=== PATIENT | male | born 1990 | race Caucasian/White ===

== ENCOUNTER 2016-05-12 07:51 | Inpatient (IN) | payer OTHER, MEDICARE, MEDICAID ==
--- NOTE | 2016-05-12 08:30 | ED ---
Psychiatric Complaint - HPI Summary HPI Summary: Patient has schizophrenia and last night he heard voices that encouraged him to not take his regular medications. He did not and instead took caffeine pills and didn't eat. He is here with his mother who says he took his medication this morning and ate a bagel at her urging. He is presenting now because his mother says "they waited too long" last time. He denies SI or HI, but says the voices are becoming more aggressive. - History Of Current Complaint Chief Complaint: [facility]ental[facility] Time Seen by Provider: 05/12/16 07:55 Hx Obtained From: Patient, Family/Dental Laboratory Technician Onset/Duration: Gradual Onset Timing: Constant Severity Initially: Moderate Severity Currently: Severe Character: Manic, Lethargic Aggravating Factor(s): Medication Non-compliance Alleviating Factor(s): Nothing Associated Signs And Symptoms: Positive: Hallucinating, Paranoid Behavior, Appetite Change Related History: Positive For: Prior Psychiatric Issues - Allergies/Home Medications Allergies/Adverse Reactions: Allergies Allergy/AdvReac Type Severity Reaction Status Date / Time Haloperidol [From Haldol] Allergy Severe See Comment Verified 05/12/16 11:33 Lurasidone [From Latuda] Allergy Intermediate See Comment Verified 05/12/16 11: 33 Chlorpromazine AdvReac syncope Verified 05/12/16 11:33 [From Thorazine] Home Medications: Home Medications Cariprazine HCl [Vraylar] 4.5 mg PO DAILY 05/12/16 [History Confirmed 05/12/16] CloZAPine TAB* 50 mg PO BEDTIME 05/12/16 [History Confirmed 05/12/16] Clozapine [Fazaclo] 400 mg PO BEDTIME 05/12/16 [History Confirmed 05/12/16] Ranitidine TAB (NF) [Zantac TAB (NF)] 150 mg PO BID 05/12/16 [History Confirmed 05/12/16] PMH/Surg Hx/FS Hx/Imm Hx Endocrine/Hematology History: Denies: Hx Diabetes Cardiovascular History: Reports: Other Cardiovascular Problems/Disorders - increased QTC interval Denies: Hx Hypertension, Hx Pacemaker/ICD Respiratory History: Denies: Hx Asthma GI History: Reports: Hx Gastroesophageal Reflux Disease History: Denies: Hx Renal Disease Musculoskeletal History: Reports: Other Musculoskeletal History - hip dysplasia Sensory History: Denies: Hx Hearing Aid Neurological History: Reports: Other Neuro Impairments/Disorders - Hx of 6 concussions Denies: Hx Headaches, Hx Seizures, Hx Spinal Cord Injury, Hx Transient Ischemic Attacks (TIA) Psychiatric History: Reports: Hx Anxiety, Hx Eating Disorder - hx of restricting r/t CAH, Hx Depression, Hx Inpatient Treatment, Hx Community Mental Health Tx, Hx Schizophrenia, Hx Substance Abuse - alcohol, Other Psychiatric Issues/Disorders - psychosis, auditory hallucinations Denies: Hx Attention Deficit Hyperactivity Disorder, Hx Panic Disorder, Hx Post Traumatic Stress Disorder, Hx Bipolar Disorder, Hx Suicide Attempt, Hx of Violent Episodes Against Others - Cancer History Hx Chemotherapy: No Hx Radiation Therapy: No Hx Palliative Cancer Treatment: No Infectious Disease History: No Infectious Disease History: Denies: Hx Clostridium Difficile, Hx Hepatitis, Hx Human Immunodeficiency Virus (HIV), Hx of Known/Suspected MRSA, Hx Shingles, Hx Tuberculosis, Hx Known/ Suspected VRE, Hx Known/Suspected VRSA, History Other Infectious Disease, Traveled Outside the [place] in Last 30 Days - Family History Known Family History: Positive: Other - Psychotic disorders, Schizophrenia, anxiety Negative: Cardiac Disease, Hypertension, Diabetes Family History: R & n/C - Social History Occupation: Unemployed Lives: With Family Alcohol Use: Rare Alcohol Amount: was short term when 16 Hx Substance Use: Yes Substance Use Type: Reports: None Substance Use Comment - Amount & Last Used: denies Hx Tobacco Use: No Smoking Status (MU): Never Smoked Tobacco Review of Systems Positive: Other - hallucinating All Other Systems Reviewed And Are Negative: Yes Physical Exam Triage Information Reviewed: Yes Vital Signs On Initial Exam: Initial Vitals Temp Pulse Resp BP Pulse Ox 99.1 F 109 18 143/71 98 05/12/16 07:57 05/12/16 07:57 05/12/16 07:57 05/12/16 07:57 05/12/16 07:57 Vital Signs Reviewed: Yes Appearance: Positive: Well-Appearing, No Pain Distress, Obese Skin: Positive: Warm, Skin Color Reflects Adequate Perfusion, Dry, Soft Head/Face: Positive: Normal Head/Face Inspection Eyes: Positive: EOMI, HILARY, Conjunctiva Clear ENT: Positive: Hearing grossly normal Respiratory/Lung Sounds: Positive: Clear to Auscultation, Breath Sounds Present Cardiovascular: Positive: RRR Abdomen Description: Positive: Nontender, Soft. Negative: CVA Tenderness (R), CVA Tenderness (L) Bowel Sounds: Positive: Present Musculoskeletal: Positive: Strength/ROM Intact. Negative: Edema Left, Edema Right Neurological: Positive: Sensory/Motor Intact, Alert, Oriented to Person Place, Time, NV Bundle Intact Distally Psychiatric: Positive: Affect/Mood Appropriate AVPU Assessment: Alert Diagnostics - Vital Signs Vital Signs Temp Pulse Resp BP Pulse Ox 05/12/16 07:57 99.1 F 109 18 143/71 98 - Laboratory Result Diagrams: 05/12/16 08:30 05/12/16 08:30 Lab Statement: Any lab studies that have been ordered have been reviewed, and results considered in the medical decision making process. Course/Dx - Differential Dx/Clinical Impression Differential Diagnosis/HQI/PQRI: Positive: Acute Psychosis, Anxiety, Bipolar Disorder, Depression, Schizophrenia Provider Diagnosis: Persistent mood [affective] disorder, unspecified - Physician Notifications Patient Is Medically Stable For: Psych Evaluation Discharge - Discharge Plan Condition: Stable Disposition: ADMITTED TO [facility]
[2016-05-12 08:42] LABS: Hematocrit 45 % (42-52); Hemoglobin 14.8 g/dl (14.0-18.0); Mean Corpuscular HGB Conc 33 g/dl (31-36); Mean Corpuscular Hemoglobin 27 pg (27-31); Mean Corpuscular Volume 81 fL (80-94); Mean Platelet Volume 8 um3 (7.4-10.4); Red Blood Count 5.48 10^6/ul (4.0-5.4); Red Cell Distribution Width 14 % (10.5-15); White Blood Count 10.7 10^3/ul (3.5-10.8)
[2016-05-12 08:44] LABS: Urine Bilirubin Negative (Negative); Urine Glucose Negative (Negative); Urine Nitrite Negative (Negative)
[2016-05-12 08:57] LABS: ALT 35 U/L (7-52); AST 26 U/L (13-39); Albumin 4.7 g/dL (3.2-5.2); Alkaline Phosphatase 55 U/L (34-104); Anion Gap 7 mmol/L (2-11); BUN/Creatinine Ratio 10.4 (8-20); Blood Urea Nitrogen 15 mg/dL (6-24); CO2 Carbon Dioxide 25 mmol/L (22-32); Calcium 9.6 mg/dL (8.6-10.3); Chloride 105 mmol/L (101-111); EGFR African American 76.9 (>60); EGFR Non-African American 59.8 (>60); Globulin 2.2 g/dL (2-4); Glucose 111 mg/dL (70-100); Potassium 3.5 mmol/L (3.5-5.0); Sodium 137 mmol/L (133-145); Total Protein 6.9 g/dL (6.4-8.9)
[2016-05-12 09:04] LABS: Benzodiazepine Urine Screen None Detected (None Detect)
[2016-05-12 09:28] LABS: Acetaminophen < 15 mcg/mL; Alcohol < 10 mg/dL (<10); Salicylate < 2.50 mg/dL (<30)
[2016-05-12 09:38] LABS: TSH (Thyroid Stimulating Horm) 5.62 mcIU/mL (0.34-5.60)
[2016-05-12] MEDS ORDERED: Acetaminophen TAB* 325 MG PO PRN (10:21)
[2016-05-12] MEDS ORDERED: Al Hydrox/Mg Hydrox/Simet LIQ* 30 ML UDC PO PRN (10:21)
[2016-05-12] MEDS: Famotidine TAB* 20 MG PO SCH (15:24)
[2016-05-12] MEDS: Sertraline* 100 MG TAB PO SCH (15:24)
[2016-05-12] MEDS: CloZAPine TAB* 100 MG TAB PO SCH (20:23)
[2016-05-13] MEDS: Sertraline* 100 MG TAB PO SCH (11:52)
[2016-05-13] MEDS: Famotidine TAB* 20 MG PO SCH (11:52)
[2016-05-13] MEDS: Vitamin THERAPEUTIC TAB PO SCH (11:52)
[2016-05-13] MEDS ORDERED: CARIPRAZINE 4.5 MG PO SCH ×2 (12:30→19:56)
--- NOTE | 2016-05-13 16:10 | HP ---
DATE OF ADMISSION: 05/12/2016. JUSTIFICATION FOR ADMISSION: The patient is in need of 24 hour supervision and care secondary to frightening command auditory hallucinations accompanied with delusions telling him not to take medications, not to eat and to take caffeine pills. CHIEF COMPLAINT: "The voices were getting really scary and I know when that happens that I have to come here." HISTORY OF PRESENT ILLNESS: The patient is a 25-year-old, single, white male with a history of schizophrenia who has had several past psychiatric admissions here at [facility], who returns having been brought in by his parents due to at least a day of command auditory hallucinations telling him to discontinue his medications, stop eating and take caffeine pills. The voices were so compelling that he actually followed them the night prior to admission and was unable to sleep. All together, he only missed apparently one dose of Clozapine. Both the patient and his mother reported that he had been consistently taking his medications up until that point. He denies suicidal or self-harm thoughts; however, he felt scared and felt that he needed a medication adjustment. His mother was very much in support of admission, stating "he usually has a good sense of when he needs to be admitted into the hospital." The patient was in behavioral control at all times of the interview. When I speak with him, he is denying any recent psychosocial stressors. I note that the [facility] program has been encouraging him to take part in the PROS program which is an intensive peer to peer social organization run through [facility]; however, he feels that his schedule is already overbooked with appointment and did not feel that he could accommodate this. PAST PSYCHIATRIC HISTORY: The patient has had numerous inpatient stays beginning in 2009, which is when he had the onset of psychosis. He has also had transfers to both [place] and to [place] for stabilization over longer periods. Currently, he is in outpatient treatment at [facility] with Dr. Dulce Javed, his therapist is Nuno Alicea, and his piano case maker is Carlos Worley. Past medication trials have included Risperdal, Latuda, Abilify, Haldol and Olanzapine, as well as Depo IM Invega. His diagnosis tends to be schizophrenia. He denies any formal history of suicide attempts. PAST MEDICAL HISTORY: Significant for gastroesophageal reflux disease. CURRENT MEDICATIONS: 1. Sertraline 100 mg p.o. daily. 2. Clozapine 450 mg p.o. daily. 3. Cariprazine 4.5 mg p.o. daily. ALLERGIES: He is ALLERGIC TO HALOPERIDOL, LURASIDONE, AND CHLORPROMAZINE. FAMILY PSYCHIATRIC HISTORY: Notable for anxiety is his mother and a second cousin with psychosis, a paternal aunt with schizophrenia, a maternal cousin with borderline personality disorder and suicide attempts. He also has a brother with severe anxiety disorder and another brother who has avoidant personality disorder. SUBSTANCE ABUSE HISTORY: He used to abuse alcohol and cannabis in high school. He is not a smoker. SOCIAL HISTORY: The patient is from the [facility], lives with his parents and he has three brothers. He did well in school and was an honor student, but was not able to continue in his studies because of his psychotic illness. He was active in sports growing up and has an interest in lifting weights currently. 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 REVIEW OF SYSTEMS: The patient denies headache or double vision. He denies sore throat, cough, chest pain, difficulty breathing. He denies abdominal pain , nausea, vomiting, diarrhea, or constipation. He denies difficulty ambulating , rashes, enlarged lymph nodes, changes in weight or fevers. PHYSICAL EXAMINATION VITAL SIGNS: Blood pressure 101/45, heart rate 65, temperature 97.7 degrees Fahrenheit, respiratory rate 16, oxygen saturations are 97 percent on room air. HEENT: Head is normocephalic, atraumatic. NECK: Supple. CHEST: Clear to auscultation bilaterally. CARDIAC: Exam reveals normal heart sounds. ABDOMEN: Soft and nontender. MUSCULOSKELETAL: Exam reveals full range of motion with no sign of edema in all four extremities. NEUROLOGIC: He is grossly intact with no focal deficits. LABORATORY DATA: CBC is within normal limits as is his complete metabolic panel with the exception of his creatinine which is 1.44 which is elevated. TSH is similarly elevated at 5.62. Urinalysis is within normal limits as is his urine drug screen. His alcohol level is negative. MENTAL STATUS EXAM: The patient is a young, white male, somewhat stocky and overweight. He is lying supine in his bed, but makes good eye contact with me. He is friendly and easy to establish a rapport with. Speech does show significant latency, but he is fluent in his use of Serbian and responds adequately to my questions. Mood appears to be euthymic with a flattened affect. Thought process reveals some thought slowing. Thought content is significant for his concern over his symptoms. He is denying suicidal or homicidal ideations. He is endorsing auditory hallucinations, denies visual hallucinations. Insight and judgment are fair given his willingness to come to the hospital when he needed help. Cognitively, he is awake and alert with what appears to be an average intellect. DIAGNOSES: AXIS I: Schizophrenia. AXIS II: Deferred. AXIS III: Gastroesophageal reflux disorder, history of hip dysplasia. AXIS IV: Moderate, primary support stressors. AXIS V: Currently 40. IMPRESSION: The patient is a 25-year-old, single, white male with a history of schizophrenia who arrives complaining of command auditory hallucinations which have somehow worsened recently despite his compliance with more than one antipsychotic medication. At this point, his symptoms seem to have spontaneously improved and I think that this problem needs to be further monitored on the inpatient setting. We have had contact with his mother for collateral information and the patient does not appear to be representing any behavioral problems on our unit. He is denying suicidal or homicidal ideations. PLAN: The patient is admitted to the Adult Behavioral Health Unit where he is placed on q.30 minute checks for his own safety. We will continue his medications including Zoloft 100 mg daily, Cariprazine 4.5 mg daily, and Clozaril 450 mg nightly. I will try to reach Dr. Dulce Javed who is his psychiatrist and get a sense of what she would like to do with his medications. While he is here, he is certainly encouraged to avail himself of all milieu activities and we will be making appropriate follow-up treatment appointments at [facility] at his time of discharge from our facility. [id number]/[facility] #: [id number] JOSIAS
[2016-05-13] MEDS: CloZAPine TAB* 100 MG TAB PO SCH (20:50)
[2016-05-14 08:22] VITALS: BP 101/37
[2016-05-14] MEDS: Famotidine TAB* 20 MG PO SCH (09:32)
[2016-05-14] MEDS: Sertraline* 100 MG TAB PO SCH (09:32)
[2016-05-14] MEDS: Vitamin THERAPEUTIC TAB PO SCH (09:32)
--- NOTE | 2016-05-15 07:24 | DS ---
DISCHARGE SUMMARY: DATE OF ADMISSION: 05/12/16 DATE OF DISCHARGE: 05/14/16 DISCHARGE DIAGNOSES: [place] I: Schizophrenia. [place] II: Deferred. [place] III: Gastroesophageal reflux disorder, history of hip dysplasia. [place] IV: Moderate primary support stressors. [place] V: At the time of admission was 40 and at the time of discharge is 60. CONDITION AT THE TIME OF DISCHARGE: Stable. The patient appears to be back to his baseline level of functioning. He is continuing to experience auditory hallucinations; however, these are muffled and he cannot make out the words. They are not troubling to him. My understanding is that he has lived with chronic auditory hallucinations since the onset of his illness several years ago. The patient is future oriented stating that he would like to return to his home and go back to the gym to work out. I spoken with both of his parents who indicated they feel that he is ready for discharge and that they are in agreement with the discharge plan. The patient is himself agreeable with followup at [facility] where he has his routine scheduled appointment next week with psychiatrist, Dr. Dulce Javed. The patient is compliant with his medications and he is tolerating them well. On our unit, he has been active in groups and socializing with peers. He does not appear to be anxious or troubled at this time and he is expressing his desire to go home. We have no current legal justification for keeping him any longer on an involuntary basis. MENTAL STATUS EXAMINATION: At the time of discharge, the patient is a young white male, somewhat stocky, over-weight. He is sitting up in the day room, working on an art project. He makes good eye contact with me as I approach, and he is friendly and easy to establish a rapport with. Speech continues to show some mild latency, but he is fluent in his use of Khmer and responds adequately to my questions. Mood appears to be euthymic with a somewhat flat affect. Thought process revealed some thought slowing. Thought content is significant for his desire to be discharge from the hospital. He is denying suicidal or homicidal ideations. He is endorsing mild auditory hallucinations, but he cannot make out what is being said. He denies visual hallucinations. Insight and judgment are fair given his willingness to followup on an outpatient basis. Cognitively, he is awake and alert with what appears to be an average intellect. DISCHARGE INSTRUCTIONS: To the patient are as follows: A. Medications: The patient is on sertraline 100 mg p.o. daily, clozapine 450 mg p.o. daily, cariprazine 4.5 mg p.o. daily. He is also on Zantac 150 mg p.o. daily. B. Diet: Regular. C. Activity: As tolerated. The patient is a nonsmoker. D. Followup care: The patient is to follow up on 05/18/16, with Dr. Dulce Javed at the [facility]. He also has a therapist there, named Nuno Alicea, and a case hardener, named Carlos Worley, whom he will be following up with within the next 2 weeks. HOSPITAL COURSE: As follows: PART A: Reason for admission: The patient is a 25-year-old single white male with history of schizophrenia, who has had several past psychiatric admissions here at [facility], who returns having been brought in by his parents due to at least a day of command auditory hallucinations telling him to discontinue his medications, stop eating, and take caffeine pills. The voices were so compelling that he actually followed them the night prior to admission and was unable to sleep. Altogether he only missed apparently one dose of clozapine. Both the patient and his mother reported that he had been consistently taking his medications up until that point. He denies suicidal or self harm thoughts. However, he felt scared and felt that he needed medication adjustment. His mother was very much in support of admission, stating "he usually has a good sense of when he needs to be admitted to the hospital". The patient was in behavioral control at all times during the interview. When I speak to him, he is denying any recent psychosocial stressors. I do note that the [facility] Program has been encouraging him to take part in the PROS program, which is an intensive [id number] social organization run through [facility]; however, he feels that his schedule is already overbooked with appointment and activities and he did not feel that he could accommodate this. PART B: Psychiatric treatment rendered: The patient was admitted to the Adult Behavioral Health Unit, where he was placed on q.30-minute checks of his own safety. He was placed back on his routine outpatient medications including sertraline, clozapine, and cariprazine, which he tolerated well. I had put in a call to Dr. Dulce Javed, but unfortunately, she was out of the office, and the following day, which was the date of discharge, the patient was stating that he spontaneous improved and was no longer experiencing troubling auditory hallucinations. I called his father, Ivan Mix, who indicated that his visits had gone well with the patient and the family indicated that he was back to his baseline. At this point, the patient continues to request discharge. He is doing well and looking forward to following up with outpatient providers next week. [id number]/[facility] #: [id number] JOSIAS
== END 2016-05-14 16:25 | disposition home or self-care (01) | DRG 885 ==
LOC: ED 07:51 → BSU 11:07
PROVIDERS: ADMIT Psychiatry & Neurology Psychiatry; ATTEND Psychiatry & Neurology Psychiatry
DX: F20.9 Schizophrenia, unspecified (principal); R44.0 Auditory hallucinations; K21.9 Gastro-esophageal reflux disease without esophagitis; Z88.8 Allergy status to other drugs, medicaments and biological substances; Z79.899 Other long term (current) drug therapy; Z81.8 Family history of other mental and behavioral disorders
CPT/HCPCS: 36415; 80053; 80307; 80320; 80329; 81003; 84443; 85025; 99222; 99238; A9270-GY; G0480

== ENCOUNTER 2016-06-10 21:41 | Emergency (ER) | payer OTHER, MEDICARE, MEDICAID ==
[2016-06-11 00:16] LABS: ALT 25 U/L (7-52); AST 23 U/L (13-39); Alkaline Phosphatase 56 U/L (34-104); Anion Gap 7 mmol/L (2-11); BUN/Creatinine Ratio 8.2 (8-20); Blood Urea Nitrogen 14 mg/dL (6-24); CO2 Carbon Dioxide 26 mmol/L (22-32); Calcium 9.7 mg/dL (8.6-10.3); Chloride 104 mmol/L (101-111); EGFR African American 63.5 (>60); EGFR Non-African American 49.4 (>60); Globulin 2.4 g/dL (2-4); Glucose 93 mg/dL (70-100); Potassium 4.1 mmol/L (3.5-5.0); Sodium 137 mmol/L (133-145); Total Protein 7.4 g/dL (6.4-8.9)
[2016-06-11 00:19] LABS: Hematocrit 45 % (42-52); Hemoglobin 15.2 g/dl (14.0-18.0); Mean Corpuscular HGB Conc 34 g/dl (31-36); Mean Corpuscular Hemoglobin 28 pg (27-31); Mean Corpuscular Volume 82 fL (80-94); Mean Platelet Volume 8 um3 (7.4-10.4); Red Blood Count 5.51 10^6/ul (4.0-5.4); Red Cell Distribution Width 14 % (10.5-15); White Blood Count 9.4 10^3/ul (3.5-10.8)
[2016-06-11 00:21] LABS: Benzodiazepine Urine Screen None Detected (None Detect)
[2016-06-11 00:24] LABS: Acetaminophen < 15 mcg/mL; Alcohol < 10 mg/dL (<10); Salicylate < 2.50 mg/dL (<30)
[2016-06-11 00:25] LABS: Urine Bilirubin Negative (Negative); Urine Glucose Negative (Negative); Urine Nitrite Negative (Negative)
[2016-06-11 00:34] LABS: TSH (Thyroid Stimulating Horm) 0.97 mcIU/mL (0.34-5.60)
--- NOTE | 2016-06-11 04:28 | ED ---
Psychiatric Complaint - HPI Summary HPI Summary: 25 male presents accompanied by mother with complaints of hearing voices in his head that have been getting worse over the past few days. Patient states the voices are telling him to have sex with his family members and with children. Patient has not acted on these thoughts. Denies hallucinations and recent drug/ alcohol use. Denies suicidal/homicidal thoughts at this time. Does have a psychiatric history with hearing voice however has never had voices tell him to do these things before. No other complaints otherwise. No significant other medical problems. - History Of Current Complaint Chief Complaint: [facility] Time Seen by Provider: 06/10/16 23:44 Hx Obtained From: Patient, Family/Pearl Maker - mother Onset/Duration: Gradual Onset, Lasting Weeks Timing: Constant Severity Initially: Mild Severity Currently: Moderate Character: Depressed Aggravating Factor(s): Nothing Alleviating Factor(s): Nothing Associated Signs And Symptoms: Positive: Paranoid Behavior Related History: Positive For: Prior Psychiatric Issues Has Suicidal: Denies: Thoughts Has Homicidal: Denies: Thoughts - Risk Factor(s) Completed Suicide Risk Factors: Male - Allergies/Home Medications Allergies/Adverse Reactions: Allergies Allergy/AdvReac Type Severity Reaction Status Date / Time Haloperidol [From Haldol] Allergy Severe See Comment Verified 05/12/16 11:33 Lurasidone [From Latuda] Allergy Intermediate See Comment Verified 05/12/16 11: 33 Chlorpromazine AdvReac syncope Verified 05/12/16 11:33 [From Thorazine] PMH/Surg Hx/FS Hx/Imm Hx Endocrine/Hematology History: Denies: Hx Diabetes Cardiovascular History: Reports: Other Cardiovascular Problems/Disorders - increased QTC interval Denies: Hx Hypertension, Hx Pacemaker/ICD Respiratory History: Denies: Hx Asthma GI History: Reports: Hx Gastroesophageal Reflux Disease History: Denies: Hx Renal Disease Musculoskeletal History: Reports: Other Musculoskeletal History - hip dysplasia Sensory History: Denies: Hx Hearing Aid Neurological History: Reports: Other Neuro Impairments/Disorders - Hx of 6 concussions Denies: Hx Headaches, Hx Seizures, Hx Spinal Cord Injury, Hx Transient Ischemic Attacks (TIA) Psychiatric History: Reports: Hx Anxiety, Hx Depression, Hx Inpatient Treatment , Hx Community Mental Health Tx, Hx Schizophrenia, Hx Substance Abuse - alcohol , Other Psychiatric Issues/Disorders - psychosis, auditory hallucinations Denies: Hx Attention Deficit Hyperactivity Disorder, Hx Eating Disorder, Hx Panic Disorder, Hx Post Traumatic Stress Disorder, Hx Bipolar Disorder, Hx Suicide Attempt, Hx of Violent Episodes Against Others - Cancer History Hx Chemotherapy: No Hx Radiation Therapy: No Hx Palliative Cancer Treatment: No Infectious Disease History: No Infectious Disease History: Denies: Hx Clostridium Difficile, Hx Hepatitis, Hx Human Immunodeficiency Virus (HIV), Hx of Known/Suspected MRSA, Hx Shingles, Hx Tuberculosis, Hx Known/ Suspected VRE, Hx Known/Suspected VRSA, History Other Infectious Disease, Traveled Outside the [place] in Last 30 Days - Family History Known Family History: Positive: Other - Psychotic disorders, Schizophrenia, anxiety Negative: Cardiac Disease, Hypertension, Diabetes Family History: R & n/C - Social History Alcohol Use: Rare Alcohol Amount: was short term when 16 Hx Substance Use: Yes Substance Use Comment - Amount & Last Used: denies Hx Tobacco Use: No Smoking Status (MU): Never Smoked Tobacco Review of Systems Constitutional: Negative Eyes: Negative ENT: Negative Cardiovascular: Negative Respiratory: Negative Gastrointestinal: Negative Genitourinary: Negative Musculoskeletal: Negative Skin: Negative Neurological: Negative Positive: Anxious, Depressed, Other All Other Systems Reviewed And Are Negative: Yes Physical Exam Triage Information Reviewed: Yes Vital Signs On Initial Exam: Initial Vitals Temp Pulse Resp BP Pulse Ox 98.9 F 85 16 147/73 100 06/10/16 22:56 06/10/16 22:56 06/10/16 22:56 06/10/16 22:56 06/10/16 22:56 Vital Signs Reviewed: Yes Appearance: Positive: Well-Appearing, No Pain Distress, Well-Nourished Skin: Positive: Warm, Skin Color Reflects Adequate Perfusion, Dry Head/Face: Positive: Normal Head/Face Inspection Eyes: Positive: Normal, EOMI, HILARY, Conjunctiva Clear ENT: Positive: Normal ENT inspection, Hearing grossly normal Neck: Positive: Supple, Nontender, No Lymphadenopathy Respiratory/Lung Sounds: Positive: Clear to Auscultation, Breath Sounds Present Cardiovascular: Positive: Normal, RRR, Pulses are Symmetrical in both Upper and Lower Extremities Abdomen Description: Positive: Nontender Bowel Sounds: Positive: Present Musculoskeletal: Positive: Normal, Strength/ROM Intact Neurological: Positive: Normal, Sensory/Motor Intact, Alert, Oriented to Person Place, Time, Normal Gait Psychiatric: Positive: Depressed - [place]igo Coma Scale Best Eye Response: 4 - Spontaneous Best Motor Response: 6 - Obeys Commands Best Verbal Response: 5 - Oriented Coma Scale Total: 15 Diagnostics - Vital Signs Vital Signs Temp Pulse Resp BP Pulse Ox 06/11/16 00:45 98.4 F 74 16 125/59 97 06/10/16 23:00 98.9 F 91 16 147/73 100 06/10/16 22:56 98.9 F 85 16 147/73 100 - Laboratory Lab Results: Lab Results 06/10/16 06/10/16 06/10/16 Range/Units 23:42 23:42 23:42 WBC 9.4 (3.5-10.8) 10^3/ul RBC 5.51 H (4.0-5.4) 10^6/ul Hgb 15.2 (14.0-18.0) g/dl Hct 45 (42-52) % MCV 82 (80-94) fL MCH 28 (27-31) pg MCHC 34 (31-36) g/dl RDW 14 (10.5-15) % Plt Count 277 (150-450) 10^3/ul MPV 8 (7.4-10.4) um3 Neut % (Auto) 61.7 (38-83) % Lymph % (Auto) 30.7 (25-47) % [place] % (Auto) 7.3 (1-9) % Eos % (Auto) 0 (0-6) % Baso % (Auto) 0.3 (0-2) % Absolute Neuts (auto) 5.8 (1.5-7.7) 10^3/ul Absolute Lymphs (auto) 2.9 (1.0-4.8) 10^3/ul Absolute Monos (auto) 0.7 (0-0.8) 10^3/ul Absolute Eos (auto) 0 (0-0.6) 10^3/ul Absolute Basos (auto) 0 (0-0.2) 10^3/ul Absolute Nucleated RBC 0 10^3/ul Nucleated RBC % 0 Sodium 137 (133-145) mmol/L Potassium 4.1 (3.5-5.0) mmol/L Chloride 104 (101-111) mmol/L Carbon Dioxide 26 (22-32) mmol/L Anion Gap 7 (2-11) mmol/L BUN 14 (6-24) mg/dL Creatinine 1.70 H (0.67-1.17) mg/dL Est GFR ( Amer) 63.5 (>60) Est GFR (Non-Af Amer) 49.4 (>60) BUN/Creatinine Ratio 8.2 (8-20) Glucose 93 (70-100) mg/dL Calcium 9.7 (8.6-10.3) mg/dL Total Bilirubin 0.50 (0.2-1.0) mg/dL AST 23 (13-39) U/L ALT 25 (7-52) U/L Alkaline Phosphatase 56 (34-104) U/L Total Protein 7.4 (6.4-8.9) g/dL Albumin 5.0 (3.2-5.2) g/dL Globulin 2.4 (2-4) g/dL Albumin/Globulin Ratio 2.1 (1-3) TSH 0.97 (0.34-5.60) mcIU/mL Urine Color Yellow Urine Appearance Clear Urine pH 7.0 (5-9) Ur Specific [place] 1.009 L (1.010-1.030) Urine Protein Negative (Negative) Urine Ketones Trace H (Negative) Urine Blood Negative (Negative) Urine Nitrate Negative (Negative) Urine Bilirubin Negative (Negative) Urine Urobilinogen Negative (Negative) Ur Leukocyte Esterase Negative (Negative) Urine Glucose Negative (Negative) Urine Ascorbic Acid * H (Negative) Salicylates < 2.50 (<30) mg/dL Urine Opiates Screen (None Detect) Acetaminophen < 15 mcg/mL Ur Barbiturates Screen (None Detect) Ur Phencyclidine Scrn (None Detect) Ur Amphetamines Screen (None Detect) U Benzodiazepines Scrn (None Detect) Urine Cocaine Screen (None Detect) U Cannabinoids Screen (None Detect) Serum Alcohol < 10 (<10) mg/dL // Range/Units 23:42 WBC (3.5-10.8) 10^3/ul RBC (4.0-5.4) 10^6/ul Hgb (14.0-18.0) g/dl Hct (42-52) % MCV (80-94) fL MCH (27-31) pg MCHC (31-36) g/dl RDW (10.5-15) % Plt Count (150-450) 10^3/ul MPV (7.4-10.4) um3 Neut % (Auto) (38-83) % Lymph % (Auto) (25-47) % [place] % (Auto) (1-9) % Eos % (Auto) (0-6) % Baso % (Auto) (0-2) % Absolute Neuts (auto) (1.5-7.7) 10^3/ul Absolute Lymphs (auto) (1.0-4.8) 10^3/ul Absolute Monos (auto) (0-0.8) 10^3/ul Absolute Eos (auto) (0-0.6) 10^3/ul Absolute Basos (auto) (0-0.2) 10^3/ul Absolute Nucleated RBC 10^3/ul Nucleated RBC % Sodium (133-145) mmol/L Potassium (3.5-5.0) mmol/L Chloride (101-111) mmol/L Carbon Dioxide (22-32) mmol/L Anion Gap (2-11) mmol/L BUN (6-24) mg/dL Creatinine (0.67-1.17) mg/dL Est GFR ( Amer) (>60) Est GFR (Non-Af Amer) (>60) BUN/Creatinine Ratio (8-20) Glucose (70-100) mg/dL Calcium (8.6-10.3) mg/dL Total Bilirubin (0.2-1.0) mg/dL AST (13-39) U/L ALT (7-52) U/L Alkaline Phosphatase (34-104) U/L Total Protein (6.4-8.9) g/dL Albumin (3.2-5.2) g/dL Globulin (2-4) g/dL Albumin/Globulin Ratio (1-3) TSH (0.34-5.60) mcIU/mL Urine Color Urine Appearance Urine pH (5-9) Ur Specific [place] (1.010-1.030) Urine Protein (Negative) Urine Ketones (Negative) Urine Blood (Negative) Urine Nitrate (Negative) Urine Bilirubin (Negative) Urine Urobilinogen (Negative) Ur Leukocyte Esterase (Negative) Urine Glucose (Negative) Urine Ascorbic Acid (Negative) Salicylates (<30) mg/dL Urine Opiates Screen None detected (None Detect) Acetaminophen mcg/mL Ur Barbiturates Screen None detected (None Detect) Ur Phencyclidine Scrn None detected (None Detect) Ur Amphetamines Screen Presumptive positive H (None Detect) U Benzodiazepines Scrn None detected (None Detect) Urine Cocaine Screen None detected (None Detect) U Cannabinoids Screen None detected (None Detect) Serum Alcohol (<10) mg/dL Result Diagrams: 06/10/16 23:42 06/10/16 23:42 Lab Statement: Any lab studies that have been ordered have been reviewed, and results considered in the medical decision making process. Course/Dx - Course Course Of Treatment: patient was medically cleared and will have a MHE. Urine was positive for amphetamines. signed out to Dr Villagran for MHE at 2:20am. - Differential Dx/Clinical Impression Differential Diagnosis/HQI/PQRI: Positive: Acute Psychosis, Other Provider Diagnosis: Hearing voices, Acute psychosis, Auditory disturbance - Physician Notifications Discussed Care Of Patient With: Dr Villagran Time Discussed With Above Provider: 02:20 Patient Is Medically Stable For: Psych Evaluation Discharge - Discharge Plan Condition: Stable Disposition: OTHER Discharge Disposition Comment: signed out to Dr Villagran at 2:20am to await MHE and dispo
--- NOTE | 2016-06-11 06:30 | ED ---
Progress - Progress Note Progress Note: pt awaiting transfer - Consult/PCP Time Called: 12:30 Course/Dx - Course Course Of Treatment: patient was medically cleared and will have a MHE. Urine was positive for amphetamines. signed out to Dr Villagran for MHE at 2:20am. - Diagnoses Provider Diagnoses: Hearing voices, Acute psychosis, Auditory disturbance - Provider Notifications Discussed Care Of Patient With: Dr Villagran Time Discussed With Above Provider: 02:20
[2016-06-11 15:15] VITALS: BP 135/64
--- NOTE | 2016-06-11 15:20 | CONSULT ---
Consult Consult: Mr. Mix came in with an exacerbation of his psychosis on an earlier shift. He was medically cleared and underwent a MHE. They felt that he was safe to go home and he was D/C'd in stable condition with his folks. Diagnosis of pyschosis.
== END 2016-06-11 15:34 | disposition home or self-care (01) ==
LOC: ED 21:41
DX: F23 Brief psychotic disorder (principal); H93.3X9 Disorders of unspecified acoustic nerve; F41.9 Anxiety disorder, unspecified; F32.9 Major depressive disorder, single episode, unspecified
CPT/HCPCS: 36415; 80053; 80307; 80320; 80329; 81003; 84443; 85025; 93005; 99283; G0480

== ENCOUNTER 2016-06-16 14:13 | Inpatient (IN) | payer OTHER, MEDICARE, MEDICAID ==
[2016-06-16 14:48] LABS: Urine Bilirubin Negative (Negative); Urine Glucose Negative (Negative); Urine Nitrite Negative (Negative)
[2016-06-16 15:07] LABS: Benzodiazepine Urine Screen None Detected (None Detect)
[2016-06-16 15:13] LABS: Hematocrit 45 % (42-52); Mean Corpuscular HGB Conc 33 g/dl (31-36); Mean Corpuscular Hemoglobin 27 pg (27-31); Mean Corpuscular Volume 83 fL (80-94); Mean Platelet Volume 9 um3 (7.4-10.4); Red Blood Count 5.49 10^6/ul (4.0-5.4); Red Cell Distribution Width 14 % (10.5-15); White Blood Count 7.6 10^3/ul (3.5-10.8)
[2016-06-16 15:34] LABS: ALT 22 U/L (7-52); AST 18 U/L (13-39); Albumin 4.7 g/dL (3.2-5.2); Alkaline Phosphatase 56 U/L (34-104); Anion Gap 7 mmol/L (2-11); BUN/Creatinine Ratio 9.6 (8-20); Blood Urea Nitrogen 13 mg/dL (6-24); CO2 Carbon Dioxide 25 mmol/L (22-32); Calcium 9.3 mg/dL (8.6-10.3); Chloride 104 mmol/L (101-111); EGFR African American 82.1 (>60); EGFR Non-African American 63.8 (>60); Globulin 2.3 g/dL (2-4); Glucose 123 mg/dL (70-100); Potassium 3.8 mmol/L (3.5-5.0); Sodium 136 mmol/L (133-145)
[2016-06-16 15:49] LABS: Acetaminophen < 15 mcg/mL; Alcohol < 10 mg/dL (<10); Salicylate < 2.50 mg/dL (<30)
[2016-06-16 15:59] LABS: TSH (Thyroid Stimulating Horm) 1.45 mcIU/mL (0.34-5.60)
--- NOTE | 2016-06-16 18:24 | ED ---
Psychiatric Complaint - HPI Summary HPI Summary: Patient has a history of schizophrenia. He presents stating that he is hearing voices that are telling him to have sex with his family members and children. He denies doing so. He presents with father who is supportive. Patient denies SI /HI. Patient reports being compliant with his medication. - History Of Current Complaint Hx Obtained From: Patient, Family/Barrel Driller Onset/Duration: Gradual Onset Timing: Constant Severity Initially: Severe Severity Currently: Severe Character: Fearful Aggravating Factor(s): Nothing Alleviating Factor(s): Nothing Associated Signs And Symptoms: Positive: Hallucinating Related History: Positive For: Prior Psychiatric Issues <Hung Padilla - Last Filed: 06/16/16 18:18> <Fredy Castrejon - Last Filed: 06/19/16 14:58> - History Of Current Complaint Chief Complaint: EDMentalHealth Time Seen by Provider: 06/16/16 14:24 - Allergies/Home Medications Allergies/Adverse Reactions: Allergies Allergy/AdvReac Type Severity Reaction Status Date / Time Haloperidol [From Haldol] Allergy Severe See Comment Verified 06/16/16 20:41 Lurasidone [From Latuda] Allergy Intermediate See Comment Verified 06/16/16 20: 41 Chlorpromazine AdvReac syncope Verified 06/16/16 20:41 [From Thorazine] Home Medications: Home Medications Cariprazine HCl [Vraylar] 4.5 mg PO DAILY 06/16/16 [History Confirmed 06/16/16] PMH/Surg Hx/FS Hx/Imm Hx Endocrine/Hematology History: Denies: Hx Diabetes Cardiovascular History: Reports: Other Cardiovascular Problems/Disorders - increased QTC interval Denies: Hx Hypertension, Hx Pacemaker/ICD Respiratory History: Denies: Hx Asthma GI History: Reports: Hx Gastroesophageal Reflux Disease History: Denies: Hx Renal Disease Musculoskeletal History: Reports: Other Musculoskeletal History - hip dysplasia Sensory History: Denies: Hx Hearing Aid Neurological History: Reports: Other Neuro Impairments/Disorders - Hx of 6 concussions Denies: Hx Headaches, Hx Seizures, Hx Spinal Cord Injury, Hx Transient Ischemic Attacks (TIA) Psychiatric History: Reports: Hx Anxiety, Hx Depression, Hx Inpatient Treatment , Hx Community Mental Health Tx, Hx Schizophrenia, Hx Substance Abuse - alcohol , Other Psychiatric Issues/Disorders - psychosis, auditory hallucinations Denies: Hx Attention Deficit Hyperactivity Disorder, Hx Eating Disorder, Hx Panic Disorder, Hx Post Traumatic Stress Disorder, Hx Bipolar Disorder, Hx Suicide Attempt, Hx of Violent Episodes Against Others - Cancer History Hx Chemotherapy: No Hx Radiation Therapy: No Hx Palliative Cancer Treatment: No Infectious Disease History: No Infectious Disease History: Denies: Hx Clostridium Difficile, Hx Hepatitis, Hx Human Immunodeficiency Virus (HIV), Hx of Known/Suspected MRSA, Hx Shingles, Hx Tuberculosis, Hx Known/ Suspected VRE, Hx Known/Suspected VRSA, History Other Infectious Disease, Traveled Outside the [place] in Last 30 Days - Family History Known Family History: Positive: Other - Psychotic disorders, Schizophrenia, anxiety Negative: Cardiac Disease, Hypertension, Diabetes Family History: R & n/C - Social History Occupation: Unemployed Lives: With Family Alcohol Use: Rare Alcohol Amount: was short term when 16 Hx Substance Use: Yes Substance Use Type: Reports: None Substance Use Comment - Amount & Last Used: denies Hx Tobacco Use: No Smoking Status (MU): Never Smoked Tobacco <Hung Padilla - Last Filed: 06/16/16 18:18> Review of Systems Positive: Other - hallucinating All Other Systems Reviewed And Are Negative: Yes <Hung Padilla - Last Filed: 06/16/16 18:18> Physical Exam Triage Information Reviewed: Yes Vital Signs On Initial Exam: Initial Vitals Temp Pulse Resp BP Pulse Ox 97.9 F 92 16 143/73 99 06/16/16 14:17 06/16/16 14:17 06/16/16 14:17 06/16/16 14:17 06/16/16 14:17 Vital Signs Reviewed: Yes Appearance: Positive: Well-Appearing, No Pain Distress, Well-Nourished Skin: Positive: Warm, Skin Color Reflects Adequate Perfusion, Dry, Soft Head/Face: Positive: Normal Head/Face Inspection Eyes: Positive: EOMI, HILARY, Conjunctiva Clear ENT: Positive: Hearing grossly normal Neck: Positive: Supple, Nontender, No Lymphadenopathy Respiratory/Lung Sounds: Positive: Clear to Auscultation, Breath Sounds Present Cardiovascular: Positive: RRR Abdomen Description: Positive: Nontender, Soft Bowel Sounds: Positive: Present Musculoskeletal: Negative: Edema Left, Edema Right Neurological: Positive: Sensory/Motor Intact, Alert, Oriented to Person Place, Time, NV Bundle Intact Distally, Normal Gait Psychiatric: Positive: Other - flat affect with poor eye contact AVPU Assessment: Alert <FaustoKendellHung Lares - Last Filed: 06/16/16 18:18> Vital Signs On Initial Exam: Initial Vitals Temp Pulse Resp BP Pulse Ox 36.6 C 92 16 143/73 99 06/16/16 14:17 06/16/16 14:17 06/16/16 14:17 06/16/16 14:17 06/16/16 14:17 <Fredy Castrejon - Last Filed: 06/19/16 14:58> Diagnostics - Vital Signs Vital Signs Temp Pulse Resp BP Pulse Ox 06/16/16 17:50 99.2 F 90 16 129/67 97 06/16/16 15:58 99.0 F 72 16 133/60 97 06/16/16 14:17 97.9 F 92 16 143/73 99 - Laboratory Lab Results: Lab Results 06/16/16 06/16/16 06/16/16 Range/Units 14:35 14:35 15:00 WBC 7.6 (3.5-10.8) 10^3/ul RBC 5.49 H (4.0-5.4) 10^6/ul Hgb 15.0 (14.0-18.0) g/dl Hct 45 (42-52) % MCV 83 (80-94) fL MCH 27 (27-31) pg MCHC 33 (31-36) g/dl RDW 14 (10.5-15) % Plt Count 238 (150-450) 10^3/ul MPV 9 (7.4-10.4) um3 Neut % (Auto) 64.8 (38-83) % Lymph % (Auto) 27.9 (25-47) % Tate % (Auto) 6.6 (1-9) % Eos % (Auto) 0 (0-6) % Baso % (Auto) 0.7 (0-2) % Absolute Neuts (auto) 4.9 (1.5-7.7) 10^3/ul Absolute Lymphs (auto) 2.1 (1.0-4.8) 10^3/ul Absolute Monos (auto) 0.5 (0-0.8) 10^3/ul Absolute Eos (auto) 0 (0-0.6) 10^3/ul Absolute Basos (auto) 0.1 (0-0.2) 10^3/ul Absolute Nucleated RBC 0 10^3/ul Nucleated RBC % 0 Sodium (133-145) mmol/L Potassium (3.5-5.0) mmol/L Chloride (101-111) mmol/L Carbon Dioxide (22-32) mmol/L Anion Gap (2-11) mmol/L BUN (6-24) mg/dL Creatinine (0.67-1.17) mg/dL Est GFR ( Amer) (>60) Est GFR (Non-Af Amer) (>60) BUN/Creatinine Ratio (8-20) Glucose (70-100) mg/dL Calcium (8.6-10.3) mg/dL Total Bilirubin (0.2-1.0) mg/dL AST (13-39) U/L ALT (7-52) U/L Alkaline Phosphatase (34-104) U/L Total Protein (6.4-8.9) g/dL Albumin (3.2-5.2) g/dL Globulin (2-4) g/dL Albumin/Globulin Ratio (1-3) TSH (0.34-5.60) mcIU/mL Urine Color Yellow Urine Appearance Clear Urine pH 7.0 (5-9) Ur Specific [place] 1.011 (1.010-1.030) Urine Protein Negative (Negative) Urine Ketones Negative (Negative) Urine Blood Negative (Negative) Urine Nitrate Negative (Negative) Urine Bilirubin Negative (Negative) Urine Urobilinogen Negative (Negative) Ur Leukocyte Esterase Negative (Negative) Urine Glucose Negative (Negative) Urine Ascorbic Acid * H (Negative) Salicylates (<30) mg/dL Urine Opiates Screen None detected (None Detect) Acetaminophen mcg/mL Ur Barbiturates Screen None detected (None Detect) Ur Phencyclidine Scrn None detected (None Detect) Ur Amphetamines Screen None detected (None Detect) U Benzodiazepines Scrn None detected (None Detect) Urine Cocaine Screen None detected (None Detect) U Cannabinoids Screen None detected (None Detect) Serum Alcohol (<10) mg/dL 06/16/16 Range/Units 15:00 WBC (3.5-10.8) 10^3/ul RBC (4.0-5.4) 10^6/ul Hgb (14.0-18.0) g/dl Hct (42-52) % MCV (80-94) fL MCH (27-31) pg MCHC (31-36) g/dl RDW (10.5-15) % Plt Count (150-450) 10^3/ul MPV (7.4-10.4) um3 Neut % (Auto) (38-83) % Lymph % (Auto) (25-47) % Tate % (Auto) (1-9) % Eos % (Auto) (0-6) % Baso % (Auto) (0-2) % Absolute Neuts (auto) (1.5-7.7) 10^3/ul Absolute Lymphs (auto) (1.0-4.8) 10^3/ul Absolute Monos (auto) (0-0.8) 10^3/ul Absolute Eos (auto) (0-0.6) 10^3/ul Absolute Basos (auto) (0-0.2) 10^3/ul Absolute Nucleated RBC 10^3/ul Nucleated RBC % Sodium 136 (133-145) mmol/L Potassium 3.8 (3.5-5.0) mmol/L Chloride 104 (101-111) mmol/L Carbon Dioxide 25 (22-32) mmol/L Anion Gap 7 (2-11) mmol/L BUN 13 (6-24) mg/dL Creatinine 1.36 H (0.67-1.17) mg/dL Est GFR ( Amer) 82.1 (>60) Est GFR (Non-Af Amer) 63.8 (>60) BUN/Creatinine Ratio 9.6 (8-20) Glucose 123 H (70-100) mg/dL Calcium 9.3 (8.6-10.3) mg/dL Total Bilirubin 0.30 (0.2-1.0) mg/dL AST 18 (13-39) U/L ALT 22 (7-52) U/L Alkaline Phosphatase 56 (34-104) U/L Total Protein 7.0 (6.4-8.9) g/dL Albumin 4.7 (3.2-5.2) g/dL Globulin 2.3 (2-4) g/dL Albumin/Globulin Ratio 2.0 (1-3) TSH 1.45 (0.34-5.60) mcIU/mL Urine Color Urine Appearance Urine pH (5-9) Ur Specific [place] (1.010-1.030) Urine Protein (Negative) Urine Ketones (Negative) Urine Blood (Negative) Urine Nitrate (Negative) Urine Bilirubin (Negative) Urine Urobilinogen (Negative) Ur Leukocyte Esterase (Negative) Urine Glucose (Negative) Urine Ascorbic Acid (Negative) Salicylates < 2.50 (<30) mg/dL Urine Opiates Screen (None Detect) Acetaminophen < 15 mcg/mL Ur Barbiturates Screen (None Detect) Ur Phencyclidine Scrn (None Detect) Ur Amphetamines Screen (None Detect) U Benzodiazepines Scrn (None Detect) Urine Cocaine Screen (None Detect) U Cannabinoids Screen (None Detect) Serum Alcohol < 10 (<10) mg/dL Result Diagrams: 06/16/16 15:00 06/16/16 15:00 Lab Statement: Any lab studies that have been ordered have been reviewed, and results considered in the medical decision making process. <Hung Padilla - Last Filed: 06/16/16 18:18> - Vital Signs Vital Signs Temp Pulse Resp BP Pulse Ox 06/16/16 17:50 37.3 C 90 16 129/67 97 06/16/16 15:58 37.2 C 72 16 133/60 97 06/16/16 14:17 36.6 C 92 16 143/73 99 - Laboratory Lab Results: Lab Results 06/16/16 06/16/16 06/16/16 Range/Units 14:35 14:35 15:00 WBC 7.6 (3.5-10.8) 10^3/ul RBC 5.49 H (4.0-5.4) 10^6/ul Hgb 15.0 (14.0-18.0) g/dl Hct 45 (42-52) % MCV 83 (80-94) fL MCH 27 (27-31) pg MCHC 33 (31-36) g/dl RDW 14 (10.5-15) % Plt Count 238 (150-450) 10^3/ul MPV 9 (7.4-10.4) um3 Neut % (Auto) 64.8 (38-83) % Lymph % (Auto) 27.9 (25-47) % Tate % (Auto) 6.6 (1-9) % Eos % (Auto) 0 (0-6) % Baso % (Auto) 0.7 (0-2) % Absolute Neuts (auto) 4.9 (1.5-7.7) 10^3/ul Absolute Lymphs (auto) 2.1 (1.0-4.8) 10^3/ul Absolute Monos (auto) 0.5 (0-0.8) 10^3/ul Absolute Eos (auto) 0 (0-0.6) 10^3/ul Absolute Basos (auto) 0.1 (0-0.2) 10^3/ul Absolute Nucleated RBC 0 10^3/ul Nucleated RBC % 0 Sodium (133-145) mmol/L Potassium (3.5-5.0) mmol/L Chloride (101-111) mmol/L Carbon Dioxide (22-32) mmol/L Anion Gap (2-11) mmol/L BUN (6-24) mg/dL Creatinine (0.67-1.17) mg/dL Est GFR ( Amer) (>60) Est GFR (Non-Af Amer) (>60) BUN/Creatinine Ratio (8-20) Glucose (70-100) mg/dL Calcium (8.6-10.3) mg/dL Total Bilirubin (0.2-1.0) mg/dL AST (13-39) U/L ALT (7-52) U/L Alkaline Phosphatase (34-104) U/L Total Protein (6.4-8.9) g/dL Albumin (3.2-5.2) g/dL Globulin (2-4) g/dL Albumin/Globulin Ratio (1-3) TSH (0.34-5.60) mcIU/mL Urine Color Yellow Urine Appearance Clear Urine pH 7.0 (5-9) Ur Specific [place] 1.011 (1.010-1.030) Urine Protein Negative (Negative) Urine Ketones Negative (Negative) Urine Blood Negative (Negative) Urine Nitrate Negative (Negative) Urine Bilirubin Negative (Negative) Urine Urobilinogen Negative (Negative) Ur Leukocyte Esterase Negative (Negative) Urine Glucose Negative (Negative) Urine Ascorbic Acid * H (Negative) Salicylates (<30) mg/dL Urine Opiates Screen None detected (None Detect) Acetaminophen mcg/mL Ur Barbiturates Screen None detected (None Detect) Ur Phencyclidine Scrn None detected (None Detect) Ur Amphetamines Screen None detected (None Detect) U Benzodiazepines Scrn None detected (None Detect) Urine Cocaine Screen None detected (None Detect) U Cannabinoids Screen None detected (None Detect) Serum Alcohol (<10) mg/dL 06/16/16 Range/Units 15:00 WBC (3.5-10.8) 10^3/ul RBC (4.0-5.4) 10^6/ul Hgb (14.0-18.0) g/dl Hct (42-52) % MCV (80-94) fL MCH (27-31) pg MCHC (31-36) g/dl RDW (10.5-15) % Plt Count (150-450) 10^3/ul MPV (7.4-10.4) um3 Neut % (Auto) (38-83) % Lymph % (Auto) (25-47) % Tate % (Auto) (1-9) % Eos % (Auto) (0-6) % Baso % (Auto) (0-2) % Absolute Neuts (auto) (1.5-7.7) 10^3/ul Absolute Lymphs (auto) (1.0-4.8) 10^3/ul Absolute Monos (auto) (0-0.8) 10^3/ul Absolute Eos (auto) (0-0.6) 10^3/ul Absolute Basos (auto) (0-0.2) 10^3/ul Absolute Nucleated RBC 10^3/ul Nucleated RBC % Sodium 136 (133-145) mmol/L Potassium 3.8 (3.5-5.0) mmol/L Chloride 104 (101-111) mmol/L Carbon Dioxide 25 (22-32) mmol/L Anion Gap 7 (2-11) mmol/L BUN 13 (6-24) mg/dL Creatinine 1.36 H (0.67-1.17) mg/dL Est GFR ( Amer) 82.1 (>60) Est GFR (Non-Af Amer) 63.8 (>60) BUN/Creatinine Ratio 9.6 (8-20) Glucose 123 H (70-100) mg/dL Calcium 9.3 (8.6-10.3) mg/dL Total Bilirubin 0.30 (0.2-1.0) mg/dL AST 18 (13-39) U/L ALT 22 (7-52) U/L Alkaline Phosphatase 56 (34-104) U/L Total Protein 7.0 (6.4-8.9) g/dL Albumin 4.7 (3.2-5.2) g/dL Globulin 2.3 (2-4) g/dL Albumin/Globulin Ratio 2.0 (1-3) TSH 1.45 (0.34-5.60) mcIU/mL Urine Color Urine Appearance Urine pH (5-9) Ur Specific [place] (1.010-1.030) Urine Protein (Negative) Urine Ketones (Negative) Urine Blood (Negative) Urine Nitrate (Negative) Urine Bilirubin (Negative) Urine Urobilinogen (Negative) Ur Leukocyte Esterase (Negative) Urine Glucose (Negative) Urine Ascorbic Acid (Negative) Salicylates < 2.50 (<30) mg/dL Urine Opiates Screen (None Detect) Acetaminophen < 15 mcg/mL Ur Barbiturates Screen (None Detect) Ur Phencyclidine Scrn (None Detect) Ur Amphetamines Screen (None Detect) U Benzodiazepines Scrn (None Detect) Urine Cocaine Screen (None Detect) U Cannabinoids Screen (None Detect) Serum Alcohol < 10 (<10) mg/dL Result Diagrams: 06/16/16 15:00 06/16/16 15:00 Lab Statement: Any lab studies that have been ordered have been reviewed, and results considered in the medical decision making process. <Fredy Castrejon - Last Filed: 06/19/16 14:58> Course/Dx - Differential Dx/Clinical Impression Differential Diagnosis/HQI/PQRI: Positive: Acute Psychosis, Anxiety, Bipolar Disorder, Depression, Schizophrenia, Suicidal Ideation - Physician Notifications Patient Is Medically Stable For: Psych Evaluation <Hung Padilla - Last Filed: 06/16/16 18:18> <Fredy Castrejon - Last Filed: 06/19/16 14:58> - Differential Dx/Clinical Impression Provider Diagnosis: Persistent mood [affective] disorder, unspecified Discharge <Hung Padilla - Last Filed: 06/16/16 18:18> <Fredy Castrejon - Last Filed: 06/19/16 14:58> - Discharge Plan Condition: Stable Disposition: ADMITTED TO [facility]
[2016-06-16] MEDS ORDERED: Al Hydrox/Mg Hydrox/Simet LIQ* 30 ML UDC PO PRN (18:39)
[2016-06-16] MEDS ORDERED: Acetaminophen TAB* 325 MG PO PRN (18:39)
[2016-06-16] MEDS: CloZAPine TAB* 100 MG TAB PO SCH (20:51)
[2016-06-16] MEDS: Famotidine TAB* 20 MG PO SCH (20:51)
[2016-06-16] MEDS: CloZAPine TAB* 25 MG TAB PO SCH (20:51)
[2016-06-17] MEDS: VRAYLAR 4.5 MG PO SCH (08:29)
[2016-06-17] MEDS: Famotidine TAB* 20 MG PO SCH ×2 (08:30→20:13)
[2016-06-17] MEDS: Sertraline* 100 MG TAB PO SCH (08:31)
[2016-06-17] MEDS: Vitamin THERAPEUTIC TAB PO SCH (08:31)
--- NOTE | 2016-06-17 19:26 | HP ---
PSYCHIATRIC HISTORY AND PHYSICAL: DATE OF ADMISSION: 06/16/16 JUSTIFICATION FOR ADMISSION: The patient is having command auditory hallucinations, which he has acted on in the past, which necessitate treatment at a higher level of care including 24-hour supervision and treatment. CHIEF COMPLAINT: "My voices are getting hard to deal with." HISTORY OF PRESENT ILLNESS: The patient is a 25-year-old single white male with a history of schizophrenia, who has [place] several [place] [facility] [place] having been brought by his parents due to several days of command auditory hallucinations, which are telling him to have sex with family members and children. My understanding is that to some extent, he deals with chronic auditory hallucinations, which tend to modulate in their intensity. On , 06/10/16, he was working out in the local gym when he first experienced an auditory hallucination, which was telling him to have sex with children. He was very disturbed by this and had to leave the gym and go home. His parents brought him to the emergency room; however, they noted that our unit was full and they determined to bring him back later. He states that these hallucinations have continued and he is quite upset by them. We did note that on presentation, he had significantly long speech latency, was whispering responses when asked questions and he was appearing to look at his father during the initial evaluation to see whether his parent could answer questions for him. When I interviewed him personally, he continued to evidence responses to internal stimuli and he is somewhat withdrawn to his room and it takes him a while to respond when queried by this clinician. I asked about stressors and we do know that his brother who lives at home with him had a recent hospitalization for psychotic illness here on our unit. The patient does admit that this was stressful towards him and that he was somewhat afraid of this sibling. Other than this, he cannot identify any current psychosocial stressors that might be worsening his symptoms. He denies suicidal or homicidal ideations and states that he feels safe on the unit. PAST PSYCHIATRIC HISTORY: The patient had numerous inpatient stays beginning in 2009, which is when he had the onset of psychosis. He has also been transferred in the past to both [facility] and to [facility] in [place] for longer term stabilization. Currently, he is in outpatient treatment at [facility] with Dr. Dulce Javed. His therapist is Nuno Alicea and his director case management is Carlos Worley. Past medication trials have included Risperdal, Latuda, Abilify, Haldol, and olanzapine as well as long acting Invega Sustenna. His diagnosis tends to be schizophrenia. He denies any formal history of suicide attempts. PAST MEDICAL HISTORY: Significant for gastroesophageal reflux disease and history of hip dysplasia. CURRENT MEDICATIONS: Include: 1. Sertraline 100 mg p.o. daily. 2. Clozapine 450 mg p.o. daily. 3. Cariprazine 4.5 mg p.o. daily. ALLERGIES: He is allergic to HALOPERIDOL, LURASIDONE and CHLORPROMAZINE. FAMILY PSYCHIATRIC HISTORY: Notable for anxiety in his mother and a second cousin with psychosis. He has got a paternal aunt with schizophrenia, a maternal cousin with borderline personality disorder and suicide attempts. He has 1 brother with unspecified psychosis and another brother with avoidant personality disorder. SUBSTANCE ABUSE HISTORY: He used to abuse alcohol and cannabis in high school. He is not currently a smoker. SOCIAL HISTORY: The patient is from the [facility], lives with his parents and he has 3 brothers. He did well in school and was an honor student but was not able to continue in his studies because of his psychotic illness. He was active in sports growing up and has an interest in lifting weights currently. 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 REVIEW OF SYSTEMS: The patient denies headache or double vision. He denies sore throat, cough, chest pain, or difficulty breathing. Denies abdominal pain , nausea, vomiting, diarrhea, or constipation. Denies difficulty ambulating, rashes, enlarged lymph nodes, changes in weight or fevers. PHYSICAL EXAMINATION VITAL SIGNS: Blood pressure 91/43, heart rate 58, respiratory rate 16, temperature 97.4 degrees Fahrenheit, oxygen saturation 99% on room air. HEENT: Head is normocephalic, atraumatic. NECK: Supple. CHEST: Clear to auscultation bilaterally. CARDIAC: Exam reveals normal heart sounds. ABDOMEN: Soft and nontender. MUSCULOSKELETAL: Examination reveals a full range of motion in all 4 extremities with no sign of edema. NEUROLOGICAL: He is grossly intact with no focal deficits. LABORATORY DATA: As follows. CBC is within normal limits. CMP does reveal mild elevations in creatinine at 1.36, glucose is elevated at 123. Urinalysis is within normal limits. Urine drug screen is negative for all substances tested and serum alcohol is negligible. MENTAL STATUS: The patient is a young white male, somewhat stocky, well built, overweight. He is sitting up and makes fairly good eye contact. He is friendly , easy to establish a rapport with. Speech does show significant latency but he is fluent in his use of Kiswahili and responds eventually to my questions. Mood appears to be somewhat anxious with a corresponding anxious affect. Thought process reveals some slowing. Thought content is significant for his concern over his symptoms. He denies suicidal or homicidal ideations. He endorses auditory hallucinations of a command nature, telling him to abuse children. He denies visual hallucinations. Insight and judgment are fair given his willingness to come into the hospital when he needs help. Cognitively he is awake and alert with what would appear to be an average intellect. DIAGNOSES: Morris I: Schizophrenia. Morris II: Deferred. Morris III: Acute renal failure, gastroesophageal reflux disorder, history of hip dysplasia. Morris IV: Moderate primary support stressors. Morris V: At this time is 40. IMPRESSION: The patient is a 25-year-old single white male with a history of schizophrenia, who arrives complaining of command auditory hallucinations. These are somewhat troubling given the fact that this is a patient who has enacted commands from hallucinations in the past. At this point, his symptoms are ongoing and they may necessitate changes in his medications. I have put in a call to Dr. Dulce Javed at [facility] and I await hearing back from her at this time. PLAN: The patient is admitted to the adult behavioral health unit where he is placed on q.30 minute checks for his own safety. We will continue his medications including Zoloft 100 mg p.o. daily, cariprazine 4.5 mg p.o. daily, and Clozaril 450 mg p.o. nightly. I will try to reach Dr. Dulce Javed and get a sense of what she might like to do with his medications. While he is here, he is certainly encouraged to avail himself of all milieu activities and we will be making appropriate followup treatment appointments at [facility] at his time of discharge from our facility. [id number]/[facility] #: [id number] [facility]
[2016-06-17] MEDS: CloZAPine TAB* 100 MG TAB PO SCH (20:12)
[2016-06-17] MEDS: CloZAPine TAB* 25 MG TAB PO SCH (20:13)
[2016-06-18] MEDS: Famotidine TAB* 20 MG PO SCH ×2 (09:28→20:33)
[2016-06-18] MEDS: Vitamin THERAPEUTIC TAB PO SCH (09:28)
[2016-06-18] MEDS: Sertraline* 100 MG TAB PO SCH (09:28)
[2016-06-18] MEDS: VRAYLAR 4.5 MG PO SCH (09:29)
--- NOTE | 2016-06-18 15:28 | PN ---
Subjective - Subjective Service Type: [id number] Hosp care 15 min low complexity Subjective: The patient reports that he is feeling symptomatically better today. His voices are still present, but they are less commanding in nature. He is somewhat isolative on the unit and has not been participating in groups. His blood sample was sent out last night for a clozapine therapeutic serum level. He denies SI or HI. Objective - Appearance Appearance: Well Developed/Nourished Dysmorphic Features: No Hygiene: Normal Grooming: Well Kept - Behavior Psychomotor Activities: Normal Exhibits Abnormal Movement: No - Attitude and Relatedness Attitude and Relatedness: Cooperative Eye Contact: Fair - Speech Quality: Unpressured Latencies: Long Quantity: Terse - Mood Patient's Decription of Mood: "Okay" - Affect Observed Affect: Unvariable Affect Consistent with: Euthymia - Thought Process Patient's Thought Process: Impoverished Thought Content: No Passive Wish, No Suicidal Planning, No Homicidal Ideation, No Paranoid Ideation - Sensorium Experiencing Hallucinations: Yes Type of Hallucinations: Visual: No, Auditory: Yes, Command: Yes - Level of Consciousness Level of Consciousness: Alert Orientation: Yes Intact, Yes Orientated to Time, Yes Orientated to Place, Yes Orientated to Person - Impulse Control Impulse Control: Intact - Insight and Judgement Insight and Judgement: Good - Group Participation Particating in Group Activities: No - Medication Management Medication Management Adherence: Yes Assessment - Assessment Merits Inpatient Hospitalization: To Initiate Treatment, Consolidate Improvements Inpatient DSM-IV Dx: Schizophrenia Clinical Impression: 25 y.o. single, white male with a history of schizophrenia admitted voluntarily due to command AH telling him to sexually abuse children. He has acted upon hallucinatory directives before and he and his family felt he would benefit from admission to the inpatient setting. Plan - Plan Treatment Plan: Name: JOSH ZAMAN Birthdate: 1990 [id number] We await clozapine levels. In the meantime will increase clozapine from 450 to 500mg PO qhs. He is also taking cariprazine 4.5mg PO qam. Patient already showing some improvement from milieu setting. Continued Medication Management: Continue Outpt Medication Medications: Current Medications Acetaminophen (Tylenol Tab*) 650 mg PO Q4H PRN PRN Reason: PAIN or TEMP > 101 F Al Hydrox/Mg Hydrox/Simethicone (Maalox Plus*) 30 ml PO Q4H PRN PRN Reason: INDIGESTION Clozapine (Clozapine Tab*) 500 mg PO BEDTIME [facility] Famotidine (Pepcid Tab*) 20 mg PO BID [facility] Last Admin: 06/18/16 09:28 Dose: 20 mg Multivitamins (Theragran Tab*) 1 tab PO DAILY [facility] Last Admin: 06/18/16 09:28 Dose: 1 tab Pto: Vraylar [ Cariprazine] 4.5mg Capsule 1 dose PO DAILY [facility] Last Admin: 06/18/16 09:29 Dose: 1 dose Sertraline HCl (Zoloft*) 100 mg PO DAILY [facility] Last Admin: 06/18/16 09:28 Dose: 100 mg - Discharge Plan Discharge Plan: Inpatient Hospitalization
[2016-06-18] MEDS: CloZAPine TAB* 100 MG TAB PO SCH (20:32)
[2016-06-19] MEDS: Vitamin THERAPEUTIC TAB PO SCH (10:22)
[2016-06-19] MEDS: Famotidine TAB* 20 MG PO SCH ×2 (10:22→20:32)
[2016-06-19] MEDS: Sertraline* 100 MG TAB PO SCH (10:22)
[2016-06-19] MEDS: VRAYLAR 4.5 MG PO SCH (10:23)
[2016-06-19] MEDS: CloZAPine TAB* 100 MG TAB PO SCH (20:32)
--- NOTE | 2016-06-20 08:10 | PN ---
Subjective - Subjective Service Type: [id number] Hosp care 15 min low complexity Subjective: Yuniel reports "doing well." He denies distress, notes feeling calm and he smiled spontaneously. He said he continues to hear "voices" but that they are not giving commands, and that the content is not distressing. He denied ideas, or hallucination content, relating to hurting himself or others , or doing anything potentially harmful to himself or others. Objective - Appearance Appearance: Obese Hygiene: Normal Grooming: Well Kept - Behavior Psychomotor Activities: Normal - Attitude and Relatedness Attitude and Relatedness: Cooperative Eye Contact: Good - Speech Quality: Unpressured Latencies: Long Quantity: Terse - Mood Patient's Decription of Mood: "Good" - Affect Observed Affect: Constricted Affect Consistent with: Euthymia - Thought Process Patient's Thought Process: Impoverished Thought Content: No Passive Wish, No Suicidal Planning, No Homicidal Ideation, No Paranoid Ideation - Sensorium Experiencing Hallucinations: Yes Type of Hallucinations: Auditory: Yes, Command: No - Level of Consciousness Level of Consciousness: Alert - Impulse Control Impulse Control: Intact - Insight and Judgement Insight and Judgement: Poor Assessment - Assessment Merits Inpatient Hospitalization: For Stabilization, To Initiate Treatment, For Ongoing Evaluation, Consolidate Improvements, For Discharge Planning, Pending Safe DC Plan Inpatient DSM-IV Dx: Schizophrenia Clinical Impression: 25 year-old male with chronic schizophrenia and history of numerous psychiatric hospitalizations. He was admitted due to concern over an apparent increase in command hallucinations with content relating to having sex with family members and sexually abusing children. Yuniel is stabilizing here. He is safe on checks, in behavioral control, and adherent with routines and medications. Clinically, symptoms are milder. He notes ongoing hallucinations but benign thought content and distress levels are subjectively and objectively low. Medication management continues the outpatient medication regimen of sertraline , cariprazine, and clozapine. Plan - Plan Treatment Plan: Name: YUNIEL ZAMAN Birthdate: 1990 [id number] Continued Medication Management: Continue Outpt Medication Medications: Current Medications Acetaminophen (Tylenol Tab*) 650 mg PO Q4H PRN PRN Reason: PAIN or TEMP > 101 F Al Hydrox/Mg Hydrox/Simethicone (Maalox Plus*) 30 ml PO Q4H PRN PRN Reason: INDIGESTION Clozapine (Clozapine Tab*) 500 mg PO BEDTIME [facility] Last Admin: 06/19/16 20:32 Dose: 500 mg Famotidine (Pepcid Tab*) 20 mg PO BID [facility] Last Admin: 06/19/16 20:32 Dose: 20 mg Multivitamins (Theragran Tab*) 1 tab PO DAILY [facility] Last Admin: 06/19/16 10:22 Dose: 1 tab Pto: Vraylar [ Cariprazine] 4.5mg Capsule 1 dose PO DAILY [facility] Last Admin: 06/19/16 10:23 Dose: 1 dose Sertraline HCl (Zoloft*) 100 mg PO DAILY [facility] Last Admin: 06/19/16 10:22 Dose: 100 mg - Discharge Plan Discharge Plan: Outpatient Follow Up
[2016-06-20] MEDS: Vitamin THERAPEUTIC TAB PO SCH (08:40)
[2016-06-20] MEDS: Sertraline* 100 MG TAB PO SCH (08:40)
[2016-06-20] MEDS: VRAYLAR 4.5 MG PO SCH (08:41)
[2016-06-20] MEDS: Famotidine TAB* 20 MG PO SCH ×2 (08:41→20:36)
[2016-06-20] MEDS: CloZAPine TAB* 100 MG TAB PO SCH (20:36)
[2016-06-21 08:47] VITALS: BP 142/67
[2016-06-21] MEDS: Famotidine TAB* 20 MG PO SCH (08:47)
[2016-06-21] MEDS: Sertraline* 100 MG TAB PO SCH (08:47)
[2016-06-21] MEDS: Vitamin THERAPEUTIC TAB PO SCH (08:47)
[2016-06-21] MEDS: VRAYLAR 4.5 MG PO SCH (08:48)
--- NOTE | 2016-06-21 14:09 | PN ---
[facility]: Group Therapy Note - Service Type Service Type: [id number] Group Psychotherapy - Cognitive Behavioral Group Therapy ( CBT):Patient attended CBT programming this morning and presented with flat affect that did not vary with discussion. Although responsive to direct prompts to respond to questions, patient did not engage in spontaneous conversation.
--- NOTE | 2016-06-22 04:59 | DS ---
DISCHARGE SUMMARY: DATE OF ADMISSION: 06/16/16 DATE OF DISCHARGE: 06/21/16 DISCHARGE DIAGNOSES: As follows: [place] I: Schizophrenia. [place] II: Deferred. [place] III: Acute renal failure, gastroesophageal reflux disorder, history of hip dysplasia. [place] IV: Moderate primary support stressors. [place] V: At the time of admission was 40 and at the time of discharge was 60. CONDITION AT THE TIME OF DISCHARGE: Improved. The patient is continuing to experience auditory hallucinations; however, he notes that they are benign in nature and not giving him any further commands to do anything risky or harmful. My understanding is that at his baseline, he does experience voices and he is requesting discharge at this time. We have spoken with his family who are in favor of taking him home and he is agreeable to following up with outpatient treatment in the community including with his psychiatrist and psychotherapist. We have increased his clozapine slightly and he appears to be doing well from this, tolerating it without any undue side effects. He is very much agreeable with maintaining his medication compliance at home after the time of discharge. The patient has no suicidal nor homicidal ideations and he has been safe on all checks throughout this hospitalization. He is much more social today, going to groups and interacting with peers. MENTAL STATUS EXAM: The patient is a young white male, stocky, well-built, overweight, he is sitting up and making fairly good eye contact. He is friendly , easy to establish a rapport with. Speech does show significant latency, but he is fluent in his use of Indonesian and responds eventually to my questions. Mood appears to be mildly anxious with a somewhat flattened affect. Thought process reveals some slowing. Thought content is significant for his desire to be discharged from the hospital today. He denies suicidal or homicidal ideations. He endorses auditory hallucinations that are friendly and benign. He denies visual hallucinations. Insight and judgment are fair given his willingness to follow up with outpatient therapy. Cognitively, he is awake and alert with what would appear to be an average intellect. DISCHARGE INSTRUCTIONS: For the patient are as follows: A. Medications: The patient is takin. Clozapine 500 mg p.o. q.h.s. 2. Cariprazine 4.5 mg p.o. daily. 3. He also takes sertraline 100 mg p.o. daily. B. Diet: Regular. C. Activities: As tolerated. The patient is a nonsmoker. D. Followup care: The patient has appointments at [facility] all within 1 week. He sees a psychiatrist named Dr. Dulce Javed. He sees a psychotherapist named Nuno Alicea, and he sees a lining caser there named Carlos Worley. HOSPITAL COURSE: As follows: Part-A. Reason for Admission: The patient is a 25-year-old single white male with a history of schizophrenia, who has had several past psychiatric admissions here at [facility], who returns having been brought in by his parents due to several days of command auditory hallucinations which are telling him to have sex with family members and children. My under-standing is that to some extent, he deals with chronic auditory hallucinations which tend to modulate in their intensity. On , 06/10/16, he was working out in a local gym when he first experienced an auditory hallucination which was telling him to have sex with children. He was very disturbed by this and had to leave the gym and go home. His parents brought him to the emergency room; however, they noted that our unit was full and they determined him to bring him home so that they could bring him in at a later time if necessary. He states that these hallucinations continued throughout that weekend and he was quite upset by them. We did note that on presentation, he had a long speech latency, was whispering responses, and when asked questions, he appeared to look to his father to see whether his parent could answer these for him. When I interviewed him personally, he continued to evidence responses to internal stimuli and was somewhat withdrawn to his room. In fact, it took him a while to respond to questions when queried by this clinician. I asked about stressors , for example, we do know that his one of his brothers was recently psychiatrically admitted to this unit. The patient admits that this was stressful and that he was somewhat afraid of this sibling. Other than this, he could not identify any psychosocial stressors that might be worsening his symptoms. He denied suicidal or homicidal ideations and states that he feels safe on the unit. Part-B: Psychiatric treatment rendered: The patient was admitted to the Adult Behavioral Health Unit, where he was placed on q.30-minute checks for his own safety. We continued all of his medications including clozapine, cariprazine, and sertraline, and did take a clozapine level. Thereafter, we spoke with his outpatient psychiatrist, Dr. Dulce Javed, who stated that she would be in favor of perhaps slight increase in his clozapine, so this was increased from 450 to 500 mg nightly. His parents went ahead and brought in a supply of cariprazine as we do not have this medication on our formulary. He took 4.5 mg tablets once a day typically in the early day time. Almost immediately upon hospitalization, he states that the quality and intensity of his auditory hallucinations changed much for the better. The voice has stopped being hostile and they stopped being of a command nature, instead they became benign and with lower volume. At this point, he is neither suicidal nor homicidal and never did present as any acute risk to himself or others and for that reason, we have determined that he is to be discharged today with followup in the community as directed. [id number]/[facility] #: [id number] JOSIAS
[2016-06-22 12:50] LABS: Clozapine 172 ng/mL (>350); Norclozapine 185 ng/mL
== END 2016-06-21 17:40 | disposition home or self-care (01) | DRG 885 ==
LOC: ED 14:13 → BSU 19:14
PROVIDERS: ADMIT Psychiatry & Neurology Psychiatry; ATTEND Psychiatry & Neurology Psychiatry
PROC: GZHZZZZ Group Psychotherapy (ICD-10-PCS; principal; 2016-06-16)
DX: F20.9 Schizophrenia, unspecified (principal); N17.9 Acute kidney failure, unspecified; K21.9 Gastro-esophageal reflux disease without esophagitis; F41.9 Anxiety disorder, unspecified; F32.9 Major depressive disorder, single episode, unspecified; Z87.820 Personal history of traumatic brain injury; Z88.8 Allergy status to other drugs, medicaments and biological substances; Z81.8 Family history of other mental and behavioral disorders; Q65.89 Other specified congenital deformities of hip
CPT/HCPCS: 36415; 80053; 80159; 80307; 80320; 80329; 81003; 84443; 85025; 90853; 99222; 99231; 99238; A9270-GY; G0480

== ENCOUNTER 2016-08-22 15:18 | Inpatient (IN) | payer OTHER, MEDICARE, MEDICAID ==
[2016-08-22 16:09] LABS: Hematocrit 44 % (42-52); Hemoglobin 14.8 g/dl (14.0-18.0); Mean Corpuscular HGB Conc 34 g/dl (31-36); Mean Corpuscular Hemoglobin 28 pg (27-31); Mean Corpuscular Volume 84 fL (80-94); Mean Platelet Volume 9 um3 (7.4-10.4); Red Blood Count 5.26 10^6/ul (4.0-5.4); Red Cell Distribution Width 14 % (10.5-15); White Blood Count 5.8 10^3/ul (3.5-10.8)
[2016-08-22 16:21] LABS: Urine Bilirubin Negative (Negative); Urine Glucose Negative (Negative); Urine Nitrite Negative (Negative)
[2016-08-22 16:31] LABS: Benzodiazepine Urine Screen None Detected (None Detect)
[2016-08-22 16:32] LABS: ALT 31 U/L (7-52); AST 28 U/L (13-39); Albumin 4.7 g/dL (3.2-5.2); Alkaline Phosphatase 58 U/L (34-104); Anion Gap 7 mmol/L (2-11); BUN/Creatinine Ratio 9.8 (8-20); Blood Urea Nitrogen 13 mg/dL (6-24); CO2 Carbon Dioxide 24 mmol/L (22-32); Calcium 9.4 mg/dL (8.6-10.3); Chloride 108 mmol/L (101-111); EGFR African American 84.3 (>60); EGFR Non-African American 65.5 (>60); Globulin 2.2 g/dL (2-4); Glucose 82 mg/dL (70-100); Potassium 3.9 mmol/L (3.5-5.0); Sodium 139 mmol/L (133-145); Total Protein 6.9 g/dL (6.4-8.9)
[2016-08-22 16:50] LABS: Acetaminophen < 15 mcg/mL; Alcohol < 10 mg/dL (<10); Salicylate < 2.50 mg/dL (<30)
[2016-08-22 17:01] LABS: TSH (Thyroid Stimulating Horm) 0.69 mcIU/mL (0.34-5.60)
--- NOTE | 2016-08-22 18:32 | ED ---
I, Oh,Sojusto, scribed for Danna Villagran MD on 08/22/16 at 1549 . Psychiatric Complaint - HPI Summary HPI Summary: This 25 y/o male presents to ED for auditory hallucination since today. Pt reports that he is hearing voices in his head telling him to drink listerine and terpentine. PMHx is significant for known schizophrenia. Pt is currently seeing unspecified psychiatrist and is currently on psychotic meds. Primary care involves Dr. Ya. - History Of Current Complaint Chief Complaint: EDMentalHealth Time Seen by Provider: 08/22/16 15:34 Hx Obtained From: Patient, Medical Records Onset/Duration: Sudden Onset Timing: Constant Aggravating Factor(s): Nothing Alleviating Factor(s): Nothing Associated Signs And Symptoms: Positive: Hallucinating - auditory hallucination Related History: Positive For: Prior Psychiatric Issues - Allergies/Home Medications Allergies/Adverse Reactions: Allergies Allergy/AdvReac Type Severity Reaction Status Date / Time Haloperidol [From Haldol] Allergy Severe See Comment Verified 08/22/16 15:21 Lurasidone [From Latuda] Allergy Intermediate See Comment Verified 08/22/16 15: 21 Chlorpromazine AdvReac syncope Verified 08/22/16 15:21 [From Thorazine] PMH/Surg Hx/FS Hx/Imm Hx Endocrine/Hematology History: Denies: Hx Diabetes Cardiovascular History: Reports: Other Cardiovascular Problems/Disorders - increased QTC interval Denies: Hx Hypertension, Hx Pacemaker/ICD Respiratory History: Denies: Hx Asthma GI History: Reports: Hx Gastroesophageal Reflux Disease History: Denies: Hx Renal Disease Musculoskeletal History: Reports: Other Musculoskeletal History - hip dysplasia Sensory History: Denies: Hx Contacts or Glasses, Hx Hearing Aid Opthamlomology History: Denies: Hx Contacts or Glasses Neurological History: Reports: Other Neuro Impairments/Disorders - Hx of 6 concussions Denies: Hx Headaches, Hx Seizures, Hx Spinal Cord Injury, Hx Transient Ischemic Attacks (TIA) Psychiatric History: Reports: Hx Anxiety, Hx Depression, Hx Inpatient Treatment , Hx Community Mental Health Tx, Hx Schizophrenia, Hx Substance Abuse - alcohol , Other Psychiatric Issues/Disorders - psychosis, auditory hallucinations Denies: Hx Attention Deficit Hyperactivity Disorder, Hx Eating Disorder, Hx Panic Disorder, Hx Post Traumatic Stress Disorder, Hx Bipolar Disorder, Hx Suicide Attempt, Hx of Violent Episodes Against Others - Cancer History Hx Chemotherapy: No Hx Radiation Therapy: No Hx Palliative Cancer Treatment: No Infectious Disease History: No Infectious Disease History: Denies: Hx Clostridium Difficile, Hx Hepatitis, Hx Human Immunodeficiency Virus (HIV), Hx of Known/Suspected MRSA, Hx Shingles, Hx Tuberculosis, Hx Known/ Suspected VRE, Hx Known/Suspected VRSA, History Other Infectious Disease, Traveled Outside the [place] in Last 30 Days - Family History Known Family History: Positive: Other - Psychotic disorders, Schizophrenia, anxiety Negative: Cardiac Disease, Hypertension, Diabetes - Social History Alcohol Use: None Alcohol Amount: was short term when 16 Hx Substance Use: Yes Substance Use Type: Reports: None Substance Use Comment - Amount & Last Used: denies Hx Tobacco Use: No Smoking Status (MU): Never Smoked Tobacco Have You Smoked in the Last Year: No Review of Systems Negative: Fever, Chills Positive: Other - auditory hallucination All Other Systems Reviewed And Are Negative: Yes Physical Exam Triage Information Reviewed: Yes Vital Signs On Initial Exam: Initial Vitals Temp Pulse Resp BP Pulse Ox 98.4 F 90 18 142/71 100 08/22/16 15:21 08/22/16 15:21 08/22/16 15:21 08/22/16 15:21 08/22/16 15:21 Vital Signs Reviewed: Yes Appearance: Positive: Well-Appearing, No Pain Distress Skin: Positive: Warm, Skin Color Reflects Adequate Perfusion Head/Face: Positive: Normal Head/Face Inspection Eyes: Positive: EOMI, HILARY Neck: Positive: Supple, Nontender Respiratory/Lung Sounds: Positive: Clear to Auscultation, Breath Sounds Present Cardiovascular: Positive: RRR, Pulses are Symmetrical in both Upper and Lower Extremities Musculoskeletal: Positive: Strength/ROM Intact Neurological: Positive: Sensory/Motor Intact, Alert, Oriented to Person Place, Time Psychiatric: Positive: Other - withdrawn AVPU Assessment: Alert Diagnostics - Vital Signs Vital Signs Temp Pulse Resp BP Pulse Ox 08/22/16 15:21 98.4 F 90 18 142/71 100 - Laboratory Lab Results: Lab Results 08/22/16 08/22/16 08/22/16 Range/Units 15:50 15:50 16:05 WBC 5.8 (3.5-10.8) 10^3/ul RBC 5.26 (4.0-5.4) 10^6/ul Hgb 14.8 (14.0-18.0) g/dl Hct 44 (42-52) % MCV 84 (80-94) fL MCH 28 (27-31) pg MCHC 34 (31-36) g/dl RDW 14 (10.5-15) % Plt Count 223 (150-450) 10^3/ul MPV 9 (7.4-10.4) um3 Neut % (Auto) 59.5 (38-83) % Lymph % (Auto) 29.9 (25-47) % Rowan % (Auto) 9.8 H (1-9) % Eos % (Auto) 0.1 (0-6) % Baso % (Auto) 0.7 (0-2) % Absolute Neuts (auto) 3.5 (1.5-7.7) 10^3/ul Absolute Lymphs (auto) 1.7 (1.0-4.8) 10^3/ul Absolute Monos (auto) 0.6 (0-0.8) 10^3/ul Absolute Eos (auto) 0 (0-0.6) 10^3/ul Absolute Basos (auto) 0 (0-0.2) 10^3/ul Absolute Nucleated RBC 0 10^3/ul Nucleated RBC % 0 Sodium 139 (133-145) mmol/L Potassium 3.9 (3.5-5.0) mmol/L Chloride 108 (101-111) mmol/L Carbon Dioxide 24 (22-32) mmol/L Anion Gap 7 (2-11) mmol/L BUN 13 (6-24) mg/dL Creatinine 1.33 H (0.67-1.17) mg/dL Est GFR ( Amer) 84.3 (>60) Est GFR (Non-Af Amer) 65.5 (>60) BUN/Creatinine Ratio 9.8 (8-20) Glucose 82 (70-100) mg/dL Calcium 9.4 (8.6-10.3) mg/dL Total Bilirubin 0.50 (0.2-1.0) mg/dL AST 28 (13-39) U/L ALT 31 (7-52) U/L Alkaline Phosphatase 58 (34-104) U/L Total Protein 6.9 (6.4-8.9) g/dL Albumin 4.7 (3.2-5.2) g/dL Globulin 2.2 (2-4) g/dL Albumin/Globulin Ratio 2.1 (1-3) TSH 0.69 (0.34-5.60) mcIU/mL Urine Color Colorless Urine Appearance Clear Urine pH 6.0 (5-9) Ur Specific [place] 1.001 L (1.010-1.030) Urine Protein Negative (Negative) Urine Ketones Negative (Negative) Urine Blood Negative (Negative) Urine Nitrate Negative (Negative) Urine Bilirubin Negative (Negative) Urine Urobilinogen Negative (Negative) Ur Leukocyte Esterase Negative (Negative) Urine Glucose Negative (Negative) Salicylates < 2.50 (<30) mg/dL Urine Opiates Screen (None Detect) Acetaminophen < 15 mcg/mL Ur Barbiturates Screen (None Detect) Ur Phencyclidine Scrn (None Detect) Ur Amphetamines Screen (None Detect) U Benzodiazepines Scrn (None Detect) Urine Cocaine Screen (None Detect) U Cannabinoids Screen (None Detect) Serum Alcohol < 10 (<10) mg/dL 08/22/16 Range/Units 16:05 WBC (3.5-10.8) 10^3/ul RBC (4.0-5.4) 10^6/ul Hgb (14.0-18.0) g/dl Hct (42-52) % MCV (80-94) fL MCH (27-31) pg MCHC (31-36) g/dl RDW (10.5-15) % Plt Count (150-450) 10^3/ul MPV (7.4-10.4) um3 Neut % (Auto) (38-83) % Lymph % (Auto) (25-47) % Rowan % (Auto) (1-9) % Eos % (Auto) (0-6) % Baso % (Auto) (0-2) % Absolute Neuts (auto) (1.5-7.7) 10^3/ul Absolute Lymphs (auto) (1.0-4.8) 10^3/ul Absolute Monos (auto) (0-0.8) 10^3/ul Absolute Eos (auto) (0-0.6) 10^3/ul Absolute Basos (auto) (0-0.2) 10^3/ul Absolute Nucleated RBC 10^3/ul Nucleated RBC % Sodium (133-145) mmol/L Potassium (3.5-5.0) mmol/L Chloride (101-111) mmol/L Carbon Dioxide (22-32) mmol/L Anion Gap (2-11) mmol/L BUN (6-24) mg/dL Creatinine (0.67-1.17) mg/dL Est GFR ( Amer) (>60) Est GFR (Non-Af Amer) (>60) BUN/Creatinine Ratio (8-20) Glucose (70-100) mg/dL Calcium (8.6-10.3) mg/dL Total Bilirubin (0.2-1.0) mg/dL AST (13-39) U/L ALT (7-52) U/L Alkaline Phosphatase (34-104) U/L Total Protein (6.4-8.9) g/dL Albumin (3.2-5.2) g/dL Globulin (2-4) g/dL Albumin/Globulin Ratio (1-3) TSH (0.34-5.60) mcIU/mL Urine Color Urine Appearance Urine pH (5-9) Ur Specific [place] (1.010-1.030) Urine Protein (Negative) Urine Ketones (Negative) Urine Blood (Negative) Urine Nitrate (Negative) Urine Bilirubin (Negative) Urine Urobilinogen (Negative) Ur Leukocyte Esterase (Negative) Urine Glucose (Negative) Salicylates (<30) mg/dL Urine Opiates Screen None detected (None Detect) Acetaminophen mcg/mL Ur Barbiturates Screen None detected (None Detect) Ur Phencyclidine Scrn None detected (None Detect) Ur Amphetamines Screen None detected (None Detect) U Benzodiazepines Scrn None detected (None Detect) Urine Cocaine Screen None detected (None Detect) U Cannabinoids Screen None detected (None Detect) Serum Alcohol (<10) mg/dL Result Diagrams: 08/22/16 15:50 08/22/16 15:50 Lab Statement: Any lab studies that have been ordered have been reviewed, and results considered in the medical decision making process. Course/Dx - Differential Dx/Clinical Impression Provider Diagnosis: Schizophrenia - Physician Notifications Discussed Care Of Patient With: MHU at 1823 PM -- Dr. Beck Instructed by Provider To: Admit As Inpatient - voluntary admission Patient Is Medically Stable For: Psych Evaluation - at 1630 PM Discharge - Discharge Plan Condition: Stable Disposition: ADMITTED TO [facility] Referrals: Aman Ya MD [Primary Care Provider] - The documentation as recorded by the John sanches Soohyun accurately reflects the service I personally performed and the decisions made by me, Danna Villagran MD.
[2016-08-22] MEDS ORDERED: Acetaminophen TAB* 325 MG PO PRN (18:38)
[2016-08-22] MEDS ORDERED: Al Hydrox/Mg Hydrox/Simet LIQ* 30 ML UDC PO PRN (18:38)
[2016-08-22] MEDS: CloZAPine TAB* 100 MG TAB PO SCH (20:49)
[2016-08-23] MEDS: Famotidine TAB* 20 MG PO SCH (09:53)
[2016-08-23] MEDS: VRAYLAR 4.5 MG PO SCH (09:54)
[2016-08-23] MEDS: Vitamin THERAPEUTIC TAB PO SCH (09:54)
[2016-08-23] MEDS: Sertraline* 100 MG TAB PO SCH (09:54)
--- NOTE | 2016-08-23 12:19 | ADMNOTE ---
Identification - Identify Employment Status: Disabled Hx Psychiatric Hospitalization: Yes - Multiple on this unit. Arrived to Hospital Via: Ambulatory History - Objective HPI: This 25 y/o male with h/o schizophrenia re admiitted due to worsening of command auditory hallucinations and the voices telling him to drink Listerin and Terpentine. He has a h/o following the commands. Denies any new stress. Exam Appearance: Obese Hygiene: Mal-odorous Grooming: Disheveled Psychomotor Activities: Abnormal-Decreased Exhibits Abnormal Movement: No Attitude and Relatedness: Cooperative Eye Contact: Good - Speech Quality: Unpressured Latencies: Long Quantity: Appropriate Patient's Decription of Mood: "Okay" Observed Affect: Constricted Patient's Thought Process: Coherent, Goal Directed Thought Content: No Passive Wish, No Suicidal Planning, No Homicidal Ideation, No Paranoid Ideation Experiencing Hallucinations: Yes Type of Hallucinations: Visual: No, Auditory: Yes, Command: Yes - Voices telling him to drink mouth wash and Terpentin. Level of Consciousness: Alert Orientation: Yes Intact, Yes Orientated to Time, Yes Orientated to Place, Yes Orientated to Person Impulse Control: Tenuous Insight and Judgement: Fair Impression - Impression Clinical Impression: 25 y/o male with h/o Schizophrenia, multiple prior admissions readmitted due to recent worsenimg of command auditory hallucinations. Reportedly complient with meds, no substance abuse or no new stress. Merits Inpatient Hospitalization: Yes - [place] Mental Illness: Schizophrenia. - [place] Medical Illness: GERD and Obesity. Plan - Treatment Plan Continued Medication Management: Continue Outpt Medication Medications: Current Medications Acetaminophen (Tylenol Tab*) 650 mg PO Q4H PRN PRN Reason: PAIN or TEMP > 101 F Al Hydrox/Mg Hydrox/Simethicone (Maalox Plus*) 30 ml PO Q4H PRN PRN Reason: INDIGESTION Clozapine (Clozapine Tab*) 500 mg PO BEDTIME [facility] Last Admin: 08/22/16 20:49 Dose: 500 mg Famotidine (Pepcid Tab*) 20 mg PO DAILY [facility] Last Admin: 08/23/16 09:53 Dose: 20 mg Multivitamins (Theragran Tab*) 1 tab PO DAILY [facility] Last Admin: 08/23/16 09:54 Dose: 1 tab Pto:Vraylar ( Cariprazine)4.5 Mg Caps 1 dose PO DAILY [facility] Last Admin: 08/23/16 09:54 Dose: 1 dose Sertraline HCl (Zoloft*) 100 mg PO DAILY [facility] Last Admin: 08/23/16 09:54 Dose: 100 mg - Discharge Plan Discharge Plan: Outpatient Follow Up Outpatient Program: Wendy Boyce [facility]
--- NOTE | 2016-08-23 14:29 | HP ---
HISTORY AND PHYSICAL: DATE OF ADMISSION: 08/22/2016. IDENTIFYING DATA: Ynuiel is a 25-year-old, never , mentally disabled male with an extensive history of mental illness and multiple psychiatric hospitalizations here and other hospitals including [facility] , was brought in to the emergency department by his mother for hospitalization. CHIEF COMPLAINT: "The voices are telling me to drink mouthwash and turpentine. " HISTORY OF PRESENT ILLNESS: This 25-year-old male, known to this unit, was rehospitalized last evening because of worsening of command auditory hallucinations over the last few days. Yuniel was unable to identify any specific reason or stress. He reports that he was doing his usual day-to-day activities such as going for fishing in local [employer] and to the gym for weightlifting. Voices got worse and were telling him to drink either mouthwash or turpentine to kill himself. Yuniel has a history of following the commands. He otherwise denies any paranoia or homicidal ideations. He appears to be somewhat depressed and apathetic, responds to questions with minimum interest in engaging in the conversation. PAST PSYCHIATRIC HISTORY: Remarkable for numerous inpatient stays beginning in 2009. Since then he was on this unit multiple times and was transferred to [facility] in [place] as well as [place] for longer term care. He is being followed at [facility] by Dr. Dulce Javed and Nuno Alicea as his therapist. He also has a casey saw operator Carlos Worley. He has had medication trials with Risperdal, Latuda, Abilify, Haldol, and olanzapine. He is currently on clozapine. PAST MEDICAL HISTORY: Remarkable for GERD and hip dysplasia. MEDICATIONS: He appears to have gained significant weight possibly because of his medications which include: 1. Zoloft 100 mg daily. 2. Clozapine 500 mg p.o. daily. 3. Cariprazine 4.5 mg p.o. daily. ALLERGIES: Per record, he is allergic to LURASIDONE, HALOPERIDOL, and CHLORPROMAZINE; however there is no mention of what type of reaction he had in the past. He also is unable to provide any meaningful information about his allergies. FAMILY PSYCHIATRIC HISTORY: Remarkable for anxiety in his mother and a second cousin with psychosis. Per records one of his paternal aunts has schizophrenia , and there are multiple other family members including one of his brothers have psychosis. SUBSTANCE USE HISTORY: Unremarkable. PERSONAL AND SOCIAL HISTORY: Yuniel is from [facility], lives with his parents and 3 siblings. He did well in school and was an honor student, but unfortunately could not continue because of his psychiatric breakdown. He always has been very active in sports, and has interest in weightlifting as well as fishing. He also spends time in music as well. PHYSICAL EXAMINATION GENERAL: Yuniel is an obese, otherwise healthy looking young man who does not appear to be in any acute physical distress. VITAL SIGNS: This morning shows a blood pressure of 100/52, pulse 63, respirations 16, temperature 97.5 degree Fahrenheit, O2 sat 97%. HEENT: Head is normocephalic, atraumatic. NECK: Supple. No thyromegaly or lymph node palpable. CHEST: Clear with bilateral air entry. CARDIAC: Exam shows normal heart sounds with S1 and S2 only. No murmurs or added sounds. ABDOMEN: Soft with bowel sounds in 4 quadrants. No organomegaly or tenderness on palpation. MUSCULOSKELETAL: Shows a full range of motion in all 4 extremities, no edema. Peripheral pulse positive. NEUROLOGICAL: Alert and oriented to time, place and person. Cranial nerves II to XII grossly intact. LABORATORY DATA: Pretty much unremarkable except for a creatinine level of 1.33 with low urine specific gravity of 1.001. CBC with differential shows a WBC count of 5.8, hemoglobin 14.8, hematocrit , platelet count of 223. Absolute neutrophil count 3.5. On chemistry profile, his sodium level of 139, potassium 3.9, chloride 108, carbon dioxide 24, BUN 13, creatinine 1.33. Urinalysis unremarkable. Toxicology screen shows a negative tox screen. MENTAL STATUS EXAMINATION: Yuniel was examined in his room. He was lying in bed with very minimum interest in participating; however, he is appropriately dressed, poorly groomed with poor personal hygiene. He makes good eye contact. Speech is soft, low in volume, however logical and goal directed. He describes his mood as depressed. Observed affect appears to be constricted. Intelligence appears to be average as evidenced by his vocabulary and fund of knowledge. Memory functions are intact in all spheres. He reports of hearing voices as we were speaking and they were telling him to drink mouthwash. Denies any paranoia at the time of examination. His insight and judgment appears to be limited. SUMMARY: This 25-year-old mentally disabled, male with previous diagnosis of schizophrenia and a positive family history of mental illness, rehospitalized due to worsening of command auditory hallucination. MENTAL HEALTH DIAGNOSIS: Schizophrenia, chronic, rule out schizoaffective disorder depressed type. PHYSICAL HEALTH DIAGNOSES: 1. Gastroesophageal reflux disease. 2. History of hip dysplasia. TREATMENT PLANS: Yuniel will remain hospitalized on the behavioral health unit for his safety and stabilization of acute symptoms. His code status will remain full. Supportive milieu, individual and group therapy will be encouraged. For now, I will continue all his home medications and defer further adjustment to his medications on his attending physician on the unit. I am going to order clozapine level and repeat his urinalysis to see if his creatinine level stays high or worsens. [id number] #: [id number] MTDD
[2016-08-23] MEDS: CloZAPine TAB* 100 MG TAB PO SCH (20:14)
[2016-08-24] MEDS: Sertraline* 100 MG TAB PO SCH (09:30)
[2016-08-24] MEDS: Famotidine TAB* 20 MG PO SCH (09:30)
[2016-08-24] MEDS: Vitamin THERAPEUTIC TAB PO SCH (09:30)
[2016-08-24] MEDS: VRAYLAR 4.5 MG PO SCH (09:30)
--- NOTE | 2016-08-24 15:05 | PN ---
Subjective - Subjective Service Type: 79722 Hosp care 15 min low complexity Subjective: Yuniel reports doing okay. Says the "voices" are milder today and have no offensive content or commands to do harmful things. Is well adjusted to the unit, finds it helpful. Reports adherence with his regimen. Objective - Appearance Appearance: Obese Hygiene: Normal Grooming: Well Kept - Behavior Psychomotor Activities: Abnormal-Decreased - Attitude and Relatedness Attitude and Relatedness: Superficially Cooperative Eye Contact: Good - Speech Quality: Unpressured Latencies: Long Quantity: Terse - Mood Patient's Decription of Mood: "Okay" - Affect Observed Affect: Unvariable Affect Consistent with: Dysphoria - mild - Thought Process Patient's Thought Process: Impoverished Thought Content: No Passive Wish, No Suicidal Planning, No Homicidal Ideation, No Paranoid Ideation - Sensorium Experiencing Hallucinations: Yes Type of Hallucinations: Visual: No, Auditory: Yes, Command: No - Level of Consciousness Level of Consciousness: Alert - Impulse Control Impulse Control: Intact - Insight and Judgement Insight and Judgement: Poor Assessment - Assessment Merits Inpatient Hospitalization: For Stabilization, For Ongoing Evaluation, Consolidate Improvements, For Discharge Planning Inpatient DSM-IV Dx: Schizophrenia Clinical Impression: 25 year-old male with chronic schizophrenia and numerous psychiatric hospitalizations. He was admitted due to concern over increase in chronic hallucinations, which included commands to harm self by drinking listerine and turpentine. Yuniel is stabilizing here. He is safe on checks, adherent with routines and medication. Overt distress levels are mild, and hallucinations are milder and more benign in content. Negative symptoms are again significant (ambivalence, apathy, paucity of speech) . Medication management continues the outpatient regimen of sertraline, clozapine. Plan - Plan Treatment Plan: Name: YUNIEL ZAMAN Birthdate: 1990 [id number] Continued Medication Management: Continue Outpt Medication Medications: Current Medications Acetaminophen (Tylenol Tab*) 650 mg PO Q4H PRN PRN Reason: PAIN or TEMP > 101 F Al Hydrox/Mg Hydrox/Simethicone (Maalox Plus*) 30 ml PO Q4H PRN PRN Reason: INDIGESTION Clozapine (Clozapine Tab*) 500 mg PO BEDTIME [facility] Last Admin: 08/23/16 20:14 Dose: 500 mg Famotidine (Pepcid Tab*) 20 mg PO DAILY [facility] Last Admin: 08/24/16 09:30 Dose: 20 mg Multivitamins (Theragran Tab*) 1 tab PO DAILY [facility] Last Admin: 08/24/16 09:30 Dose: 1 tab Pto:Vraylar ( Cariprazine)4.5 Mg Caps 1 dose PO DAILY [facility] Last Admin: 08/24/16 09:30 Dose: 1 dose Sertraline HCl (Zoloft*) 100 mg PO DAILY [facility] Last Admin: 08/24/16 09:30 Dose: 100 mg - Discharge Plan Discharge Plan: Outpatient Follow Up
[2016-08-24] MEDS: CloZAPine TAB* 100 MG TAB PO SCH (21:37)
[2016-08-25] MEDS: Famotidine TAB* 20 MG PO SCH (09:22)
[2016-08-25] MEDS: Sertraline* 100 MG TAB PO SCH (09:22)
[2016-08-25] MEDS: Vitamin THERAPEUTIC TAB PO SCH (09:22)
[2016-08-25] MEDS: VRAYLAR 4.5 MG PO SCH (09:23)
--- NOTE | 2016-08-25 11:18 | PN ---
Subjective - Subjective Service Type: [id number] Hosp care 15 min low complexity Subjective: Yuniel was napping but reported good subjective sleep overnight. He had no complaints, concerns, or spontaneous comments. He denied distress, and said "voices are not troubling" and remain milder with no commands to to anything harmful. We discussed his current episode in comparison to others, he agrees it's milder , and when given the prompt, says he'd like a brief admission and to plan d/c. Objective - Appearance Appearance: Obese Hygiene: Normal Grooming: Fairly Well Kept - Behavior Psychomotor Activities: Abnormal-Decreased - Attitude and Relatedness Attitude and Relatedness: Cooperative Eye Contact: Good - Speech Quality: Unpressured Latencies: Long Quantity: Terse - Mood Patient's Decription of Mood: "Okay" - Affect Observed Affect: Unvariable Affect Consistent with: Dysphoria - mild - Thought Process Patient's Thought Process: Impoverished Thought Content: No Passive Wish, No Suicidal Planning, No Homicidal Ideation, No Paranoid Ideation - Sensorium Experiencing Hallucinations: No, Sensorium is Clear - Level of Consciousness Level of Consciousness: Alert - Impulse Control Impulse Control: Intact - Insight and Judgement Insight and Judgement: Poor Assessment - Assessment Inpatient DSM-IV Dx: Schizophrenia Clinical Impression: 25 year-old male with chronic schizophrenia and numerous psychiatric hospitalizations. He was admitted due to concern over increase in chronic hallucinations, which included commands to harm self by drinking listerine and turpentine. Yuniel is stabilizing here. He is safe on checks, adherent with routines and medication. Overt distress levels are mild, and hallucinations are milder and more benign in content. Negative symptoms are again significant (ambivalence, apathy, paucity of speech) . Yuniel's decompensation is milder than during prior admissions (SW contact with pt's father found similar view), and he has made good progress on the unit. Brief admission, in keeping with his preference, will be appropriate. Expect discharge in next day or 2. Medication management continues the outpatient regimen of sertraline, clozapine. Plan - Plan Treatment Plan: Name: YUNIEL ZAMAN Birthdate: 1990 [id number] Continued Medication Management: Continue Outpt Medication Medications: Current Medications Acetaminophen (Tylenol Tab*) 650 mg PO Q4H PRN PRN Reason: PAIN or TEMP > 101 F Al Hydrox/Mg Hydrox/Simethicone (Maalox Plus*) 30 ml PO Q4H PRN PRN Reason: INDIGESTION Clozapine (Clozapine Tab*) 500 mg PO BEDTIME [facility] Last Admin: 08/24/16 21:37 Dose: 500 mg Famotidine (Pepcid Tab*) 20 mg PO DAILY [facility] Last Admin: 08/25/16 09:22 Dose: 20 mg Multivitamins (Theragran Tab*) 1 tab PO DAILY [facility] Last Admin: 08/25/16 09:22 Dose: 1 tab Pto:Vraylar ( Cariprazine)4.5 Mg Caps 1 dose PO DAILY [facility] Last Admin: 08/25/16 09:23 Dose: 1 dose Sertraline HCl (Zoloft*) 100 mg PO DAILY [facility] Last Admin: 08/25/16 09:22 Dose: 100 mg - Discharge Plan Discharge Plan: Outpatient Follow Up
[2016-08-25] MEDS: CloZAPine TAB* 100 MG TAB PO SCH (20:22)
[2016-08-26] MEDS: VRAYLAR 4.5 MG PO SCH (08:25)
[2016-08-26] MEDS: Vitamin THERAPEUTIC TAB PO SCH (08:25)
[2016-08-26] MEDS: Famotidine TAB* 20 MG PO SCH (08:25)
[2016-08-26] MEDS: Sertraline* 100 MG TAB PO SCH (08:25)
[2016-08-26 08:29] VITALS: BP 104/53
--- NOTE | 2016-08-26 11:08 | DS ---
Subjective - Subjective Service Types: [id number] [facility] Day Mgmt simple under 30 min Discharge Date: 08/26/16 Subjective: Yuniel was interested in going home today. He reported feeling better than at admission and denied setbacks. Mood is "okay." He affirmed he can be safe. He noted the improvement is mainly that hallucinations are not bothersome now. He denied commands, or ideas of hurting himself or anyone. We reviewed his aftercare plan and medications. He said he sees no barriers to care. Objective - Appearance Appearance: Obese Hygiene: Normal Grooming: Well Kept - Behavior Psychomotor Activities: Normal - Attitude and Relatedness Attitude and Relatedness: Cooperative Eye Contact: Good - Speech Quality: Unpressured Latencies: Long Quantity: Terse - Mood Patient's Decription of Mood: "Okay" - Affect Observed Affect: Unvariable Affect Consistent with: Euthymia - Thought Process Patient's Thought Process: Coherent, Impoverished Thought Content: No Passive Wish, No Suicidal Planning, No Homicidal Ideation, No Paranoid Ideation - Sensorium Experiencing Hallucinations: No, Sensorium is Clear - Level of Consciousness Level of Consciousness: Alert - Impulse Control Impulse Control: Intact - Insight and Judgement Insight and Judgement: Poor Treatment Course & Assessment Clinical Course & Impression: 25 year-old male with chronic schizophrenia and numerous psychiatric hospitalizations. He was admitted due to concern over increase in chronic hallucinations, which included commands to harm self by drinking listerine and turpentine. 08/26/16 Clear for release. Yuniel again stabilized here. He was safe on checks, and adherent with routines and medication. His overt distress levels were mild, and hallucinations improved - they were progressively milder and more benign in content. Command hallucinations have been a chronic symptom, therefore we do not expect the hallucinations to go away entirely. Negative symptoms are again significant (ambivalence, apathy, paucity of speech) . Yuniel's decompensation was milder than during prior admissions (SW contact with pt's father found similar view), and he made good progress rapidly on the unit. Brief admission, in keeping with his preference, was appropriate. Medication management continued the outpatient regimen of sertraline, clozapine. Yuniel again had elevated creatinine at admission. This does not require action and is appropriate for routine primary care followup. On admission risk concern centered on potential for self harm. Acute risk of harm to self (or other) is assessed as low currently on the basis of Yuniel's lower symptom burden, and his benign observed ideation and behaviors. Yuniel is at elevated chronic risk for suicide, violence, and inadvertent harm on the basis of his condition, and prior history. Inpatient DSM-IV Dx: Schizophrenia - [place] I Mental Illness: Schizophrenia. - [place] III Medical Illness: GERD and Obesity. Discharge Planning - Discharge Planning Discharge Plan: Outpatient Follow Up Outpatient Program: [facility] Recommendations for Continuing Care: Medication Management, Psychotherapy, Substance Abuse Counseling, Routine Metabolic Monitoring, Primary Care Followup Medications: Current Medications Clozapine (Clozapine Tab*) 500 mg PO BEDTIME [facility] Last Admin: 08/25/16 20:22 Dose: 500 mg Famotidine (Pepcid Tab*) 20 mg PO DAILY [facility] Last Admin: 08/26/16 08:25 Dose: 20 mg Pto:Vraylar ( Cariprazine)4.5 Mg Caps 1 dose PO DAILY [facility] Last Admin: 08/26/16 08:25 Dose: 1 dose Sertraline HCl (Zoloft*) 100 mg PO DAILY [facility] Last Admin: 08/26/16 08:25 Dose: 100 mg Discharge Planning: Prescriptions provided for discharge [] Yes [x] No Follow up care details as per social work arrangements. Patient response to discharge plan: [x] eager for discharge [] agreeable with discharge plan [] ambivalent about discharge [] disagrees with discharge today
== END 2016-08-26 14:00 | disposition home or self-care (01) | DRG 885 ==
LOC: ED 15:18 → BSU 19:52
PROVIDERS: ADMIT Internal Medicine; ATTEND Psychiatry & Neurology Psychiatry
DX: F20.5 Residual schizophrenia (principal); F32.9 Major depressive disorder, single episode, unspecified; E66.9 Obesity, unspecified; K21.9 Gastro-esophageal reflux disease without esophagitis; F99 Mental disorder, not otherwise specified; Z88.8 Allergy status to other drugs, medicaments and biological substances; Z81.8 Family history of other mental and behavioral disorders; F41.9 Anxiety disorder, unspecified; Z68.33 Body mass index [BMI] 33.0-33.9, adult
CPT/HCPCS: 36415; 80053; 80307; 80320; 80329; 81003; 84443; 85025; 99222; 99231; 99238; A9270-GY; G0480

== ENCOUNTER 2016-10-28 21:52 | Inpatient (IN) | payer OTHER, MEDICARE, MEDICAID ==
[2016-10-28 23:35] LABS: Hematocrit 42 % (42-52); Mean Corpuscular HGB Conc 34 g/dl (31-36); Mean Corpuscular Hemoglobin 28 pg (27-31); Mean Corpuscular Volume 85 fL (80-94); Mean Platelet Volume 8 um3 (7.4-10.4); Red Blood Count 4.95 10^6/ul (4.0-5.4); Red Cell Distribution Width 13 % (10.5-15); White Blood Count 7.9 10^3/ul (3.5-10.8)
[2016-10-28 23:40] LABS: Urine Bilirubin Negative (Negative); Urine Glucose Negative (Negative); Urine Nitrite Negative (Negative)
[2016-10-28 23:50] LABS: ALT 41 U/L (7-52); AST 27 U/L (13-39); Albumin 4.4 g/dL (3.2-5.2); Alkaline Phosphatase 59 U/L (34-104); Anion Gap 8 mmol/L (2-11); BUN/Creatinine Ratio 9.9 (8-20); Blood Urea Nitrogen 16 mg/dL (6-24); CO2 Carbon Dioxide 26 mmol/L (22-32); Calcium 8.9 mg/dL (8.6-10.3); Chloride 104 mmol/L (101-111); EGFR African American 67.1 (>60); EGFR Non-African American 52.2 (>60); Globulin 2.1 g/dL (2-4); Glucose 82 mg/dL (70-100); Potassium 3.6 mmol/L (3.5-5.0); Sodium 138 mmol/L (133-145); Total Protein 6.5 g/dL (6.4-8.9)
[2016-10-29 00:10] LABS: Acetaminophen < 15 mcg/mL; Alcohol < 10 mg/dL (<10); Salicylate < 2.50 mg/dL (<30)
[2016-10-29] MEDS ORDERED: CloZAPine TAB* 100 MG TAB PO ONE (00:16)
[2016-10-29 00:19] LABS: TSH (Thyroid Stimulating Horm) 1.76 mcIU/mL (0.34-5.60)
--- NOTE | 2016-10-29 00:43 | ED ---
David Beatty Alfonso, scribed for Leodan López MD on 10/29/16 at 0033 . Altered Mental Status - HPI Summary HPI Summary: This patient is a 25 year old M presenting to [facility] with a chief complaint of hearing voices since earlier today. Pt rates the pain 0/10 in severity. Symptoms aggravated and alleviated by nothing. Pt denies SI and HI. PMHx of Schizophrenia. Pt cleared for MHE at 23:20. - History Of Current Complaint Chief Complaint: EDMentalHealth Stated Complaint: MHE/HEARING VOICES Time Seen by Provider: 10/28/16 22:22 Hx Obtained From: Patient Onset/Duration: Still Present Timing: Constant, Lasting Hours - Earlier today Severity Initially: Moderate Severity Currently: Moderate Aggravating Factor(s): Nothing Alleviating Factor(s): Nothing Related History: Other: - PMHx of Schizophrenia - Allergies/Home Medications Allergies/Adverse Reactions: Allergies Allergy/AdvReac Type Severity Reaction Status Date / Time Haloperidol [From Haldol] Allergy Severe See Comment Verified 10/28/16 23:44 Lurasidone [From Latuda] Allergy Intermediate See Comment Verified 10/28/16 23: 44 Chlorpromazine AdvReac syncope Verified 10/28/16 23:44 [From Thorazine] PMH/Surg Hx/FS Hx/Imm Hx Endocrine/Hematology History: Denies: Hx Diabetes Cardiovascular History: Reports: Other Cardiovascular Problems/Disorders - increased QTC interval Denies: Hx Hypertension, Hx Pacemaker/ICD Respiratory History: Denies: Hx Asthma GI History: Reports: Hx Gastroesophageal Reflux Disease History: Denies: Hx Renal Disease Musculoskeletal History: Reports: Other Musculoskeletal History - hip dysplasia Sensory History: Denies: Hx Contacts or Glasses, Hx Hearing Aid Opthamlomology History: Denies: Hx Contacts or Glasses Neurological History: Reports: Other Neuro Impairments/Disorders - Hx of 6 concussions Denies: Hx Headaches, Hx Seizures, Hx Spinal Cord Injury, Hx Transient Ischemic Attacks (TIA) Psychiatric History: Reports: Hx Anxiety, Hx Depression, Hx Inpatient Treatment , Hx Community Mental Health Tx, Hx Schizophrenia, Hx Substance Abuse - alcohol , Other Psychiatric Issues/Disorders - psychosis, auditory hallucinations Denies: Hx Attention Deficit Hyperactivity Disorder, Hx Eating Disorder, Hx Panic Disorder, Hx Post Traumatic Stress Disorder, Hx Bipolar Disorder, Hx Suicide Attempt, Hx of Violent Episodes Against Others - Cancer History Hx Chemotherapy: No Hx Radiation Therapy: No Hx Palliative Cancer Treatment: No Infectious Disease History: Denies: Hx Clostridium Difficile, Hx Hepatitis, Hx Human Immunodeficiency Virus (HIV), Hx of Known/Suspected MRSA, Hx Shingles, Hx Tuberculosis, Hx Known/ Suspected VRE, Hx Known/Suspected VRSA, History Other Infectious Disease, Traveled Outside the [place] in Last 30 Days - Family History Known Family History: Positive: Other - Psychotic disorders, Schizophrenia, anxiety Negative: Cardiac Disease, Hypertension, Diabetes Family History: R & n/C - Social History Alcohol Use: None Alcohol Amount: was short term when 16 Hx Substance Use: Yes Substance Use Type: Reports: None Substance Use Comment - Amount & Last Used: denies Hx Tobacco Use: No Smoking Status (MU): Never Smoked Tobacco Have You Smoked in the Last Year: No Review of Systems Negative: Fever Neurological: Other - Positive hearing voices; negative SI and HI. All Other Systems Reviewed And Are Negative: Yes Physical Exam Triage Information Reviewed: Yes Vital Signs On Initial Exam: Initial Vitals Temp Pulse Resp BP Pulse Ox 98.8 F 83 16 135/82 97 10/28/16 21:54 10/28/16 21:54 10/28/16 21:54 10/28/16 21:54 10/28/16 21:54 Vital Signs Reviewed: Yes Appearance: Positive: Well-Appearing, No Pain Distress Skin: Positive: Warm Head/Face: Positive: Normal Head/Face Inspection Eyes: Positive: HILARY ENT: Positive: Hearing grossly normal Neck: Positive: Supple Respiratory/Lung Sounds: Positive: Breath Sounds Present Cardiovascular: Positive: RRR Abdomen Description: Positive: Nontender, Soft Bowel Sounds: Positive: Present Musculoskeletal: Positive: Strength/ROM Intact Neurological: Positive: Alert, Oriented to Person Place, Time Psychiatric: Positive: Anxious - [place] Coma Scale Coma Scale Total: 15 Diagnostics - Vital Signs Vital Signs Temp Pulse Resp BP Pulse Ox 10/28/16 21:54 98.8 F 83 16 135/82 97 - Laboratory Lab Results: Lab Results 10/28/16 10/28/16 10/28/16 Range/Units 23:17 23:17 23:20 WBC 7.9 (3.5-10.8) 10^3/ul RBC 4.95 (4.0-5.4) 10^6/ul Hgb 14.0 (14.0-18.0) g/dl Hct 42 (42-52) % MCV 85 (80-94) fL MCH 28 (27-31) pg MCHC 34 (31-36) g/dl RDW 13 (10.5-15) % Plt Count 231 (150-450) 10^3/ul MPV 8 (7.4-10.4) um3 Neut % (Auto) 52.0 (38-83) % Lymph % (Auto) 38.1 (25-47) % Harvey % (Auto) 9.4 H (1-9) % Eos % (Auto) 0.1 (0-6) % Baso % (Auto) 0.4 (0-2) % Absolute Neuts (auto) 4.1 (1.5-7.7) 10^3/ul Absolute Lymphs (auto) 3.0 (1.0-4.8) 10^3/ul Absolute Monos (auto) 0.7 (0-0.8) 10^3/ul Absolute Eos (auto) 0 (0-0.6) 10^3/ul Absolute Basos (auto) 0 (0-0.2) 10^3/ul Absolute Nucleated RBC 0.01 10^3/ul Nucleated RBC % 0.1 Sodium 138 (133-145) mmol/L Potassium 3.6 (3.5-5.0) mmol/L Chloride 104 (101-111) mmol/L Carbon Dioxide 26 (22-32) mmol/L Anion Gap 8 (2-11) mmol/L BUN 16 (6-24) mg/dL Creatinine 1.62 H (0.67-1.17) mg/dL Est GFR ( Amer) 67.1 (>60) Est GFR (Non-Af Amer) 52.2 (>60) BUN/Creatinine Ratio 9.9 (8-20) Glucose 82 (70-100) mg/dL Calcium 8.9 (8.6-10.3) mg/dL Total Bilirubin 0.30 (0.2-1.0) mg/dL AST 27 (13-39) U/L ALT 41 (7-52) U/L Alkaline Phosphatase 59 (34-104) U/L Total Protein 6.5 (6.4-8.9) g/dL Albumin 4.4 (3.2-5.2) g/dL Globulin 2.1 (2-4) g/dL Albumin/Globulin Ratio 2.1 (1-3) TSH 1.76 (0.34-5.60) mcIU/mL Urine Color Yellow Urine Appearance Clear Urine pH 7.0 (5-9) Ur Specific [place] 1.015 (1.010-1.030) Urine Protein Negative (Negative) Urine Ketones Negative (Negative) Urine Blood Negative (Negative) Urine Nitrate Negative (Negative) Urine Bilirubin Negative (Negative) Urine Urobilinogen Negative (Negative) Ur Leukocyte Esterase Negative (Negative) Urine Glucose Negative (Negative) Salicylates < 2.50 (<30) mg/dL Acetaminophen < 15 mcg/mL Serum Alcohol < 10 (<10) mg/dL Result Diagrams: 10/28/16 23:17 08 23:17 Lab Statement: Any lab studies that have been ordered have been reviewed, and results considered in the medical decision making process. Altered Mental Statu Course/Dx - Course Assessment/Plan: 25 year old M [facility] with a chief complaint of hearing voices since earlier today. Pt denies SI and HI. PMHx of Schizophrenia. Pt cleared for MHE at 23:20. - Diagnoses Discharge Diagnoses: Acute psychosis - Provider Notifications Instructed by Provider To: Admit As Inpatient Discharge - Discharge Plan Condition: Stable Disposition: PSYCHIATRIC FACILITY[facility] The documentation as recorded by the David sanches Alfonso accurately reflects the service I personally performed and the decisions made by , Leodan López MD.
[2016-10-29 01:01] LABS: Benzodiazepine Urine Screen None Detected (None Detect)
[2016-10-29] MEDS ORDERED: Al Hydrox/Mg Hydrox/Simet LIQ* 30 ML UDC PO PRN (04:51)
[2016-10-29] MEDS ORDERED: Acetaminophen TAB* 325 MG PO PRN (04:51)
[2016-10-29] MEDS: VRAYLAR 4.5 MG PO SCH (09:20)
[2016-10-29] MEDS: Famotidine TAB* 20 MG PO SCH ×2 (09:20→20:47)
[2016-10-29] MEDS: Vitamin THERAPEUTIC TAB PO SCH (09:20)
[2016-10-29] MEDS: Sertraline* 100 MG TAB PO SCH (09:20)
[2016-10-29] MEDS: CloZAPine TAB* 100 MG TAB PO SCH (20:47)
--- NOTE | 2016-10-29 21:56 | HP ---
HISTORY AND PHYSICAL: DATE OF ADMISSION: 10/29/16 IDENTIFYING DATA: Mr. Mix is a 25 years old, single, domiciled, unemployed, male, living at home with his parents and 2 older brothers. He was driven to this hospital by his biological mother at his request and he was admitted on voluntary status. CHIEF COMPLAINT: "The voices were telling me that people were going to cut me up!" HISTORY OF PRESENT ILLNESS: Yuniel is known to the [facility] from multiple previous inpatient psychiatric admissions. The most recent was from 08/22/16 to 08/26/16. He relates that yesterday around 9 p.m., the voices that (he always hear) became more louder and more threatening and he asked his mother to drive him to the hospital to be admitted, he said the voices told him he would be safer in the hospital. He has an established diagnosis of schizophrenia. He reports history of auditory hallucinations, that have at times, instructing him to harm himself. 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 He reports having been fully compliant with taking his prescribed medications and with keeping his therapy appointments. He cites stressor of having recently received a mailing from the licensing board of [employer] that unless he completes some continuing education classes, he was at risk of losing his credentials. He also admits to feeling somewhat socially isolated. On review of psychiatric symptoms, he denies persistently depressed mood. He denies manic symptoms. He endorses auditory hallucinations, some paranoid ideation. He denies delusions. He was reasonably organized in his thinking and his behavior. He denies excessive worrying, panic attacks, obsessive thoughts, compulsive rituals. He denies any history of trauma, abuse, or PTSD symptoms. He denies previous diagnosis of ADHD or learning disorder. He denies symptoms of eating disorder. PAST PSYCHIATRIC HISTORY: The patient relates having a history of more than 10 previous inpatient psychiatric admission, since age 18 when he had his first psychotic break in 2009. Most of his admissions have been here at [facility]. He also had at least 1 stay at [facility] and then another at the [facility]. Most recent admission was from 08/22/16 to 08/26/16. Outpatient care is at [facility] with outpatient psychiatrist, Dr. Dulce Javed, whom he last saw about a month and a half ago and therapist, BROOKE Silverio whom he saw about a month ago. MEDICATIONS: He is prescribed: 1. Sertraline 100 mg daily. 2. Vraylar 4.5 mg daily. 3. Clozapine 500 mg p.o. at bedtime. SUICIDE/HOMICIDE HISTORY: He denies any history of previous suicide attempts, self injurious behavior or violence. PAST MEDICAL HISTORY: Remarkable for history of repeated head concussions and GERD. He is followed at [facility] by Dr. Aman Ya. FAMILY HISTORY: The patient reports family history of schizophrenia in maternal second cousin. Mother has history of anxiety. One of his paternal aunts also has schizophrenia. He denies any knowledge of any relatives who may have completed suicides. SUBSTANCE ABUSE HISTORY: The patient described past use of alcohol and marijuana in high school before his first psychotic break. PERSONAL AND SOCIAL HISTORY: He is the third youngest of 4 brothers from his parents. Father works in [place] at [place] and mother is a mental health therapist. The patient lives at home with both his parents and his 23 and 27-year-old brother. His 30-year-old brother is living as an independent adult. The patient graduated from high school. He subsequently attended the school of [employer] and he took a leave of absence close to graduation, eventually obtained his licence after watching DVD's to meet requirements. He worked at [employer] in 2011 about a year in ; He also took up [employer] and Math at [employer] in the fall of 2012, but he struggled, dropped out and has not been in school since. He plans to return to [employer] in the fall to study music. He spends his time at home, playing guitar and piano. He has aspirations of forming a band. He does not have any friends. He identified as being "either heterosexual or bisexual." He has not dated. He has not been sexually active. MENTAL STATUS EXAMINATION: Finds a muscularly built 25-year-old white male with short brown hair. He looks his stated age. He is dressed in hospital scrubs. He makes poor eye contact. He presents as guarded, superficially cooperative. He exhibits some degree of psychomotor retardation. He presents with latencies in speech. He is observed mumbling under his breath when asked questions. He endorses auditory hallucinations in the form of threatening voices, but he contracts for safety. His thinking had a somewhat impoverished quality, but there were no overt delusions. He denies suicidal or homicidal ideation or urges to self mutilate and he he contracts for safety. His insight and judgment are fair. Impulse control is good in this setting. He is alert, he is oriented to time, place and person. Attention, memory, and concentration are all fair. Fund of knowledge is adequate. Intelligence is estimated to be in normal range. REVIEW OF MEDICAL SYMPTOMS: Negative. PHYSICAL EXAMINATION GENERAL: He is a muscularly built, 25-year-old white male who does not appear to be in any acute physical distress. He is alert and oriented x3. ADMISSION VITAL SIGNS: Blood pressure 135/82, pulse is 83, respirations is 16, temperature is 98.8. HEENT: Head atraumatic, normocephalic, symmetrical. Eyes: PERRLA. Tympanic membranes intact. Sclerae anicteric. Conjunctivae clear. NECK: Trachea midline, freely mobile. No cervical lymphadenopathy. No nuchal rigidity. LUNGS: Clear to auscultation bilaterally. HEART: Regular rate and rhythm. S1, S2. No murmur, gallops, or rubs. BREAST EXAM: No mass or discharge. ABDOMEN: Soft, nontender. No masses, organomegaly, or rebound tenderness. No scars noted. Active bowel sounds in all 4 quadrants. EXTREMITIES: No pain or limitation in the range of movement. Pulses are equal and adequate in all 4 extremities. NEUROLOGIC: Cranial nerves II through XII are intact. Cerebellar function intact. Muscle strength grade 5/5 in all 4 extremities. GENITAL EXAM: Not performed. RECTAL EXAM: Not performed. STRUCTURAL EXAM: The patient examined in both supine and upright positions. No gross AP or lateral asymmetry. Gait and movement are within normal limits. SKIN: Skin texture, turgor, and pigmentation are within normal limits. LABORATORIES ON ADMISSION: CBC, complete metabolic panel, urinalysis, and urine toxicology screen are all within normal limits. SUMMARY: This is a 25-year-old male, who is self referred and requested admission because of worsening auditory hallucinations that he found threatening. He has significant history of mental illness with first psychiatric break at age 18 and at least 10 previous psychiatric admissions including 2 stays at [facility]. He has outpatient care at [facility]. He reports compliance with taking prescribed medications. His medical history is noncontributory. He has family history of anxiety and psychotic disorders in relatives. He denies substance abuse. 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 DIAGNOSTIC IMPRESSION: Schizophrenia, chronic, undifferentiated type. TREATMENT PLAN: Admit to mental health unit, 15-minute checks, full code status. Legal status is voluntary. Initiate comprehensive milieu, individual and group psychotherapeutic support. Medication management will involve continuing his outpatient regimen of medications and conferring with his outpatient psychiatric providers. Discharge planning will involve coordination with his after care with [facility]. [id number]/[facility] #: [id number] JOSIAS
[2016-10-30] MEDS: Sertraline* 100 MG TAB PO SCH (08:36)
[2016-10-30] MEDS: VRAYLAR 4.5 MG PO SCH (08:36)
[2016-10-30] MEDS: Vitamin THERAPEUTIC TAB PO SCH (08:36)
[2016-10-30] MEDS: Famotidine TAB* 20 MG PO SCH ×2 (08:36→20:41)
[2016-10-30] MEDS: CloZAPine TAB* 100 MG TAB PO SCH (20:40)
[2016-10-31] MEDS: Vitamin THERAPEUTIC TAB PO SCH (09:30)
[2016-10-31] MEDS: Famotidine TAB* 20 MG PO SCH ×2 (09:30→20:25)
[2016-10-31] MEDS: Sertraline* 100 MG TAB PO SCH (09:30)
[2016-10-31] MEDS: VRAYLAR 4.5 MG PO SCH (09:31)
--- NOTE | 2016-10-31 14:37 | PN ---
Subjective - Subjective Service Type: 94623 Hosp care 15 min low complexity Subjective: Yuniel continues to have auditory hallucinations and respond to them during the assessment. Quietly sitting in the day room without participation in groups or activities. Complient with treatments. Objective - Appearance Appearance: Obese Dysmorphic Features: No Hygiene: Normal Grooming: Fairly Well Kept - Behavior Psychomotor Activities: Abnormal-Decreased - Attitude and Relatedness Attitude and Relatedness: Cooperative Eye Contact: Good - Speech Quality: Unpressured Latencies: Long Quantity: Terse - Mood Patient's Decription of Mood: "Okay" - Affect Observed Affect: Depressed Affect Consistent with: Dysphoria - Thought Process Patient's Thought Process: Coherent, Impoverished Thought Content: No Passive Wish, No Suicidal Planning, No Homicidal Ideation, No Paranoid Ideation - Sensorium Type of Hallucinations: Visual: No, Auditory: Yes, Command: No - Level of Consciousness Level of Consciousness: Alert Orientation: Yes Intact, Yes Orientated to Time, Yes Orientated to Place, Yes Orientated to Person - Impulse Control Impulse Control: Tenuous - Insight and Judgement Insight and Judgement: Fair - Group Participation Particating in Group Activities: No - Medication Management Medication Management Adherence: Yes Assessment - Assessment Merits Inpatient Hospitalization: For Stabilization Clinical Impression: Still psychotic and will need inpatient care here or in a state . Plan - Plan Treatment Plan: Name: YUNIEL ZAMAN Birthdate: 1990 [id number] Continued Medication Management: Continue Outpt Medication Medications: Current Medications Acetaminophen (Tylenol Tab*) 650 mg PO Q4H PRN PRN Reason: PAIN or TEMP > 101 F Al Hydrox/Mg Hydrox/Simethicone (Maalox Plus*) 30 ml PO Q4H PRN PRN Reason: INDIGESTION Clozapine (Clozapine Tab*) 500 mg PO BEDTIME [facility] Last Admin: 10/30/16 20:40 Dose: 500 mg Famotidine (Pepcid Tab*) 20 mg PO BID [facility] Last Admin: 10/31/16 09:30 Dose: 20 mg Multivitamins (Theragran Tab*) 1 tab PO DAILY [facility] Last Admin: 10/31/16 09:30 Dose: 1 tab Pto: Vraylar ( (Cariprazine) 4.5 Mg) 1 dose PO DAILY [facility] Last Admin: 10/31/16 09:31 Dose: 1 dose Sertraline HCl (Zoloft*) 100 mg PO DAILY [facility] Last Admin: 10/31/16 09:30 Dose: 100 mg - Discharge Plan Discharge Plan: Consider Longer Term Tx
[2016-10-31] MEDS: CloZAPine TAB* 100 MG TAB PO SCH (20:24)
[2016-11-01] MEDS: Famotidine TAB* 20 MG PO SCH ×2 (09:14→20:23)
[2016-11-01] MEDS: Sertraline* 100 MG TAB PO SCH (09:14)
[2016-11-01] MEDS: Vitamin THERAPEUTIC TAB PO SCH (09:14)
[2016-11-01] MEDS: VRAYLAR 4.5 MG PO SCH (09:14)
--- NOTE | 2016-11-01 17:23 | PN ---
Subjective - Subjective Subjective: Yuniel is found in the milieu, sitting alone while most peers are in group. He describes an ok weekend, endorses fainter and less threatening voices, ok mood and restful sleep. He denies SI/HI or A/VH and he contracts for safety. He denies side effects from prescribed meds. Per staff, he is selectively adherent to unit's routines. Objective - Appearance Appearance: Well Developed/Nourished Dysmorphic Features: No Hygiene: Normal Grooming: Well Kept - Behavior Motor Skills: Fine Motor Skills: Normal, Gross Motor Skills: Normal, Gait: Normal Psychomotor Activities: Normal Exhibits Abnormal Movement: No - Attitude and Relatedness Attitude and Relatedness: Psychotically Related Eye Contact: Fair - Speech Quality: Unpressured Latencies: Normal Quantity: Terse - Mood Patient's Decription of Mood: "Okay" - Affect Observed Affect: Unvariable Affect Consistent with: Dysphoria - Thought Process Patient's Thought Process: Coherent, Impoverished Thought Content: No Passive Wish, No Suicidal Planning, No Homicidal Ideation, No Paranoid Ideation - Sensorium Delusions: No Experiencing Hallucinations: No, Sensorium is Clear - Level of Consciousness Level of Consciousness: Alert Orientation: Yes Intact - Impulse Control Impulse Control: Intact - Insight and Judgement Insight and Judgement: Impaired Assessment - Assessment Merits Inpatient Hospitalization: Consolidate Improvements, For Discharge Planning, Pending Safe DC Plan Inpatient DSM-IV Dx: Schizophrenia chronic undifferentiated type Vs. Schizoaffective disorder, depressed type. Clinical Impression: Subjective improvement in AH, denies SI/HI, tolerating continuation of outpatient regimen. He needs continued admission for stabilization. Plan - Treatment Plan Level of Observation: 15 Minute Checks, Full Code Status Continued Medication Management: Continue Outpt Medication Medications: Current Medications Acetaminophen (Tylenol Tab*) 650 mg PO Q4H PRN PRN Reason: PAIN or TEMP > 101 F Al Hydrox/Mg Hydrox/Simethicone (Maalox Plus*) 30 ml PO Q4H PRN PRN Reason: INDIGESTION Clozapine (Clozapine Tab*) 500 mg PO BEDTIME [facility] Last Admin: 10/31/16 20:24 Dose: 500 mg Famotidine (Pepcid Tab*) 20 mg PO BID [facility] Last Admin: 11/01/16 09:14 Dose: 20 mg Multivitamins (Theragran Tab*) 1 tab PO DAILY [facility] Last Admin: 11/01/16 09:14 Dose: 1 tab Pto: Vraylar ( (Cariprazine) 4.5 Mg) 1 dose PO DAILY [facility] Last Admin: 11/01/16 09:14 Dose: 1 dose Sertraline HCl (Zoloft*) 100 mg PO DAILY [facility] Last Admin: 11/01/16 09:14 Dose: 100 mg - Discharge Plan Discharge Plan: [facility]
[2016-11-01] MEDS: CloZAPine TAB* 100 MG TAB PO SCH (20:23)
[2016-11-02] MEDS: Famotidine TAB* 20 MG PO SCH ×2 (08:24→21:19)
[2016-11-02] MEDS: Sertraline* 100 MG TAB PO SCH (08:24)
[2016-11-02] MEDS: VRAYLAR 4.5 MG PO SCH (08:25)
[2016-11-02] MEDS: Vitamin THERAPEUTIC TAB PO SCH (08:25)
--- NOTE | 2016-11-02 14:35 | PN ---
Subjective - Subjective Subjective: Yuniel reports continued improvement in AH, denies that they are instructing him to harm self or others, he denies delusions. He denies side effects from his prescribed meds and he contracts for safety. He requests discharge home in the next day or two. Per staff, he remains selectively adherent to unit's routines. Objective - Appearance Appearance: Well Developed/Nourished Dysmorphic Features: No Hygiene: Normal Grooming: Well Kept - Behavior Psychomotor Activities: Normal Exhibits Abnormal Movement: No - Attitude and Relatedness Attitude and Relatedness: Withdrawn Eye Contact: Fair - Speech Quality: Unpressured Latencies: Normal Quantity: Terse - Mood Patient's Decription of Mood: "Okay" - Affect Observed Affect: Unvariable - Thought Process Patient's Thought Process: Coherent, Goal Directed Thought Content: No Passive Wish, No Suicidal Planning, No Homicidal Ideation, No Paranoid Ideation - Sensorium Experiencing Hallucinations: Yes Type of Hallucinations: Visual: No, Auditory: Yes, Command: No - Level of Consciousness Level of Consciousness: Alert Orientation: Yes Intact - Impulse Control Impulse Control: Intact - Insight and Judgement Insight and Judgement: Fair - Group Participation Particating in Group Activities: No - Medication Management Medication Management Adherence: Yes Assessment - Assessment Merits Inpatient Hospitalization: For Ongoing Evaluation, Consolidate Improvements, For Discharge Planning Inpatient DSM-IV Dx: Schizophrenia chronic undifferentiated type Vs. Schizoaffective disorder, depressed type. Clinical Impression: Stabilizing in this structured setting with subjective improvement in AH, denies SI/HI, tolerating continuation of outpatient regimen. He needs continued admission for stabilization. Plan - Plan Treatment Plan: Name: YUNIEL ZAMAN Birthdate: 1990 [id number] Continued Medication Management: Continue Outpt Medication Medications: Current Medications Acetaminophen (Tylenol Tab*) 650 mg PO Q4H PRN PRN Reason: PAIN or TEMP > 101 F Al Hydrox/Mg Hydrox/Simethicone (Maalox Plus*) 30 ml PO Q4H PRN PRN Reason: INDIGESTION Clozapine (Clozapine Tab*) 500 mg PO BEDTIME [facility] Last Admin: 11/01/16 20:23 Dose: 500 mg Famotidine (Pepcid Tab*) 20 mg PO BID [facility] Last Admin: 11/02/16 08:24 Dose: 20 mg Multivitamins (Theragran Tab*) 1 tab PO DAILY [facility] Last Admin: 11/02/16 08:25 Dose: 1 tab Pto: Vraylar ( (Cariprazine) 4.5 Mg) 1 dose PO DAILY [facility] Last Admin: 11/02/16 08:25 Dose: 1 dose Sertraline HCl (Zoloft*) 100 mg PO DAILY [facility] Last Admin: 11/02/16 08:24 Dose: 100 mg - Discharge Plan Discharge Plan: Outpatient Follow Up Outpatient Program: [facility]
[2016-11-02] MEDS: CloZAPine TAB* 100 MG TAB PO SCH (21:18)
[2016-11-03] MEDS: Sertraline* 100 MG TAB PO SCH (08:17)
[2016-11-03] MEDS: Famotidine TAB* 20 MG PO SCH ×2 (08:17→20:31)
[2016-11-03] MEDS: VRAYLAR 4.5 MG PO SCH (08:18)
[2016-11-03] MEDS: Vitamin THERAPEUTIC TAB PO SCH (08:18)
--- NOTE | 2016-11-03 17:09 | PN ---
Subjective - Subjective Subjective: Yuniel reports endorses feeing "pretty good!" reports "vices are better and nicer." He denies that they are instructing him to harm self or others, he denies delusions. He denies side effects from his prescribed meds and he contracts for safety. He is hopeful for discharge in AM. Per staff, he remains selectively adherent to unit's routines. Objective - Appearance Appearance: Well Developed/Nourished Dysmorphic Features: No Hygiene: Normal Grooming: Well Kept - Behavior Psychomotor Activities: Normal Exhibits Abnormal Movement: No - Attitude and Relatedness Attitude and Relatedness: Cooperative Eye Contact: Fair - Speech Quality: Unpressured Latencies: Normal Quantity: Terse - Mood Patient's Decription of Mood: "Okay" - Affect Observed Affect: Constricted Affect Consistent with: Dysphoria - Thought Process Patient's Thought Process: Coherent, Goal Directed Thought Content: No Passive Wish, No Suicidal Planning, No Homicidal Ideation, No Paranoid Ideation - Sensorium Experiencing Hallucinations: No, Sensorium is Clear - Level of Consciousness Level of Consciousness: Alert Orientation: Yes Intact - Impulse Control Impulse Control: Intact - Insight and Judgement Insight and Judgement: Fair - Group Participation Particating in Group Activities: Yes - Medication Management Medication Management Adherence: Yes Assessment - Assessment Merits Inpatient Hospitalization: Consolidate Improvements, For Discharge Planning Inpatient DSM-IV Dx: Schizophrenia chronic undifferentiated type Vs. Schizoaffective disorder, depressed type. Clinical Impression: Stabilizing in this structured setting with subjective improvement in AH, denies SI/HI, tolerating continuation of outpatient regimen. Appropriate for discharge in AM. Plan - Plan Treatment Plan: Name: YUNIEL ZAMAN Birthdate: 1990 [id number] Continued Medication Management: Continue Outpt Medication Medications: Current Medications Acetaminophen (Tylenol Tab*) 650 mg PO Q4H PRN PRN Reason: PAIN or TEMP > 101 F Last Admin: 11/02/16 21:20 Dose: 650 mg Al Hydrox/Mg Hydrox/Simethicone (Maalox Plus*) 30 ml PO Q4H PRN PRN Reason: INDIGESTION Clozapine (Clozapine Tab*) 500 mg PO BEDTIME [facility] Last Admin: 11/02/16 21:18 Dose: 500 mg Famotidine (Pepcid Tab*) 20 mg PO BID [facility] Last Admin: 11/03/16 08:17 Dose: 20 mg Multivitamins (Theragran Tab*) 1 tab PO DAILY [facility] Last Admin: 11/03/16 08:18 Dose: 1 tab Pto: Vraylar ( (Cariprazine) 4.5 Mg) 1 dose PO DAILY [facility] Last Admin: 11/03/16 08:18 Dose: 1 dose Sertraline HCl (Zoloft*) 100 mg PO DAILY [facility] Last Admin: 11/03/16 08:17 Dose: 100 mg - Discharge Plan Discharge Plan: Outpatient Follow Up Outpatient Program: [facility]
[2016-11-03] MEDS: CloZAPine TAB* 100 MG TAB PO SCH (20:31)
[2016-11-04 08:05] VITALS: BP 134/68
[2016-11-04] MEDS: Famotidine TAB* 20 MG PO SCH (09:09)
[2016-11-04] MEDS: Vitamin THERAPEUTIC TAB PO SCH (09:09)
[2016-11-04] MEDS: Sertraline* 100 MG TAB PO SCH (09:09)
[2016-11-04] MEDS: VRAYLAR 4.5 MG PO SCH (09:09)
--- NOTE | 2016-11-04 12:24 | DS ---
Subjective - Subjective Discharge Date: 11/04/16 Subjective: Josh maintains readiness for discharge. He affirms she feels safe and good about being alive. He denies emotional pain or unmanageable anxiety. He reports continued auditory hallucinations but explains the voices are now fainter and gentler. He avidly denies having thoughts of suicide or homicide. He denies problems with medications, and says he does not see obstacles to routine care / therapy, or emergency help if needed again. Objective - Appearance Appearance: Well Developed/Nourished Dysmorphic Features: No Hygiene: Normal Grooming: Well Kept - Behavior Psychomotor Activities: Normal Exhibits Abnormal Movement: No - Attitude and Relatedness Attitude and Relatedness: Cooperative Eye Contact: Fair - Speech Quality: Unpressured Latencies: Normal Quantity: Appropriate - Mood Patient's Decription of Mood: "Okay" - Affect Observed Affect: Unvariable Affect Consistent with: Euthymia - Thought Process Patient's Thought Process: Coherent, Impoverished Thought Content: No Passive Wish, No Suicidal Planning, No Homicidal Ideation, No Paranoid Ideation - Sensorium Experiencing Hallucinations: No, Sensorium is Clear - Level of Consciousness Level of Consciousness: Alert Orientation: Yes Intact - Impulse Control Impulse Control: Intact - Insight and Judgement Insight and Judgement: Fair - Group Participation Particating in Group Activities: No - Medication Management Medication Management Adherence: Yes Treatment Course & Assessment Clinical Course & Impression: SUMMARY: This is a 25-year-old male, who is self referred and requested admission because of worsening auditory hallucinations that he found threatening. He has significant history of mental illness with first psychiatric break at age 18 and at least 10 previous psychiatric admissions including 2 stays at [facility]. He has outpatient care at [facility]. He reports compliance with taking prescribed medications. His medical history is noncontributory. He has family history of anxiety and psychotic disorders in relatives. He denies substance abuse. 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 Clear for release: 11/04/16 HOSPITAL COURSE: Josh stabilized here behaviorally and improved clinically. He was safe on checks, adherent with routines, and free of active suicidal ideation. He was well engaged in inpatient treatment. Medication management continued his outpatient regimen of medications. Risk concern centers on ongoing psychotic symptoms. Josh's profile puts him at chronic elevated risk for harm to self or to other but at this time acute risk is assessed as low - factors are is tolerable and reduced symptom burden, absence of impairment, and benign observed behavior and ideation. Merits Inpatient Hospitalization: No Clear for Discharge: Adequate Clinical Respons, Acceptable Safety Profile Inpatient DSM-IV Dx: Schizophrenia chronic undifferentiated type Vs. Schizoaffective disorder, depressed type. Discharge Planning - Discharge Planning Discharge Plan: Outpatient Follow Up Outpatient Program: [facility] Recommendations for Continuing Care: Medication Management, Psychotherapy Medications: Discharge Medications Clozapine (Clozapine Tab*) 500 mg PO BEDTIME FOR PSYCHOSIS; Vraylar ( (Cariprazine) 4.5 Mg) 1 dose PO DAILY FOR PSYCHOSIS; Sertraline HCl (Zoloft*) 100 mg PO DAILY FOR DEPRESSION/ANXIETY. Discharge Planning: Prescriptions provided for discharge [] Yes [X] No Follow up care details as per social work arrangements. Patient response to discharge plan: [X] eager for discharge [] agreeable with discharge plan [] ambivalent about discharge [] disagrees with discharge today Follow-up JOSH ZAMAN has been referred to the following clinics/specialists for follow- up care: [facility] [address], [place] [id number] You have an appointment with BROOKE Silverio on Tuesday11/08/16 at 12: 30 pm You have an appointment with Dr. Javed on 11/11/16 at 3:00 pm
== END 2016-11-04 12:55 | disposition home or self-care (01) | DRG 885 ==
LOC: ED 21:52 → BSU 10-29 00:29
PROVIDERS: ADMIT Psychiatry & Neurology Psychiatry; ATTEND Psychiatry & Neurology Psychiatry
DX: F25.1 Schizoaffective disorder, depressive type (principal); F20.5 Residual schizophrenia; F32.9 Major depressive disorder, single episode, unspecified; K21.9 Gastro-esophageal reflux disease without esophagitis; F41.9 Anxiety disorder, unspecified; R40.2412 Glasgow coma scale score 13-15, at arrival to emergency department; Z81.8 Family history of other mental and behavioral disorders; Z56.0 Unemployment, unspecified; Z59.0 Homelessness; Z87.820 Personal history of traumatic brain injury; Z88.8 Allergy status to other drugs, medicaments and biological substances; Q65.89 Other specified congenital deformities of hip
CPT/HCPCS: 36415; 80053; 80307; 80320; 80329; 81003; 84443; 85025; 99222; 99231; 99238; A9270-GY; G0480

== ENCOUNTER 2017-05-03 20:09 | Inpatient (IN) | payer MEDICARE, MEDICAID ==
[2017-05-03 20:55] LABS: ABS Basophils 0 10^3/ul (0-0.2); ABS Eosinophils 0 10^3/ul (0-0.6); ABS Lymphocytes 2.1 10^3/ul (1.0-4.8); ABS Monocytes 0.5 10^3/ul (0-0.8); ABS Neutrophils 3.6 10^3/ul (1.5-7.7); ABS Nucleated RBC 0 10^3/ul; Eosinophil % 0 % (0-6); Hematocrit 42 % (42-52); Hemoglobin 14.7 g/dl (14.0-18.0); Lymphocyte % 33.8 % (25-47); Mean Corpuscular HGB Conc 35 g/dl (31-36); Mean Corpuscular Hemoglobin 29 pg (27-31); Mean Corpuscular Volume 83 fL (80-94); Mean Platelet Volume 9 um3 (7.4-10.4); Nucleated Red Blood Cells % 0; Platelet Count 201 10^3/ul (150-450); Red Blood Count 5.12 10^6/ul (4.0-5.4); Red Cell Distribution Width 14 % (10.5-15); White Blood Count 6.3 10^3/ul (3.5-10.8)
[2017-05-03 21:06] LABS: EGFR Non-African American 52.9 (>60)
--- NOTE | 2017-05-03 23:01 | ED ---
Corby Beatty Stephanie, scribed for Trav Redd MD on 05/03/17 at 2032 . Psychiatric Complaint - HPI Summary HPI Summary: The pt is a 26 y/o M presenting to the ED with c/o hearing voices today. The pt reports a hx of hearing voices for the past year. He said that the voices said he can be helped at the ED. The pt denies drug use and smoking. - History Of Current Complaint Chief Complaint: EDMentalHealth Time Seen by Provider: 05/03/17 20:20 Hx Obtained From: Patient Onset/Duration: Lasting Hours Timing: Constant Aggravating Factor(s): Nothing Alleviating Factor(s): Nothing - Allergies/Home Medications Allergies/Adverse Reactions: Allergies Allergy/AdvReac Type Severity Reaction Status Date / Time MS Haloperidol [From Haldol] Allergy Severe See Comment Verified 01/25/17 19:33 MS Lurasidone [From Latuda] Allergy Intermediate See Comment Verified 01/25/17 19:33 MS Chlorpromazine AdvReac syncope Verified 01/25/17 19:33 [From Thorazine] PMH/Surg Hx/FS Hx/Imm Hx Endocrine/Hematology History: Denies: Hx Diabetes Cardiovascular History: Reports: Other Cardiovascular Problems/Disorders - increased QTC interval Denies: Hx Hypertension, Hx Pacemaker/ICD Respiratory History: Denies: Hx Asthma GI History: Reports: Hx Gastroesophageal Reflux Disease History: Denies: Hx Renal Disease Musculoskeletal History: Reports: Other Musculoskeletal History - hip dysplasia Denies: Hx Arthritis Sensory History: Denies: Hx Contacts or Glasses, Hx Hearing Aid Opthamlomology History: Denies: Hx Contacts or Glasses Neurological History: Reports: Other Neuro Impairments/Disorders - Hx of 6 concussions Denies: Hx Headaches, Hx Seizures, Hx Spinal Cord Injury, Hx Transient Ischemic Attacks (TIA) Psychiatric History: Reports: Hx Anxiety, Hx Depression, Hx Inpatient Treatment , Hx Community Mental Health Tx, Hx Schizophrenia, Hx Substance Abuse - alcohol , Other Psychiatric Issues/Disorders - psychosis, auditory hallucinations Denies: Hx Attention Deficit Hyperactivity Disorder, Hx Eating Disorder, Hx Panic Disorder, Hx Post Traumatic Stress Disorder, Hx Bipolar Disorder, Hx Suicide Attempt, Hx of Violent Episodes Against Others - Cancer History Hx Chemotherapy: No Hx Radiation Therapy: No Hx Palliative Cancer Treatment: No Infectious Disease History: Denies: Hx Clostridium Difficile, Hx Hepatitis, Hx Human Immunodeficiency Virus (HIV), Hx of Known/Suspected MRSA, Hx Shingles, Hx Tuberculosis, Hx Known/ Suspected VRE, Hx Known/Suspected VRSA, History Other Infectious Disease - Family History Known Family History: Positive: Other - Psychotic disorders, Schizophrenia, anxiety Negative: Cardiac Disease, Hypertension, Diabetes Family History: R & n/C - Social History Occupation: Unemployed Lives: Alone Alcohol Use: None Alcohol Amount: was short term when 16 Hx Substance Use: Yes Substance Use Type: Reports: None Substance Use Comment - Amount & Last Used: denies Hx Tobacco Use: No Smoking Status (MU): Never Smoked Tobacco Have You Smoked in the Last Year: No Review of Systems Negative: Fever Positive: no symptoms reported Positive: Anxious All Other Systems Reviewed And Are Negative: Yes Physical Exam - Summary Physical Exam Summary: Appearance: Well-appearing, Well-nourished Skin: Warm, Dry, No rash Eyes: Normal, PERRL, EOMI, sclera anicteric ENT: Normal Neck: Supple, nontender Respiratory: Clear to auscultation Cardiovascular: S1, S2, no murmur, no rub, no gallop Abdomen: Soft, nontender, no organomegaly Bowel sounds: Present Musculoskeletal: Normal, Strength/ROM Intact, no edema, pulses symmetrical Neurological: Normal, A&Ox3, cranial nerves II-XII WNL, follows commands, gait not tested, sensation intact to pin and light touch Psychiatric: anxious appearing, whispering under his breath. Restrained appearing as if he is trying to control the voices. dressed appropriately, judgment intact Triage Information Reviewed: Yes Vital Signs Reviewed: Yes Diagnostics - Laboratory Result Diagrams: 05/03/17 20:40 05/03/17 20:40 Lab Statement: Any lab studies that have been ordered have been reviewed, and results considered in the medical decision making process. Course/Dx - Course Course Of Treatment: The pt is a sign out to Dr. Valdez at shift change pending MHE. - Differential Dx/Clinical Impression Provider Diagnosis: possible schizophrenia Discharge - Discharge Plan Condition: Stable Disposition: OTHER Discharge Disposition Comment: The pt is a sign out to Dr. Valdez at shift change pending MHE. Referrals: Aman Ya MD [Primary Care Provider] - The documentation as recorded by the Corby sanches Stephanie accurately reflects the service I personally performed and the decisions made by me, Trav Redd MD.
[2017-05-04] MEDS ORDERED: Al Hydrox/Mg Hydrox/Simet LIQ* 30 ML UDC PO PRN (03:34)
[2017-05-04] MEDS ORDERED: Acetaminophen TAB* 325 MG PO PRN (03:34)
[2017-05-04] MEDS ORDERED: Al Hydrox/Mg Hydrox/Simet LIQ* 30 ML UDC ONE (03:44)
[2017-05-04] MEDS ORDERED: CloZAPine TAB* 100 MG TAB ONE (03:44)
[2017-05-04] MEDS ORDERED: CloZAPine TAB* 25 MG TAB ONE (03:44)
[2017-05-04] MEDS: CloZAPine TAB* 100 MG TAB PO SCH ×2 (03:55→20:36)
[2017-05-04] MEDS ORDERED: Famotidine TAB* 20 MG ONE (04:03)
[2017-05-04] MEDS: Famotidine TAB* 20 MG PO SCH ×3 (04:05→20:36)
--- NOTE | 2017-05-04 04:30 | ED ---
Yoan Beatty Gabriel, scribed for Sami Valdez MD on 05/04/17 at 0422 . Progress - Progress Note Progress Note: The patient was signed out from Dr. Redd awaiting MHE. After MHE by Dr. Crawford patient will be admitted with psychosis - Consult/PCP Time Called: 20:22 Course/Dx - Course Course Of Treatment: The pt is a sign out to Dr. Valdez at shift change pending MHE. - Diagnoses Provider Diagnoses: Psychosis The documentation as recorded by the Yoan sanches Gabriel accurately reflects the service I personally performed and the decisions made by Courtney owens Abdul, MD.
[2017-05-04] MEDS: Vitamin THERAPEUTIC TAB PO SCH (10:04)
[2017-05-04] MEDS ORDERED: CARIPRAZINE PO SCH ×2 (13:30→14:30)
[2017-05-04] MEDS: Sertraline* 100 MG TAB PO SCH (15:12)
[2017-05-04] MEDS: CARIPRAZINE PO SCH (15:12)
--- NOTE | 2017-05-04 15:14 | HP ---
DATE OF ADMISSION: 05/04/2017. JUSTIFICATION FOR ADMISSION: The patient is having command auditory hallucinations, as well as speec h latencies and thought blocking. We feel the severity of this warrants 24 hour supervision and care . CHIEF COMPLAINT: "The voices told me to come to the hospital and they would be mad if I didn't come in." HISTORY OF PRESENT ILLNESS: The patient is a 26-year-old, single, white male with a history of schiz ophrenia who has several past psychiatric admissions here at [facility], who returns on a voluntary basis re porting command auditory hallucinations of a derogatory nature. The patient states that the voices t old him to come to the hospital. It appears as though his Clozapine was recently decreased from 550 mg nightly to 500 mg nightly, although it is not completely certain that this was the underlying caus e of his worsening symptoms. When I met with the patient, he had extreme speech latencies, thought i mpoverishment and seemed to be openly responding to internal stimuli. He denies suicidal or homicida l ideations, but feels that he would be unsafe on the outpatient basis. The only other stressor we c an ascertain is that he recently moved from his parent's house into the [facility], which is a og home run by [facility]. He continues to see therapist Baljinder Holt and psychiatrist Dr. Javed at [facility]. PAST PSYCHIATRIC HISTORY: The patient has had numerous inpatient stays on the psychiatric unit [facility] in 2009, which is when he had the onset of psychosis. In the past he had been transferred to [facility] and the [facility] for longer term stabilization. Currently, he is in outpatient treatment at [facility] with Dr. Dulce Javed as his psychiatrist and nurse Baljinder Holt as his erapist. His high risk case manager is Carlos Worley. Past medication trials have included Risperdal, Latuda, Abilify, Haldol, and Olanzapine, as well as long-acting Invega Sustenna. His diagnosis is schizophr enia. He denies any formal history of suicide attempts. PAST MEDICAL HISTORY: Significant for gastroesophageal reflux disease and a history of hip dysplasia . CURRENT MEDICATIONS: 1. Sertraline 150 mg p.o. daily. 2. Clozapine 500 mg p.o. nightly. 3. Cariprazine 4.5 mg p.o. daily. ALLERGIES: He has documented ALLERGIES TO HALDOL, LURASIDONE, AND CHLORPROMAZINE. FAMILY PSYCHIATRIC HISTORY: Notable for anxiety in his mother. He has a second cousin with psychosi s as well as a brother with psychosis. He also has a paternal aunt with schizophrenia and a maternal cousin with borderline personality disorder and suicide attempt. He also has a separate brother wit h avoidant personality disorder. SUBSTANCE USE HISTORY: The patient used to abuse alcohol and cannabis in high school. Currently he does not use any alcohol or illicit substances and has never been a smoker. SOCIAL HISTORY: The patient is from the [facility], lives in [facility]. He did well in school and was an honor student, but was not able to continue his studies because of psychotic illness. He was active in sports growing up and has an interest in lifting weights. 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 REVIEW OF SYSTEMS: The patient denies headache or double vision. He denies sore throat, cough, ches t pain, or difficulty breathing. He denies abdominal pain, nausea, vomiting, diarrhea, or constipati on. He denies difficulty ambulating, rashes, enlarged lymph nodes, fevers, or changes in weight. PHYSICAL EXAMINATION VITAL SIGNS: Blood pressure 151/77, heart rate 102, respiratory rate 16, temperature 98.9 degrees Fa hrenheit, oxygen saturations are 100 percent on room air. HEENT: Head is normocephalic, atraumatic. NECK: Supple. CHEST: Clear to auscultation bilaterally. CARDIAC: Exam reveals normal heart sounds. ABDOMEN: Soft and nontender. MUSCULOSKELETAL: Exam reveals a full range of motion in all four extremities with no sign of edema. NEUROLOGIC: He is grossly intact with no focal deficits. LABORATORY DATA: Complete blood count is within normal limits. Complete metabolic panel shows elev ations in creatinine at 1.59 and elevations in glucose at 104. Alcohol level is negative. MENTAL STATUS EXAM: The patient is a young, white male, stocky, and muscular. He is standing up, ma kes limited eye contact. He is difficult to establish a rapport with, seeming to be internally preoc cupied. He does have marked speech latency with no spontaneity of speech, although his Slovenian is fl uent. Mood appears to be anxious with a flattened affect. Thought process shows some slowing as wel lora as significant thought blocking. Thought content is significant for concerns over his symptoms. H e denies suicidal or homicidal ideations. He does endorse auditory hallucinations of a command natur e, telling him to come to the hospital. He denies visual hallucinations. Insight and judgment are f air given his willingness to come in for voluntary treatment. Cognitively, he is awake and alert wit h what would appear to be an average intellect. DIAGNOSES: AXIS I: Schizophrenia. AXIS II: Deferred. AXIS III: Acute renal failure, gastroesophageal reflux disorder, history of hip dysplasia. AXIS IV: Moderate, primary support stressors. AXIS V: At this time is 35. IMPRESSION: The patient is a 26-year-old, single, white male with a history of schizophrenia who arr sonia voluntarily complaining of command auditory hallucinations. These are somewhat troubling given the fact that the patient has enacted commands from hallucinations in the past. It does appear that his Clozapine was reduced for reasons that are uncertain. We have not received any collateral inform ation from the outpatient mental health clinic at this time. PLAN: The patient is admitted to the Adult Behavioral Health Unit where he is placed on q.15 minute checks for his own safety. We will continue his medications, including Sertraline 150 mg daily, Florinda prazine 4.5 mg daily, and we will increase his Clozapine from 500 mg nightly back to 550. We will ce rtainly try to reach out to his parents and [facility] for further collater al information, specifically about his med dosing and the rationale for decrease in Clozapine. When he is stable for discharge, he will likely follow-up with [facility]. [id number]/[facility] #: [id number]
[2017-05-05] MEDS: Sertraline* 100 MG TAB PO SCH (09:37)
[2017-05-05] MEDS: Vitamin THERAPEUTIC TAB PO SCH (09:37)
[2017-05-05] MEDS: Famotidine TAB* 20 MG PO SCH ×2 (09:38→20:26)
[2017-05-05] MEDS: CARIPRAZINE PO SCH (09:38)
--- NOTE | 2017-05-05 11:38 | PN ---
Subjective - Subjective Date of Service: 05/05/17 Service Type: 62685 Hosp care 15 min low complexity Subjective: Yuniel feels better today with a marked reduction in AH and speech latencies. He is tolerating medications well and continues to deny SI or HI. He is mostly isolative to his room, which is consistent with his patterns here on the [facility]. I left a voicemail message with Dr. Dulce Javed at [facility] for clarification about his medication regimen. Objective - Appearance Appearance: Obese Dysmorphic Features: No Hygiene: Normal Grooming: Fairly Well Kept - Behavior Psychomotor Activities: Abnormal-Decreased Exhibits Abnormal Movement: No - Attitude and Relatedness Attitude and Relatedness: Cooperative Eye Contact: Fair - Speech Quality: Unpressured Latencies: Long Quantity: Terse - Mood Patient's Decription of Mood: "Okay" - Affect Observed Affect: Unvariable Affect Consistent with: Euthymia - Thought Process Patient's Thought Process: Impoverished Thought Content: No Passive Wish, No Suicidal Planning, No Homicidal Ideation, No Paranoid Ideation - Sensorium Experiencing Hallucinations: Yes Type of Hallucinations: Visual: No, Auditory: Yes, Command: Yes - Level of Consciousness Level of Consciousness: Alert Orientation: Yes Intact, Yes Orientated to Time, Yes Orientated to Place, Yes Orientated to Person - Impulse Control Impulse Control: Tenuous - Insight and Judgement Insight and Judgement: Fair - Group Participation Particating in Group Activities: No - Medication Management Medication Management Adherence: Yes Assessment - Assessment Merits Inpatient Hospitalization: Consolidate Improvements, Pending Safe DC Plan Inpatient DSM-IV Dx: Schizophrenia Clinical Impression: 26 y.o. single, white male with a history of schizophrenia and chronic negative symptoms of psychosis who arrives voluntarily seeking admission secondary to the emergence of command AH telling him to do odd, unsafe things. The patient has enacted command content from his hallucinations in the past and is admitted for safety. Plan - Plan Treatment Plan: Name: YUNIEL ZAMAN Birthdate: 1990 [id number] Yuniel is improving on his outpatient regimen of sertraline 150mg PO qday, cariprazine 4.5mg PO qday and clozapine 550mg PO qhs. Will continue to monitor for safety. Await collateral information from [facility]. Continued Medication Management: Continue Outpt Medication Medications: Current Medications Acetaminophen (Tylenol Tab*) 650 mg PO Q4H PRN PRN Reason: PAIN or TEMP > 101 F Al Hydrox/Mg Hydrox/Simethicone (Maalox Plus*) 30 ml PO Q4H PRN PRN Reason: INDIGESTION Last Admin: 05/04/17 03:55 Dose: 30 ml Clozapine (Clozapine Tab*) 550 mg PO BEDTIME [facility] Last Admin: 05/04/17 20:36 Dose: 550 mg Famotidine (Pepcid Tab*) 20 mg PO BID [facility] Last Admin: 05/05/17 09:38 Dose: 20 mg Multivitamins (Theragran Tab*) 1 tab PO DAILY [facility] Last Admin: 05/05/17 09:37 Dose: 1 tab Pto: Cariprazine 4.5 (Cap) 1 cap PO 0900 [facility] Last Admin: 05/05/17 09:38 Dose: 1 cap Sertraline HCl (Zoloft*) 150 mg PO DAILY [facility] Last Admin: 05/05/17 09:37 Dose: 150 mg - Discharge Plan Discharge Plan: Outpatient Follow Up Outpatient Program: Wendy Boyce [facility]
--- NOTE | 2017-05-05 16:39 | PN ---
MHU: Group Therapy Note - Service Type Service Type: [id number] Group Psychotherapy - Medication Education Group: Patient was attentive and participatory in group, and remained in good behavioral control. Patient expressed positive insights regarding relevant treatment interventions. Patient stated understanding of material discussed and had appropriate questions.
[2017-05-05] MEDS: CloZAPine TAB* 100 MG TAB PO SCH (20:26)
[2017-05-06 08:16] VITALS: BP 108/55
[2017-05-06] MEDS: Sertraline* 100 MG TAB PO SCH (09:19)
[2017-05-06] MEDS: Famotidine TAB* 20 MG PO SCH (09:20)
[2017-05-06] MEDS: Vitamin THERAPEUTIC TAB PO SCH (09:21)
[2017-05-06] MEDS: CARIPRAZINE PO SCH (09:21)
--- NOTE | 2017-05-06 16:16 | DS ---
DATE OF ADMISSION: 05/04/2017. DATE OF DISCHARGE: 05/06/2017. DISCHARGE DIAGNOSES: AXIS I: Schizophrenia. AXIS II: Deferred. AXIS III: Acute renal failure, gastroesophageal reflux disorder, history of hip dysplasia. AXIS IV: Moderate, primary support stressors. AXIS V: At the time of admission is 35 and at the time of discharge is 55. CONDITION AT THE TIME OF DISCHARGE: Improved. The patient's auditory hallucinations have been diminished in terms of their volume as well as their frequency. The patient is unbothered by them and feels that he is safe to be discharged to his home. We have spoken with both the [facility] as well as Yuniel's parents, as well as members of the [facility] where he resides. Yuniel's outpatient support system is in agreement with the discharge plan. The patient has done fairly well on our unit. He has displayed no signs or symptoms of agitation or self-harm. He is denying thoughts of hurting himself or others and he is appropriately requesting discharge back to a less restrictive setting. MENTAL STATUS EXAM AT THE TIME OF DISCHARGE: The patient is a young, white male , stocky, and muscular. He is sitting in bed, makes fairly good eye contact. He is easy to establish a rapport with. He does continue to have mild speech latency with very limited spontaneity of speech, but otherwise his Afghan is fluent. Mood appears to be euthymic with a flattened affect. Thought process shows some slowing, but no further evidence of thought blocking. Thought content is significant for his desire to be discharged from the hospital. He denies suicidal or homicidal ideations. He continues to endorse auditory hallucinations; however, they are less in volume and frequency. He denies visual hallucinations. Insight and judgment are fair given his willingness to seek follow-up treatment in the community. Cognitively, he is awake and alert with what would appear to be an average intellect. DISCHARGE INSTRUCTIONS TO THE PATIENT: A. Medications: The patient is on Cariprazine 4.5 mg p.o. daily, Sertraline 150 mg p.o. daily, Clozapine 550 mg p.o. nightly. Please note that the patient is on two different antipsychotics. This is because the patient is being cross titrated in the outpatient setting between Clozapine and Cariprazine. B. Diet: Regular. C. Activities: As tolerated. The patient is a nonsmoker. There are no laboratory or diagnostic studies pending at the time of discharge. D. Follow-up care: The patient will be picked up this afternoon by members of the [facility]. He has follow-up appointments with his outpatient therapist, Kendall Holt, and his psychiatrist, Dr. Dulce Javed, both at the [facility] within one week of discharge. E. Substance abuse follow-up: Nonapplicable. HOSPITAL COURSE - PART A: Reason for admission: The patient is a 26-year-old, single, white male with a history of schizophrenia who has several past psychiatric admissions [place] [facility], who returns on a voluntary basis reporting command auditory hallucinations of a derogatory nature. The patient states that the voices told him to come to the hospital. It appears as though his Clozapine was recently decreased from 550 mg p.o. nightly to 500 mg p.o. nightly , although there was some uncertainty about whether or not this was the case. When I met with the patient, he did display extreme speech latencies, thought impoverishment and seemed to be openly responding to internal stimuli. He did deny suicidal or homicidal ideations, but felt that he would be unsafe on the outpatient basis. The only other stressor that we can ascertain is that he has recently moved from his parent's house into the [facility], which is a custodial run by the [facility]. He continues to see therapist Baljinder Holt and psychiatrist Dr. Javed at [facility]. HOSPITAL COURSE - PART B: Psychiatric treatment rendered: The patient was admitted to the Adult Behavioral Health Unit where he was placed on q.15 minute checks for his own safety. We resumed his outpatient treatment, including Sertraline, Cariprazine, and Clozapine. The Clozapine dose was 550 mg nightly. I was able to reach Dr. Dulce Javed and she indicated that she had actually not decreased his Clozapine and that he remains on the 550 mg dose. We also reached the [facility] who indicated that he continues to struggle with the stress of his recent move into that setting. His parents were contacted and they concurred with this assessment, although it is felt that he is starting to adjust and starting to do better. Yuniel was withdrawn and isolative which is his usual presentation on our unit, although he did start socializing more and coming out of his room. He tolerated his medications quite well and experienced a marked reduction in the intensity of his auditory hallucinations. On the date of discharge, he is stating that the auditory hallucinations are under control and he is requesting discharge back to [facility]. We see no barrier for him receiving comprehensive treatment in the outpatient setting and wish him the best for a safe and healthy future. [id number]/[facility] #: [id number] JOSIAS
== END 2017-05-06 14:25 | disposition home or self-care (01) | DRG 885 ==
LOC: ED 20:09 → BSU 05-04 02:18
PROVIDERS: ADMIT Psychiatry & Neurology Psychiatry; ATTEND Psychiatry & Neurology Psychiatry
PROC: GZHZZZZ Group Psychotherapy (ICD-10-PCS; principal; 2017-05-05)
DX: F20.9 Schizophrenia, unspecified (principal); N17.9 Acute kidney failure, unspecified; K21.9 Gastro-esophageal reflux disease without esophagitis; F41.9 Anxiety disorder, unspecified; F32.9 Major depressive disorder, single episode, unspecified; Z56.0 Unemployment, unspecified; Z88.8 Allergy status to other drugs, medicaments and biological substances; Z81.8 Family history of other mental and behavioral disorders
CPT/HCPCS: 36415; 80053; 80320; 85025; 90853; 99222; 99231; 99238; 99284; A9270-GY; G0480

== ENCOUNTER 2017-06-21 20:45 | Inpatient (IN) | payer MEDICARE, MEDICAID ==
--- NOTE | 2017-06-21 21:15 | ED ---
Psychiatric Complaint - HPI Summary HPI Summary: [age] presents ED with complaints of hearing voices. States he typically hears voices often but they've become more frequent and more intense. States voices are telling him that friends from high school are murderers and are coming after him. Denies any hallucinations. No alcohol or drug use. Is on multiple medications for mental health, clonzapine, Zantac, sertraline and vylvar. Follows up with psychiatrist Dr. Javed. No thoughts of suicide or homicide. No other complaints. Patient is present with father. No past medical history other than mental health. Denies any obvious increased stress or depression. Has been taking his medication appropriately has not had any recent changes to medication doses. Has had previous psychiatric hospitalizations in the past. - History Of Current Complaint Chief Complaint: EDMentalHealth Time Seen by Provider: 06/21/17 21:09 Hx Obtained From: Patient, Family/Supervisor [employer] - Father Onset/Duration: Gradual Onset, Lasting Days, Still Present, Worse Since Timing: Constant Severity Initially: Mild Severity Currently: Moderate Character: Fearful - Paranoid Aggravating Factor(s): Nothing Alleviating Factor(s): Nothing Associated Signs And Symptoms: Positive: Paranoid Behavior Related History: Positive For: Prior Psychiatric Issues Has Suicidal: Denies: Thoughts, With A Plan Has Homicidal: Denies: Thoughts, With A Plan - Allergies/Home Medications Allergies/Adverse Reactions: Allergies Allergy/AdvReac Type Severity Reaction Status Date / Time haloperidol [From Haldol] AdvReac Severe See Comment Verified 06/21/17 21:04 lurasidone [From Latuda] AdvReac Intermediate See Comment Verified 06/21/17 21: 04 chlorpromazine AdvReac See Comment Verified 06/21/17 21:04 Home Medications: Home Medications Cariprazine HCl [Vraylar] 4.5 mg PO DAILY 06/21/17 [History Confirmed 06/21/17] CloZAPine TAB* 150 mg PO DAILY 06/21/17 [History Confirmed 06/21/17] CloZAPine TAB* 400 mg PO BEDTIME 06/21/17 [History Confirmed 06/21/17] Ranitidine TAB (NF) [Zantac TAB (NF)] 150 mg PO BID 06/21/17 [History Confirmed 06/21/17] Sertraline* [Zoloft*] 150 mg PO DAILY 06/21/17 [History Confirmed 06/21/17] PMH/Surg Hx/FS Hx/Imm Hx Endocrine/Hematology History: Denies: Hx Diabetes Cardiovascular History: Reports: Other Cardiovascular Problems/Disorders - increased QTC interval Denies: Hx Hypertension, Hx Pacemaker/ICD Respiratory History: Denies: Hx Asthma GI History: Reports: Hx Gastroesophageal Reflux Disease History: Denies: Hx Renal Disease Musculoskeletal History: Reports: Other Musculoskeletal History - hip dysplasia Denies: Hx Arthritis Sensory History: Denies: Hx Contacts or Glasses, Hx Hearing Aid Opthamlomology History: Denies: Hx Contacts or Glasses Neurological History: Reports: Other Neuro Impairments/Disorders - Hx of 6 concussions Denies: Hx Headaches, Hx Seizures, Hx Spinal Cord Injury, Hx Transient Ischemic Attacks (TIA) Psychiatric History: Reports: Hx Anxiety, Hx Depression, Hx Inpatient Treatment , Hx Community Mental Health Tx, Hx Schizophrenia, Hx Substance Abuse - alcohol , Other Psychiatric Issues/Disorders - psychosis, auditory hallucinations Denies: Hx Attention Deficit Hyperactivity Disorder, Hx Eating Disorder, Hx Panic Disorder, Hx Post Traumatic Stress Disorder, Hx Bipolar Disorder, Hx Suicide Attempt, Hx of Violent Episodes Against Others - Cancer History Hx Chemotherapy: No Hx Radiation Therapy: No Hx Palliative Cancer Treatment: No - Surgical History Surgery Procedure, Year, and Place: n/a - Immunization History Immunizations Up to Date: Yes Infectious Disease History: No Infectious Disease History: Denies: Hx Clostridium Difficile, Hx Hepatitis, Hx Human Immunodeficiency Virus (HIV), Hx of Known/Suspected MRSA, Hx Shingles, Hx Tuberculosis, Hx Known/ Suspected VRE, Hx Known/Suspected VRSA, History Other Infectious Disease, Traveled Outside the [place] in Last 30 Days - Family History Known Family History: Positive: Other - Psychotic disorders, Schizophrenia, anxiety Negative: Cardiac Disease, Hypertension, Diabetes Family History: R & n/C - Social History Alcohol Use: None Alcohol Amount: was short term when 16 Hx Substance Use: Yes Substance Use Type: Reports: None Substance Use Comment - Amount & Last Used: denies Hx Tobacco Use: No Smoking Status (MU): Never Smoked Tobacco Have You Smoked in the Last Year: No Review of Systems Constitutional: Negative Cardiovascular: Negative Respiratory: Negative Gastrointestinal: Negative Positive: Other - hearing voices All Other Systems Reviewed And Are Negative: Yes Physical Exam Triage Information Reviewed: Yes Vital Signs On Initial Exam: Initial Vitals Temp Pulse Resp BP Pulse Ox 98.8 F 102 18 150/75 97 06/21/17 21:00 06/21/17 21:00 06/21/17 21:00 06/21/17 21:00 06/21/17 21:00 Vital Signs Reviewed: Yes Appearance: Positive: Well-Appearing, No Pain Distress, Well-Nourished Skin: Positive: Warm, Skin Color Reflects Adequate Perfusion, Dry, Other - No signs of trauma. Negative: Cold, Numb, Cyanosis @, Pale, Erythema @ Head/Face: Positive: Normal Head/Face Inspection Eyes: Positive: Conjunctiva Clear ENT: Positive: Hearing grossly normal, Pharynx normal, TMs normal Neck: Positive: Supple, Nontender Respiratory/Lung Sounds: Positive: Clear to Auscultation, Breath Sounds Present. Negative: Rales, Rhonchi, Wheezes Cardiovascular: Positive: Normal, RRR, Pulses are Symmetrical in both Upper and Lower Extremities. Negative: Murmur, Rub Abdomen Description: Positive: Nontender, Soft Bowel Sounds: Positive: Present Musculoskeletal: Positive: Normal, Strength/ROM Intact Neurological: Positive: Normal, Sensory/Motor Intact, Alert, Oriented to Person Place, Time Psychiatric: Positive: Affect/Mood Appropriate - Appears paranoid with flat affect - [place] Coma Scale Best Eye Response: 4 - Spontaneous Best Motor Response: 6 - Obeys Commands Best Verbal Response: 5 - Oriented Coma Scale Total: 15 Diagnostics - Vital Signs Vital Signs Temp Pulse Resp BP Pulse Ox 06/21/17 21:00 98.8 F 102 18 150/75 97 - Laboratory Result Diagrams: 06/21/17 21:25 06/21/17 21:25 Lab Statement: Any lab studies that have been ordered have been reviewed, and results considered in the medical decision making process. Course/Dx - Course Course Of Treatment: Patient was medically cleared. Unremarkable lab findings. will be evaluated by mental health. Does not appear to be medically related. Uncooperative throughout ED stay. Was moved to [facility]. Was later decided by psychiatrist Dr. Glass patient will be admitted to [facility] with diagnosis of hearing voices, schizoaffective disorder - Differential Dx/Clinical Impression Differential Diagnosis/HQI/PQRI: Positive: Acute Psychosis, Anxiety, Depression , Schizophrenia Provider Diagnosis: Hearing voices, Schizoaffective disorder - Physician Notifications Discussed Care Of Patient With: RENITA Petty Time Discussed With Above Provider: 01:30 Instructed by Provider To: Admit As Inpatient Patient Is Medically Stable For: Psych Evaluation Discharge - Sign-Out/Discharge Documenting (check all that apply): Discharge - Discharge Plan Condition: Good Disposition: PSYCHIATRIC FACILITY-[facility] Referrals: Aman Ya MD [Primary Care Provider] - - Billing Disposition and Condition Condition: GOOD Disposition: PSY-[facility]
[2017-06-21 21:32] LABS: ABS Basophils 0.1 10^3/ul (0-0.2); ABS Eosinophils 0 10^3/ul (0-0.6); ABS Lymphocytes 2.2 10^3/ul (1.0-4.8); ABS Monocytes 0.5 10^3/ul (0-0.8); ABS Neutrophils 4.8 10^3/ul (1.5-7.7); ABS Nucleated RBC 0 10^3/ul; Eosinophil % 0 % (0-6); Hematocrit 42 % (42-52); Hemoglobin 14.3 g/dl (14.0-18.0); Lymphocyte % 29.2 % (25-47); Mean Corpuscular HGB Conc 34 g/dl (31-36); Mean Corpuscular Hemoglobin 28 pg (27-31); Mean Corpuscular Volume 83 fL (80-94); Nucleated Red Blood Cells % 0; Platelet Count 248 10^3/ul (150-450); Red Blood Count 5.05 10^6/ul (4.0-5.4); Red Cell Distribution Width 14 % (10.5-15); White Blood Count 7.6 10^3/ul (3.5-10.8)
[2017-06-21 21:50] LABS: EGFR Non-African American 58.8 (>60)
[2017-06-21 23:07] LABS: Urine Appearance Clear; Urine Blood Negative (Negative); Urine Color Yellow; Urine Ketones Negative (Negative); Urine Protein Negative (Negative); Urine Specific Gravity 1.015 (1.010-1.030); Urine Urobilinogen Negative (Negative)
[2017-06-22] MEDS ORDERED: CloZAPine TAB* 100 MG TAB ONE ×2 (01:23→01:48)
[2017-06-22] MEDS: CloZAPine TAB* 100 MG TAB PO SCH ×4 (01:45→20:17)
[2017-06-22] MEDS ORDERED: CloZAPine TAB* 25 MG TAB ONE (01:48)
[2017-06-22] MEDS ORDERED: Acetaminophen TAB* 325 MG PO PRN (05:53)
[2017-06-22] MEDS ORDERED: Al Hydrox/Mg Hydrox/Simet LIQ* 30 ML UDC PO PRN (05:53)
[2017-06-22] MEDS ORDERED: CARIPRAZINE 4.5 MG PO SCH (09:00)
[2017-06-22] MEDS: Sertraline* 100 MG TAB PO SCH (09:23)
[2017-06-22] MEDS: Vitamin THERAPEUTIC TAB PO SCH (09:24)
[2017-06-22] MEDS: Famotidine TAB* 20 MG PO SCH ×2 (09:24→20:18)
--- NOTE | 2017-06-22 19:42 | HP ---
HISTORY AND PHYSICAL: DATE OF ADMISSION: 06/22/17 PROVIDER: Sita Pearson NP, in Psychiatry. SUPERVISING PHYSICIAN: Narinder Crawford MD * (DICTATED BY SITA PEARSON NP ) JUSTIFICATION FOR ADMISSION: The patient is in need of 24-hour supervision and care secondary to suicidal ideation and disorganization. CHIEF COMPLAINT: "The voices got worse." HISTORY OF PRESENT ILLNESS: Yuniel is a 26-year-old, single, white male with a history of schizophrenia, who has several past admissions here at [facility] including one most recently on 05/04/17 discharged 05/06/17. He comes in on a voluntary basis reporting command, auditory hallucinations that are frightening to him and derogatory. Yesterday, they told him to drink Listerine (which he did not do) and that his previous friends were murderers who were coming to get him. He states that he ran out of Clozaril, but that it makes him very tired. Nevertheless, he is agreeable to taking 550 mg of Clozaril nightly. When I meet him, he is lying in bed. He is sleepy. His eyes are barely open. He is apparently struggling with auditory hallucination and is not forthcoming about the contents of those voices: "It's hard to say," what they're saying. He is afraid that he would act on some of the auditory hallucination commands and that is the concern. He would like the voices to settle down. The things that help are when he talks to his parents, when he plays music, and when he draws. In between the last admission and this admission, he spent time listening to lots of music, he has been drawing, and he has been going to the gym at [employer] where he lifts weights. He currently lives in [facility] and he says he likes it there. It does not appear to be stressor. He is depressed, he is sad, and he is lonely and he is tired and he is psychotic at this time. PAST PSYCHIATRIC HISTORY: Yuniel has had numerous stays on the psychiatric unit beginning in 2009, which is the onset of psychosis. In the past, he has been transferred to both [place] and [facility] for long-term stabilization. Currently , he is in outpatient treatment at [facility] with Dr. Dulce Javed, a psychiatrist, and Baljinder Holt RN, as his therapist. His director case management is Carlos Melquiades. Past medications trials have included Risperdal, Latuda, Abilify, Haldol, and olanzapine, as well as long-acting Invega Sustenna. His diagnosis is schizophrenia. He denies any formal history of suicidal attempts. PAST MEDICAL HISTORY: Significant for gastroesophageal reflux disease and history of hip dysplasia. CURRENT MEDICATIONS: 1. Sertraline 150 mg p.o. daily. 2. Clozapine 550 mg p.o. nightly. 3. Cariprazine 4.5 mg p.o. daily. 4. Zantac, which appears to have been substituted here in the hospital with Pepcid. ALLERGIES: He has documented allergies to HALDOL, LURASIDONE, and CHLORPROMAZINE. FAMILY PSYCHIATRIC HISTORY: Notable for anxiety in his mom. He has a second cousin with psychosis and a brother with psychosis. He also has a paternal aunt with schizophrenia and a maternal cousin with borderline personality disorder and suicidal attempt. He also has another brother with avoidant personality disorder. SUBSTANCE ABUSE HISTORY: The patient used to abuse alcohol and cannabis in high school. Currently, he does not use any alcohol or illicit substances and he has never been a smoker. SOCIAL HISTORY: The patient is from the [facility]. He lives in [facility] without a roommate. He sleeps okay there, but recently his sleep has been disrupted, so he sleeps 20 hours and wakes 20 hours. He did well in school and was an honor student, but was not able to continue his studies because of his psychotic illness. He was active in sports growing up and has an interest in lifting weights. 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 REVIEW OF SYSTEMS: The patient denies headache or double vision. He denies sore throat, cough, chest pain, or difficulty breathing. He denies abdominal pain, nausea, vomiting, diarrhea, or constipation. He denies difficulty ambulating, rashes, enlarged lymph nodes, fevers, or changes in weight. PHYSICAL EXAMINATION VITAL SIGNS: Temperature 98 degrees, pulse 78, respirations 20, oxygen saturation on room air 100%, blood pressure 146/82. For complete physical examination data, please see the emergency room report obtained less than 24 hours ago. MENTAL STATUS EXAM: The patient is a young, white male, who is stocky and muscular. He is lying in bed with a sheet over him. He makes limited eye contact and in fact has closed eyes for much of the interview. He is not particularly open to talking. He has speech latencies and he does respond most well to questions, most well to specific questions. His thought processes seemed to be slow and there seems to be some thought blocking. His thought content is concerned with music at this time and the voices that told him to drink Listerine yesterday. He denies suicidal or homicidal ideation. He does endorse auditory hallucinations. He believes that they are commanding him to do things and he is alarmed by them. He denies visual hallucinations. Insight and judgment are fair. He is willing to come in for voluntary treatment. He is awake and alert x3 with what appears to be an average intellect. DIAGNOSES: Rittman I: Schizophrenia. Rittman II: Deferred. Rittman III: Acute renal failure, gastroesophageal reflux disorder, history of hip dysplasia. Rittman IV: Moderate primary support stressors. Rittman V: At this time is 35. IMPRESSION: The patient is a 26-year-old, single, white male with a history of schizophrenia, who arrives brought by his father complaining of a disrupted sleep/wake cycle and command hallucinations. These are troubling hallucinations since Yuniel has enacted commands from hallucinations in the past. His medications did not appear to have changed. I will obtain collateral from [facility]. PLAN: The patient is admitted to the adult behavioral health unit, where he is placed on q.15-minute checks for his own safety. We will continue his medications including sertraline 150 daily, cariprazine 4.5 mg daily, and clozapine 550 mg nightly. We will try to reach out to his parents and his providers. SITA PEARSON, AYANNA [id number]/[facility] #: [id number] JOSIAS
[2017-06-23] MEDS: CARIPRAZINE 4.5 MG PO SCH ×2 (07:49→08:43)
[2017-06-23] MEDS: Famotidine TAB* 20 MG PO SCH ×2 (08:40→20:08)
[2017-06-23] MEDS: Vitamin THERAPEUTIC TAB PO SCH (08:41)
[2017-06-23] MEDS: CloZAPine TAB* 100 MG TAB PO SCH ×2 (08:41→20:07)
[2017-06-23] MEDS: Sertraline* 100 MG TAB PO SCH (08:43)
--- NOTE | 2017-06-23 15:41 | PN ---
Subjective - Subjective Date of Service: 06/23/17 Service Type: 81061 Hosp care 15 min low complexity Subjective: Josh is struggling with voices at this time. he continues either not to say or not to be able to say what the voices are telling him. He does state they are not frightening. He appears incredibly anxious as Nicolette Woo and I meet with him. He at one point appears to be trembling, but he denies that is true. I spoke with Dr. saadia Javed from [facility] today. She suggested adding a benzodiazepine like Ativan or Klonopin. I agree that a benzo would be helpful and institute a BID 0.5 mg Klonopin order. Klonopin and clozapine interact to make the clozapine level higher. I will order a clozapine level to be drawn on Tuesday morning. The nursing staff have been notified to watch for dizziness and an order for orthostatics is being placed. Objective - Appearance Appearance: Well Developed/Nourished Dysmorphic Features: No Hygiene: Normal Grooming: Fairly Well Kept - Behavior Psychomotor Activities: Normal Exhibits Abnormal Movement: No - Attitude and Relatedness Attitude and Relatedness: Withdrawn Eye Contact: Good - Speech Quality: Unpressured Latencies: Long Quantity: Terse - Mood Patient's Decription of Mood: "Good" - Affect Observed Affect: Constricted Affect Consistent with: Dysphoria - Thought Process Patient's Thought Process: Impoverished Thought Content: No Passive Wish, No Suicidal Planning, No Homicidal Ideation, No Paranoid Ideation - Sensorium Experiencing Hallucinations: Yes Type of Hallucinations: Visual: No, Auditory: Yes - Not frightening, but disruptive/distracting/frustrating, Command: No - Level of Consciousness Level of Consciousness: Alert Orientation: Yes Intact, Yes Orientated to Time, Yes Orientated to Place, Yes Orientated to Person - Impulse Control Impulse Control: Impaired - Insight and Judgement Insight and Judgement: Poor - Group Participation Particating in Group Activities: No - Medication Management Medication Management Adherence: Yes - Additional Observations Comments: Josh is agreeable to the new medication, Klonopin. He appears almost fearful during conversation and prefers to be in bed in the dark. Assessment - Assessment Merits Inpatient Hospitalization: For Immediate Safety Inpatient DSM-V Dx: F20.9 Clinical Impression: 26-y.o. single, white male with diagnosis of schizophrenia who is experiencing an exacerbation of psychotic symptoms such as negative affect and auditory hallucinations. He is currently acutely psychotic and has great difficulty interacting with others and tolerating that interaction. Plan - Plan Treatment Plan: Name: JOSH ZAMAN Birthdate: 1990 [id number] Continued Medication Management: Start Medication Medications: Current Medications Acetaminophen (Tylenol Tab*) 650 mg PO Q4H PRN PRN Reason: PAIN or TEMP > 101 F Al Hydrox/Mg Hydrox/Simethicone (Maalox Plus*) 30 ml PO Q4H PRN PRN Reason: INDIGESTION Clonazepam (Klonopin Tab(*)) 0.5 mg PO BID MOHINI Clozapine (Clozapine Tab*) 400 mg PO BEDTIME MOHINI Stop: 06/24/17 01:00 Last Admin: 06/22/17 20:17 Dose: 400 mg Clozapine (Clozapine Tab*) 500 mg PO BEDTIME MOHINI Clozapine (Clozapine Tab*) 50 mg PO BEDTIME MOHINI Famotidine (Pepcid Tab*) 20 mg PO BID MOHINI Last Admin: 06/23/17 08:40 Dose: 20 mg Multivitamins (Theragran Tab*) 1 tab PO DAILY MOHINI Last Admin: 06/23/17 08:41 Dose: 1 tab Sertraline HCl (Zoloft*) 150 mg PO DAILY MOHINI Last Admin: 06/23/17 08:43 Dose: 150 mg - Discharge Plan Discharge Plan: Outpatient Follow Up Outpatient Program: [facility] Additional Comments: Josh is psychotic at this time. The plan is to settle the voices so that they are tolerable and Josh is more able to interact successfully. Klonopin will be started and other meds will stay at the current levels.
--- NOTE | 2017-06-23 16:53 | PN ---
[facility]: Group Therapy Note - Service Type Service Type: 51469 Group Psychotherapy - Medication Education Group: Patient was attentive and participatory in group, and remained in good behavioral control. Patient expressed positive insights regarding relevant treatment interventions. Patient stated understanding of material discussed and had appropriate questions.
[2017-06-23] MEDS: clonazePAM TAB(*) 0.5 MG PO SCH (20:08)
[2017-06-24] MEDS: Famotidine TAB* 20 MG PO SCH ×2 (08:24→20:15)
[2017-06-24] MEDS: clonazePAM TAB(*) 0.5 MG PO SCH ×2 (08:24→20:15)
[2017-06-24] MEDS: CARIPRAZINE 4.5 MG PO SCH (08:24)
[2017-06-24] MEDS: Sertraline* 100 MG TAB PO SCH (08:24)
[2017-06-24] MEDS: Vitamin THERAPEUTIC TAB PO SCH (08:25)
--- NOTE | 2017-06-24 15:11 | PN ---
Subjective - Subjective Date of Service: 06/24/17 Service Type: 04039 Hosp care 15 min low complexity Subjective: Yuniel is found out of bed wanting to go to [employer]. Nevertheless we meet to discuss his progress. He states he doesn't feel well, but he does feel a bit better than he did upon arrival. He is pleasant and sweet during interaction and even offers a small smile at one point. He then goes happily to recreation group. he does continue to have speech latencies and appears internally preoccupied. Objective - Appearance Appearance: Healthy Appearing Dysmorphic Features: No Hygiene: Normal Grooming: Fairly Well Kept - Behavior Psychomotor Activities: Normal Exhibits Abnormal Movement: No - Attitude and Relatedness Attitude and Relatedness: Cooperative Eye Contact: Fair - Speech Quality: Unpressured Latencies: Short Quantity: Terse - Mood Patient's Decription of Mood: "Okay" - Affect Observed Affect: Constricted Affect Consistent with: Euthymia - Thought Process Patient's Thought Process: Coherent Thought Content: No Passive Wish, No Suicidal Planning, No Homicidal Ideation, No Paranoid Ideation - Sensorium Experiencing Hallucinations: Yes Type of Hallucinations: Visual: No, Auditory: Yes, Command: No - Level of Consciousness Level of Consciousness: Alert Orientation: Yes Intact, Yes Orientated to Time, Yes Orientated to Place, Yes Orientated to Person - Impulse Control Impulse Control: Impaired - Insight and Judgement Insight and Judgement: Impaired - Group Participation Particating in Group Activities: Yes - Medication Management Medication Management Adherence: Yes - Additional Observations Comments: Yuniel is agreeable to the new medication, Klonopin. Assessment - Assessment Merits Inpatient Hospitalization: For Immediate Safety Inpatient DSM-V Dx: F20.9 Clinical Impression: 26-y.o. single, white male with diagnosis of schizophrenia who is experiencing an exacerbation of psychotic symptoms such as negative affect and auditory hallucinations. He is currently psychotic and has some difficulty interacting with others, but he has improved somewhat. Plan - Plan Treatment Plan: Name: YUNIEL ZAMAN Birthdate: 1990 [id number] Medications: Current Medications Acetaminophen (Tylenol Tab*) 650 mg PO Q4H PRN PRN Reason: PAIN or TEMP > 101 F Al Hydrox/Mg Hydrox/Simethicone (Maalox Plus*) 30 ml PO Q4H PRN PRN Reason: INDIGESTION Clonazepam (Klonopin Tab(*)) 0.5 mg PO BID MOHINI Last Admin: 06/24/17 08:24 Dose: 0.5 mg Clozapine (Clozapine Tab*) 500 mg PO BEDTIME MOHINI Clozapine (Clozapine Tab*) 50 mg PO BEDTIME MOHINI Famotidine (Pepcid Tab*) 20 mg PO BID MOHINI Last Admin: 06/24/17 08:24 Dose: 20 mg Multivitamins (Theragran Tab*) 1 tab PO DAILY MOHINI Last Admin: 06/24/17 08:25 Dose: 1 tab Sertraline HCl (Zoloft*) 150 mg PO DAILY MOHINI Last Admin: 06/24/17 08:24 Dose: 150 mg - Discharge Plan Discharge Plan: Outpatient Follow Up Outpatient Program: [facility] Additional Comments: Yuniel is psychotic at this time. The plan is to settle the voices so that they are tolerable and Ynuiel is more able to interact successfully. Klonopin will be started and other meds will stay at the current levels. On Tuesday we will draw a clozapine level, which Yuniel is agreeable to.
[2017-06-24] MEDS: CloZAPine TAB* 100 MG TAB PO SCH (20:14)
[2017-06-24] MEDS: CloZAPine TAB* 25 MG TAB PO SCH (20:15)
[2017-06-24] MEDS ORDERED: CloZAPine TAB* 100 MG TAB ONE (20:20)
[2017-06-25] MEDS: Sertraline* 100 MG TAB PO SCH (09:51)
[2017-06-25] MEDS: clonazePAM TAB(*) 0.5 MG PO SCH ×2 (09:52→21:01)
[2017-06-25] MEDS: Famotidine TAB* 20 MG PO SCH ×2 (09:52→21:03)
[2017-06-25] MEDS: Vitamin THERAPEUTIC TAB PO SCH (09:52)
[2017-06-25] MEDS: CARIPRAZINE 4.5 MG PO SCH (09:58)
[2017-06-25] MEDS: CloZAPine TAB* 100 MG TAB PO SCH (21:03)
[2017-06-25] MEDS: CloZAPine TAB* 25 MG TAB PO SCH (21:07)
[2017-06-26] MEDS: CloZAPine TAB* 100 MG TAB PO SCH ×3 (00:30→20:44)
[2017-06-26] MEDS: Famotidine TAB* 20 MG PO SCH ×2 (08:43→20:43)
[2017-06-26] MEDS: clonazePAM TAB(*) 0.5 MG PO SCH ×2 (08:43→20:43)
[2017-06-26] MEDS: Vitamin THERAPEUTIC TAB PO SCH (08:43)
[2017-06-26] MEDS: Sertraline* 100 MG TAB PO SCH (08:43)
[2017-06-26] MEDS: CARIPRAZINE 4.5 MG PO SCH (08:44)
--- NOTE | 2017-06-26 16:22 | PN ---
Subjective - Subjective Date of Service: 06/26/17 Service Type: 48726 Hosp care 25 min moderate complexity Subjective: Yuniel complained of feeling groggy and dizzy following his Clozapine HS dose and was split for AM and HS dosing. He the rported of an unwitnessed fall in the morning. Vitas shows mild orthostasis and his admission Labs shows increased BUN and Creatinine with low GFR. Stat EKG ordered and a hospitalist consult for possible renal failure will be requested. Otherwise he hasn't been complaining of any psychiatric problems. Objective - Appearance Appearance: Obese Dysmorphic Features: No Hygiene: Normal Grooming: Fairly Well Kept - Behavior Psychomotor Activities: Abnormal-Decreased Exhibits Abnormal Movement: No - Attitude and Relatedness Attitude and Relatedness: Appropriate Eye Contact: Fair - Speech Quality: Unpressured Latencies: Long Quantity: Terse - Mood Patient's Decription of Mood: "Fine" - Affect Observed Affect: Depressed - Thought Process Patient's Thought Process: Coherent, Circumstantial Thought Content: No Passive Wish, No Suicidal Planning, No Homicidal Ideation, No Paranoid Ideation - Sensorium Experiencing Hallucinations: No, Sensorium is Clear Type of Hallucinations: Visual: No, Auditory: No, Command: No - Level of Consciousness Level of Consciousness: Alert Orientation: Yes Intact, Yes Orientated to Time, Yes Orientated to Place, Yes Orientated to Person - Impulse Control Impulse Control: Intact - Insight and Judgement Insight and Judgement: Poor - Group Participation Particating in Group Activities: Yes - Medication Management Medication Management Adherence: Yes Assessment - Assessment Merits Inpatient Hospitalization: For Immediate Safety, For Stabilization, Pending Safe DC Plan Inpatient DSM-V Dx: F20.9 Clinical Impression: Appears to be fearful to be discharged. Patient is experiencing side effects form meds and fell this AM per patient report. No apparent injury fron the fall. EKG and hospitalist consult requeste to R/O acute renal failure. Plan - Plan Treatment Plan: Name: YUNIEL ZAMAN Birthdate: 1990 [id number] Continued Medication Management: Continue Outpt Medication Medications: Current Medications Acetaminophen (Tylenol Tab*) 650 mg PO Q4H PRN PRN Reason: PAIN or TEMP > 101 F Al Hydrox/Mg Hydrox/Simethicone (Maalox Plus*) 30 ml PO Q4H PRN PRN Reason: INDIGESTION Clonazepam (Klonopin Tab(*)) 0.5 mg PO BID [facility] Last Admin: 06/26/17 08:43 Dose: 0.5 mg Clozapine (Clozapine Tab*) 400 mg PO BEDTIME MOHINI Last Admin: 06/26/17 00:30 Dose: Not Given Clozapine (Clozapine Tab*) 150 mg PO DAILY MOHINI Last Admin: 06/26/17 08:43 Dose: 150 mg Famotidine (Pepcid Tab*) 20 mg PO BID MOHINI Last Admin: 06/26/17 08:43 Dose: 20 mg Multivitamins (Theragran Tab*) 1 tab PO DAILY MOHINI Last Admin: 06/26/17 08:43 Dose: 1 tab Sertraline HCl (Zoloft*) 150 mg PO DAILY [facility] Last Admin: 06/26/17 08:43 Dose: 150 mg - Discharge Plan Discharge Plan: Inpatient Hospitalization Outpatient Program: [facility]
[2017-06-27 08:26] VITALS: BP 119/59
[2017-06-27] MEDS: CARIPRAZINE 4.5 MG PO SCH (09:06)
[2017-06-27] MEDS: CloZAPine TAB* 100 MG TAB PO SCH (09:08)
[2017-06-27] MEDS: clonazePAM TAB(*) 0.5 MG PO SCH (09:08)
[2017-06-27] MEDS: Vitamin THERAPEUTIC TAB PO SCH (09:09)
[2017-06-27] MEDS: Famotidine TAB* 20 MG PO SCH (09:10)
[2017-06-27] MEDS: Sertraline* 100 MG TAB PO SCH (09:11)
--- NOTE | 2017-06-27 11:10 | PN ---
MHU: Group Therapy Note - Service Type Service Type: 16097 Group Psychotherapy - Cognitive Behavioral Group Therapy ( CBT):Patient was attentive and participatory in CBT programming this morning, and remained in good behavioral control. Patient expressed positive insights regarding relevant treatment interventions and goals.
--- NOTE | 2017-06-28 13:37 | DS ---
AMENDED REPORT NOW INCLUDES COSIGNER DESIGNATION - ESIGNED BEFORE ADJUSTMENT DISCHARGE SUMMARY: DATE OF ADMISSION: 06/22/17 DATE OF DISCHARGE: 06/27/17 PROVIDER: Sita Pearson NP, Psychiatry SUPERVISING PHYSICIAN: Dr. Kemar Reece.* (DICTATED BY SITA PEARSON NP ) DIAGNOSES: [place] I: Schizophrenia. [place] II: Deferred. [place] III: Gastroesophageal reflux disease. CONDITION AT TIME OF DISCHARGE: Improved. He is psychiatrically cleared. He is more stable than he was upon arrival. He participated in some groups once he became to feel better. He was social with some peers. He is agreeable to discharge. He has done well here psychiatrically. He tolerated new med well, which was Klonopin. He will continue to attend [facility] and he will return to [facility], as well. At the time of discharge, Yuniel is calm, cooperative, makes moderate eye contact. Alert and oriented x3. His grooming is fair. His speech is soft and slow. There are still some short latencies. His thought processes, however, are logical. He is not delusional. He denies AH, VH, SI, HI. His insight and judgment are fair to good. He is willing to follow up and he is urged to go to the clinic when he needs help. DISCHARGE INSTRUCTIONS TO THE PATIENT: A. Medications: Clozaril, cariprazine, and sertraline were refilled for him. Klonopin 0.5 b.i.d. was started and he agrees to take that. He does believe that it has been helpful. As of 06/29/17 his clozaril level was 338, clozaril + norclozaril 707, norclozaril 369. B. Diet: Regular. C. Activities: As tolerated. He is a nonsmoker. There is a clozaril level study pending at the time of discharge, the results of which were returned on 06/29/17 and are listed in the Medications section here. D. Followup care: He has an appointment with [facility] coming up. Substance abuse followup is not indicated. HOSPITAL COURSE: Part A: His chief complaint was the voices have gotten worse. Yuniel is a 26-year-old single white male with a history of schizophrenia, who has several past admissions here at [facility] including one most recently on 05/04/17, discharged on 05/06/17. He comes in on a voluntary basis reporting command auditory hallucinations that are frightening to him and derogatory. Yesterday, they told him to drink Listerine, which he did not do, and that his previous friends were murderers who were coming to get him. He states that he ran out of Clozaril, but that it also makes him very tired. Nevertheless, he is agreeable to taking 550 mg of Clozaril nightly. When I meet him, he is lying in bed. He is sleepy. His eyes are barely open. He is apparently struggling with auditory hallucinations and is not forthcoming about the content of those voices: "it is hard to state what they are saying." He is afraid that he would act on some of the auditory hallucination commands and that is the concern. He would like the voices to settle down. The things that help are when he talks to his parents, when he plays music, and when he draws. In between the last admission and this admission, he spent time listening to lots of music, he has been drawing, and he has been going to the gym at [place] where he lifts weights. He currently lives in [facility] and he says he likes it there. It does not appear to be a stressor. He is depressed, he is sad, and he is lonely. He is tired and he is psychotic at this time. Part B: Psychiatric treatment was rendered. Yuniel was admitted to the Adult Behavioral Unit and placed on 15-minute checks for safety. Yuniel began to clear and did well on the unit, went to some groups, and interacted with some peers well. He tolerated med changes reasonably well, although he did lose his balance and fall at one point. Klonopin was started. Doses of clozapine and sertraline were not changed. No meds were discontinued. He is on 2 antipsychotics, clozapine and cariprazine. His psychosis is resistant to treatment. He has tried multiple, multiple agents and clozaril augmentation is the best solution to his disorder. An HA1c and lipids were drawn on Yuniel on 01/24/2017: HA1c 5.3, triglycerides 272, cholesterol 131, LDL 43, HDL 33.2 I did order a clozapine level; I will communicate that to his outpatient provider , Dr. Dulce Javed. He is improved. He is significantly less psychotic than he was. His baseline does include some hallucinations at least at this point in his life. Otherwise, Yuniel was agreeable to discharge and was happy to go back to [facility]. He is looking forward to going fishing. SITA PEARSON, HAND INSERTER OPERATOR [id number]/CPS #: [id number] JOSIAS
== END 2017-06-27 14:00 | disposition home or self-care (01) | DRG 885 ==
LOC: ED 20:45 → BSU 06-22 02:00
PROVIDERS: ADMIT Psychiatry & Neurology Psychiatry; ATTEND Psychiatry & Neurology Psychiatry
DX: F20.9 Schizophrenia, unspecified (principal); R45.851 Suicidal ideations; K21.9 Gastro-esophageal reflux disease without esophagitis; Z79.899 Other long term (current) drug therapy; Z88.8 Allergy status to other drugs, medicaments and biological substances; Z81.8 Family history of other mental and behavioral disorders; W18.30XA Fall on same level, unspecified, initial encounter; Y92.239 Unspecified place in hospital as the place of occurrence of the external cause
CPT/HCPCS: 36415; 80053; 80159; 80307; 80320; 80329; 81003; 84443; 85025; 90853; 93005; 99222; 99231; 99232; 99238; 99285; A9270-GY; G0480

== ENCOUNTER 2017-07-23 16:46 | Emergency (ER) | payer MEDICARE, MEDICAID ==
--- NOTE | 2017-07-23 16:52 | UC ---
Skin Complaint HPI - HPI Summary HPI Summary: Pt presents with fish lure stuck in his right hand. Was fishing [employer]PLI[employer] and went to cast when the lure got stuck in his hand. Unsure when last tetanus was. - History of Current Complaint Time Seen by Provider: 07/23/17 16:52 Stated Complaint: FISH LURE IN HAND Hx Obtained From: Patient Onset/Duration: Sudden Onset Skin Exposure Onset/Duration: Minutes Ago Onset Severity: Mild Current Severity: Mild Pain Intensity: 2 Pain Scale Used: 0-10 Numeric - Allergy/Home Medications Allergies/Adverse Reactions: Allergies Allergy/AdvReac Type Severity Reaction Status Date / Time haloperidol [From Haldol] AdvReac Severe See Comment Verified 07/23/17 17:07 lurasidone [From Latuda] AdvReac Intermediate See Comment Verified 07/23/17 17: 07 chlorpromazine AdvReac See Comment Verified 07/23/17 17:07 Review of Systems Constitutional: Negative Skin: Other - Fishing lure in right hand Respiratory: Negative Cardiovascular: Negative Neurovascular: Negative Neurological: Negative Psychological: Negative All Other Systems Reviewed And Are Negative: Yes PMH/Surg Hx/FS Hx/Imm Hx Previously Healthy: Yes Psychological History: Bipolar Disorder, Schizophrenia - Surgical History Surgical History: None Surgery Procedure, Year, and Place: n/a - Family History Known Family History: Positive: Other - Psychotic disorders, Schizophrenia, anxiety Negative: Cardiac Disease, Hypertension, Diabetes Family History: R & n/C - Social History Lives: With Family Alcohol Use: None Alcohol Amount: was short term when 16 Substance Use Type: None Substance Use Comment - Amount & Last Used: denies Smoking Status (MU): Never Smoked Tobacco Have You Smoked in the Last Year: No - Immunization History Most Recent Influenza Vaccination: Not this season Most Recent Tetanus Shot: Less than 10 years Most Recent Pneumonia Vaccination: Never Physical Exam - Summary Physical Exam Summary: GENERAL: NAD. WDWN. No pain distress. SKIN: One norma of fishing lure into the right thenar region. No bleeding, drainage, or erythema. NECK: Supple. Nontender. No lymphadenopathy. CHEST: No accessory muscle use. Breathing comfortably and in no distress. CV: Pulses intact radial and ulnar. MSK: Right hand: FROM. Strength 5/5. NEURO: Alert. Sensations intact hand and all fingers. PSYCH: Age appropriate behavior. Triage Information Reviewed: Yes Course/Dx - Course Course Of Treatment: Discussed possible options of removal. Pt wishes to reuse the lure and did not want me to cut it. Manual removal was attemped, but pt experienced too much pain. A time out was performed, witnessed, and signed. 1mL of 2% lidocaine without epi was administered and good anesthetization was achieved. Hemostats were used to pull out the norma. The area was irrigated with 100mL sterile saline. Pt tolerated procedure well. tdap updated today - Diagnoses Provider Diagnoses: FB removal right hand Discharge - Sign-Out/Discharge Documenting (check all that apply): Discharge/Admit/Transfer - Discharge Plan Condition: Stable Disposition: HOME Patient Education Materials: Soft Tissue Foreign Body (ED) Referrals: Aman Ya MD [Primary Care Provider] - Additional Instructions: If you develop a fever, shortness of breath, chest pain, new or worsening symptoms - please call your PCP or go to the ED. 1) Keep the area clean and bandaged until healed over the next 2-3 days - Billing Disposition and Condition Condition: STABLE Disposition: HOME
[2017-07-23 17:07] VITALS: BP 129/61
[2017-07-23] MEDS ORDERED: Tetan/Diph/Pertus SYR(Tdap)* 0.5 ML SYR(BOOSTRIX) use SYR IM ONE (17:17)
[2017-07-23] MEDS ORDERED: Lidocaine 2% PF * 5 ML VIAL INJ ONE (17:17)
== END 2017-07-23 17:26 | disposition home or self-care (01) ==
LOC: UCEAST 16:46
DX: S61.441A Puncture wound with foreign body of right hand, initial encounter (principal); X58.XXXA Exposure to other specified factors, initial encounter; Y93.89 Activity, other specified; Y92.9 Unspecified place or not applicable; Z23 Encounter for immunization; F31.9 Bipolar disorder, unspecified; F20.9 Schizophrenia, unspecified; Z88.8 Allergy status to other drugs, medicaments and biological substances
CPT/HCPCS: 90471; 90715; 99211; G0463

== ENCOUNTER 2017-07-26 21:14 | Emergency (ER) | payer MEDICARE, MEDICAID ==
[2017-07-27] MEDS ORDERED: Amoxicillin/Clavulanate TAB* 875 MG PO ONE (01:24)
--- NOTE | 2017-07-27 01:24 | UC ---
Upper Extremity HPI - HPI Summary HPI Summary: Complains of fishhook in medial portion of distal left index finger this afternoon. No loss of sensation or function. Bleeding controlled - History of Current Complaint Chief Complaint: EDGeneral Stated Complaint: FISHING LURE STUCK IN LT INDEX FINGER Time Seen by Provider: 07/26/17 23:50 Hx Obtained From: Patient Severity Initially: Mild Severity Currently: None Pain Intensity: 0 Pain Scale Used: 0-10 Numeric - Allergies/Home Medications Allergies/Adverse Reactions: Allergies Allergy/AdvReac Type Severity Reaction Status Date / Time haloperidol [From Haldol] AdvReac Severe See Comment Verified 07/23/17 17:07 lurasidone [From Latuda] AdvReac Intermediate See Comment Verified 07/23/17 17: 07 chlorpromazine AdvReac See Comment Verified 07/23/17 17:07 Home Medications: Home Medications Cariprazine [Vraylar] 4.5 mg PO DAILY 07/26/17 [History Confirmed 07/26/17] CloZAPine TAB* 550 mg PO DAILY 07/26/17 [History Confirmed 07/26/17] Ranitidine TAB (NF) [Zantac TAB (NF)] 150 mg PO DAILY 07/26/17 [History Confirmed 07/26/17] Sertraline* [Zoloft*] 150 mg PO DAILY 07/26/17 [History Confirmed 07/26/17] PMH/Surg Hx/FS Hx/Imm Hx - Surgical History Surgical History: None Surgery Procedure, Year, and Place: n/a - Family History Known Family History: Positive: Other - Psychotic disorders, Schizophrenia, anxiety Negative: Cardiac Disease, Hypertension, Diabetes Family History: R & n/C - Social History Alcohol Use: None Alcohol Amount: was short term when 16 Substance Use Type: None Substance Use Comment - Amount & Last Used: denies Smoking Status (MU): Never Smoked Tobacco Have You Smoked in the Last Year: No - Immunization History Most Recent Influenza Vaccination: Not this season Most Recent Tetanus Shot: Less than 10 years Most Recent Pneumonia Vaccination: Never Review of Systems Constitutional: Negative Skin: Negative Eyes: Negative ENT: Negative Respiratory: Negative Cardiovascular: Negative Gastrointestinal: Negative Genitourinary: Negative Motor: Negative Neurovascular: Negative Musculoskeletal: Negative Neurological: Negative Psychological: Negative Is Patient Immunocompromised?: No All Other Systems Reviewed And Are Negative: Yes Physical Exam - Summary Physical Exam Summary: [address] into medial portion of left distal index finger. PMS intact distally Triage Information Reviewed: Yes Appearance: Well-Appearing Vital Signs: Initial Vital Signs Temp 99.1 F 07/26/17 21:16 Pulse 84 07/26/17 21:16 Resp 20 07/26/17 21:16 BP 142/92 07/26/17 21:16 Pulse Ox 99 07/26/17 21:16 Vital Signs Reviewed: Yes Eye Exam: Normal Eyes: Positive: Conjunctiva Clear Neck exam: Normal Respiratory Exam: Normal Cardiovascular Exam: Normal Abdominal Exam: Normal Musculoskeletal Exam: Normal Neurological Exam: Normal Psychological Exam: Normal Skin Exam: Normal Diagnostics - Radiology finger Xray Interpretation: No Acute Changes Radiology Interpretation Completed By: ED Physician Re-Evaluation - Re-Evaluation 1 Re-Evaluation Time: 03:24 Comment: Tip of finger was injected with lidocaine 1% to facilitate removal of fishhook. Patient was wearing gloves that did not allow digital block, he did not want them cut off. X-ray was negative. [address] was advanced, head with norma was cut off, and residual hook was removed by pulling back through. Upper Extremity Course/Dx - Course Course Of Treatment: Tetanus up-to-date. Augmentin twice a day - Differential Dx/Diagnosis Provider Diagnoses: fish hook in finger Discharge - Sign-Out/Discharge Documenting (check all that apply): Discharge/Admit/Transfer - Discharge Plan Condition: Stable Disposition: HOME Prescriptions: Amoxicillin/Clavulanate TAB* [Augmentin TAB 875*] 875 mg PO BID #20 tab Patient Education Materials: Soft Tissue Foreign Body (ED) Referrals: Aman Ya MD [Primary Care Provider] - Additional Instructions: Take antibiotics as directed. Follow-up with primary care. Return to the ED for any new or worsening symptoms - Billing Disposition and Condition Condition: STABLE Disposition: HOME
[2017-07-27 01:54] VITALS: BP 136/78
--- NOTE | 2017-07-27 07:55 | RAD ---
INDICATION: [place] in distal finger COMPARISON: None TECHNIQUE: AP, lateral, and oblique views were obtained. FINDINGS: There is a fish hook in the soft tissues the distal finger which is medially adjacent to the distal phalanx and may in fact be in direct communication with the osseous cortex along the volar surface. IMPRESSION: FISHHOOK FOREIGN BODY.
== END 2017-07-27 01:44 | disposition home or self-care (01) ==
LOC: ED 21:14
DX: S61.241A Puncture wound with foreign body of left index finger without damage to nail, initial encounter (principal); W45.8XXA Other foreign body or object entering through skin, initial encounter; Y92.9 Unspecified place or not applicable
CPT/HCPCS: 73140; 99282; A9270-GY

== ENCOUNTER 2017-08-20 23:24 | Emergency (ER) | payer MEDICARE, MEDICAID ==
[2017-08-21 01:18] LABS: ABS Basophils 0.1 10^3/ul (0-0.2); ABS Eosinophils 0 10^3/ul (0-0.6); ABS Lymphocytes 2.9 10^3/ul (1.0-4.8); ABS Monocytes 0.7 10^3/ul (0-0.8); ABS Neutrophils 4.6 10^3/ul (1.5-7.7); ABS Nucleated RBC 0 10^3/ul; Eosinophil % 0.1 % (0-6); Hematocrit 40 % (42-52); Hemoglobin 13.6 g/dl (14.0-18.0); Lymphocyte % 35.1 % (25-47); Mean Corpuscular HGB Conc 34 g/dl (31-36); Mean Corpuscular Hemoglobin 28 pg (27-31); Mean Corpuscular Volume 82 fL (80-94); Mean Platelet Volume 7.6 um3 (7.4-10.4); Nucleated Red Blood Cells % 0; Platelet Count 257 10^3/ul (150-450); Red Blood Count 4.93 10^6/ul (4.0-5.4); Red Cell Distribution Width 13 % (10.5-15); White Blood Count 8.3 10^3/ul (3.5-10.8)
[2017-08-21 01:34] LABS: EGFR Non-African American 62.3 (>60)
[2017-08-21 01:43] LABS: Urine Appearance Clear; Urine Blood 1+ (Negative); Urine Color Colorless; Urine Ketones Negative (Negative); Urine Protein Negative (Negative); Urine Specific Gravity 1.003 (1.010-1.030); Urine Urobilinogen Negative (Negative)
--- NOTE | 2017-08-21 03:25 | ED ---
Shital Beatty Rebecca, scribed for Sami Valdez MD on 08/21/17 at 0055 . Psychiatric Complaint - HPI Summary HPI Summary: Pt is a 26 y/o M who presents to ED due to auditory hallucinations. Sx began earlier in the day yesterday (Tuesday, 08/20) and the pt reports that they are telling him to "drink Listerine." Sx aggravated and alleviated by nothing. Mother also states concern for dehydration as the pt was outside fishing today and he did not drink enough fluids. PMHx schizophrenia since 2009 which which he is on medications and compliant. - History Of Current Complaint Chief Complaint: EDMentalHealth Time Seen by Provider: 08/20/17 23:59 Hx Obtained From: Patient, Family/Efficiency Engineer - Mother Onset/Duration: Lasting Days - Earlier yesterday, Still Present Aggravating Factor(s): Nothing Alleviating Factor(s): Nothing Associated Signs And Symptoms: Positive: Hallucinating Related History: Positive For: Prior Psychiatric Issues - Schizophrenia, depression, anxiety - Allergies/Home Medications Allergies/Adverse Reactions: Allergies Allergy/AdvReac Type Severity Reaction Status Date / Time haloperidol [From Haldol] AdvReac Severe See Comment Verified 07/23/17 17:07 lurasidone [From Latuda] AdvReac Intermediate See Comment Verified 07/23/17 17: 07 chlorpromazine AdvReac See Comment Verified 07/23/17 17:07 Home Medications: Home Medications cloZAPine [Clozaril] 400 mg PO BEDTIME 08/21/17 [History Confirmed 08/21/17] PMH/Surg Hx/FS Hx/Imm Hx Endocrine/Hematology History: Denies: Hx Diabetes Cardiovascular History: Reports: Other Cardiovascular Problems/Disorders - increased QTC interval Denies: Hx Hypertension, Hx Pacemaker/ICD Respiratory History: Denies: Hx Asthma GI History: Reports: Hx Gastroesophageal Reflux Disease History: Denies: Hx Renal Disease Musculoskeletal History: Reports: Other Musculoskeletal History - hip dysplasia Denies: Hx Arthritis Comment Only: Hx Back Problems - back injury from "a few years ago" Sensory History: Denies: Hx Contacts or Glasses, Hx Hearing Aid Opthamlomology History: Denies: Hx Contacts or Glasses Neurological History: Reports: Other Neuro Impairments/Disorders - Hx of 6 concussions Denies: Hx Headaches, Hx Seizures, Hx Spinal Cord Injury, Hx Transient Ischemic Attacks (TIA) Psychiatric History: Reports: Hx Anxiety, Hx Depression, Hx Inpatient Treatment , Hx Community Mental Health Tx, Hx Schizophrenia, Hx Substance Abuse - alcohol , Other Psychiatric Issues/Disorders - psychosis, auditory hallucinations Denies: Hx Attention Deficit Hyperactivity Disorder, Hx Eating Disorder, Hx Panic Disorder, Hx Post Traumatic Stress Disorder, Hx Bipolar Disorder, Hx Suicide Attempt, Hx of Violent Episodes Against Others - Cancer History Hx Chemotherapy: No Hx Radiation Therapy: No Hx Palliative Cancer Treatment: No - Surgical History Surgery Procedure, Year, and Place: n/a - Immunization History Date of Tetanus Vaccine: 07/23/2017 Infectious Disease History: No Infectious Disease History: Denies: Hx Clostridium Difficile, Hx Hepatitis, Hx Human Immunodeficiency Virus (HIV), Hx of Known/Suspected MRSA, Hx Shingles, Hx Tuberculosis, Hx Known/ Suspected VRE, Hx Known/Suspected VRSA, History Other Infectious Disease, Traveled Outside the [place] in Last 30 Days - Family History Known Family History: Positive: Other - Psychotic disorders, Schizophrenia, anxiety Negative: Cardiac Disease, Hypertension, Diabetes - Social History Alcohol Use: None Alcohol Amount: was short term when 16 Hx Substance Use: Yes Substance Use Type: Reports: None Substance Use Comment - Amount & Last Used: denies Hx Tobacco Use: No Smoking Status (MU): Never Smoked Tobacco Have You Smoked in the Last Year: No Review of Systems Negative: Fever Positive: Other - Auditory hallucinations All Other Systems Reviewed And Are Negative: Yes Physical Exam - Summary Physical Exam Summary: VITAL SIGNS: Reviewed. GENERAL: ~Patient is a well-developed and nourished male who is lying comfortable in the stretcher. Patient is not in any acute respiratory distress. HEAD AND FACE: No signs of trauma. No ecchymosis, hematomas or skull depressions. No sinus tenderness. EYES: PERRLA, EOMI x 2, No injected conjunctiva, no nystagmus. EARS: Hearing grossly intact. Ear canals and tympanic membranes are within normal limits. MOUTH: Oropharynx within normal limits. CHEST: Symmetric, no tenderness at palpation LUNGS: Clear to auscultation bilaterally. No wheezing or crackles. CVS: Regular rate and rhythm, S1 and S2 present, no murmurs or gallops appreciated. EXTREMITIES: FROM in all major joints, no edema, no cyanosis or clubbing. NEURO: Alert and oriented x 3. No acute neurological deficits. Speech is normal and follows commands. SKIN: Dry and warm Psych: Patient seems sad Triage Information Reviewed: Yes Vital Signs On Initial Exam: Initial Vitals Temp Pulse Resp BP Pulse Ox 98.6 F 116 20 138/93 98 08/20/17 23:33 08/20/17 23:33 08/20/17 23:33 08/20/17 23:33 08/20/17 23:33 Vital Signs Reviewed: Yes Diagnostics - Vital Signs Vital Signs Temp Pulse Resp BP Pulse Ox 08/20/17 23:33 98.6 F 116 20 138/93 98 - Laboratory Result Diagrams: 08/21/17 01:11 08/21/17 01:11 Lab Statement: Any lab studies that have been ordered have been reviewed, and results considered in the medical decision making process. Course/Dx - Course Assessment/Plan: Pt is a 26 y/o M who presents to ED due to auditory hallucinations since earlier in the day yesterday (Tuesday, 08/20) and the pt reports that they are telling him to "drink Listerine." Mother also states concern for dehydration as the pt was outside fishing today and he did not drink enough fluids. PMHx schizophrenia since 2009 which which he is on medications and compliant. Medically cleared for MHE at 0152. Upon completion of MHE and consultation with Dr. Glass, it has been determined that the pt can be D/C to home with Dx of anxiety NOS to follow up with his providers at [facility]. Allergies noted. - Differential Dx/Clinical Impression Provider Diagnosis: Anxiety disorder, unspecified Discharge - Sign-Out/Discharge Documenting (check all that apply): Discharge/Admit/Transfer - Discharge - Discharge Plan Condition: Stable Disposition: HOME Referrals: Aman Ya MD [Primary Care Provider] - The documentation as recorded by the Shital sanches Rebecca accurately reflects the service I personally performed and the decisions made by me, Sami Valdez MD.
[2017-08-21 03:38] VITALS: BP 130/85
== END 2017-08-21 03:45 | disposition home or self-care (01) ==
LOC: ED 23:24
DX: F41.9 Anxiety disorder, unspecified (principal); F20.9 Schizophrenia, unspecified; K21.9 Gastro-esophageal reflux disease without esophagitis
CPT/HCPCS: 36415; 80053; 80307; 80320; 80329; 81003; 81015; 84443; 85025; 99284; G0480

== ENCOUNTER 2017-09-17 01:40 | Emergency (ER) | payer MEDICARE, MEDICAID ==
[2017-09-17 02:35] LABS: ABS Basophils 0.1 10^3/ul (0-0.2); ABS Eosinophils 0 10^3/ul (0-0.6); ABS Lymphocytes 2.6 10^3/ul (1.0-4.8); ABS Monocytes 0.7 10^3/ul (0-0.8); ABS Neutrophils 4.9 10^3/ul (1.5-7.7); ABS Nucleated RBC 0 10^3/ul; Eosinophil % 0 % (0-6); Hematocrit 39 % (42-52); Hemoglobin 13.7 g/dl (14.0-18.0); Lymphocyte % 31.4 % (25-47); Mean Corpuscular HGB Conc 35 g/dl (31-36); Mean Corpuscular Hemoglobin 28 pg (27-31); Mean Corpuscular Volume 81 fL (80-94); Mean Platelet Volume 7.7 um3 (7.4-10.4); Nucleated Red Blood Cells % 0.1; Platelet Count 262 10^3/ul (150-450); Red Blood Count 4.82 10^6/ul (4.00-5.40); Red Cell Distribution Width 13 % (10.5-15); White Blood Count 8.2 10^3/ul (3.5-10.8)
[2017-09-17 02:37] LABS: Urine Appearance Clear; Urine Blood Negative (Negative); Urine Color Yellow; Urine Ketones Negative (Negative); Urine Protein Negative (Negative); Urine Specific Gravity 1.023 (1.010-1.030); Urine Urobilinogen Negative (Negative)
[2017-09-17 02:54] LABS: EGFR Non-African American 51.8 (>60)
--- NOTE | 2017-09-17 06:51 | ED ---
Matt Beatty Tariq, scribed for Janet Ansari MD on 09/17/17 at 0414 . Psychiatric Complaint - HPI Summary HPI Summary: A 26 y/o male LIDIA presents to ED c/o voices in his head. According to pt, the voices started years ago in his head. These voices tells him what to do and what to think. Pt noted that for the past week, these voices became more apparent and severe. He has no thoughts of hurting himself or anyone else. Currently, he cannot hear what the voices are telling him now. Pt denies abdominal pain. Pt lives in a senior care. Currently on medication for schizophrenia. No major surgeries. - History Of Current Complaint Chief Complaint: EDMentalHealth Time Seen by Provider: 09/17/17 01:56 Onset/Duration: Gradual Onset, Lasting Weeks, Still Present Timing: Weeks Aggravating Factor(s): Nothing Alleviating Factor(s): Nothing Related History: Positive For: Prior Psychiatric Issues Has Suicidal: Denies: Thoughts Has Homicidal: Denies: Thoughts - Allergies/Home Medications Allergies/Adverse Reactions: Allergies Allergy/AdvReac Type Severity Reaction Status Date / Time haloperidol [From Haldol] AdvReac Severe See Comment Verified 09/17/17 01:47 lurasidone [From Latuda] AdvReac Intermediate See Comment Verified 09/17/17 01: 47 chlorpromazine AdvReac See Comment Verified 09/17/17 01:47 Home Medications: Home Medications clonazePAM [Clonazepam] 1 tab PO DAILY 09/17/17 [History Confirmed 09/17/17] PMH/Surg Hx/FS Hx/Imm Hx Endocrine/Hematology History: Denies: Hx Diabetes Cardiovascular History: Reports: Other Cardiovascular Problems/Disorders - increased QTC interval Denies: Hx Hypertension, Hx Pacemaker/ICD Respiratory History: Denies: Hx Asthma GI History: Reports: Hx Gastroesophageal Reflux Disease History: Denies: Hx Renal Disease Musculoskeletal History: Reports: Other Musculoskeletal History - hip dysplasia Denies: Hx Arthritis Comment Only: Hx Back Problems - back injury from "a few years ago" Sensory History: Denies: Hx Contacts or Glasses, Hx Hearing Aid Opthamlomology History: Denies: Hx Contacts or Glasses Neurological History: Reports: Other Neuro Impairments/Disorders - Hx of 6 concussions Denies: Hx Headaches, Hx Seizures, Hx Spinal Cord Injury, Hx Transient Ischemic Attacks (TIA) Psychiatric History: Reports: Hx Anxiety, Hx Depression, Hx Inpatient Treatment , Hx Community Mental Health Tx, Hx Schizophrenia, Hx Substance Abuse - alcohol , Other Psychiatric Issues/Disorders - psychosis, auditory hallucinations Denies: Hx Attention Deficit Hyperactivity Disorder, Hx Eating Disorder, Hx Panic Disorder, Hx Post Traumatic Stress Disorder, Hx Bipolar Disorder, Hx Suicide Attempt, Hx of Violent Episodes Against Others - Cancer History Hx Chemotherapy: No Hx Radiation Therapy: No Hx Palliative Cancer Treatment: No - Surgical History Surgery Procedure, Year, and Place: n/a - Immunization History Date of Tetanus Vaccine: 07/23/2017 Infectious Disease History: No Infectious Disease History: Denies: Hx Clostridium Difficile, Hx Hepatitis, Hx Human Immunodeficiency Virus (HIV), Hx of Known/Suspected MRSA, Hx Shingles, Hx Tuberculosis, Hx Known/ Suspected VRE, Hx Known/Suspected VRSA, History Other Infectious Disease, Traveled Outside the [place] in Last 30 Days - Family History Known Family History: Positive: Other - Psychotic disorders, Schizophrenia, anxiety Negative: Cardiac Disease, Hypertension, Diabetes Family History: R & n/C - Social History Alcohol Use: None Alcohol Amount: was short term when 16 Hx Substance Use: Yes Substance Use Type: Reports: None Substance Use Comment - Amount & Last Used: denies Hx Tobacco Use: No Smoking Status (MU): Never Smoked Tobacco Have You Smoked in the Last Year: No Review of Systems Negative: Fever Negative: Abdominal Pain All Other Systems Reviewed And Are Negative: Yes Physical Exam - Summary Physical Exam Summary: GENERAL: Patient is a well developed and nourished male who is lying comfortable in the stretcher. Patient is not in any acute respiratory distress. HEAD AND FACE: Normocephalic EYES: PERRLA, EOMI x 2. EARS: Hearing grossly intact. MOUTH: Oropharynx within normal limits. NECK: Supple, trachea is midline, no adenopathy, no JVD, no carotid bruit. CHEST: Symmetric, no tenderness at palpation LUNGS: Clear to auscultation bilaterally. No wheezing or crackles. CVS: Regular rate and rhythm, S1 and S2 present, no murmurs or gallops appreciated. ABDOMEN: Soft, non-tender. Bowel sounds are normal. No abdominal abnormal pulsations. EXTREMITIES: Full ROM in all major joints, no edema, no cyanosis or clubbing. NEURO: Alert and oriented x 3. No acute neurological deficits. Speech is normal and follows commands. SKIN: Dry and warm Neuro exam extended: Cranial nerves II-XII grossly intact, no dysmetria finger to nose, nml heel to blanco Psych: Sad/flat affect. No HI and SI. Triage Information Reviewed: Yes Vital Signs On Initial Exam: Initial Vitals Temp Pulse Resp BP Pulse Ox 98.2 F 121 19 139/79 97 09/17/17 01:41 09/17/17 01:41 09/17/17 01:41 09/17/17 01:41 09/17/17 01:41 Vital Signs Reviewed: Yes Diagnostics - Vital Signs Vital Signs Temp Pulse Resp BP Pulse Ox 09/17/17 01:41 98.2 F 121 19 139/79 97 - Laboratory Lab Results: Lab Results 09/17/17 09/17/17 09/17/17 Range/Units 02:20 02:20 02:22 WBC 8.2 (3.5-10.8) 10^3/ul RBC 4.82 (4.00-5.40) 10^6/ul Hgb 13.7 L (14.0-18.0) g/dl Hct 39 L (42-52) % MCV 81 (80-94) fL MCH 28 (27-31) pg MCHC 35 (31-36) g/dl RDW 13 (10.5-15) % Plt Count 262 (150-450) 10^3/ul MPV 7.7 (7.4-10.4) um3 Neut % (Auto) 59.6 (38-83) % Lymph % (Auto) 31.4 (25-47) % [place] % (Auto) 8.3 H (0-7) % Eos % (Auto) 0 (0-6) % Baso % (Auto) 0.7 (0-2) % Absolute Neuts (auto) 4.9 (1.5-7.7) 10^3/ul Absolute Lymphs (auto) 2.6 (1.0-4.8) 10^3/ul Absolute Monos (auto) 0.7 (0-0.8) 10^3/ul Absolute Eos (auto) 0 (0-0.6) 10^3/ul Absolute Basos (auto) 0.1 (0-0.2) 10^3/ul Absolute Nucleated RBC 0 10^3/ul Nucleated RBC % 0.1 Sodium (135-145) mmol/L Potassium (3.5-5.0) mmol/L Chloride (101-111) mmol/L Carbon Dioxide (22-32) mmol/L Anion Gap (2-11) mmol/L BUN (6-24) mg/dL Creatinine (0.67-1.17) mg/dL Est GFR ( Amer) (>60) Est GFR (Non-Af Amer) (>60) BUN/Creatinine Ratio (8-20) Glucose (70-100) mg/dL Calcium (8.6-10.3) mg/dL Total Bilirubin (0.2-1.0) mg/dL AST (13-39) U/L ALT (7-52) U/L Alkaline Phosphatase (34-104) U/L Total Protein (6.4-8.9) g/dL Albumin (3.2-5.2) g/dL Globulin (2-4) g/dL Albumin/Globulin Ratio (1-3) TSH (0.34-5.60) mcIU/mL Urine Color Yellow Urine Appearance Clear Urine pH 6.0 (5-9) Ur Specific [place] 1.023 (1.010-1.030) Urine Protein Negative (Negative) Urine Ketones Negative (Negative) Urine Blood Negative (Negative) Urine Nitrate Negative (Negative) Urine Bilirubin Negative (Negative) Urine Urobilinogen Negative (Negative) Ur Leukocyte Esterase Negative (Negative) Urine Glucose Negative (Negative) Urine Ascorbic Acid * A (Negative) Salicylates (<30) mg/dL Urine Opiates Screen None detected (None Detect) Acetaminophen mcg/mL Ur Barbiturates Screen None detected (None Detect) Ur Phencyclidine Scrn None detected (None Detect) Ur Amphetamines Screen None detected (None Detect) U Benzodiazepines Scrn None detected (None Detect) Urine Cocaine Screen None detected (None Detect) U Cannabinoids Screen None detected (None Detect) Serum Alcohol (<10) mg/dL 09/17/17 Range/Units 02:22 WBC (3.5-10.8) 10^3/ul RBC (4.00-5.40) 10^6/ul Hgb (14.0-18.0) g/dl Hct (42-52) % MCV (80-94) fL MCH (27-31) pg MCHC (31-36) g/dl RDW (10.5-15) % Plt Count (150-450) 10^3/ul MPV (7.4-10.4) um3 Neut % (Auto) (38-83) % Lymph % (Auto) (25-47) % [place] % (Auto) (0-7) % Eos % (Auto) (0-6) % Baso % (Auto) (0-2) % Absolute Neuts (auto) (1.5-7.7) 10^3/ul Absolute Lymphs (auto) (1.0-4.8) 10^3/ul Absolute Monos (auto) (0-0.8) 10^3/ul Absolute Eos (auto) (0-0.6) 10^3/ul Absolute Basos (auto) (0-0.2) 10^3/ul Absolute Nucleated RBC 10^3/ul Nucleated RBC % Sodium 140 (135-145) mmol/L Potassium 3.4 L (3.5-5.0) mmol/L Chloride 106 (101-111) mmol/L Carbon Dioxide 26 (22-32) mmol/L Anion Gap 8 (2-11) mmol/L BUN 23 (6-24) mg/dL Creatinine 1.62 H (0.67-1.17) mg/dL Est GFR ( Amer) 62.6 (>60) Est GFR (Non-Af Amer) 51.8 (>60) BUN/Creatinine Ratio 14.2 (8-20) Glucose 97 (70-100) mg/dL Calcium 9.1 (8.6-10.3) mg/dL Total Bilirubin 0.20 (0.2-1.0) mg/dL AST 39 (13-39) U/L ALT 38 (7-52) U/L Alkaline Phosphatase 74 (34-104) U/L Total Protein 6.4 (6.4-8.9) g/dL Albumin 4.2 (3.2-5.2) g/dL Globulin 2.2 (2-4) g/dL Albumin/Globulin Ratio 1.9 (1-3) TSH 4.83 (0.34-5.60) mcIU/mL Urine Color Urine Appearance Urine pH (5-9) Ur Specific [place] (1.010-1.030) Urine Protein (Negative) Urine Ketones (Negative) Urine Blood (Negative) Urine Nitrate (Negative) Urine Bilirubin (Negative) Urine Urobilinogen (Negative) Ur Leukocyte Esterase (Negative) Urine Glucose (Negative) Urine Ascorbic Acid (Negative) Salicylates < 2.50 (<30) mg/dL Urine Opiates Screen (None Detect) Acetaminophen < 15 mcg/mL Ur Barbiturates Screen (None Detect) Ur Phencyclidine Scrn (None Detect) Ur Amphetamines Screen (None Detect) U Benzodiazepines Scrn (None Detect) Urine Cocaine Screen (None Detect) U Cannabinoids Screen (None Detect) Serum Alcohol < 10 (<10) mg/dL Result Diagrams: 09/17/17 02:22 09/17/17 02:22 Lab Statement: Any lab studies that have been ordered have been reviewed, and results considered in the medical decision making process. - EKG 0538 Cardiac Rate: NL - 81 BPM EKG Rhythm: Sinus Rhythm Course/Dx - Differential Dx/Clinical Impression Provider Diagnosis: Schizophrenia - Physician Notifications Discussed Care Of Patient With: Kemar Reece Discharge - Sign-Out/Discharge Documenting (check all that apply): Discharge/Admit/Transfer - TRANSFER - Discharge Plan Condition: Stable Disposition: TRANS HIGHER LVL OF CARE FAC Referrals: Aman Ya MD [Primary Care Provider] - - Billing Disposition and Condition Condition: STABLE Disposition: Trans Higher Lvl of Care Fac The documentation as recorded by the Matt sanches Tariq accurately reflects the service I personally performed and the decisions made by , Janet Ansari MD.
[2017-09-17] MEDS ORDERED: clonazePAM TAB(*) 0.5 MG PO ONE (10:05)
[2017-09-17] MEDS ORDERED: CloZAPine TAB* 100 MG TAB PO ONE ×3 (10:06→13:00)
--- NOTE | 2017-09-17 10:40 | PN ---
ED Flex Patient Progress Note Date of Service: 09/17/17 Subjective: ED Flex Day #1 for this single, white male with a history of treatment- refractory schizophrenia and multiple brief psychiatric hospitalizations, who presents with command hallucinations ordering him to come to the hospital and associated depression and SI. Objective: young, overweight white male laying in bed; staring at ceiling; evidence of flattened affect; amotivation, abulia; endorses passive SI, depressed mood; command AH Assessment: Schizophrenia Plan: Patient tends to clear up with brief acute inpatient stays, however, there is a peer conflict with a female patient already admitted to the adult [facility], with whom he has had sexual relations in the past. We cannot offer a bed for this reason. Will refer to outside facility. Vital Signs Temp Pulse Resp BP Pulse Ox 98.2 F 121 19 139/79 97 09/17/17 01:41 09/17/17 01:41 09/17/17 01:41 09/17/17 01:41 09/17/17 01:41 Lab Results - Entire Visit 09/17/17 09/17/17 09/17/17 02:22 02:22 02:20 WBC 8.2 RBC 4.82 Hgb 13.7 L Hct 39 L MCV 81 MCH 28 MCHC 35 RDW 13 Plt Count 262 MPV 7.7 Neut % (Auto) 59.6 Lymph % (Auto) 31.4 [place] % (Auto) 8.3 H Eos % (Auto) 0 Baso % (Auto) 0.7 Absolute Neuts (auto) 4.9 Absolute Lymphs (auto) 2.6 Absolute Monos (auto) 0.7 Absolute Eos (auto) 0 Absolute Basos (auto) 0.1 Absolute Nucleated RBC 0 Nucleated RBC % 0.1 Sodium 140 Potassium 3.4 L Chloride 106 Carbon Dioxide 26 Anion Gap 8 BUN 23 Creatinine 1.62 H Est GFR ( Amer) 62.6 Est GFR (Non-Af Amer) 51.8 BUN/Creatinine Ratio 14.2 Glucose 97 Calcium 9.1 Total Bilirubin 0.20 AST 39 ALT 38 Alkaline Phosphatase 74 Total Protein 6.4 Albumin 4.2 Globulin 2.2 Albumin/Globulin Ratio 1.9 TSH 4.83 Urine Color Urine Appearance Urine pH Ur Specific [place] Urine Protein Urine Ketones Urine Blood Urine Nitrate Urine Bilirubin Urine Urobilinogen Ur Leukocyte Esterase Urine Glucose Urine Ascorbic Acid Salicylates < 2.50 Urine Opiates Screen None detected Acetaminophen < 15 Ur Barbiturates Screen None detected Ur Phencyclidine Scrn None detected Ur Amphetamines Screen None detected U Benzodiazepines Scrn None detected Urine Cocaine Screen None detected U Cannabinoids Screen None detected Serum Alcohol < 10 09/17/17 02:20 WBC RBC Hgb Hct MCV MCH MCHC RDW Plt Count MPV Neut % (Auto) Lymph % (Auto) [place] % (Auto) Eos % (Auto) Baso % (Auto) Absolute Neuts (auto) Absolute Lymphs (auto) Absolute Monos (auto) Absolute Eos (auto) Absolute Basos (auto) Absolute Nucleated RBC Nucleated RBC % Sodium Potassium Chloride Carbon Dioxide Anion Gap BUN Creatinine Est GFR ( Amer) Est GFR (Non-Af Amer) BUN/Creatinine Ratio Glucose Calcium Total Bilirubin AST ALT Alkaline Phosphatase Total Protein Albumin Globulin Albumin/Globulin Ratio TSH Urine Color Yellow Urine Appearance Clear Urine pH 6.0 Ur Specific [place] 1.023 Urine Protein Negative Urine Ketones Negative Urine Blood Negative Urine Nitrate Negative Urine Bilirubin Negative Urine Urobilinogen Negative Ur Leukocyte Esterase Negative Urine Glucose Negative Urine Ascorbic Acid * A Salicylates Urine Opiates Screen Acetaminophen Ur Barbiturates Screen Ur Phencyclidine Scrn Ur Amphetamines Screen U Benzodiazepines Scrn Urine Cocaine Screen U Cannabinoids Screen Serum Alcohol
[2017-09-17] MEDS ORDERED: Sertraline* 25 MG TAB PO SCH (11:00)
[2017-09-17] MEDS ORDERED: Cariprazine 4.5 MG CAPSULE PO SCH ×2 (11:00)
[2017-09-17] MEDS ORDERED: CloZAPine TAB* 100 MG TAB PO SCH (11:00)
[2017-09-17] MEDS ORDERED: CloZAPine TAB* 25 MG TAB PO ONE (13:00)
[2017-09-17] MEDS ORDERED: Famotidine TAB* 20 MG PO ONE (16:18)
[2017-09-17] MEDS ORDERED: Al Hydrox/Mg Hydrox/Simet LIQ* 30 ML UDC PO ONE (16:18)
[2017-09-17 17:01] VITALS: BP 141/72
[2017-09-17] MEDS ORDERED: CloZAPine TAB* 25 MG TAB PO SCH (21:00)
[2017-09-18] MEDS ORDERED: Sertraline* 50 MG TAB PO SCH (09:00)
[2017-09-18] MEDS ORDERED: CloZAPine TAB* 100 MG TAB PO SCH (09:00)
== END 2017-09-17 16:58 | disposition short-term general hospital (02) ==
LOC: ED 01:40 → UNDOADMIN 09:12 → BSU 09:12 → ED 16:58
DX: F20.9 Schizophrenia, unspecified (principal); Z79.899 Other long term (current) drug therapy; Z88.8 Allergy status to other drugs, medicaments and biological substances
CPT/HCPCS: 36415; 80053; 80307; 80320; 80329; 81003; 84443; 85025; 93005; 99284; A9270-GY; G0480

== ENCOUNTER 2018-05-31 11:03 | Emergency (ER) | payer MEDICARE, MEDICAID ==
[2018-05-31 11:19] VITALS: BP 113/83
--- NOTE | 2018-05-31 11:40 | UC ---
General HPI - HPI Summary HPI Summary: 27 yo WM h/o recent inlfuenza and gastroenteritis c/o left lower chest wall pain associated with inspiration, cannot take deep breaths. States his cough, f/ c/nausea improved alot but now has this pain in his left lower rib and is concerned baout his lungs. Denies productive cough. - History of Current Complaint Chief Complaint: UCRespiratory Stated Complaint: SOB,STABBING LEFT SIDE PAIN Time Seen by Provider: 05/31/18 11:27 Hx Obtained From: Patient, Family/Supervisor [employer] Onset/Duration: Lasting Days Onset Severity: Moderate Current Severity: Severe Pain Intensity: 9 - Allergy/Home Medications Allergies/Adverse Reactions: Allergies Allergy/AdvReac Type Severity Reaction Status Date / Time haloperidol [From Haldol] AdvReac Severe See Comment Verified 05/31/18 11:19 lurasidone [From Latuda] AdvReac Intermediate See Comment Verified 05/31/18 11: 19 chlorpromazine AdvReac See Comment Verified 05/31/18 11:19 Home Medications: Home Medications Famotidine 40 mg PO BID 05/31/18 [History Confirmed 05/31/18] Topiramate TAB(*) [Topamax 100 mg tab] 1 tab PO BID 05/31/18 [History Confirmed 05/31/18] PMH/Surg Hx/FS Hx/Imm Hx Previously Healthy: Yes - Surgical History Surgical History: None Surgery Procedure, Year, and Place: n/a - Family History Known Family History: Positive: Other - Psychotic disorders, Schizophrenia, anxiety Negative: Cardiac Disease, Hypertension, Diabetes Family History: R & n/C - Social History Alcohol Use: Occasionally Alcohol Amount: was short term when 16 Substance Use Type: None Substance Use Comment - Amount & Last Used: denies Smoking Status (MU): Never Smoked Tobacco Type: eCigarettes Have You Smoked in the Last Year: No - Immunization History Most Recent Influenza Vaccination: Not this season Most Recent Tetanus Shot: Less than 10 years Most Recent Pneumonia Vaccination: Never Review of Systems All Other Systems Reviewed And Are Negative: Yes Constitutional: Positive: Negative Skin: Positive: Negative Eyes: Positive: Negative ENT: Positive: Negative Respiratory: Positive: Other - painful respiration Cardiovascular: Positive: Negative Genitourinary: Positive: Negative Motor: Positive: Negative Musculoskeletal: Positive: Other: - left lower chestwall pain Neurological: Positive: Negative Psychological: Positive: Negative Is Patient Immunocompromised?: No Physical Exam - Summary Physical Exam Summary: Vital Signs Reviewed: Yes Skin: Positive: Warm Head/Face: Positive: Normal Head/Face Inspection Eyes: Positive: Normal ENT: Positive: Normal ENT inspection Neck: Positive: Supple Respiratory/Lung Sounds: Positive: Clear to Auscultation, no wheezes, rhonchi but painful inspiration and expiration Cardiovascular: Positive: Normal, RRR, S1, S2 Abdomen Description: Positive: Nontender Musculoskeletal: Positive: Normal Neurological: Positive: Normal Psychiatric: Positive: Normal, Affect/Mood Appropriate Appearance: Pain Distress, Obese Vital Signs: Initial Vital Signs Temp 37.1 C 05/31/18 11:13 Pulse 103 05/31/18 11:13 Resp 22 05/31/18 11:13 BP 113/83 05/31/18 11:13 Pulse Ox 97 05/31/18 11:13 Course/Dx - Course Course Of Treatment: CXR- perihilar densities, peribronchial cuffing noted. Will tx for bronchitis - Diagnoses Provider Diagnosis: Chest wall discomfort Discharge - Sign-Out/Discharge Documenting (check all that apply): Patient Departure All imaging exams completed and their final reports reviewed: Yes - Discharge Plan Condition: Stable Disposition: HOME Prescriptions: Azithromycin TAB* [Zithromax TAB (Z-KENDRA) 250 mg #6 tabs] 2 tab PO .TODAY, THEN 1 DAILY #1 kendra Naproxen [Naproxen 500 mg tab] 500 mg PO BID 10 Days #20 tablet. Patient Education Materials: Acute Bronchitis (ED) Referrals: Aman Ya MD [Primary Care Provider] - - Billing Disposition and Condition Condition: STABLE Disposition: Home
== END 2018-05-31 12:40 | disposition home or self-care (01) ==
LOC: UCEAST 11:03
DX: R07.89 Other chest pain (principal); Z88.8 Allergy status to other drugs, medicaments and biological substances
CPT/HCPCS: 71046; 99212; G0463

== ENCOUNTER 2018-06-09 19:13 | Inpatient (IN) | payer MEDICARE, MEDICAID ==
--- NOTE | 2018-06-09 19:15 | ED ---
Upper Extremity Pain - History of Current Complaint Stated Complaint: MHE PER PT Time Seen by Provider: 06/09/18 19:15 - Allergies/Home Medications Allergies/Adverse Reactions: Allergies Allergy/AdvReac Type Severity Reaction Status Date / Time haloperidol [From Haldol] AdvReac Severe See Comment Verified 05/31/18 11:19 lurasidone [From Latuda] AdvReac Intermediate See Comment Verified 05/31/18 11: 19 chlorpromazine AdvReac See Comment Verified 05/31/18 11:19 PMH/Surg Hx/FS Hx/Imm Hx Endocrine/Hematology History: Denies: Hx Diabetes Cardiovascular History: Reports: Other Cardiovascular Problems/Disorders - increased QTC interval Denies: Hx Hypertension, Hx Pacemaker/ICD Respiratory History: Denies: Hx Asthma GI History: Reports: Hx Gastroesophageal Reflux Disease History: Denies: Hx Renal Disease Musculoskeletal History: Reports: Other Musculoskeletal History - hip dysplasia Denies: Hx Arthritis Comment Only: Hx Back Problems - back injury from "a few years ago" Sensory History: Denies: Hx Contacts or Glasses, Hx Hearing Aid Opthamlomology History: Denies: Hx Contacts or Glasses Neurological History: Reports: Other Neuro Impairments/Disorders - Hx of 6 concussions Denies: Hx Headaches, Hx Seizures, Hx Spinal Cord Injury, Hx Transient Ischemic Attacks (TIA) Psychiatric History: Reports: Hx Anxiety, Hx Depression, Hx Inpatient Treatment , Hx Community Mental Health Tx, Hx Schizophrenia, Hx Substance Abuse - alcohol , Other Psychiatric Issues/Disorders - psychosis, auditory hallucinations Denies: Hx Attention Deficit Hyperactivity Disorder, Hx Eating Disorder, Hx Panic Disorder, Hx Post Traumatic Stress Disorder, Hx Bipolar Disorder, Hx Suicide Attempt, Hx of Violent Episodes Against Others - Cancer History Hx Chemotherapy: No Hx Radiation Therapy: No Hx Palliative Cancer Treatment: No - Surgical History Surgery Procedure, Year, and Place: n/a - Immunization History Date of Tetanus Vaccine: 07/23/2017 Infectious Disease History: Denies: Hx Clostridium Difficile, Hx Hepatitis, Hx Human Immunodeficiency Virus (HIV), Hx of Known/Suspected MRSA, Hx Shingles, Hx Tuberculosis, Hx Known/ Suspected VRE, Hx Known/Suspected VRSA, History Other Infectious Disease - Family History Known Family History: Positive: Other - Psychotic disorders, Schizophrenia, anxiety Negative: Cardiac Disease, Hypertension, Diabetes Family History: R & n/C - Social History Alcohol Use: Occasionally Alcohol Amount: was short term when 16 Hx Substance Use: Yes Substance Use Type: Reports: None Substance Use Comment - Amount & Last Used: denies Hx Tobacco Use: No Smoking Status (MU): Never Smoked Tobacco Type: eCigarettes Have You Smoked in the Last Year: No Discharge - Discharge Plan Referrals: Aman Ya MD [Primary Care Provider] -
[2018-06-09 20:02] LABS: ABS Basophils 0 10^3/ul (0-0.2); ABS Eosinophils 0 10^3/ul (0-0.6); ABS Lymphocytes 1.4 10^3/ul (1.0-4.8); ABS Monocytes 0.4 10^3/ul (0-0.8); ABS Neutrophils 4.4 10^3/ul (1.5-7.7); ABS Nucleated RBC 0 10^3/ul; Eosinophil % 0 %; Hematocrit 42 % (36-46); Lymphocyte % 22.7 %; Mean Corpuscular HGB Conc 34 g/dL (31-36); Mean Corpuscular Hemoglobin 28 pg (27-31); Mean Corpuscular Volume 83 fL (80-94); Mean Platelet Volume 8.2 fL (7.4-10.4); Nucleated Red Blood Cells % 0; Platelet Count 313 10^3/uL (150-450); Red Blood Count 5.06 10^6 /uL (4.18-5.48); Red Cell Distribution Width 14 % (10.5-15); White Blood Count 6.2 10^3/uL (3.5-10.8)
[2018-06-09 20:20] LABS: ALT 18 U/L (7-52); AST 19 U/L (13-39); Albumin 4.7 g/dL (3.2-5.2); Albumin/Globulin Ratio 1.8 (1-3); Alkaline Phosphatase 77 U/L (34-104); Anion Gap 11 mmol/L (2-11); Blood Urea Nitrogen 22 mg/dL (6-24); CO2 Carbon Dioxide 21 mmol/L (22-32); Calcium 9.4 mg/dL (8.6-10.3); Chloride 110 mmol/L (101-111); EGFR African American 64.4 (>60); EGFR Non-African American 53.3 (>60); Globulin 2.6 g/dL (2-4); Glucose 107 mg/dL (70-100); Potassium 3.8 mmol/L (3.5-5.0); Sodium 142 mmol/L (135-145); Total Protein 7.3 g/dL (6.4-8.9)
--- NOTE | 2018-06-09 20:25 | ED ---
Psychiatric Complaint - HPI Summary HPI Summary: The patient is a 27 y/o M presenting to [facility] with a chief complaint of auditory hallucinations worsening throughout the last week. He reports that the voices, who are two people he went to high school with, are telling him that they're going to come to "slit his brother's children's throats." He is also worried because one of the people is a "very powerful person of evil," and this person's relatives and friends still live in [place] and "could harm his family. " The patient thinks that it's his duty to protect the world from the voice's evil. He has hx of depression, anxiety, and schizophrenia, and he states he takes his medications. He denies smoking (used to vape) and substance use, occasional EtOH. No other medical or surgical hx. He denies SI and HI at this time. - History Of Current Complaint Chief Complaint: EDMentalHealth Time Seen by Provider: 06/09/18 19:15 Hx Obtained From: Patient Onset/Duration: Gradual Onset, Lasting Days - one week, Still Present Timing: Days Severity Initially: Moderate Severity Currently: Moderate Character: Depressed, Fearful Aggravating Factor(s): Other - auditory hallucinations Alleviating Factor(s): Nothing Associated Signs And Symptoms: Positive: Hallucinating Related History: Positive For: Prior Psychiatric Issues - depression, anxiety, schziophrenia Has Suicidal: Denies: Thoughts Has Homicidal: Denies: Thoughts - Allergies/Home Medications Allergies/Adverse Reactions: Allergies Allergy/AdvReac Type Severity Reaction Status Date / Time haloperidol [From Haldol] AdvReac Severe See Comment Verified 06/09/18 19:21 lurasidone [From Latuda] AdvReac Intermediate See Comment Verified 06/09/18 19: 21 chlorpromazine AdvReac See Comment Verified 06/09/18 19:21 PMH/Surg Hx/FS Hx/Imm Hx Endocrine/Hematology History: Denies: Hx Diabetes Cardiovascular History: Reports: Other Cardiovascular Problems/Disorders - increased QTC interval Denies: Hx Hypertension, Hx Pacemaker/ICD Respiratory History: Denies: Hx Asthma GI History: Reports: Hx Gastroesophageal Reflux Disease History: Denies: Hx Renal Disease Musculoskeletal History: Reports: Other Musculoskeletal History - hip dysplasia Denies: Hx Arthritis Comment Only: Hx Back Problems - back injury from "a few years ago" Sensory History: Denies: Hx Contacts or Glasses, Hx Hearing Aid Opthamlomology History: Denies: Hx Contacts or Glasses Neurological History: Reports: Other Neuro Impairments/Disorders - Hx of 6 concussions Denies: Hx Headaches, Hx Seizures, Hx Spinal Cord Injury, Hx Transient Ischemic Attacks (TIA) Psychiatric History: Reports: Hx Anxiety, Hx Depression, Hx Inpatient Treatment , Hx Community Mental Health Tx, Hx Schizophrenia, Hx Substance Abuse - alcohol , Other Psychiatric Issues/Disorders - psychosis, auditory hallucinations Denies: Hx Attention Deficit Hyperactivity Disorder, Hx Eating Disorder, Hx Panic Disorder, Hx Post Traumatic Stress Disorder, Hx Bipolar Disorder, Hx Suicide Attempt, Hx of Violent Episodes Against Others - Cancer History Hx Chemotherapy: No Hx Radiation Therapy: No Hx Palliative Cancer Treatment: No - Surgical History Surgery Procedure, Year, and Place: n/a - Immunization History Date of Tetanus Vaccine: 07/23/2017 Infectious Disease History: No Infectious Disease History: Denies: Hx Clostridium Difficile, Hx Hepatitis, Hx Human Immunodeficiency Virus (HIV), Hx of Known/Suspected MRSA, Hx Shingles, Hx Tuberculosis, Hx Known/ Suspected VRE, Hx Known/Suspected VRSA, History Other Infectious Disease, Traveled Outside the [place] in Last 30 Days - Family History Known Family History: Positive: Other - Psychotic disorders, Schizophrenia, anxiety Negative: Cardiac Disease, Hypertension, Diabetes Family History: R & n/C - Social History Alcohol Use: None Alcohol Amount: was short term when 16 Hx Substance Use: Yes Substance Use Type: Reports: None Substance Use Comment - Amount & Last Used: denies Hx Tobacco Use: No Smoking Status (MU): Never Smoked Tobacco Type: eCigarettes Have You Smoked in the Last Year: No Review of Systems Positive: Anxious, Depressed, Other - POSITIVE: auditory hallucinations, fearful ; NEGATIVE: SI, HI All Other Systems Reviewed And Are Negative: Yes Physical Exam - Summary Physical Exam Summary: VITAL SIGNS: Reviewed. GENERAL: Patient is a well-developed and nourished (MALE OR FEMALE) who is lying comfortable in the stretcher. Patient is not in any acute respiratory distress. HEAD AND FACE: No signs of trauma. No ecchymosis, hematomas or skull depressions. No sinus tenderness. EYES: PERRLA, EOMI x 2, No injected conjunctiva, no nystagmus. EARS: Hearing grossly intact. Ear canals and tympanic membranes are within normal limits. MOUTH: Oropharynx within normal limits. NECK: Supple, trachea is midline, no adenopathy, no JVD, no carotid bruit, no c- spine tenderness, neck with full ROM. CHEST: Symmetric, no tenderness at palpation LUNGS: Clear to auscultation bilaterally. No wheezing or crackles. CVS: Regular rate and rhythm, S1 and S2 present, no murmurs or gallops appreciated. ABDOMEN: Soft, non-tender. No signs of distention. No rebound no guarding, and no masses palpated. Bowel sounds are normal. EXTREMITIES: FROM in all major joints, no edema, no cyanosis or clubbing. NEURO: Alert and oriented x 3. No acute neurological deficits. Speech is normal and follows commands. SKIN: Dry and warm PSYCH: Depressed, quiet, and denies any suicidal thoughts or plan. No homicidal thoughts or plan. Bizarre ideations and illusions, but no pressure speech. No tangential speech. Triage Information Reviewed: Yes Vital Signs On Initial Exam: Initial Vitals Temp Pulse Resp BP Pulse Ox 98.1 F 125 20 129/78 100 06/09/18 19:15 06/09/18 19:15 06/09/18 19:15 06/09/18 19:15 06/09/18 19:15 Vital Signs Reviewed: Yes Diagnostics - Vital Signs Vital Signs Temp Pulse Resp BP Pulse Ox 06/09/18 19:15 98.1 F 125 20 129/78 100 - Laboratory Lab Results: Lab Results 06/09/18 Range/Units 19:56 WBC 6.2 (3.5-10.8) 10^3/uL RBC 5.06 (4.18-5.48) 10^6 /uL Hgb 14.0 (14.0-18.0) g/dL Hct 42 (36-46) % MCV 83 (80-94) fL MCH 28 (27-31) pg MCHC 34 (31-36) g/dL RDW 14 (10.5-15) % Plt Count 313 (150-450) 10^3/uL MPV 8.2 (7.4-10.4) fL Neut % (Auto) 70.5 % Lymph % (Auto) 22.7 % [place] % (Auto) 6.1 % Eos % (Auto) 0 % Baso % (Auto) 0.7 % Absolute Neuts (auto) 4.4 (1.5-7.7) 10^3/ul Absolute Lymphs (auto) 1.4 (1.0-4.8) 10^3/ul Absolute Monos (auto) 0.4 (0-0.8) 10^3/ul Absolute Eos (auto) 0 (0-0.6) 10^3/ul Absolute Basos (auto) 0 (0-0.2) 10^3/ul Absolute Nucleated RBC 0 10^3/ul Nucleated RBC % 0 Result Diagrams: 06/09/18 19:56 06/09/18 19:56 Lab Statement: Any lab studies that have been ordered have been reviewed, and results considered in the medical decision making process. Course/Dx - Course Assessment/Plan: Blood work w/o a significant abnormality. He is medically cleared. He is awaiting for a MHE. Patient is hemodynamically stable and A+O x 3. Patient is signed out to Dr. Boyd at shift change. - Differential Dx/Clinical Impression Differential Diagnosis/HQI/PQRI: Positive: Acute Psychosis, Anxiety Provider Diagnosis: Psychosis Discharge - Sign-Out/Discharge Documenting (check all that apply): Sign-Out Patient Signing out patient TO: Arben Boyd - Patient is a sign-out to Dr. Arben Boyd MD, from Dr. Martell Montes MD, at change of shift at 22:00 pending MHE and disposition. Patient Received Moderate/Deep Sedation with Procedure: No - Discharge Plan Referrals: Aman Ya MD [Primary Care Provider] - - Attestation Statements Document Initiated by Agueda: Yes Documenting Scribe: Felipa Hernadez Provider For Whom Agueda is Documenting (Include Credential): Dr. Martell Montes MD Scribe Attestation: I, Felipa Hernadez, scribed for Dr. Martell Montes MD on 06/09/18 at 2134. Scribe Documentation Reviewed: Yes Provider Attestation: The documentation as recorded by the Felipa sanches accurately reflects the service I personally performed and the decisions made by me, Dr. Martell Montes MD Status of Scribe Document: Ready
[2018-06-09 20:43] LABS: Acetaminophen < 15 mcg/mL; Alcohol < 10 mg/dL (<10); Salicylate < 2.50 mg/dL (<30)
[2018-06-09 20:59] LABS: TSH (Thyroid Stimulating Horm) 1.05 mcIU/mL (0.34-5.60)
[2018-06-09 21:15] LABS: Urine Appearance Clear; Urine Bilirubin Negative (Negative); Urine Blood Negative (Negative); Urine Color Yellow; Urine Glucose Negative (Negative); Urine Ketones Trace (Negative); Urine Nitrite Negative (Negative); Urine Protein Negative (Negative); Urine Specific Gravity 1.028 (1.010-1.030); Urine Urobilinogen Negative (Negative)
[2018-06-09 21:31] LABS: Barbiturates Urine Screen None Detected (None Detect); Benzodiazepine Urine Screen Presumptive Positive (None Detect); Urine Cannabinoids Screen None Detected (None Detect)
--- NOTE | 2018-06-10 01:51 | ED ---
Progress - Progress Note Progress Note: Sign-out from Dr. Montes to Dr. Boyd at 22:00. Per Dr. Escobar, this patient will be voluntarily admitted with a diagnosis of paranoid schizophrenia. - Consult/PCP Time Called: 22:51 Course/Dx - Course Course Of Treatment: Sign-out from Dr. Montes to Dr. Boyd at 22:[address] Escobar, Psychiatry this patient will be voluntarily admitted by MHE with a diagnosis of paranoid schizophrenia. - Diagnoses Provider Diagnoses: Paranoid schizophrenia Discharge - Sign-Out/Discharge Documenting (check all that apply): Patient Departure - Admission, per MHE Receiving patient FROM: Martell Montes - at 2200 Patient Received Moderate/Deep Sedation with Procedure: No - Discharge Plan Condition: Guarded [place] [place] Disposition and Condition Condition: GUARDED Disposition: Psychiatric Facility [facility] - Attestation Statements Document Initiated by Rane: Yes Documenting Scribe: Baljinder Mas Provider For Whom Brayanibe is Documenting (Include Credential): Arben Boyd MD Scribe Attestation: Baljinder Beatty, scribed for Arben Boyd MD on 06/10/18 at 2021. Scribe Documentation Reviewed: Yes Provider Attestation: The documentation as recorded by the Baljinder sanches accurately reflects the service I personally performed and the decisions made by Arben owens MD Status of Scribe Document: Viewed
[2018-06-10] MEDS ORDERED: Acetaminophen TAB* 325 MG PO PRN (03:21)
[2018-06-10] MEDS: Sertraline* 100 MG TAB PO SCH (10:47)
[2018-06-10] MEDS: Topiramate TAB(*) 25 MG PO SCH ×2 (10:47→21:44)
[2018-06-10] MEDS: clonazePAM TAB(*) 0.5 MG PO SCH ×2 (10:47→21:42)
[2018-06-10] MEDS: Multivitamins/Minerals TAB PO SCH (10:47)
[2018-06-10] MEDS: Famotidine TAB* 20 MG PO SCH ×2 (10:47→21:44)
[2018-06-10] MEDS: CloZAPine TAB* 100 MG TAB PO SCH ×2 (10:47→21:42)
[2018-06-10] MEDS: PTO: Cariprazine 4.5 MG CAPSULE PO SCH (21:46)
--- NOTE | 2018-06-10 22:16 | HP ---
H&P (Free Text) History and Physical: DATE OF ADMISSION: 06/10/18. DATE OF EVALUATION: 06/10/18. LAST ADMISSION TO UNIT: May 2017 IDENTIFICATION: Mr. Mix is a 27 year-old man well-known to the unit from multiple admissions. He is unemployed, lives with his parents in [place], and receives psychiatric care at [facility]. HISTORY OF PRESENT ILLNESS: Yuniel reports renewed CAH and delusions with fuzzy insight into his paranoid suspicion that high school acquaintances plan to murder members of his family. He is able to contemplate my assessment that these thoughts are due to exacerbation of his psychotic illness, but remains convinced of their veracity. He denies any suicidal ideation. He denies any homicidal ideation. He denies any visual hallucinations. He reports compliance with medications. His father reports concerns for his sons safety , observing that when he has been this fearful, paranoid and psychotic in the past, it has required hospitalization to prevent deepening psychosis. MENTAL STATUS EXAMINATION: This is a young man looking his age of late 20s. He is cooperative. He is well related despite his psychotic thought process. He has adequate grooming and hygiene. His thought process is linear and goal- directed around psychotic content. He has normal speech latencies, with regular rate and rhythm. He has intact impulse control. He has limited insight and judgment due to his psychotic experience. He is alert and oriented by three. PAST PSYCHIATRIC HISTORY: The patient has had numerous inpatient stays commencing in 2009 by his account with the onset of psychosis. These have included transfers to both [facility] and [facility] for stabilization over longer terms than can be had on this acute care unit. He is currently in outpatient treatment at [facility] with Dr. Javed, as well as a therapist and insurance case manager. Past medication trials have included Risperdal, Latuda, Abilify, Haldol, and Olanzapine. He has taken depot IM Invega in the past. His diagnosis has been schizophrenia. He denies any history of suicide attempts. MEDICATIONS ON ADMISSION: Cariprazine [Vraylar] 4.5 mg PO DAILY 07/26/17 [History Confirmed 06/09/18] CloZAPine TAB* 150 mg PO DAILY 07/26/17 [History Confirmed 06/09/18] Sertraline* [Zoloft*] 200 mg PO DAILY 07/26/17 [History Confirmed 06/09/18] cloZAPine [Clozaril] 425 mg PO BEDTIME 08/21/17 [History Confirmed 06/09/18] clonazePAM [Clonazepam] 1 tab PO BID 09/17/17 [History Confirmed 06/09/18] Famotidine 40 mg PO BID 05/31/18 [History Confirmed 06/09/18] Topiramate TAB(*) [Topamax 100 mg tab] 50 mg PO BID 05/31/18 [History Confirmed 06/09/18] ALLERGIES: HALDOL, LATUDA, AND THORAZINE. FAMILY PSYCHIATRIC HISTORY: Notable for a mother with anxiety, a second cousin with psychosis, a paternal aunt with schizophrenia, a maternal cousin with borderline personality disorder and suicide attempts. His brother has a severe anxiety disorder. Another brother has avoidant personality disorder. SUBSTANCE ABUSE: In high school, he did abuse alcohol and cannabis. He reports his last use of cannabis was in high school. He does have a history of misuse of caffeine and weightlifting supplements. He is not a smoker. LEGAL HISTORY: None. SOCIAL HISTORY: He lives with his parents, he has three brothers. He did well in school, was an honor student, but was not able to continue in his studies because of his psychotic illness. He was active in sports growing up. PAST MEDICAL HISTORY: History of hip dysplasia, GERD, concussions estimated at about six, has had prolonged QT interval, and has had episodes of poor food intake due to catatonia requiring medical hospitalizations. PHYSICAL EXAMINATION The patient had a physical examination in the emergency department where it was documented that he had only abnormalities in the psychiatric system. He declined repeat physical exam by me. REVIEW OF SYSTEMS in the ED was negative except for psychiatric symptoms. VITAL SIGNS: Vital Signs - On Arrival Temp Pulse Resp BP Pulse Ox 98.1 F 125 20 129/78 100 06/09/18 19:15 06/09/18 19:15 06/09/18 19:15 06/09/18 19:15 06/09/18 19:15 Vital Signs - Most Recent Temp Pulse Resp BP Pulse Ox 96.8 F 115 16 115/59 100 06/10/18 08:00 06/10/18 08:00 06/10/18 21:42 06/10/18 08:00 06/10/18 08:00 LABORATORY VALUES: Laboratory Tests 03/15/19 03/15/19 03/15/19 19:56 19:56 20:15 WBC 6.2 RBC 5.06 Hgb 14.0 Hct 42 MCV 83 MCH 28 MCHC 34 RDW 14 Plt Count 313 MPV 8.2 Neut % (Auto) 70.5 Lymph % (Auto) 22.7 [place] % (Auto) 6.1 Eos % (Auto) 0 Baso % (Auto) 0.7 Absolute Neuts (auto) 4.4 Absolute Lymphs (auto) 1.4 Absolute Monos (auto) 0.4 Absolute Eos (auto) 0 Absolute Basos (auto) 0 Absolute Nucleated RBC 0 Nucleated RBC % 0 Sodium 142 Potassium 3.8 Chloride 110 Carbon Dioxide 21 L Anion Gap 11 BUN 22 Creatinine 1.57 H Est GFR ( Amer) 64.4 Est GFR (Non-Af Amer) 53.3 BUN/Creatinine Ratio 14.0 Glucose 107 H Calcium 9.4 Total Bilirubin 0.30 AST 19 ALT 18 Alkaline Phosphatase 77 Total Protein 7.3 Albumin 4.7 Globulin 2.6 Albumin/Globulin Ratio 1.8 TSH 1.05 Urine Color Yellow Urine Appearance Clear Urine pH 5.0 Ur Specific [place] 1.028 Urine Protein Negative Urine Ketones Trace A Urine Blood Negative Urine Nitrate Negative Urine Bilirubin Negative Urine Urobilinogen Negative Ur Leukocyte Esterase Negative Urine Glucose Negative Urine Ascorbic Acid * A Salicylates < 2.50 Urine Opiates Screen Acetaminophen < 15 Ur Barbiturates Screen Ur Phencyclidine Scrn Ur Amphetamines Screen U Benzodiazepines Scrn Urine Cocaine Screen U Cannabinoids Screen Serum Alcohol < 10 06/09/18 20:15 WBC RBC Hgb Hct MCV MCH MCHC RDW Plt Count MPV Neut % (Auto) Lymph % (Auto) [place] % (Auto) Eos % (Auto) Baso % (Auto) Absolute Neuts (auto) Absolute Lymphs (auto) Absolute Monos (auto) Absolute Eos (auto) Absolute Basos (auto) Absolute Nucleated RBC Nucleated RBC % Sodium Potassium Chloride Carbon Dioxide Anion Gap BUN Creatinine Est GFR ( Amer) Est GFR (Non-Af Amer) BUN/Creatinine Ratio Glucose Calcium Total Bilirubin AST ALT Alkaline Phosphatase Total Protein Albumin Globulin Albumin/Globulin Ratio TSH Urine Color Urine Appearance Urine pH Ur Specific [place] Urine Protein Urine Ketones Urine Blood Urine Nitrate Urine Bilirubin Urine Urobilinogen Ur Leukocyte Esterase Urine Glucose Urine Ascorbic Acid Salicylates Urine Opiates Screen None detected Acetaminophen Ur Barbiturates Screen None detected Ur Phencyclidine Scrn None detected Ur Amphetamines Screen None detected U Benzodiazepines Scrn Presumptive positive A Urine Cocaine Screen None detected U Cannabinoids Screen None detected Serum Alcohol ASSESSMENT AND PLAN: Mr. Mix is a 27-year-old man who is well-known to the unit from multiple prior admissions for similar presentations. We will be continuing his outpatient medication regimen. We will be gathering collateral from his outpatient providers and from his family. Aftercare will be back to [facility] with Dr. Javed and others. DIAGNOSIS: Schizophrenia.
[2018-06-11 08:30] LABS: HDL Cholesterol 20.8 mg/dL
[2018-06-11] MEDS: PTO: Cariprazine 4.5 MG CAPSULE PO SCH (10:00)
[2018-06-11] MEDS: Multivitamins/Minerals TAB PO SCH (10:01)
[2018-06-11] MEDS: CloZAPine TAB* 100 MG TAB PO SCH ×2 (10:01→20:53)
[2018-06-11] MEDS: clonazePAM TAB(*) 0.5 MG PO SCH ×2 (10:01→20:54)
[2018-06-11] MEDS: Sertraline* 100 MG TAB PO SCH (10:02)
[2018-06-11] MEDS: Topiramate TAB(*) 25 MG PO SCH ×2 (10:02→20:54)
[2018-06-11] MEDS: Famotidine TAB* 20 MG PO SCH ×2 (10:02→20:54)
[2018-06-12] MEDS: PTO: Cariprazine 4.5 MG CAPSULE PO SCH (09:35)
[2018-06-12] MEDS: clonazePAM TAB(*) 0.5 MG PO SCH ×2 (09:35→21:18)
[2018-06-12] MEDS: Multivitamins/Minerals TAB PO SCH (09:35)
[2018-06-12] MEDS: Topiramate TAB(*) 25 MG PO SCH ×2 (09:36→21:17)
[2018-06-12] MEDS: Sertraline* 100 MG TAB PO SCH (09:36)
[2018-06-12] MEDS: Famotidine TAB* 20 MG PO SCH ×2 (09:36→21:16)
[2018-06-12] MEDS: CloZAPine TAB* 100 MG TAB PO SCH ×2 (09:37→21:19)
--- NOTE | 2018-06-12 13:09 | PN ---
Subjective - Subjective Date of Service: 06/12/18 Service Type: 15367 Hosp care 15 min low complexity Subjective: Yuniel appears to be in good spirits with a bright affect. He's out of his room socializing with staff. Reports continued AH at this time, which are less intense and threatening than at the time of admission. He continues to deny SI or HI. Reports that he would like to target tomorrow or Tuesday (06/14) for discharge. His behavior has been good on the unit. Objective - Appearance Appearance: Obese Dysmorphic Features: No Hygiene: Normal Grooming: Well Kept - Behavior Psychomotor Activities: Normal Exhibits Abnormal Movement: No - Attitude and Relatedness Attitude and Relatedness: Cooperative Eye Contact: Fair - Speech Quality: Unpressured Latencies: Normal Quantity: Terse - Mood Patient's Decription of Mood: "Okay" - Affect Observed Affect: Good Affect Consistent with: Euthymia - Thought Process Patient's Thought Process: Coherent Thought Content: No Passive Wish, No Suicidal Planning, No Homicidal Ideation, No Paranoid Ideation - Sensorium Experiencing Hallucinations: Yes Type of Hallucinations: Visual: No, Auditory: Yes, Command: No - Level of Consciousness Level of Consciousness: Alert Orientation: Yes Intact, Yes Orientated to Time, Yes Orientated to Place, Yes Orientated to Person - Impulse Control Impulse Control: Tenuous - Insight and Judgement Insight and Judgement: Fair - Group Participation Particating in Group Activities: Yes - Medication Management Medication Management Adherence: Yes Assessment - Assessment Merits Inpatient Hospitalization: Consolidate Improvements, Pending Safe DC Plan Inpatient DSM-V Dx: F20.9 Clinical Impression: 27 y.o. single, white male with a history of schizophrenia brought in by ambulance due to intense command auditory hallucinations telling him that his family is under threat by people he used to go to high school with. BSU: Problem List - Patient Problems (1) Schizophrenia Current Visit: No Status: Chronic Priority: High Onset Date: 02/02/15 Code(s): F20.9 - SCHIZOPHRENIA, UNSPECIFIED SNOMED Code(s): 74501046 Plan - Plan Treatment Plan: Name: YUNIEL ZAMAN Birthdate: 1990 [id number] We have continued the patient's outpatient regimen, including clozapine 150mg PO qam and 425mg PO qhs, cariprazine 4.5mg PO qday and sertraline 200mg PO qday. He is improving with conservative milieu management and will likely be dischargeable to the community sometime tomorrow or Tuesday (06/14). Continued Medication Management: Continue Outpt Medication Medications: Current Medications Acetaminophen (Tylenol Tab*) 650 mg PO Q4H PRN PRN Reason: PAIN; OR TEMP>101 Al Hydrox/Mg Hydrox/Simethicone (Maalox Plus*) 30 ml PO Q4H PRN PRN Reason: INDIGESTION Cariprazine (Vraylar) 4.5 mg PO DAILY [facility] Last Admin: 06/12/18 09:35 Dose: 4.5 mg Clonazepam (Klonopin Tab(*)) 0.5 mg PO BID [facility] Last Admin: 06/12/18 09:35 Dose: 0.5 mg Clozapine (Clozapine Tab*) 150 mg PO DAILY [facility] Last Admin: 06/12/18 09:37 Dose: 150 mg Clozapine (Clozapine Tab*) 450 mg PO BEDTIME [facility] Last Admin: 06/11/18 20:53 Dose: 450 mg Famotidine (Pepcid Tab*) 40 mg PO BID [facility] Last Admin: 06/12/18 09:36 Dose: 40 mg Multivitamins/Minerals (Theragran/Minerals Tab*) 1 tab PO DAILY [facility] Last Admin: 06/12/18 09:35 Dose: 1 tab Sertraline HCl (Zoloft*) 200 mg PO DAILY [facility] Last Admin: 06/12/18 09:36 Dose: 200 mg Topiramate (Topamax(*)) 50 mg PO BID [facility] Last Admin: 06/12/18 09:36 Dose: 50 mg - Discharge Plan Discharge Plan: Outpatient Follow Up Outpatient Program: [facility] Lab Results - Lab Results Lab Results: 06/09/18 06/09/18 06/09/18 19:56 19:56 20:15 WBC 6.2 RBC 5.06 Hgb 14.0 Hct 42 MCV 83 MCH 28 MCHC 34 RDW 14 Plt Count 313 MPV 8.2 Neut % (Auto) 70.5 Lymph % (Auto) 22.7 [place] % (Auto) 6.1 Eos % (Auto) 0 Baso % (Auto) 0.7 Absolute Neuts (auto) 4.4 Absolute Lymphs (auto) 1.4 Absolute Monos (auto) 0.4 Absolute Eos (auto) 0 Absolute Basos (auto) 0 Absolute Nucleated RBC 0 Nucleated RBC % 0 Sodium 142 Potassium 3.8 Chloride 110 Carbon Dioxide 21 L Anion Gap 11 BUN 22 Creatinine 1.57 H Est GFR ( Amer) 64.4 Est GFR (Non-Af Amer) 53.3 BUN/Creatinine Ratio 14.0 Glucose 107 H Hemoglobin A1c Calcium 9.4 Total Bilirubin 0.30 AST 19 ALT 18 Alkaline Phosphatase 77 Total Protein 7.3 Albumin 4.7 Globulin 2.6 Albumin/Globulin Ratio 1.8 Triglycerides Cholesterol LDL Cholesterol HDL Cholesterol TSH 1.05 Urine Color Yellow Urine Appearance Clear Urine pH 5.0 Ur Specific [place] 1.028 Urine Protein Negative Urine Ketones Trace A Urine Blood Negative Urine Nitrate Negative Urine Bilirubin Negative Urine Urobilinogen Negative Ur Leukocyte Esterase Negative Urine Glucose Negative Urine Ascorbic Acid * A Salicylates < 2.50 Urine Opiates Screen Acetaminophen < 15 Ur Barbiturates Screen Ur Phencyclidine Scrn Ur Amphetamines Screen U Benzodiazepines Scrn Urine Cocaine Screen U Cannabinoids Screen Serum Alcohol < 10 06/09/18 06/11/18 06/11/18 20:15 07:50 07:50 WBC RBC Hgb Hct MCV MCH MCHC RDW Plt Count MPV Neut % (Auto) Lymph % (Auto) [place] % (Auto) Eos % (Auto) Baso % (Auto) Absolute Neuts (auto) Absolute Lymphs (auto) Absolute Monos (auto) Absolute Eos (auto) Absolute Basos (auto) Absolute Nucleated RBC Nucleated RBC % Sodium Potassium Chloride Carbon Dioxide Anion Gap BUN Creatinine Est GFR ( Amer) Est GFR (Non-Af Amer) BUN/Creatinine Ratio Glucose Hemoglobin A1c 5.4 Calcium Total Bilirubin AST ALT Alkaline Phosphatase Total Protein Albumin Globulin Albumin/Globulin Ratio Triglycerides 240 Cholesterol 140 LDL Cholesterol 71 HDL Cholesterol 20.8 TSH Urine Color Urine Appearance Urine pH Ur Specific [place] Urine Protein Urine Ketones Urine Blood Urine Nitrate Urine Bilirubin Urine Urobilinogen Ur Leukocyte Esterase Urine Glucose Urine Ascorbic Acid Salicylates Urine Opiates Screen None detected Acetaminophen Ur Barbiturates Screen None detected Ur Phencyclidine Scrn None detected Ur Amphetamines Screen None detected U Benzodiazepines Scrn Presumptive positive A Urine Cocaine Screen None detected U Cannabinoids Screen None detected Serum Alcohol
[2018-06-12] MEDS: Al Hydrox/Mg Hydrox/Simet LIQ* 30 ML UDC PO PRN (13:16)
[2018-06-13] MEDS: CloZAPine TAB* 100 MG TAB PO SCH ×2 (11:16→21:36)
[2018-06-13] MEDS: PTO: Cariprazine 4.5 MG CAPSULE PO SCH (11:16)
[2018-06-13] MEDS: Famotidine TAB* 20 MG PO SCH ×2 (11:17→21:36)
[2018-06-13] MEDS: Multivitamins/Minerals TAB PO SCH (11:17)
[2018-06-13] MEDS: Sertraline* 100 MG TAB PO SCH (11:17)
[2018-06-13] MEDS: clonazePAM TAB(*) 0.5 MG PO SCH ×2 (11:17→21:37)
[2018-06-13] MEDS: Topiramate TAB(*) 25 MG PO SCH ×2 (11:17→21:36)
--- NOTE | 2018-06-13 11:59 | PN ---
Subjective - Subjective Date of Service: 06/13/18 Service Type: 89177 Hosp care 15 min low complexity Subjective: Yuniel was approached this morning by this clinician, expecting that he would be ready and eager for discharge, as he had earlier told staff. "Can I talk with you in private? I was speaking with another patient today who's had a real hard life. She being chased by the FBI and hackers. I started thinking that I was one of the people doing that to her." Yuniel is reassured that his peer has a mental illness and that these are merely delusions that do not pertain to him. He is agreeable with staying an extra day to make sure he's OK. I alerted staff to limit contact between him and this other patient. He is still having AH but they are less threatening. Objective - Appearance Appearance: Obese Dysmorphic Features: No Hygiene: Normal Grooming: Well Kept - Behavior Psychomotor Activities: Normal Exhibits Abnormal Movement: No - Attitude and Relatedness Attitude and Relatedness: Cooperative Eye Contact: Good - Speech Quality: Unpressured Latencies: Normal Quantity: Appropriate - Mood Patient's Decription of Mood: "Anxious" - Affect Observed Affect: Unvariable Affect Consistent with: Euthymia - Thought Process Patient's Thought Process: Coherent Thought Content: Yes Paranoid Ideation, No Passive Wish, No Suicidal Planning, No Homicidal Ideation - Sensorium Experiencing Hallucinations: Yes Type of Hallucinations: Visual: No, Auditory: Yes, Command: No - Level of Consciousness Level of Consciousness: Alert Orientation: Yes Intact, Yes Orientated to Time, Yes Orientated to Place, Yes Orientated to Person - Impulse Control Impulse Control: Tenuous - Insight and Judgement Insight and Judgement: Fair - Group Participation Particating in Group Activities: Yes - Medication Management Medication Management Adherence: Yes Assessment - Assessment Merits Inpatient Hospitalization: Consolidate Improvements, Pending Safe DC Plan Inpatient DSM-V Dx: F20.9 Clinical Impression: 27 y.o. single, white male with a history of schizophrenia brought in by ambulance due to intense command auditory hallucinations telling him that his family is under threat by people he used to go to high school with. BSU: Problem List - Patient Problems (1) Schizophrenia Current Visit: No Status: Chronic Priority: High Onset Date: 02/02/15 Code(s): F20.9 - SCHIZOPHRENIA, UNSPECIFIED SNOMED Code(s): 16702679 Plan - Plan Treatment Plan: Name: YUNIEL ZAMAN Birthdate: 1990 [id number] We have continued the patient's outpatient regimen, including clozapine 150mg PO qam and 425mg PO qhs, cariprazine 4.5mg PO qday and sertraline 200mg PO qday. He is improving with conservative milieu management and will likely be dischargeable to the community sometime tomorrow, Tuesday (06/14). Continued Medication Management: Continue Outpt Medication Medications: Current Medications Acetaminophen (Tylenol Tab*) 650 mg PO Q4H PRN PRN Reason: PAIN; OR TEMP>101 Al Hydrox/Mg Hydrox/Simethicone (Maalox Plus*) 30 ml PO Q4H PRN PRN Reason: INDIGESTION Last Admin: 06/12/18 13:16 Dose: 30 ml Cariprazine (Vraylar) 4.5 mg PO DAILY [facility] Last Admin: 06/13/18 11:16 Dose: 4.5 mg Clonazepam (Klonopin Tab(*)) 0.5 mg PO BID [facility]INI Last Admin: 06/13/18 11:17 Dose: 0.5 mg Clozapine (Clozapine Tab*) 150 mg PO DAILY M[facility]INI Last Admin: 06/13/18 11:16 Dose: 150 mg Clozapine (Clozapine Tab*) 450 mg PO BEDTIME MOHINI Last Admin: 06/12/18 21:19 Dose: 450 mg Famotidine (Pepcid Tab*) 40 mg PO BID MOHINI Last Admin: 06/13/18 11:17 Dose: 40 mg Multivitamins/Minerals (Theragran/Minerals Tab*) 1 tab PO DAILY MOHINI Last Admin: 06/13/18 11:17 Dose: 1 tab Sertraline HCl (Zoloft*) 200 mg PO DAILY MOHINI Last Admin: 06/13/18 11:17 Dose: 200 mg Topiramate (Topamax(*)) 50 mg PO BID MOHINI Last Admin: 06/13/18 11:17 Dose: 50 mg - Discharge Plan Discharge Plan: Outpatient Follow Up Outpatient Program: [facility]
[2018-06-13] MEDS: Al Hydrox/Mg Hydrox/Simet LIQ* 30 ML UDC PO PRN (21:38)
[2018-06-14 09:02] VITALS: BP 125/72
[2018-06-14] MEDS: clonazePAM TAB(*) 0.5 MG PO SCH (09:27)
[2018-06-14] MEDS: Topiramate TAB(*) 25 MG PO SCH (09:28)
[2018-06-14] MEDS: Famotidine TAB* 20 MG PO SCH (09:28)
[2018-06-14] MEDS: CloZAPine TAB* 100 MG TAB PO SCH (09:28)
[2018-06-14] MEDS: Sertraline* 100 MG TAB PO SCH (09:28)
[2018-06-14] MEDS: Multivitamins/Minerals TAB PO SCH (09:28)
[2018-06-14] MEDS: PTO: Cariprazine 4.5 MG CAPSULE PO SCH (09:29)
--- NOTE | 2018-06-14 14:28 | DS ---
DISCHARGE SUMMARY: DATE OF ADMISSION: 06/10/18 DATE OF DISCHARGE: 06/14/18 DISCHARGE DIAGNOSES: Spring I: Schizophrenia. Spring II: Deferred. CONDITION AT THE TIME OF DISCHARGE: Improved. The patient is no longer having command hallucinations to harm others or himself. He is still complaining of auditory hallucinations, but the intensity as well as the volume are significantly lower. The voices have become more benign. Our experience with Yuniel is that he has auditory hallucinations even at baseline, which had been refractory to several antipsychotics. The patient denies any thoughts of harming himself or others. He has done well in our unit, going to groups, more social than he typically presents. His affect is full and he is agreeable with following up on the outpatient basis. Yuniel has been safe on all checks and we see no barriers to him following up successfully in the outpatient environment. MENTAL STATUS EXAMINATION: At the time of discharge, Yuniel is an obese young white male who is clean, well groomed, wearing a T-shirt, and sweat pants. He is calm and cooperative, makes good eye contact, is easy to establish a rapport with. Speech has limited spontaneity, but is otherwise fluent. Mood appears to be euthymic with a full affect. Thought process is linear, goal directed. Thought content is significant for his desire to be discharged from the hospital. He is denying suicidal or homicidal ideations. He denies visual hallucinations. He does endorse benign auditory hallucinations which are chronic in nature. Insight and judgement are fair given his willingness to follow up with outpatient treatment. Cognitively, he is awake and alert with what would appear to be an average intellect. LABORATORY DATA: Comprehensive metabolic testing was performed on the 06/11/18 revealing hemoglobin A1c of 5.4%, triglycerides 240, cholesterol 140, LDL cholesterol 71, and HDL cholesterol 20.8. DISCHARGE INSTRUCTIONS: Discharge instructions to the patient are as follows: Part A: Medications: The patient is taking cariprazine 4.5 mg p.o. daily. He takes clozapine 150 mg p.o. q.a.m., 450 mg p.o. q.h.s. Pepcid 40 mg p.o. b.i.d. , Zoloft 200 mg p.o. daily, Topamax 50 mg twice daily. PLEASE NOTE: the patient is on multiple antipsychotics, which is justified because his clozapine is being augmented with cariprazine. Part B: Diet: As regular. Part C: Activities: As tolerated. The patient does not smoke tobacco. There are no laboratory or diagnostic studies pending at the time of discharge. Part D: Followup care. The patient has an appointment with Dr. Javed at the [facility] on , 06/15/18 at 2:30 p.m. After that he has an appointment with his therapist, Kendall Holt, also on , , at 3:00 p.m. Part E: Substance abuse followup: Is nonapplicable. HOSPITAL COURSE: Is as follows: Part A: Yuniel is a 27-year-old single white male with a history of schizophrenia who arrives voluntarily to the emergency room complaining of command auditory hallucinations and delusions with limited insight, specifically paranoid suspicions that various high school acquaintances were planning to murder members of his family. He was cooperative with assessment and denied suicidal or homicidal ideations, but given the fact that he has acted on command auditory hallucinations in the past, we felt that he warranted admission for further stabilization. Part B: Psychiatric treatment rendered: The patient was admitted to the adult behavioral health unit and placed on q.15-minute checks for his own safety. We maintained his psychiatric medication regimen as it is currently prescribed at the [facility] by Dr. Dulce Javed making no changes to either his cariprazine or his clozapine. The patient did well on our unit with social with peers. His affect was actually brighter than it typically is and with conservative milieu treatment, he experienced a resolution of command auditory hallucinations, instead having more benign voices merely conversing with him in his head. The patient is requesting discharge at this time and we see no justification for further inpatient treatment. [id number]/[facility] #: [id number] [facility]PITALColeman
== END 2018-06-14 12:00 | disposition home or self-care (01) | DRG 885 ==
LOC: ED 19:13 → BSU 06-10 02:33
PROVIDERS: ADMIT Psychiatry & Neurology Psychiatry; ATTEND Psychiatry & Neurology Psychiatry
DX: F20.9 Schizophrenia, unspecified (principal); E66.9 Obesity, unspecified; K21.9 Gastro-esophageal reflux disease without esophagitis; F41.9 Anxiety disorder, unspecified; F32.9 Major depressive disorder, single episode, unspecified; Z68.33 Body mass index [BMI] 33.0-33.9, adult; Z56.0 Unemployment, unspecified; Z88.8 Allergy status to other drugs, medicaments and biological substances; Z81.8 Family history of other mental and behavioral disorders
CPT/HCPCS: 36415; 80053; 80061; 80307; 80320; 80329; 81003; 83036; 84443; 85025; 99222; 99231; 99238; 99284; A9270-GY; G0480

== ENCOUNTER 2018-08-31 20:37 | Emergency (ER) | payer MEDICARE, MEDICAID ==
[2018-08-31 21:17] VITALS: BP 136/77
--- NOTE | 2018-08-31 21:24 | UC ---
Skin Complaint HPI - HPI Summary HPI Summary: Patient is a 27 y/o male with pruritic, erythematous, blistering rash spreading from right forearm to bilateral hips and now left upper eyelid. Patient states he has current 5/10 pain. Denies chest pain, cough, abdominal pain, nausea, headache, fevers, chills, and change in vision. States he has never had a reaction to poison ilene but notes strong family history of allergic dermatitis. He was fishing last week and dug through foliage, thinks he may have gotten exposed. He is additionally on amoxicillin for a dental abscess. 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 Character: Pruritus, Pain, Redness, Raised Aggravating Factor(s): Nothing Alleviating Factor(s): Nothing Associated Signs & Symptoms: Negative: Nausea, Vomiting, Difficulty Breathing, Fever, Chills, Cough, Chest Pain, Red Streaks Related History: Possible Reaction to: Environmental Exposure - Poison ilene - Allergy/Home Medications Allergies/Adverse Reactions: Allergies Allergy/AdvReac Type Severity Reaction Status Date / Time haloperidol [From Haldol] AdvReac Severe See Comment Verified 08/31/18 21:17 lurasidone [From Latuda] AdvReac Intermediate See Comment Verified 08/31/18 21: 17 chlorpromazine AdvReac See Comment Verified 08/31/18 21:17 PMH/Surg Hx/FS Hx/Imm Hx Previously Healthy: No Psychological History: Schizophrenia - Surgical History Surgical History: None Surgery Procedure, Year, and Place: n/a - Family History Known Family History: Positive: Other - Psychotic disorders, Schizophrenia, anxiety Negative: Cardiac Disease, Hypertension, Diabetes Family History: R & n/C - Social History Alcohol Use: Weekly Alcohol Amount: 2x Substance Use Type: None Substance Use Comment - Amount & Last Used: denies Smoking Status (MU): Never Smoked Tobacco Type: eCigarettes Have You Smoked in the Last Year: No - Immunization History Most Recent Influenza Vaccination: Not this season Most Recent Tetanus Shot: Less than 10 years Most Recent Pneumonia Vaccination: Never Review of Systems All Other Systems Reviewed And Are Negative: Yes Constitutional: Negative: Fever, Chills Skin: Positive: Rash - Pruritic blistering weeping right forearm, bilateral hips , left upper eyelid. Eyes: Negative: Blurred Vision, Diplopia Respiratory: Negative: Shortness Of Breath, Cough Cardiovascular: Negative: Chest Pain Gastrointestinal: Negative: Abdominal Pain, Vomiting, Nausea Neurological: Negative: Headache Physical Exam Triage Information Reviewed: Yes Appearance: Well-Appearing, No Pain Distress Vital Signs: Initial Vital Signs Temp 98.0 F 08/31/18 21:07 Pulse 129 08/31/18 21:07 Resp 16 08/31/18 21:07 BP 136/77 08/31/18 21:07 Pulse Ox 97 08/31/18 21:07 Vital Signs Reviewed: Yes Eye Exam: Normal Eyes: Positive: Conjunctiva Clear, Other: - Left upper eyelid swelling and erythema. No pain elicited with EOM. ENT: Positive: Normal ENT inspection Respiratory: Positive: Lungs clear, Normal breath sounds Cardiovascular: Positive: No Murmur, Tachycardia - Regular rhythm. Musculoskeletal Exam: Normal Musculoskeletal: Positive: Strength Intact, ROM Intact Neurological Exam: Normal Neurological: Positive: Alert Psychological Exam: Normal Skin: Positive: Rashes - Large erythematous, pruritic, blistering rash to right forearm. One weeping lesion to distal upper arm. No red streaking. Course/Dx - Course Course Of Treatment: 27 y/o otherwise healthy male with pruritic, erythematous, blistering rash to right forearm, spreading to bilateral hips and left upper eyelid, consistent with poison ilene dermatitis. Pt is discharged home with prescription for prednisone. He will use topical hydrocortisone and areas not involving the face. Patient seen in collaboration with the PA student. - Differential Diagnoses - Skin Complaint Differential Diagnoses: Other - contact dermatitis, impetigo, cellulitis - Diagnoses Provider Diagnosis: Poison ilene dermatitis Discharge - Sign-Out/Discharge Documenting (check all that apply): Patient Departure All imaging exams completed and their final reports reviewed: No Studies - Discharge Plan Condition: Improved Disposition: HOME Prescriptions: predniSONE TAB* [Deltasone 20 MG TAB*] 40 mg PO DAILY #18 tab Patient Education Materials: Poison Ilene (ED) Referrals: Aman Ya MD [Primary Care Provider] - Additional Instructions: Use is [id number] hydrocortisone ointment on any rash that is not on the face or genitals. Use calamine lotion obtained [id number] and you can use poison ilene soap to include products such as Zenfel or TechNu. Benadryl orally as needed for itching. Return if worse or other concerns. Follow up with your doctor. - Billing Disposition and Condition Condition: IMPROVED Disposition: Home - Attestation Statements Document Initiated by Agueda: Yes Documenting Scribe: ITZ Graham Provider For Whom Agueda is Documenting (Include Credential): Dr. Jean Scribe Attestation: ISpike PA-S, scribed for Dr. Jean on 08/31/18 at 2143. Scribe Documentation Reviewed: Yes Provider Attestation: The documentation as recorded by the Spike sanches PA-S accurately reflects the service I personally performed and the decisions made by Dr. Ted owens Status of Scribraul Document: Viewed
[2018-08-31] MEDS ORDERED: predniSONE TAB* 20 MG PO ONE (21:28)
== END 2018-08-31 21:48 | disposition home or self-care (01) ==
LOC: UCEAST 20:37
DX: L23.7 Allergic contact dermatitis due to plants, except food (principal)
CPT/HCPCS: 99212; G0463; J7512

== ENCOUNTER 2018-11-18 23:38 | Inpatient (IN) | payer MEDICARE, MEDICAID ==
--- NOTE | 2018-11-19 00:10 | ED ---
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 He states that the voices talk to him all day and say frightful things to him. He notes that they say that someone is out to get him and he needs to hide. He has also been having nightmares. Pain severity is rated 0/10. No aggravating or alleviating factors. He denies any SI or HI. He has Hx of schizophrenia. - History Of Current Complaint Chief Complaint: EDMentalHealth Time Seen by Provider: 11/18/18 23:53 Hx Obtained From: Patient Onset/Duration: Sudden Onset, Lasting Days, Still Present Timing: Intermittent Episode Lasting - minutes Severity Initially: Mild Severity Currently: None Aggravating Factor(s): Nothing Alleviating Factor(s): Nothing Associated Signs And Symptoms: Positive: Negative - SI or HI Has Suicidal: Denies: Thoughts Has Homicidal: Denies: Thoughts - Allergies/Home Medications Allergies/Adverse Reactions: Allergies Allergy/AdvReac Type Severity Reaction Status Date / Time haloperidol [From Haldol] AdvReac Severe See Comment Verified 08/31/18 21:17 lurasidone [From Latuda] AdvReac Intermediate See Comment Verified 08/31/18 21: 17 chlorpromazine AdvReac See Comment Verified 08/31/18 21:17 PMH/Surg Hx/FS Hx/Imm Hx Endocrine/Hematology History: Denies: Hx Diabetes Cardiovascular History: Reports: Other Cardiovascular Problems/Disorders - increased QTC interval Denies: Hx Hypertension, Hx Pacemaker/ICD Respiratory History: Denies: Hx Asthma GI History: Reports: Hx Gastroesophageal Reflux Disease History: Denies: Hx Renal Disease Musculoskeletal History: Reports: Other Musculoskeletal History - hip dysplasia Denies: Hx Arthritis Comment Only: Hx Back Problems - back injury from "a few years ago" Sensory History: Denies: Hx Contacts or Glasses, Hx Hearing Aid Opthamlomology History: Denies: Hx Contacts or Glasses Neurological History: Reports: Other Neuro Impairments/Disorders - Hx of 6 concussions Denies: Hx Headaches, Hx Seizures, Hx Spinal Cord Injury, Hx Transient Ischemic Attacks (TIA) Psychiatric History: Reports: Hx Anxiety, Hx Depression, Hx Inpatient Treatment , Hx Community Mental Health Tx, Hx Schizophrenia, Hx Substance Abuse - alcohol , Other Psychiatric Issues/Disorders - psychosis, auditory hallucinations Denies: Hx Attention Deficit Hyperactivity Disorder, Hx Eating Disorder, Hx Panic Disorder, Hx Post Traumatic Stress Disorder, Hx Bipolar Disorder, Hx Suicide Attempt, Hx of Violent Episodes Against Others - Cancer History Hx Chemotherapy: No Hx Radiation Therapy: No Hx Palliative Cancer Treatment: No - Surgical History Surgical History: None Surgery Procedure, Year, and Place: n/a - Immunization History Date of Tetanus Vaccine: 07/23/2017 Infectious Disease History: No Infectious Disease History: Denies: Hx Clostridium Difficile, Hx Hepatitis, Hx Human Immunodeficiency Virus (HIV), Hx of Known/Suspected MRSA, Hx Shingles, Hx Tuberculosis, Hx Known/ Suspected VRE, Hx Known/Suspected VRSA, History Other Infectious Disease, Traveled Outside the [place] in Last 30 Days - Family History Known Family History: Positive: Other - Psychotic disorders, Schizophrenia, anxiety Negative: Cardiac Disease, Hypertension, Diabetes Family History: R & n/C - Social History Alcohol Use: Weekly Alcohol Amount: 2x Hx Substance Use: Yes Substance Use Type: Reports: None Substance Use Comment - Amount & Last Used: denies Hx Tobacco Use: No Smoking Status (MU): Never Smoked Tobacco Type: eCigarettes Have You Smoked in the Last Year: No Review of Systems Negative: Fever Psychological: Other - pos - hearing scary voices, nightmares, neg - SI, HI All Other Systems Reviewed And Are Negative: Yes Physical Exam - Summary Physical Exam Summary: Appearance: Well-appearing, Well-nourished, lying in bed comfortable Skin: Warm, dry, no obvious rash Eyes: sclera anicteric, no conjunctival pallor ENT: mucous membranes moist Neck: deferred Respiratory: No signs of respiratory distress Cardiovascular: Appears well perfused, pulses are nml Abdomen: deferred Musculoskeletal: Moving all 4 extremities without obvious discomfort Neurological: Awake and alert, mentation is normal, speech is fluent and appropriate Psychiatric: affect is normal, does not appear anxious or depressed Triage Information Reviewed: Yes Vital Signs On Initial Exam: Initial Vitals Temp Pulse Resp BP Pulse Ox 97.2 F 82 18 122/77 99 11/18/18 23:39 11/18/18 23:39 11/18/18 23:39 11/18/18 23:39 11/18/18 23:39 Vital Signs Reviewed: Yes Diagnostics - Vital Signs Vital Signs Temp Pulse Resp BP Pulse Ox 08/24/19 23:39 97.2 F 82 18 122/77 99 - Laboratory Result Diagrams: 11/19/18 01:47 11/19/18 01:47 Lab Statement: Any lab studies that have been ordered have been reviewed, and results considered in the medical decision making process. 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 Final Dx is schizophrenia. The pt will be admitted to [facility]. - Differential Dx/Clinical Impression Provider Diagnosis: Schizophrenia Discharge ED - Sign-Out/Discharge Documenting (check all that apply): Patient Departure - admit Patient Received Moderate/Deep Sedation with Procedure: No - Discharge Plan Condition: Stable Disposition: PSYCHIATRIC FACILITY[place] [place] [facility] - Billing Disposition and Condition Condition: STABLE Disposition: Psychiatric Facility [facility] - Attestation Statements Document Initiated by Brayanibe: Yes Documenting Scribe: Tito Carreon Provider For Whom Brayanibe is Documenting (Include Credential): Arben Boyd MD Scribe Attestation: Tito Beatty, scribed for Arben Boyd MD on 11/20/18 at 1125. Scribe Documentation Reviewed: Yes Provider Attestation: The documentation as recorded by the Tito sanches accurately reflects the service I personally performed and the decisions made by , Arben Boyd MD Status of Scribe Document: Viewed
[2018-11-19 01:31] LABS: Urine Appearance Clear; Urine Bilirubin Negative (Negative); Urine Blood Negative (Negative); Urine Color Yellow; Urine Glucose Negative (Negative); Urine Ketones Negative (Negative); Urine Nitrite Negative (Negative); Urine Protein Negative (Negative); Urine Specific Gravity 1.013 (1.010-1.030); Urine Urobilinogen Negative (Negative)
[2018-11-19 01:52] LABS: Urine Benzodiazepine Screen None Detected (None Detect); Urine Opiates Screen None Detected (None Detect)
[2018-11-19 02:00] LABS: ABS Lymphocytes 2.1 10^3/ul (1.0-4.8); ABS Monocytes 0.6 10^3/ul (0-0.8); ABS Neutrophils 4.6 10^3/ul (1.5-7.7); Hematocrit 43 % (42-52); Hemoglobin 14.7 g/dL (14.0-18.0); Lymphocyte % 28.3 %; Mean Corpuscular HGB Conc 34 g/dL (31-36); Mean Corpuscular Hemoglobin 29 pg (27-31); Mean Corpuscular Volume 84 fL (80-94); Mean Platelet Volume 8.5 fL (7.4-10.4); Nucleated Red Blood Cells % 0.1; Platelet Count 220 10^3/uL (150-450); Red Blood Count 5.14 10^6 /uL (4.18-5.48); Red Cell Distribution Width 14 % (10-15); White Blood Count 7.3 10^3/uL (3.5-10.8)
[2018-11-19 02:16] LABS: ALT 21 U/L (7-52); AST 19 U/L (13-39); Albumin 4.3 g/dL (3.2-5.2); Albumin/Globulin Ratio 2.2 (1-3); Alkaline Phosphatase 61 U/L (34-104); Anion Gap 6 mmol/L (2-11); BUN/Creatinine Ratio 15.8 (8-20); Blood Urea Nitrogen 22 mg/dL (6-24); CO2 Carbon Dioxide 24 mmol/L (22-32); Calcium 9.2 mg/dL (8.6-10.3); Chloride 109 mmol/L (101-111); EGFR African American 74.2 (>60); EGFR Non-African American 61.3 (>60); Glucose 99 mg/dL (70-100); Potassium 3.8 mmol/L (3.5-5.0); Sodium 139 mmol/L (135-145); Total Protein 6.3 g/dL (6.4-8.9)
[2018-11-19 02:18] LABS: Acetaminophen < 15 mcg/mL; Alcohol < 10 mg/dL (<10); Salicylate < 2.50 mg/dL (<30)
[2018-11-19 02:32] LABS: TSH (Thyroid Stimulating Horm) 0.91 mcIU/mL (0.34-5.60)
--- NOTE | 2018-11-19 07:08 | ED ---
Progress - Progress Note Progress Note: This patient was signed out from Dr. Garcia to Dr. Montes at shift change at 0700 on 11/19/18, pending disposition, awaiting mental health evaluation. _ reveals _. The patients condition is _stable and will be _discharged to home with Dx of _. 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 He will be a sign out to Dr. Montes at the 2018 0700 shift change pending MHE and dispo. Discharge ED - Discharge Plan Referrals: Aman Ya MD [Primary Care Provider] - - Attestation Statements Document Initiated by Scribe: Yes Documenting Scribe: Ofelia Gordillo Provider For Whom Scribe is Documenting (Include Credential): Dr. Martell Montes MD Scribe Attestation: IOfelia scribkeesha for Dr. Martell Montes MD on 11/19/18 at 0707.
[2018-11-19] MEDS ORDERED: Acetaminophen TAB* 325 MG PO PRN (09:32)
[2018-11-19] MEDS ORDERED: Al Hydrox/Mg Hydrox/Simet LIQ* 30 ML UDC PO PRN (09:32)
[2018-11-19] MEDS: clonazePAM TAB(*) 0.5 MG PO SCH (20:38)
[2018-11-19] MEDS: CloZAPine TAB* 100 MG TAB PO SCH (20:39)
[2018-11-19] MEDS: Topiramate TAB(*) 25 MG PO SCH (20:40)
[2018-11-19] MEDS: Famotidine TAB* 20 MG PO SCH (20:41)
[2018-11-20] MEDS: clonazePAM TAB(*) 0.5 MG PO SCH ×3 (00:52→22:10)
[2018-11-20] MEDS: Topiramate TAB(*) 25 MG PO SCH ×3 (00:53→22:11)
[2018-11-20] MEDS: Sertraline* 100 MG TAB PO SCH ×2 (00:53→09:09)
[2018-11-20] MEDS: Famotidine TAB* 20 MG PO SCH ×3 (00:53→22:11)
[2018-11-20] MEDS: CloZAPine TAB* 100 MG TAB PO SCH ×3 (00:53→19:42)
[2018-11-20] MEDS: CARIPRAZINE 4.5 MG PO SCH ×2 (00:54→09:10)
--- NOTE | 2018-11-20 02:21 | HP ---
HISTORY AND PHYSICAL: DATE OF ADMISSION: 11/19/18 IDENTIFYING DATA: Yuniel is a 27-year-old single male, resident of [facility], who was referred by his mother and he was admitted on voluntary status because of complaints of bothersome command auditory hallucinations instructing him to harm self and others. CHIEF COMPLAINT: "The voices were telling me to do scary things!" HISTORY OF PRESENT ILLNESS: Yuniel is known to the adult inpatient psychiatric unit from multiple previous psychiatric admissions. He has documented history of schizophrenia, chronic undifferentiated type, and he has been on clozapine, Vraylar, and sertraline for over a year. He relates that he was doing relatively well until last Tuesday when he went fishing; he hypothesized that because he was out in the sun for too long, the voices that he has been hearing for years became louder and more threatening. He reports that the voices were telling him to harm other people, that people were coming to get him, and other "unsettling thoughts." He called his mother in the evening of Tuesday. The mother is a mental health therapist. They agreed that if the voices did not improve that the mother would bring him to the hospital. The following day, as the voices continued to be bothersome, his mother drove him to the emergency room of this hospital. He was observed overnight in the annex and he was admitted on voluntary status this morning. The patient volunteered that he had for a period of 3 weeks recently, he was drinking alcohol, but that he self- discontinued because he did not like the way it made him feel, but for the past 6 months, he has been smoking some unspecified herbs that he buys from a head shop on the [place] and he has also been smoking dandelion leaves because of their relaxing properties. REVIEW OF PSYCHIATRIC SYMPTOMS: He denies persistently depressed mood, denies manic symptoms. He endorses auditory hallucinations and paranoid ideation. He denies delusions. He endorses excessive worrying because of the voices and occasional panic attacks. He denies obsessive thoughts or compulsive rituals. He denies any history of trauma or abuse or PTSD symptoms. He denies previous diagnosis of ADHD or learning disorder. He denies symptoms of eating disorder. PAST PSYCHIATRIC HISTORY: The patient relates having history of over 15 inpatient psychiatric admissions since age 18, when he had his first psychotic break that in 2009. Most of admissions have been here. He has also had stays at [facility]. His most recent admission here was from 06/10/18 to in similar circumstances. He has outpatient care at [facility] with Dr. Rita Javed and with Baljinder Holt RN. PAST MEDICAL HISTORY: Remarkable for GERD, for which he takes famotidine 20 mg daily. 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 He is moderately to morbidly obese. He complains dental sensitivity following recent fillings. He is followed at [facility]. He is not sure who his provider is since Dr. Ya retired. MEDICATIONS: He is currently prescribed: 1. Clozapine 450 mg at bedtime and 150 mg in the morning. 2. Vraylar 4.5 mg daily. 3. Sertraline 200 mg daily. ALLERGIES: He is allergic to HALDOL, LATUDA, and THORAZINE. SUBSTANCE ABUSE HISTORY: The patient described past use of alcohol and marijuana in high school. Recently for a period of 3 weeks, he restarted drinking beers often to the point of tipsiness and for the past 6 months, he has been smoking dandelions and other unspecified herbs that he buys at a head shop on the [place]. SUICIDE/HOMICIDE HISTORY: He denies any previous history of suicide attempts, self- injurious behaviors, or violence. FAMILY HISTORY: Family history of schizophrenia in maternal second cousin and a paternal aunt. His mother has a history of anxiety. He denies knowledge of any family history of completed suicides. PERSONAL AND SOCIAL HISTORY: He is the third youngest of 4 brothers from parents. He has been a resident of [facility] for almost a year. His parents are very much involved in his care. His father is working in software management at [employer] and his mother is a self-employed mental health therapist. The patient has a younger brother, who lives at home and his another brother is away in college and the oldest one is living independently in an apartment close to the family home. Yuniel graduated from high school. He subsequently attended the school of [employer], but had to take a leave of absence because of mental health issues and he did not return. He worked in the past at [employer] in 2011 for about a year. In 2013, he enrolled at [employer] and took French and math classes. He struggled academically and dropped out. He has plans to return to [employer] at some point to study music. He enjoys fishing and going on outings with other residents of [facility]. He has also been part of a group of peers in the community involved in fishing. He identifies as either heterosexual or bisexual. He has neither dated nor been sexually active. REVIEW OF MEDICAL SYMPTOMS: Obesity, dental pain, and involuntary contracture of right middle finger. PHYSICAL EXAMINATION GENERAL: He is a tall, moderate to morbidly obese 27-year-old white, male who does not appear to be in any acute physical distress. He is alert, oriented x3. HEENT: Head: Atraumatic, normocephalic, symmetrical. Eyes: PERRLA. Tympanic membranes intact. Sclerae anicteric. Conjunctivae clear. NECK: Trachea midline. Freely mobile. No cervical lymphadenopathy. No nuchal rigidity. LUNGS: Clear to auscultation bilaterally. HEART: Regular rate and rhythm. S1, S2. No murmurs, gallops, or rubs. BREASTS: No mass or discharge. ABDOMEN: Obese, but soft, nontender. No masses, organomegaly, or rebound tenderness. No scars noted. Active bowel sounds in all 4 quadrants. GENITALIA: Exam not performed. RECTAL: Exam not performed. EXTREMITIES: No clubbing, cyanosis, edema, or varicosities noted. Pulses are equal and adequate in all 4 extremities. NEUROLOGIC: Cranial nerves II through XII intact. Cerebellar function intact. Muscle strength grade 5/5 in all 4 extremities. STRUCTURAL EXAM: The patient examined in both supine and upright positions. No gross AP or lateral asymmetry. Gait and movement are within normal limits. SKIN: Skin texture, turgor, and pigmentation within normal limits. Male balding hair pattern observed. MENTAL STATUS EXAMINATION: Finds a tall and moderate to morbidly obese 27-year- old white male with male balding hair pattern. He is dressed casually. He is relatively well groomed. He makes good eye contact. He is cooperative. He does not exhibit any abnormal psychomotor activity. Speech is spontaneous; normal rate, rhythm, and volume. His affect is constricted. Mood is anxious. He endorses auditory hallucinations in the form of threatening voices but he contracts for safety. He denies suicidal or homicidal ideation or urges to self -mutilate. His insight and judgment are fair. Impulse control is good in this setting. He is alert. He is oriented to time, place, and person. Attention, memory, and concentration are all fair. Fund of knowledge is adequate. Intelligence is estimated to be in normal average range. LABORATORY DATA: On admission, CBC within normal limits with a WBC of 7.3. Complete metabolic panel shows creatinine of 1.39, total protein of 6.3. Urinalysis within normal limits. Urine toxicology screen is negative for all the tested substances. SUMMARY: A 27-year-old male with history of multiple inpatient psychiatric admissions since first psychotic break at age 18, diagnosis of schizophrenia, current outpatient care at [facility] and current trials of clozapine, Vraylar, and sertraline, who was referred by his mother and was admitted because of worsening of his auditory hallucinations including threatening voices commanding him to harm himself and other and paranoid ideation that people are coming to get him. He was admitted on voluntary status. He admits to recent drinking and smoking dandelion leaves and other unspecified herbs. 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 He describes stressors of being bothered by his hallucination and the anxiety that stems from them. DIAGNOSTIC IMPRESSIONS: Schizophrenia, chronic undifferentiated type; acute decompensation. TREATMENT PLAN: Admit to mental health unit, 15-minute checks, full code status. Legal status is voluntary. Initiate comprehensive milieu, individual, and group psychotherapeutic support. Medication management will continue his outpatient regimen of medication and conferring with Dr. Dulec Javed. Discharge planning will involve coordination of his aftercare with [facility]. [id number]/CPS #: [id number] [facility]ITAL[facility]
[2018-11-20] MEDS: Vitamin THERAPEUTIC TAB PO SCH (09:09)
--- NOTE | 2018-11-20 15:34 | PN ---
Subjective - Subjective Date of Service: 11/20/18 Service Type: 02860 Hosp care 15 min low complexity Subjective: Yuniel is found this morning sleeping. I have to wake him again when I go to see him at 2 pm. He is yawning throughout our conversation, but he is pleasant and reasonable. He is experiencing auditory hallucinations and responding to them by moving his lips, but he states the hallucinations are not bothersome right now. He states the problems started when he was fishing and seem to have resolved now. He states he's skipped "a couple" days of medication and he has had three days of not sleeping at all. The concern exists that he is not taking his medication and that is causing him to not sleep. He did not make that association, however. Objective - General Observations Appearance: Disheveled Appears Stated Age: Yes Stature: Overweight Posture: WNL Eye Contact: Average Behavior/Activity: Slowed - Interaction Observations Attitude Towards Examiner: Cooperative Stated Mood: Dysphoric Affect: Blunted Speech Pattern/Tone: Clear Thought Process: Coherent Thought Content: WNL Hallucination Type: Auditory Delusion Type: Denies - Cognitive Function Orientation: A&O x 4 Level of Consciousness: Awake, Appropriate, Drowsy Cognition: WNL Estimated Intelligence: Normal Insight: WNL Judgment Within Normal Limits: No Ability to Make Reasonable Decisions: Mildly Impaired - Medication Compliance Cooperative with Inpatient Medication Regimen: Yes - Group Participation Participates in Group Activities: Partial Assessment - Assessment Merits Inpatient Hospitalization: For Immediate Safety Inpatient DSM-V Dx: F20.9 Clinical Impression: Yuniel is a 27-year-old man diagnosed with schizophrenia who comes to the hospital following a fishing trip during which he began having "scary thoughts" and the voices he hears were unpleasant. They have returned to normal at this time. He remains sleepy and sedated. Plan - Plan Treatment Plan: Name: YUNIEL ZAMAN Birthdate: 1990 [id number] His clozapine dose is high. I am sending a blood sample for testing, but the test takes 5 days to come back. In the meantime, we may have to work with Yuniel to set up a reliable sleeping schedule. Continued Medication Management: Different Medication Medications: Current Medications Acetaminophen (Tylenol Tab*) 650 mg PO Q4H PRN PRN Reason: PAIN or TEMP > 101 F Al Hydrox/Mg Hydrox/Simethicone (Maalox Plus*) 30 ml PO Q4H PRN PRN Reason: INDIGESTION Cariprazine (Vraylar) 4.5 mg PO DAILY [facility] Last Admin: 11/20/18 09:10 Dose: 4.5 mg Clonazepam (Klonopin Tab(*)) 0.5 mg PO BID [facility] Last Admin: 11/20/18 09:07 Dose: 0.5 mg Clozapine (Clozapine Tab*) 450 mg PO BEDTIME [facility] Last Admin: 11/19/18 20:39 Dose: 450 mg Clozapine (Clozapine Tab*) 150 mg PO DAILY [facility] Last Admin: 11/20/18 09:08 Dose: 150 mg Famotidine (Pepcid Tab*) 20 mg PO BID [facility] Last Admin: 11/20/18 09:09 Dose: 20 mg Multivitamins (Theragran Tab*) 1 tab PO DAILY [facility] Last Admin: 11/20/18 09:09 Dose: 1 tab Sertraline HCl (Zoloft*) 200 mg PO DAILY [facility] Last Admin: 11/20/18 09:09 Dose: 200 mg Topiramate (Topamax(*)) 25 mg PO BID [facility] Last Admin: 11/20/18 09:07 Dose: 25 mg
[2018-11-21 08:03] LABS: HDL Cholesterol 34.2 mg/dL
[2018-11-21] MEDS: Sertraline* 100 MG TAB PO SCH (09:13)
[2018-11-21] MEDS: Famotidine TAB* 20 MG PO SCH ×2 (09:13→21:41)
[2018-11-21] MEDS: Vitamin THERAPEUTIC TAB PO SCH (09:13)
[2018-11-21] MEDS: clonazePAM TAB(*) 0.5 MG PO SCH ×2 (09:14→21:40)
[2018-11-21] MEDS: Topiramate TAB(*) 25 MG PO SCH ×2 (09:14→21:41)
[2018-11-21] MEDS: CloZAPine TAB* 100 MG TAB PO SCH ×2 (09:15→21:39)
[2018-11-21] MEDS: CARIPRAZINE 4.5 MG PO SCH (09:15)
--- NOTE | 2018-11-21 15:25 | PN ---
Subjective - Subjective Date of Service: 11/21/18 Service Type: [id number] Hosp care 15 min low complexity Subjective: Yuniel is found sleeping twice during attempts to visit with him, and once playing checkers. I interrupted the game to ask about his level of sedation. Although it took him a bit longer than typical to answer me, he did acknowledge that he has been quite sedated and sleeping often. I contacted Dr. Javed to ask her opinion about reducing the medications to reduce sedation. She indicated some hesitation as his symptoms never fully remit ; nevertheless, trying a small reduction in clozapine might lift some of the heavy sedation that has been following Yuniel. Objective - General Observations Appearance: Neat Appears Stated Age: Yes Stature: Overweight Posture: WNL Eye Contact: Average Behavior/Activity: WNL, Slowed - Interaction Observations Attitude Towards Examiner: Cooperative Stated Mood: Dysphoric, Anxious Affect: Blunted Speech Pattern/Tone: Clear Thought Process: Coherent Perception: WNL Thought Content: WNL Hallucination Type: Auditory, Visual Delusion Type: Denies - Cognitive Function Orientation: A&O x 4 Level of Consciousness: Awake, Alert, Appropriate Cognition: Impaired Cognition, Impaired Attention/Concentration Estimated Intelligence: Normal Insight: WNL Judgment Within Normal Limits: No Ability to Make Reasonable Decisions: Moderately Impaired - Medication Compliance Cooperative with Inpatient Medication Regimen: Yes - Group Participation Participates in Group Activities: Partial Assessment - Assessment Merits Inpatient Hospitalization: For Immediate Safety Inpatient DSM-V Dx: F20.9 Clinical Impression: Yuniel is a 27-year-old man diagnosed with schizophrenia who comes to the hospital following a fishing trip during which he began having "scary thoughts" and the voices he hears were unpleasant. They have returned to normal at this time. He remains sleepy and sedated. Plan - Plan Treatment Plan: Name: YUNIEL ZAMAN Birthdate: 1990 [id number] His clozapine dose is high. I am sending a blood sample for testing, but the test takes 5 days to come back. In the meantime, we may have to work with Yuniel to set up a reliable sleeping schedule. 11/21/18 We will reduce his morning dose of clozapine to 100 from 150 mg in an effort to reduce sedation and improve his sleeping schedule to have more daytime wakefulness. The "scary thoughts" have not been reported to me, but they have been reported to other staff. Continued Medication Management: Different Medication Medications: Current Medications Acetaminophen (Tylenol Tab*) 650 mg PO Q4H PRN PRN Reason: PAIN or TEMP > 101 F Al Hydrox/Mg Hydrox/Simethicone (Maalox Plus*) 30 ml PO Q4H PRN PRN Reason: INDIGESTION Cariprazine (Vraylar) 4.5 mg PO DAILY [facility] Last Admin: 11/21/18 09:15 Dose: 4.5 mg Clonazepam (Klonopin Tab(*)) 0.5 mg PO BID [facility] Last Admin: 11/21/18 09:14 Dose: 0.5 mg Clozapine (Clozapine Tab*) 450 mg PO BEDTIME [facility] Last Admin: 11/20/18 19:42 Dose: Not Given Clozapine (Clozapine Tab*) 100 mg PO DAILY [facility] Famotidine (Pepcid Tab*) 20 mg PO BID [facility] Last Admin: 11/21/18 09:13 Dose: 20 mg Multivitamins (Theragran Tab*) 1 tab PO DAILY [facility] Last Admin: 11/21/18 09:13 Dose: 1 tab Sertraline HCl (Zoloft*) 200 mg PO DAILY [facility] Last Admin: 11/21/18 09:13 Dose: 200 mg Topiramate (Topamax(*)) 25 mg PO BID [facility] Last Admin: 11/21/18 09:14 Dose: 25 mg - Discharge Plan Discharge Plan: Outpatient Follow Up Outpatient Program: [facility] [place]
[2018-11-22] MEDS: clonazePAM TAB(*) 0.5 MG PO SCH ×2 (09:59→20:57)
[2018-11-22] MEDS: Famotidine TAB* 20 MG PO SCH ×2 (10:00→20:57)
[2018-11-22] MEDS: Sertraline* 100 MG TAB PO SCH ×2 (10:00→20:57)
[2018-11-22] MEDS: Vitamin THERAPEUTIC TAB PO SCH (10:00)
[2018-11-22] MEDS: CloZAPine TAB* 100 MG TAB PO SCH ×2 (10:00→20:55)
[2018-11-22] MEDS: Topiramate TAB(*) 25 MG PO SCH ×2 (10:01→20:58)
[2018-11-22] MEDS: CARIPRAZINE 4.5 MG PO SCH ×2 (10:01→20:54)
--- NOTE | 2018-11-22 16:18 | PN ---
BSU: Group Therapy Note - Service Type Service Type: [id number] Group Psychotherapy - Medication Education Group: Patient attended group and presented with flat affect that did not vary with discussion. Although responsive to direct prompts to respond to questions, patient did not engage in spontaneous conversation.
--- NOTE | 2018-11-22 20:07 | PN ---
Subjective - Subjective Date of Service: 11/22/18 Service Type: [id number] Hosp care 15 min low complexity Subjective: Yuniel and I discuss his medication regimen and attempt to consolidate his medications to once per day to reduce the likelihood that he will miss doses. We also discuss a timed medication box or a phone alarm to remind him to take his medications, despite his other activities. Yuniel also mentions that he has been working out at night and that before he works out he takes a caffeine drink that has 200-300 mg of caffeine. He acknowledges that this likely has repercussions regarding his ability to sleep. Objective - General Observations Appearance: Neat, Well Groomed Appears Stated Age: Yes Stature: Overweight Posture: WNL Eye Contact: Average Behavior/Activity: WNL - Interaction Observations Attitude Towards Examiner: Cooperative, Anxious Stated Mood: Dysphoric Affect: Restricted Speech Pattern/Tone: Clear, Quiet Volume Thought Process: Coherent Perception: WNL Thought Content: WNL Hallucination Type: Auditory, Visual Delusion Type: Denies - Cognitive Function Orientation: A&O x 4 Level of Consciousness: Awake, Alert, Appropriate Cognition: WNL Estimated Intelligence: Normal Insight: WNL Judgment Within Normal Limits: No Ability to Make Reasonable Decisions: Mildly Impaired - Medication Compliance Cooperative with Inpatient Medication Regimen: Yes - Group Participation Participates in Group Activities: Yes Assessment - Assessment Merits Inpatient Hospitalization: For Immediate Safety Inpatient DSM-V Dx: F20.9 Clinical Impression: Yuniel is a 27-year-old man diagnosed with schizophrenia who comes to the hospital following a fishing trip during which he began having "scary thoughts" and the voices he hears were unpleasant. They have returned to normal at this time. He remains sleepy and sedated. Yuniel's thoughts have stopped being so "scary". He is pleasant and a bit shy in conversation. He is very agreeable, but also asserts what he believes will help. Plan - Plan Treatment Plan: Name: YUNIEL ZAMAN Birthdate: 1990 [id number] His clozapine dose is high. I am sending a blood sample for testing, but the test takes 5 days to come back. In the meantime, we may have to work with Yuniel to set up a reliable sleeping schedule. 11/21/18 We will reduce his morning dose of clozapine to 100 from 150 mg in an effort to reduce sedation and improve his sleeping schedule to have more daytime wakefulness. The "scary thoughts" have not been reported to me, but they have been reported to other staff. 11/22/18 Yuniel is improving. He is interested in going home. We are moving most of his medications to bedtime to reduce sedation, which is a complaint he voices. Continued Medication Management: Different Medication Medications: Current Medications Acetaminophen (Tylenol Tab*) 650 mg PO Q4H PRN PRN Reason: PAIN or TEMP > 101 F Al Hydrox/Mg Hydrox/Simethicone (Maalox Plus*) 30 ml PO Q4H PRN PRN Reason: INDIGESTION Cariprazine (Vraylar) 4.5 mg PO BEDTIME [facility] Clonazepam (Klonopin Tab(*)) 0.5 mg PO BID [facility] Last Admin: 11/22/18 09:59 Dose: 0.5 mg Clozapine (Clozapine Tab*) 450 mg PO BEDTIME [facility] Last Admin: 11/21/18 21:39 Dose: 450 mg Clozapine (Clozapine Tab*) 100 mg PO DAILY [facility] Last Admin: 11/22/18 10:00 Dose: 100 mg Famotidine (Pepcid Tab*) 20 mg PO BID [facility] Last Admin: 11/22/18 10:00 Dose: 20 mg Multivitamins (Theragran Tab*) 1 tab PO DAILY [facility] Last Admin: 11/22/18 10:00 Dose: 1 tab Sertraline HCl (Zoloft*) 200 mg PO BEDTIME [facility] Topiramate (Topamax(*)) 50 mg PO BEDTIME [facility] - Discharge Plan Discharge Plan: Outpatient Follow Up Outpatient Program: [facility]
[2018-11-22 23:41] LABS: Clozapine 155 ng/mL (>350); Clozapine 161 ng/mL (>350); Clozapine & Norclozapine Level 317 ng/mL (>450); Clozapine & Norclozapine Level 332 ng/mL (>450); Norclozapine 162 ng/mL; Norclozapine 171 ng/mL
[2018-11-23] MEDS: CloZAPine TAB* 100 MG TAB PO SCH (09:05)
[2018-11-23] MEDS: clonazePAM TAB(*) 0.5 MG PO SCH ×2 (10:49→21:40)
[2018-11-23] MEDS: Famotidine TAB* 20 MG PO SCH ×2 (10:49→21:40)
[2018-11-23] MEDS: Vitamin THERAPEUTIC TAB PO SCH (10:49)
--- NOTE | 2018-11-23 20:16 | PN ---
Subjective - Subjective Date of Service: 11/23/18 Service Type: 17423 Hosp care 15 min low complexity Subjective: Yuniel and I met to discuss the changes in medications from day to bedtime dosing. He states he slept well the night before and that he feels much less sedated today. He did not take clozapine this morning. His clozapine levels came back and he is below 450, which leads me to believe he had not been taking the full 600 mg dose outpatient, which could account for some of his symptoms. He remains symptomatic, but he appears to be less anxiious and is certainly less tired. Objective - General Observations Appearance: Neat, Well Groomed Appears Stated Age: Yes Stature: Overweight Posture: WNL Eye Contact: Average Behavior/Activity: WNL, Slowed - Interaction Observations Attitude Towards Examiner: Cooperative, Anxious Stated Mood: Euthymic Affect: Blunted Speech Pattern/Tone: Clear, Quiet Volume Thought Process: Coherent, Goal Directed Perception: WNL Thought Content: WNL Hallucination Type: Auditory, Visual Delusion Type: None - Cognitive Function Orientation: A&O x 4 Level of Consciousness: Awake, Alert, Appropriate Cognition: WNL Estimated Intelligence: Normal Insight: WNL Judgment Within Normal Limits: No Ability to Make Reasonable Decisions: Mildly Impaired - Medication Compliance Cooperative with Inpatient Medication Regimen: Yes - Group Participation Participates in Group Activities: Yes Assessment - Assessment Merits Inpatient Hospitalization: For Immediate Safety, For Discharge Planning Inpatient DSM-V Dx: F20.9 Clinical Impression: Yuniel is a 27-year-old man diagnosed with schizophrenia who comes to the hospital following a fishing trip during which he began having "scary thoughts" and the voices he hears were unpleasant. Yuniel's thoughts have stopped being so "scary". He is pleasant and a bit shy in conversation. He is very agreeable, but also asserts what he believes will help. Yuniel is significantly less sedated and advocated for his needs. He is ready for discharge. Plan - Plan Treatment Plan: Name: YUNIEL ZAMAN Birthdate: 1990 [id number] His clozapine dose is high. I am sending a blood sample for testing, but the test takes 5 days to come back. In the meantime, we may have to work with Yuniel to set up a reliable sleeping schedule. 11/21/18 We will reduce his morning dose of clozapine to 100 from 150 mg in an effort to reduce sedation and improve his sleeping schedule to have more daytime wakefulness. The "scary thoughts" have not been reported to me, but they have been reported to other staff. 11/22/18 Yuniel is improving. He is interested in going home. We are moving most of his medications to bedtime to reduce sedation, which is a complaint he voices. 11/23/18 Yuniel is feeling better. He is less sedated and less symptomatic. He has gotten sleep which has helped as well as rearranging his medications so that he is taking them almost entirely at bedtime. His clozapine/norclozapine levels came back at less than 450. (clozapine 161, clozapine & norclozapine 332 [range >450], norclozapine 171) Medications: Current Medications Acetaminophen (Tylenol Tab*) 650 mg PO Q4H PRN PRN Reason: PAIN or TEMP > 101 F Al Hydrox/Mg Hydrox/Simethicone (Maalox Plus*) 30 ml PO Q4H PRN PRN Reason: INDIGESTION Cariprazine (Vraylar) 4.5 mg PO BEDTIME MOHINI Last Admin: 11/22/18 20:54 Dose: 4.5 mg Clonazepam (Klonopin Tab(*)) 0.5 mg PO BID MOHINI Last Admin: 11/23/18 10:49 Dose: 0.5 mg Clozapine (Clozapine Tab*) 550 mg PO BEDTIME MOHINI Famotidine (Pepcid Tab*) 20 mg PO BID MOHINI Last Admin: 11/23/18 10:49 Dose: 20 mg Multivitamins (Theragran Tab*) 1 tab PO DAILY MOHINI Last Admin: 11/23/18 10:49 Dose: 1 tab Sertraline HCl (Zoloft*) 200 mg PO BEDTIME MOHINI Last Admin: 11/22/18 20:57 Dose: 200 mg Topiramate (Topamax(*)) 50 mg PO BEDTIME MOHINI Last Admin: 11/22/18 20:58 Dose: 50 mg - Discharge Plan Discharge Plan: Outpatient Follow Up Outpatient Program: [facility]
[2018-11-23] MEDS ORDERED: CloZAPine TAB* 100 MG TAB PO SCH (21:00)
[2018-11-23] MEDS: Sertraline* 100 MG TAB PO SCH (21:39)
[2018-11-23] MEDS: Topiramate TAB(*) 25 MG PO SCH (21:40)
[2018-11-23] MEDS: CARIPRAZINE 4.5 MG PO SCH (21:41)
[2018-11-24] MEDS: clonazePAM TAB(*) 0.5 MG PO SCH (11:12)
[2018-11-24] MEDS: Famotidine TAB* 20 MG PO SCH (11:12)
[2018-11-24] MEDS: Vitamin THERAPEUTIC TAB PO SCH (11:12)
[2018-11-24 11:23] VITALS: BP 131/80
--- NOTE | 2018-11-30 12:45 | DS ---
DISCHARGE SUMMARY: DATE OF ADMISSION: 11/19/18 DATE OF DISCHARGE: 11/24/18 PROVIDER: Sita Pearson NP in psychiatry. SUPERVISING PHYSICIAN: Kemar Reece MD* (dictated by Sita Pearson NP). DIAGNOSIS: Schizophrenia. CONDITION AT THE TIME OF DISCHARGE: Improved, psychiatrically cleared, stable. He participated in groups and was social with peers. His family is agreeable to his discharge, as is Yuniel. He has done well here psychiatrically. He tolerated medication changes including reducing clozapine by 50 mg and rearranging the schedule so that most medications are at bedtime, which may be easier for him to remember. He is going to be attending [facility]. MENTAL STATUS EXAM: At the time of discharge, Yuniel is calm, cooperative, and makes good eye contact. He is alert and oriented x4. His grooming is good. His speech pace is normal. His thought processes are logical. He is not psychotic or delusional. He denies AH, VH, SI, and HI. His insight is good and his judgment is fair. He states he is willing to follow up and he is urged to see his therapist. DISCHARGE INSTRUCTIONS TO THE PATIENT: A. Medications: 1. Vraylar 4.5 mg daily at bedtime. 2. Clonazepam 0.5 mg b.i.d. 3. Clozapine 550 mg at bedtime, dispensed 154 tabs. 4. Famotidine b.i.d. daily. 5. Multivitamins. 6. Sertraline 200 mg daily. 7. Topamax 50 mg at bedtime. B. Diet is regular. C. Activities as tolerated. He is a nonsmoker. There are no studies pending at the time of discharge. D. Followup appointments are at [facility] on 11/28/18 at 3: 45 with Kendall Holt and on 12/01/18 at 2:[address] Javed. He is also part of the [facility] cohort, which can assist him with transportation to followup visits with [facility] and continue following him for support through the suicide prevention program. He is also being taken to [facility] to check-in in regards to housing and medication management. He is also advised to follow up with Dr. Ya's office to ascertain his physical healthcare needs. E. Disposition. Yuniel is being discharged to [facility], which is his home. F. Substance abuse followup is not indicated. HOSPITAL COURSE: Part A. Chief Complaint: "The voices were telling me to do scary things!" Yuniel is known to the adult inpatient psychiatric unit from multiple previous hospitalizations. He has a documented history of schizophrenia, chronic undifferentiated type, and he has been on clozapine, Vraylar, and sertraline for over a year. He relates that he was doing relatively well until last Tuesday , when he went fishing. He hypothesized that because he was out in the sun for too long the voices that he had been hearing for years became louder and more threatening. He reports that the voices were telling him to harm other people, that people were coming to get him, and other "unsettling thoughts." He called his mother in the evening on Tuesday. The mother is a mental health therapist. She agreed that if the voices did not improve that the mother would bring him to the hospital. The following day, as the voices continued to be bothersome, his mother drove him to the emergency room of the hospital. He was observed overnight in the annex and he was admitted on voluntary status this morning. The patient volunteered that he had for a period of 3 weeks recently been drinking alcohol, but that he self- discontinued because he did not like the way it made him feel, but for the past 6 months, he had also been smoking some unspecified herbs that he buys from a head shop on the [place] and he has also been smoking dandelion leaves because of their relaxing properties. Part B. Psychiatric treatment was rendered: Yuniel was admitted to the adult behavioral unit and placed on 15-minute checks for his own safety. He did advance to 30-minute checks and staff pass. Yuniel spent much of the first few days of his stay sleeping. We did rearrange his medication schedule so that the clozapine was administered entirely at bedtime and so that the clozapine dose was lowered by about 50 mg. A clozapine level was obtained as well and that was within reasonable limits. Clozapine and norclozapine levels were between 317 and 332, and the range given is greater than 450. Nevertheless, this appears to be an adequate dose for Yuniel. It is unclear if he was taking his medications as prescribed. We did discuss an timer/alarmed medication box that he was interested in trying, also placing an alarm on his phone and/or keeping one dose of his medications in his wallet should he forgot to take them when the alarm goes off. Yuniel reported improving. He was interested in going home on 11/23/18. That was the day we were removing medications to reduce his sedation. On 11/23/18, Yuniel was feeling better, he was less sedated and less symptomatic. He has gotten sleep which had helped him as well as rearranging his medications so that he was taking them almost entirely at bedtime. His clozapine and norclozapine levels came back at less than 450, clozapine 161, clozapine and norclozapine 332, norclozapine 171. Because he is on 2 antipsychotics, it is important to note that these are given to augment the clozapine that he is taking which is not completely effective. The Vraylar that he is taking in addition to the clozapine is a much different kind of drug in that it is not as sedating and it also has fewer metabolic effects than clozapine. That being said, his hemoglobin A1c is currently 5.3, triglycerides 190, cholesterol 129, LDL cholesterol 57, HDL cholesterol 34.2. His TSH was 0.91. I did attempt to call his family with little success. There were no consults entered for Yuniel. He is improved. He is future oriented. He continues to hallucinate, but the voices are more kind and helpful, and they are welcome and familiar to him. SITA PEARSON NP [id number]/[facility] #: [id number] JOSIAS
== END 2018-11-24 11:45 | disposition home or self-care (01) | DRG 885 ==
LOC: ED 23:38 → BSU 11-19 07:51
PROVIDERS: ADMIT Psychiatry & Neurology Psychiatry; ATTEND Psychiatry & Neurology Psychiatry
PROC: GZHZZZZ Group Psychotherapy (ICD-10-PCS; principal; 2018-11-22)
DX: F20.5 Residual schizophrenia (principal); K21.9 Gastro-esophageal reflux disease without esophagitis; F41.9 Anxiety disorder, unspecified; E66.01 Morbid (severe) obesity due to excess calories; M65.331 Trigger finger, right middle finger; F32.9 Major depressive disorder, single episode, unspecified; Z72.89 Other problems related to lifestyle; Z88.8 Allergy status to other drugs, medicaments and biological substances; Q65.89 Other specified congenital deformities of hip; Z81.8 Family history of other mental and behavioral disorders; Z68.36 Body mass index [BMI] 36.0-36.9, adult
CPT/HCPCS: 36415; 80053; 80061; 80159; 80307; 80320; 80329; 81003; 83036; 84443; 85025; 90853; 99222; 99231; 99238; 99284; A9270-GY; G0480

== ENCOUNTER 2018-12-22 21:33 | Inpatient (IN) | payer MEDICARE, MEDICAID ==
[2018-12-22 22:11] LABS: Urine Appearance Cloudy; Urine Bilirubin Negative (Negative); Urine Blood Negative (Negative); Urine Color Yellow; Urine Glucose Negative (Negative); Urine Ketones Trace (Negative); Urine Nitrite Negative (Negative); Urine Protein Negative (Negative); Urine Specific Gravity 1.027 (1.010-1.030); Urine Urobilinogen Negative (Negative)
[2018-12-22 22:12] LABS: ABS Lymphocytes 1.8 10^3/ul (1.0-4.8); ABS Monocytes 0.4 10^3/ul (0-0.8); ABS Neutrophils 4.8 10^3/ul (1.5-7.7); Hematocrit 40 % (42-52); Hemoglobin 14.2 g/dL (14.0-18.0); Mean Corpuscular HGB Conc 35 g/dL (31-36); Mean Corpuscular Hemoglobin 29 pg (27-31); Mean Corpuscular Volume 83 fL (80-94); Mean Platelet Volume 8.9 fL (7.4-10.4); Platelet Count 204 10^3/uL (150-450); Red Blood Count 4.86 10^6 /uL (4.18-5.48); Red Cell Distribution Width 13 % (10-15)
--- NOTE | 2018-12-22 22:13 | ED ---
Psychiatric Complaint - HPI Summary HPI Summary: 28 year old male presents with hearing voices recently. he has history of this and has been seen for this before. States the voices are talking about fish. Denies any homicidal or suicidal ideation. no drug or ETOH use. denies any chest pain or SOB. - History Of Current Complaint Chief Complaint: EDMentalHealth Time Seen by Provider: 12/22/18 21:58 - Allergies/Home Medications Allergies/Adverse Reactions: Allergies Allergy/AdvReac Type Severity Reaction Status Date / Time haloperidol [From Haldol] AdvReac Severe See Comment Verified 08/31/18 21:17 lurasidone [From Latuda] AdvReac Intermediate See Comment Verified 08/31/18 21: 17 chlorpromazine AdvReac See Comment Verified 08/31/18 21:17 PMH/Surg Hx/FS Hx/Imm Hx Endocrine/Hematology History: Denies: Hx Diabetes Cardiovascular History: Reports: Other Cardiovascular Problems/Disorders - increased QTC interval Denies: Hx Hypertension, Hx Pacemaker/ICD Respiratory History: Denies: Hx Asthma GI History: Reports: Hx Gastroesophageal Reflux Disease History: Denies: Hx Renal Disease Musculoskeletal History: Reports: Other Musculoskeletal History - hip dysplasia Denies: Hx Arthritis Comment Only: Hx Back Problems - back injury from "a few years ago" Sensory History: Denies: Hx Contacts or Glasses, Hx Hearing Aid Opthamlomology History: Denies: Hx Contacts or Glasses Neurological History: Reports: Other Neuro Impairments/Disorders - Hx of 6 concussions Denies: Hx Headaches, Hx Seizures, Hx Spinal Cord Injury, Hx Transient Ischemic Attacks (TIA) Psychiatric History: Reports: Hx Anxiety, Hx Depression, Hx Inpatient Treatment , Hx Community Mental Health Tx, Hx Schizophrenia, Hx Substance Abuse - alcohol , Other Psychiatric Issues/Disorders - psychosis, auditory hallucinations Denies: Hx Attention Deficit Hyperactivity Disorder, Hx Eating Disorder, Hx Panic Disorder, Hx Post Traumatic Stress Disorder, Hx Bipolar Disorder, Hx Suicide Attempt, Hx of Violent Episodes Against Others - Cancer History Hx Chemotherapy: No Hx Radiation Therapy: No Hx Palliative Cancer Treatment: No - Surgical History Surgery Procedure, Year, and Place: n/a - Immunization History Date of Tetanus Vaccine: 07/23/2017 Infectious Disease History: No Infectious Disease History: Denies: Hx Clostridium Difficile, Hx Hepatitis, Hx Human Immunodeficiency Virus (HIV), Hx of Known/Suspected MRSA, Hx Shingles, Hx Tuberculosis, Hx Known/ Suspected VRE, Hx Known/Suspected VRSA, History Other Infectious Disease, Traveled Outside the [place] in Last 30 Days - Family History Known Family History: Positive: Other - Psychotic disorders, Schizophrenia, anxiety Negative: Cardiac Disease, Hypertension, Diabetes Family History: R & n/C - Social History Alcohol Use: Weekly Alcohol Amount: 2x Hx Substance Use: Yes Substance Use Type: Reports: None Substance Use Comment - Amount & Last Used: denies Hx Tobacco Use: No Smoking Status (MU): Never Smoked Tobacco Type: eCigarettes Have You Smoked in the Last Year: No Review of Systems Negative: Fever Negative: Chest Pain Negative: Shortness Of Breath Positive: Other - hearing voices All Other Systems Reviewed And Are Negative: Yes Physical Exam Triage Information Reviewed: Yes Vital Signs On Initial Exam: Initial Vitals Temp Pulse Resp BP Pulse Ox 98 F 97 20 112/68 96 12/22/18 21:51 12/22/18 21:51 12/22/18 21:51 12/22/18 21:51 12/22/18 21:51 Vital Signs Reviewed: Yes Appearance: Positive: Well-Appearing Skin: Positive: Warm, Dry Head/Face: Positive: Normal Head/Face Inspection Eyes: Positive: Normal, Conjunctiva Clear ENT: Positive: Pharynx normal Respiratory/Lung Sounds: Positive: Clear to Auscultation, Breath Sounds Present Cardiovascular: Positive: Normal, RRR Abdomen Description: Positive: Nontender, Soft Bowel Sounds: Positive: Present Musculoskeletal: Positive: Normal Neurological: Positive: Normal Psychiatric: Positive: Normal Diagnostics - Vital Signs Vital Signs Temp Pulse Resp BP Pulse Ox 12/22/18 21:51 98 F 97 20 112/68 96 - Laboratory Lab Results: Lab Results 12/22/18 Range/Units 21:54 Urine Color Yellow Urine Appearance Cloudy Urine pH 5.0 (5-9) Ur Specific [place] 1.027 (1.010-1.030) Urine Protein Negative (Negative) Urine Ketones Trace A (Negative) Urine Blood Negative (Negative) Urine Nitrate Negative (Negative) Urine Bilirubin Negative (Negative) Urine Urobilinogen Negative (Negative) Ur Leukocyte Esterase Negative (Negative) Urine Glucose Negative (Negative) Urine Ascorbic Acid * A (Negative) Result Diagrams: 12/22/18 22:06 12/22/18 22:06 Lab Statement: Any lab studies that have been ordered have been reviewed, and results considered in the medical decision making process. Course/Dx - Course Course Of Treatment: 28 year old male presents with hearing voices recently. he has history of this and has been seen for this before. States the voices are talking about fish. Denies any homicidal or suicidal ideation. no drug or ETOH use. denies any chest pain or SOB. On exam has normal physical exam. Is medical clear for mental health. patient signed out to dr hilliard pending hold to be reevualated in morning. - Differential Dx/Clinical Impression Differential Diagnosis/HQI/PQRI: Positive: Acute Psychosis, Anxiety, Depression Provider Diagnosis: Schizophrenia Discharge ED - Sign-Out/Discharge Documenting (check all that apply): Sign-Out Patient Signing out patient TO: Arben Hilliard - Discharge Plan Referrals: Aman Ya MD [Primary Care Provider] -
[2018-12-22 22:24] LABS: Urine Benzodiazepine Screen Presumptive Positive (None Detect); Urine Opiates Screen None Detected (None Detect)
[2018-12-22 22:28] LABS: ALT 23 U/L (7-52); AST 26 U/L (13-39); Albumin 4.8 g/dL (3.2-5.2); Albumin/Globulin Ratio 2.5 (1-3); Alkaline Phosphatase 67 U/L (34-104); Anion Gap 9 mmol/L (2-11); BUN/Creatinine Ratio 11.8 (8-20); Blood Urea Nitrogen 20 mg/dL (6-24); CO2 Carbon Dioxide 21 mmol/L (22-32); Calcium 9.2 mg/dL (8.6-10.3); Chloride 111 mmol/L (101-111); EGFR African American 58.4 (>60); EGFR Non-African American 48.2 (>60); Globulin 1.9 g/dL (2-4); Glucose 90 mg/dL (70-100); Potassium 3.6 mmol/L (3.5-5.0); Sodium 141 mmol/L (135-145); Total Protein 6.7 g/dL (6.4-8.9)
[2018-12-22 22:36] LABS: Acetaminophen < 15 mcg/mL; Alcohol < 10 mg/dL (<10); Salicylate < 2.50 mg/dL (<30)
[2018-12-22 22:51] LABS: TSH (Thyroid Stimulating Horm) 1.49 mcIU/mL (0.34-5.60)
--- NOTE | 2018-12-23 13:15 | ED ---
Progress - Progress Note Progress Note: This pt was signed out from Dr. Boyd to Dr. Conner at shift change on 12/23/18 at 0700 pending mental health evaluation. Course/Dx - Course Course Of Treatment: This pt was signed out from Dr. Boyd pending MHE. Pt had a mental health evaluation and his case was reviewed by Dr. Glass, psychiatrist. Dr. Glass will admit the pt on a voluntary status with dx schizophrenia. - Diagnoses Provider Diagnoses: Schizophrenia Discharge ED - Sign-Out/Discharge Documenting (check all that apply): Patient Departure - Admit to [facility], Receiving Sign-Out Receiving patient FROM: Arben Boyd Patient Received Moderate/Deep Sedation with Procedure: No - Discharge Plan Condition: Stable Disposition: PSYCHIATRIC FACILITY-[facility] - Billing Disposition and Condition Condition: STABLE Disposition: Psychiatric Facility [facility] - Attestation Statements Document Initiated by Rane: Yes Documenting Scribe: Tali Saldivar Provider For Whom Brayanibe is Documenting (Include Credential): Arben Conner MD Scribe Attestation: Tali Beatty, scribed for Arben Conner MD on 12/23/18 at 1749. Scribe Documentation Reviewed: Yes Provider Attestation: The documentation as recorded by the Tali sanches accurately reflects the service I personally performed and the decisions made by me, Arben Conner MD Status of Scribe Document: Viewed
[2018-12-23] MEDS ORDERED: Acetaminophen TAB* 325 MG PO PRN (15:03)
[2018-12-23] MEDS ORDERED: Al Hydrox/Mg Hydrox/Simet LIQ* 30 ML UDC PO PRN (15:03)
[2018-12-23] MEDS: Famotidine TAB* 20 MG PO SCH (20:22)
[2018-12-23] MEDS: Sertraline* 100 MG TAB PO SCH (20:22)
[2018-12-23] MEDS: Topiramate TAB(*) 25 MG PO SCH (20:22)
[2018-12-23] MEDS: clonazePAM TAB(*) 0.5 MG PO SCH (20:22)
[2018-12-23] MEDS: CloZAPine TAB* 100 MG TAB PO SCH (20:24)
[2018-12-23] MEDS: CARIPRAZINE 4.5 MG PO SCH (21:30)
[2018-12-24 08:22] LABS: HDL Cholesterol 32.5 mg/dL
[2018-12-24] MEDS: Famotidine TAB* 20 MG PO SCH ×2 (12:29→20:20)
[2018-12-24] MEDS: Vitamin THERAPEUTIC TAB PO SCH (12:29)
[2018-12-24] MEDS: clonazePAM TAB(*) 0.5 MG PO SCH ×2 (12:29→20:19)
--- NOTE | 2018-12-24 17:38 | HP ---
HISTORY AND PHYSICAL: DATE OF ADMISSION: 12/23/18 IDENTIFYING DATA: Yuniel is a 28-year-old single, mentally disabled male, a resident of [facility], who was discharged from this unit on after approximately couple of weeks of admission almost under the similar circumstances. CHIEF COMPLAINT: "The people in the downtown area were reading my mind and the voices were kind of saying the same thing." HISTORY OF PRESENT ILLNESS: Yuniel was doing fine until couple of weeks ago when he saw strangers on the streets who were looking at him and he thought they were reading his mind. He got little worried about it and at that point his voices also were telling him that there are people out to get him and they are capable of reading his mind. He tried to talk to his parents about this, who said that is going to be all fine if he can just stay away from those people ; however, he did not get any better, rather it went in wrong direction, he got so fearful that he wanted to come back to the hospital. He was allowed to stay in the emergency room overnight with a hope that he might feel secured and be able to go back. However, it did not happen, so we decided to admit him for his safety and stabilization. Yuneil could not come up with any new stress, which could have triggered this; however, for the last couple of weeks he has started smoking cigarettes, which he rolls for himself. Otherwise, there was no significant change in his medications. He reports that his clozapine dose was lowered during his last hospitalization and at the same time Vraylar dose was increased; however, he was not specific about anything and discharge summary was not clear about what was done at that time. PAST PSYCHIATRIC HISTORY: Remarkable for repeated psychiatric hospitalizations since 2009 when he had the first break. Please see previous history and physical to get details of his hospitalization history. He receives outpatient care at [facility] with Dr. Javed and his therapist is Baljinder Holt RN. SUBSTANCE ABUSE HISTORY: Insignificant other than starting to smoke in recent past. PAST MEDICAL HISTORY: Remarkable for moderate obesity and GERD. He has an established primary care physician in the community. MEDICATIONS: His discharge medications included: 1. Vraylar 4.5 mg daily at bedtime. 2. Clonazepam 0.5 mg twice a day. 3. Clozapine 550 mg at bedtime. 4. Famotidine twice daily. 5. Multivitamins once daily. 6. Sertraline 200 mg daily. 7. Topamax 50 mg at bedtime. ALLERGIES: Reportedly, he has allergies to HALDOL, LATUDA, and THORAZINE. FAMILY PSYCHIATRIC HISTORY: He has a maternal second cousin and paternal aunt who have schizophrenia. His mother suffers from anxiety. There is no family history of attempted or completed suicide. PERSONAL AND SOCIAL HISTORY: Yuniel is the youngest of 4 siblings from a very supportive parents, resides at [facility]. His parents are very supportive and involved in his care. He is unemployed, but has multiple hobbies like fishing and going to gym. PHYSICAL EXAMINATION GENERAL: Yuniel is an average height, healthy-appearing, moderately obese young man, who is appropriately dressed and neatly groomed with good personal hygiene. HEENT: Head: Atraumatic, normocephalic. Eyes: PERRLA. EOMI x2. Ears: Intact tympanic membranes, clear ear canals. NECK: Supple with midline trachea. No evidence of lymphadenopathy or thyromegaly. LUNGS: Clear to auscultation bilaterally with good air entry. HEART: Heart rate is regular with good rhythm. S1 and S2 without any murmurs, gallops, or rubs. ABDOMEN: Moderately obese, but soft and nontender. No organomegaly. Bowel sounds positive in all quadrants. GENITOURINARY: No genitourinary exam performed. RECTAL: No rectal exam performed. MUSCULOSKELETAL: Within normal limits. NEUROLOGICAL: He is alert and oriented to time, place, and person. Sensory system is grossly intact. Cranial nerves II through XII grossly intact. MENTAL STATUS EXAMINATION: Yuniel is an average height, healthy-appearing male with fair to good personal hygiene and grooming. He is appropriately dressed for the unit. He is alert and oriented to time, place, and person; makes intense eye contact and at times appears to be responding to some internal stimuli. He is a soft-spoken young man, who is calm and cooperative with the interview. He describes his mood as "okay." Observed affect appears to be apathetic and flat. His intelligence appears to be average as evidenced by his vocabulary and fund of knowledge. Memory functions are intact in all spheres. He continues to report that there are people in the community who are out to get him and they could read his mind. He also reports that he continues to hear one male voice telling him exactly the same thing as his delusions and paranoia. He denies any active suicidal thoughts, although at one point before admission he thought will be an option for him. He denies any homicidal thoughts or intents. SUMMARY: This 28-year-old male with known history of psychiatric illness, a diagnosis of schizoaffective disorder versus schizophrenia, who was discharged from this unit approximately a month ago, came back to the emergency room complaining intense fear of people who were out to get him and could read his mind and voices in his head were telling him exactly the same thing. DIAGNOSTIC IMPRESSION: Schizophrenia, chronic paranoid type versus schizoaffective disorder, depressed type. TREATMENT RECOMMENDATIONS: Yuniel will remain hospitalized on the behavioral science unit for his safety as well as rapid stabilization of psychotic symptoms. His code status will remain full. While on the unit, supportive milieu, individual and group therapy will be initiated. I do not have any plan to change any medications that he was discharged on and we will defer that to his assigned psychiatrist on the unit. I have ordered for the clozapine level to see if the level went down because he recently started smoking. Otherwise, he appears to feel safe on the unit and there is no indication of any behavioral disturbances at this time. [id number]/[facility] #: [id number] MTDD
[2018-12-24] MEDS: Topiramate TAB(*) 25 MG PO SCH (20:19)
[2018-12-24] MEDS: Sertraline* 100 MG TAB PO SCH (20:19)
[2018-12-24] MEDS: CARIPRAZINE 4.5 MG PO SCH (20:19)
[2018-12-24] MEDS: CloZAPine TAB* 100 MG TAB PO SCH (20:20)
[2018-12-25] MEDS: Vitamin THERAPEUTIC TAB PO SCH (10:47)
[2018-12-25] MEDS: Famotidine TAB* 20 MG PO SCH ×2 (10:47→20:11)
[2018-12-25] MEDS: clonazePAM TAB(*) 0.5 MG PO SCH ×2 (10:47→20:11)
--- NOTE | 2018-12-25 15:13 | PN ---
Subjective - Subjective Date of Service: 12/25/18 Service Type: [id number] Hosp care 15 min low complexity Subjective: Yuniel is quiet and pleasant and does not want to discuss what is happening for him. He states he's not hearing voices today, although he did appear to be responding to internal stimuli. He states he's been taking medications. It should be noted that he has been smoking cigarettes, which will lower the clozapine concentration in his blood. He states he can stop when he wants to because he is not yet addicted. Objective - General Observations Appearance: Neat, Well Groomed Appears Stated Age: Yes Stature: Overweight Posture: WNL Eye Contact: Intermittent Behavior/Activity: WNL - Interaction Observations Attitude Towards Examiner: Cooperative, Anxious Stated Mood: Dysphoric Affect: Restricted Speech Pattern/Tone: Clear Thought Process: Coherent Perception: WNL Thought Content: Preoccupation/Ruminations, Paranoid Thought Process: Lethality: Passive Wish Hallucination Type: Denies, Auditory Delusion Type: Denies - Cognitive Function Orientation: A&O x 4 Level of Consciousness: Awake, Alert, Appropriate Cognition: Impaired Cognition, Impaired Ability to Abstract Estimated Intelligence: Normal Insight: WNL Judgment Within Normal Limits: No Ability to Make Reasonable Decisions: Moderately Impaired - Medication Compliance Cooperative with Inpatient Medication Regimen: Yes - Group Participation Participates in Group Activities: Yes Assessment - Assessment Merits Inpatient Hospitalization: For Immediate Safety Inpatient DSM-V Dx: F20.9 Clinical Impression: Yuniel is a 28-year-old white male diagnosed with schizophrenia who comes to the hospital after becoming paranoid and frightened by voices and people around him. Plan - Plan Treatment Plan: Name: YUNIEL ZAMAN Birthdate: 1990 [id number] 12/25/18 I will increase clozapine back to 600 mg daily. At this high dose in the past, his clozapine level has been therapeutic. Vraylar will stay at the higher dose. Cigarettes are discouraged outpatient. Continued Medication Management: Different Medication Medications: Current Medications Acetaminophen (Tylenol Tab*) 650 mg PO Q4H PRN PRN Reason: PAIN or TEMP > 101 F Al Hydrox/Mg Hydrox/Simethicone (Maalox Plus*) 30 ml PO Q4H PRN PRN Reason: INDIGESTION Cariprazine (Vraylar) 4.5 mg PO BEDTIME MOHINI Last Admin: 12/24/18 20:19 Dose: 4.5 mg Clonazepam (Klonopin Tab(*)) 0.5 mg PO BID MOHINI Last Admin: 12/25/18 10:47 Dose: 0.5 mg Clozapine (Clozapine Tab*) 600 mg PO BEDTIME MOHINI Famotidine (Pepcid Tab*) 20 mg PO BID MOHINI Last Admin: 12/25/18 10:47 Dose: 20 mg Multivitamins (Theragran Tab*) 1 tab PO DAILY MOHINI Last Admin: 12/25/18 10:47 Dose: 1 tab Sertraline HCl (Zoloft*) 200 mg PO BEDTIME MOHINI Last Admin: 12/24/18 20:19 Dose: 200 mg Topiramate (Topamax(*)) 50 mg PO BEDTIME MOHINI Last Admin: 12/24/18 20:19 Dose: 50 mg - Discharge Plan Discharge Plan: [facility]
[2018-12-25] MEDS: Sertraline* 100 MG TAB PO SCH (20:11)
[2018-12-25] MEDS: CARIPRAZINE 4.5 MG PO SCH (20:11)
[2018-12-25] MEDS: Topiramate TAB(*) 25 MG PO SCH (20:11)
[2018-12-25] MEDS: CloZAPine TAB* 100 MG TAB PO SCH (20:12)
[2018-12-26 08:03] VITALS: BP 136/72
[2018-12-26] MEDS: Famotidine TAB* 20 MG PO SCH ×2 (09:56→20:17)
[2018-12-26] MEDS: Vitamin THERAPEUTIC TAB PO SCH (09:56)
[2018-12-26] MEDS: clonazePAM TAB(*) 0.5 MG PO SCH ×2 (09:56→20:16)
--- NOTE | 2018-12-26 16:05 | PN ---
Subjective - Subjective Date of Service: 12/26/18 Service Type: [id number] Hosp care 15 min low complexity Subjective: Yuniel is quietly resting in his room, but is willing to chat. He states he does hear voices, although he stops short of calling them hallucinations. He says here in the hospital they are not so upset and they are not warning him about his safety. He feels safe here and suspects that the additional medication (which he has taken for one day) is not the most helpful thing. Rather, he feels like the security and relative quiet of the unit is helpful. He anticipates staying until Tuesday will be most helpful. Objective - General Observations Appearance: Neat, Well Groomed Appears Stated Age: Yes Stature: Overweight Posture: WNL Eye Contact: Average Behavior/Activity: WNL - Interaction Observations Attitude Towards Examiner: Cooperative, Defensive Stated Mood: Anxious Affect: Restricted Speech Pattern/Tone: Clear Thought Process: Coherent Perception: WNL Thought Content: Paranoid Hallucination Type: Auditory Delusion Type: Denies - Cognitive Function Orientation: A&O x 4 Level of Consciousness: Awake, Alert, Appropriate Cognition: WNL Estimated Intelligence: Normal Insight: WNL Judgment Within Normal Limits: No Ability to Make Reasonable Decisions: Moderately Impaired - Medication Compliance Cooperative with Inpatient Medication Regimen: Yes - Group Participation Participates in Group Activities: Partial Assessment - Assessment Merits Inpatient Hospitalization: For Immediate Safety Inpatient DSM-V Dx: F20.9 Clinical Impression: Yuniel is a 28-year-old white male diagnosed with schizophrenia who comes to the hospital after becoming paranoid and frightened by voices and people around him. Plan - Plan Treatment Plan: Name: YUNIEL ZAMAN Birthdate: 1990 [id number] 12/25/18 I will increase clozapine back to 600 mg daily. At this high dose in the past, his clozapine level has been therapeutic. Vraylar will stay at the higher dose. Cigarettes are discouraged outpatient. 12/26/[address] in place. Time needs to elapse until Yuniel is feeling more secure. Continue groups and monitoring for mood and thought content. Continued Medication Management: Different Medication Medications: Current Medications Acetaminophen (Tylenol Tab*) 650 mg PO Q4H PRN PRN Reason: PAIN or TEMP > 101 F Al Hydrox/Mg Hydrox/Simethicone (Maalox Plus*) 30 ml PO Q4H PRN PRN Reason: INDIGESTION Cariprazine (Vraylar) 4.5 mg PO BEDTIME MOHINI Last Admin: 12/25/18 20:11 Dose: 4.5 mg Clonazepam (Klonopin Tab(*)) 0.5 mg PO BID MOHINI Last Admin: 12/26/18 09:56 Dose: 0.5 mg Clozapine (Clozapine Tab*) 600 mg PO BEDTIME MOHINI Last Admin: 12/25/18 20:12 Dose: 600 mg Famotidine (Pepcid Tab*) 20 mg PO BID MOHINI Last Admin: 12/26/18 09:56 Dose: 20 mg Multivitamins (Theragran Tab*) 1 tab PO DAILY MOHINI Last Admin: 12/26/18 09:56 Dose: 1 tab Sertraline HCl (Zoloft*) 200 mg PO BEDTIME MOHINI Last Admin: 12/25/18 20:11 Dose: 200 mg Topiramate (Topamax(*)) 50 mg PO BEDTIME MOHINI Last Admin: 12/25/18 20:11 Dose: 50 mg
[2018-12-26] MEDS: CARIPRAZINE 4.5 MG PO SCH (20:16)
[2018-12-26] MEDS: CloZAPine TAB* 100 MG TAB PO SCH (20:16)
[2018-12-26] MEDS: Sertraline* 100 MG TAB PO SCH (20:16)
[2018-12-26] MEDS: Topiramate TAB(*) 25 MG PO SCH (20:16)
[2018-12-27 08:20] LABS: Clozapine 467 ng/mL (>350); Clozapine & Norclozapine Level 942 ng/mL (>450); Norclozapine 475 ng/mL
[2018-12-27] MEDS: Famotidine TAB* 20 MG PO SCH ×2 (10:28→20:15)
[2018-12-27] MEDS: Vitamin THERAPEUTIC TAB PO SCH (10:28)
[2018-12-27] MEDS: clonazePAM TAB(*) 0.5 MG PO SCH ×2 (10:29→20:16)
--- NOTE | 2018-12-27 16:27 | PN ---
BSU: Group Therapy Note - Service Type Service Type: [id number] Group Psychotherapy - Yuniel was interested and engaged. he participated well and was pleassant and appropriate. - Group Participation Patient Participating in Group: Yes Level of Group Participation: Attentive, Spontaneously Participate Relatedness to Group: Well Related
--- NOTE | 2018-12-27 16:47 | PN ---
Subjective - Subjective Date of Service: 12/27/18 Service Type: [id number] Hosp care 15 min low complexity Subjective: Yuniel is found in his room initially. He states he continues to hear voices, but he states that they are conversational and he is not bothered by that. He initially agrees to a discharge date of Tuesday12/29/18, but later wonders if he could possibly leave a day early, which is also therapeutically acceptable as he has become more calm and almost serene in his time here. Objective - General Observations Appearance: Neat, Well Groomed Appears Stated Age: Yes Stature: Overweight Posture: WNL Eye Contact: Average Behavior/Activity: WNL - Interaction Observations Attitude Towards Examiner: Cooperative, Anxious Stated Mood: Euthymic, Anxious Affect: Restricted Speech Pattern/Tone: Clear, Quiet Volume Thought Process: Coherent, Goal Directed Perception: WNL Thought Content: Preoccupation/Ruminations Hallucination Type: Auditory - Cognitive Function Orientation: A&O x 4 Level of Consciousness: Awake, Alert, Appropriate Cognition: WNL Estimated Intelligence: Normal Insight: WNL Judgment Within Normal Limits: No Ability to Make Reasonable Decisions: Mildly Impaired - Medication Compliance Cooperative with Inpatient Medication Regimen: Yes - Group Participation Participates in Group Activities: Yes Assessment - Assessment Merits Inpatient Hospitalization: For Immediate Safety Inpatient DSM-V Dx: F20.9 Clinical Impression: Yuniel is a 28-year-old white male diagnosed with schizophrenia who comes to the hospital after becoming paranoid and frightened by voices and people around him. He has improved. The voices are more conversational and not threatening or warning. Plan - Plan Treatment Plan: Name: YUNIEL ZAMAN Birthdate: 1990 [id number] 12/25/18 I will increase clozapine back to 600 mg daily. At this high dose in the past, his clozapine level has been therapeutic. Vraylar will stay at the higher dose. Cigarettes are discouraged outpatient. 12/26/[address] changes [address] in place. Time needs to elapse until Yuniel is feeling more secure. Continue groups and monitoring for mood and thought content. 12/27/18 Yuniel has come to feel more comfortable. He would like to leave tomorrow (). He is safe at this time. Medication changes have been well tolerated. Medications: Current Medications Acetaminophen (Tylenol Tab*) 650 mg PO Q4H PRN PRN Reason: PAIN or TEMP > 101 F Al Hydrox/Mg Hydrox/Simethicone (Maalox Plus*) 30 ml PO Q4H PRN PRN Reason: INDIGESTION Cariprazine (Vraylar) 4.5 mg PO BEDTIME MOHINI Last Admin: 12/26/18 20:16 Dose: 4.5 mg Clonazepam (Klonopin Tab(*)) 0.5 mg PO BID MOHINI Last Admin: 12/27/18 10:29 Dose: 0.5 mg Clozapine (Clozapine Tab*) 600 mg PO BEDTIME MOHINI Last Admin: 12/26/18 20:16 Dose: 600 mg Famotidine (Pepcid Tab*) 20 mg PO BID MOHINI Last Admin: 12/27/18 10:28 Dose: 20 mg Multivitamins (Theragran Tab*) 1 tab PO DAILY MOHINI Last Admin: 12/27/18 10:28 Dose: 1 tab Sertraline HCl (Zoloft*) 200 mg PO BEDTIME MOHINI Last Admin: 12/26/18 20:16 Dose: 200 mg Topiramate (Topamax(*)) 50 mg PO BEDTIME MOHINI Last Admin: 12/26/18 20:16 Dose: 50 mg - Discharge Plan Discharge Plan: Outpatient Follow Up Outpatient Program: [facility]
[2018-12-27] MEDS: CARIPRAZINE 4.5 MG PO SCH (20:14)
[2018-12-27] MEDS: CloZAPine TAB* 100 MG TAB PO SCH (20:15)
[2018-12-27] MEDS: Topiramate TAB(*) 25 MG PO SCH (20:15)
[2018-12-27] MEDS: Sertraline* 100 MG TAB PO SCH (20:15)
[2018-12-28] MEDS: clonazePAM TAB(*) 0.5 MG PO SCH (11:18)
[2018-12-28] MEDS: Famotidine TAB* 20 MG PO SCH (11:18)
[2018-12-28] MEDS: Vitamin THERAPEUTIC TAB PO SCH (11:19)
--- NOTE | 2019-01-04 13:53 | DS ---
DISCHARGE SUMMARY: DATE OF ADMISSION: 12/23/18 DATE OF DISCHARGE: 12/28/18 PROVIDER: Sita Pearson NP, Psychiatry. SUPERVISING PHYSICIAN: Dr. Kemar Reece.* (DICTATED BY SITA PEARSON NP ) DIAGNOSIS: Schizophrenia, NOS. CONDITION AT THE TIME OF DISCHARGE: Improved, psychiatrically cleared, stable. Yuniel participated in groups and was social with peers. His family is agreeable to discharge as is Yuniel. He has done well here psychiatrically. He tolerated increases in medications such as clozapine and he will be attending [facility]. MENTAL STATUS EXAM: At the time of discharge, Yuniel is calm, cooperative, and makes good eye contact. He is alert and oriented x4. His grooming is good. His speech pace is normal. The volume is soft. Thought processes are logical. He is not psychotic or delusional. He denies VH, SI, and HI. He does endorse hearing voices, which is a constant state of affairs for him. His insight and judgment are good. He is willing to follow up and he is urged to see a therapist. DISCHARGE INSTRUCTIONS TO THE PATIENT: A: Medications: 1. Cariprazine 4.5 mg, which should actually be 6 mg. 2. Clonazepam 0.5 mg b.i.d. 3. Clozapine 600 mg at bedtime. 4. Pepcid 20 mg b.i.d. 5. Sertraline 200 mg at bedtime. 6. Topamax 50 mg at bedtime. B: Diet is regular. C: Activities as tolerated. Yuniel is currently a nonsmoker. There are no studies pending at the time of discharge. D: Followup care: He has been referred to his primary care physician, Dr. Ya; within 1 month, he should make an appointment. He has appointments with Dr. Lenard Dutton on 12/28/18 at 1 p.m. and an appointment with Dr. Javed on 01/10/19 at 2:50 p.m. E: Yuniel is being discharged to his home at [facility]. F: Substance abuse followup is not indicated. HOSPITAL COURSE: Part A: Chief complaint: "The people in the downtown area were reading my mind and the voices were kind of saying the same thing." Yuniel was doing fine until a couple of weeks ago when he saw strangers on the streets who were looking at him and he thought they were reading his mind. He got a little worried about it and at that time, the voices were also telling him that there were people out to get him and they are capable of reading his mind. He tried to talk to his parents about this, who said that it was going to be fine if he can just stay away from those people; however, he did not get any better, rather it went in the wrong direction, he got so fearful that he wanted to come back to the hospital. He was allowed to stay in the emergency room overnight with the hope that he might feel secured and be able to go back. However, it did not happen, so we decided to admit him for his safety and stabilization. Yuniel could not come up with any new stress, which could have triggered this; however, for the last couple of weeks, he started smoking cigarettes, which he rolls for himself. Otherwise, there was no significant change in his medications. He reports that his clozapine dose was lowered during his last hospitalization and at the same time Vraylar was increased; however, he was not specific about anything. Part B: Psychiatric treatment was rendered. Yuniel was admitted to the adult behavioral unit and placed on 15-minute checks for safety. He did advance to 30 - minute checks and staff pass privileges. Yuniel did well on the unit. He went to groups and interacted with peers well. He tolerated the increase in clozapine and was maintained on 6 mg of Vraylar. On 12/25/18, clozapine was increased back to 600 mg from the 550, it was that when he was admitted. At this high dose in the past, his clozapine level has been therapeutic. Vraylar will stay at the higher dose. Cigarettes are discouraged when he is outpatient. He states that he only just began smoking and he does not believe that he is addicted yet. It was made clear that the tar in cigarettes will reduce the concentration of clozapine and he expressed understanding. On 12/26/18, medication changes are in place. Time needs to elapse until Yuniel is feeling more secure. He continued with groups and his mood and thought content continued to be monitored for psychosis. On 12/27/18, Yuniel has come to feel more comfortable. He would like to leave tomorrow on 12/28/18. He is safe at this time. Medication changes have been well tolerated. The voices continue, but they are kinder and they are more conversational which is something he is used to and appreciates. Yuniel showed a great interest in the psychopharmacology of clozapine, was curious about nicotine versus tar and how tar in cigarettes is the thing that causes clozapine levels to drop. We did obtain a clozapine level on 12/23/18. Clozapine was 467. Clozapine and norclozapine was 942. The goal for that combination is to have a dose that is greater than 450, but less than 1000. Beyond 1000 there is no demonstrable benefit, according to Marie in hisPrescriber's Guide. His norclozapine level was 475. It should also be noted that his toxicology screen for drugs of abuse was negative with the exception of benzodiazepines which he does take as prescribed and that was positive. I was not able to be meet with his family and no consults were entered. Yuniel is significantly improved. He is much more calm. He is able to manage himself with ease. He states that the voices he hears are helpful at this time. He declines to use the word hallucination and chooses to use the word voices instead. He is not suicidal or homicidal at this time. He feels safe and secure. He is future oriented. He is on 2 antipsychotics. He is on clozapine 600 mg at bedtime and Vraylar 6 mg at bedtime. This should be noted to be a use of clozapine augmentation, which has been documented in the past a history of a minimum of 3 failed trials of other antipsychotics. His hemoglobin A1c is 5.2, his triglycerides are 192, cholesterol is 126, LDL cholesterol is 55, HDL cholesterol is 32.5. It should be noted that his TSH is 1.49. SITA PEARSON, AYANNA [id number]/[facility] #: [id number] [facility]OSPITALColeman
== END 2018-12-28 12:00 | disposition home or self-care (01) | DRG 885 ==
LOC: ED 21:33 → BSU 12-23 13:16
PROVIDERS: ADMIT Psychiatry & Neurology Psychiatry; ATTEND Psychiatry & Neurology Psychiatry
PROC: GZHZZZZ Group Psychotherapy (ICD-10-PCS; principal; 2018-12-27)
DX: F20.0 Paranoid schizophrenia (principal); K21.9 Gastro-esophageal reflux disease without esophagitis; E66.9 Obesity, unspecified; F41.9 Anxiety disorder, unspecified; F32.9 Major depressive disorder, single episode, unspecified; Z72.89 Other problems related to lifestyle; Z72.0 Tobacco use; Z68.34 Body mass index [BMI] 34.0-34.9, adult; Z56.0 Unemployment, unspecified; Z88.8 Allergy status to other drugs, medicaments and biological substances; Z87.820 Personal history of traumatic brain injury
CPT/HCPCS: 36415; 80053; 80061; 80159; 80307; 80320; 80329; 81003; 83036; 84443; 85025; 90853; 99222; 99231; 99238; 99285; A9270-GY; G0480

== ENCOUNTER 2019-04-28 20:16 | Emergency (ER) | payer MEDICARE, MEDICAID ==
--- OUTSIDE RECORDS SUMMARY | 2019-04-28 20:35 | XMS REPORT ---
:1990 Author Organization [facility] Care Team Providers Name Role Phone Yanet Baljinder Primary Care Physician Unavailable Allergies, Adverse Reactions, Alerts Allergy Code CodeSystem Reaction Severity Criticality Status Start Substance Date Moderate Medications Medication Medication Medication Start Stop Route Dose Status Fill Code CodeSystem Date Date Instructions clozapine 505542 RxNorm 2018-06- oral 200 mg 2 completed 2 tablet at -12 05-15 tablet bedtime for at 30 day(s) bedtime Vraylar [id number] RxNorm 2018-11- oral 6 mg 1 active 1 capsule -20 01-18 capsule once a day once a for 30 day(s) day clonazepam [id number] RxNorm 2018-11- oral 0.5 mg 1 active 1 tablet -20 10-20 tablet twice a day twice a for 30 day(s) day clonazepam [id number] RxNorm 2018-09- oral 0.5 mg 1 completed 1 tablet -10 09-06 tablet twice a day twice a as needed for day 30 day(s) clozapine [id number] RxNorm 2017-09- oral 25 mg 1 completed 1 tablet at -09 04-01 tablet bedtime for at 14 day(s) bedtime clozapine [id number] RxNorm 2017-05- oral 200 mg 2 completed 2 tablet at -21 04-12 tablet bedtime for at 30 day(s) bedtime clozapine [id number] RxNorm 2018-07- oral 200 mg 2 completed 2 tablet at -15 08-12 tablet bedtime for at 30 day(s) bedtime clozapine [id number] RxNorm 2018-10- oral 200 mg 2 active 2 tablet at -12 02-08 tablet bedtime for at 30 day(s) bedtime Topamax [id number] RxNorm 2018-06- oral 25 mg 1 active Take 1 tablet -29 10-24 tablet twice a day twice a for 30 day(s) day topiramate [id number] RxNorm 2018-06- oral 25 mg 1 completed 1 tablet -12 tablet twice a day twice a for 30 day(s) day sertraline [id number] RxNorm 2017-05- oral 100 mg 2 active 2 tablet -05-05 tablet once a day once a for 30 day(s) day clozapine [id number] RxNorm 2018-07- oral 100 mg completed for 15 tablet day(s) topiramate [id number] RxNorm 2018-04- oral 50 mg 1 completed 1 tablet -06-26 tablet twice a day twice a for 30 day(s) day clozapine [id number] RxNorm 2018-10- oral 100 mg active for 05-05 tablet day(s) clonazepam [id number] RxNorm 2017-06- oral 0.5 mg 1 completed 1 tablet -09-08 tablet twice a day twice a for 30 day(s) day Vraylar [id number] RxNorm 2017-05- oral 4.5 mg 1 completed 1 capsule -20 capsule once a day once a for 30 day(s) day clozapine 19740530 RxNorm 2018-06 2019- oral 100 mg completed for 08-04 tablet day(s) clozapine [id number] RxNorm 2018-07- oral 100 mg completed for 11-06 tablet day(s) Topamax [id number] RxNorm 2018-06- oral 50 mg 1 completed Take 1 tablet -07-24 tablet twice a day twice a for 30 day(s) day clozapine [id number] RxNorm 2017-06 2019- oral 100 mg completed for 07-07 tablet day(s) Problems Problem Name Code CodeSystem Alternate Alternate Start End Status Narrative Code CodeSystem Date Date Schizophreni [id number] SNOMED-CT Active a, 9-18 unspecified Relevant diagnostic tests/laboratory data Narrative No Information Procedures Procedure Code CodeSystem Target Date of Status Service Device Device Device Name Site Procedure Delivery Code Name UID Location Psychotherap [id number] SNOMED-CT () 2019-01-15 complete Mental y, 45 04 d Health- minutes with Wendy patient [address], [id number] Psychotherap [id number] SNOMED-CT () 2018-11-28 complete Mental y, 45 04 d Health- minutes with Wendy patient [address], [id number] Office [place] [id number] SNOMED-CT () 2018-08-04 complete Mental other 7 d Health- outpatient [place] visit for [address], established [id number] patient, [id number] which requires at least 2 of these 3 treviño components: An expanded problem focused history; An expanded problem focused examination; Medical decision making of low Office or [id number] SNOMED-CT () 2019-01-10 complete Mental other 7 d Health- outpatient [place] visit for [address], established [id number] patient, [id number] which requires at least 2 of these 3 treviño components: An expanded problem focused history; An expanded problem focused examination; Medical decision making of low Office or [id number] SNOMED-CT () 2018-12-15 complete Mental other 7 d Health- outpatient [place] visit for [address], established [id number] patient, [id number] which requires at least 2 of these 3 treviño components: An expanded problem focused history; An expanded problem focused examination; Medical decision making of low Office or [id number] SNOMED-CT () 2018-06-26 complete Mental other 7 d Health- outpatient [place] visit for [address], [facility] [place] [id number] patient, [id number] which requires at least 2 of these 3 treviño components: An expanded problem focused history; An expanded problem focused examination; Medical decision making of low Office or [id number] SNOMED-CT () 2018-10-20 complete Mental other 6 d Health- outpatient [place] visit for [address], established [id number] patient, [id number] which requires at least 2 of these 3 treviño components: A problem focused history; A problem focused examination; Straightforw jannie medical decision making. Counselin Office or [id number] SNOMED-CT () 2019-02-14 complete Mental other 6 d Health- outpatient [place] visit for [address], [facility], established [id number] patient, [id number] which requires at least 2 of these 3 treviño components: A problem focused history; A problem focused examination; Straightforw jannie medical decision making. Counselin Office or [id number] SNOMED-CT () 2018-09-08 complete Mental other 6 d Health- outpatient [place] visit for [address], [facility], established [id number] patient, [id number] which requires at least 2 of these 3 treviño components: A problem focused history; A problem focused examination; Straightforw jannie medical decision making. Counselin Office or [id number] SNOMED-CT () 2018-11-30 complete Mental other 6 d Health- outpatient [place] visit for [address], [facility], established [id number] patient, [id number] which requires at least 2 of these 3 treviño components: A problem focused history; A problem focused examination; Straightforw jannie medical decision making. Counselin SNOMED-CT () 2018-07-21 complete [facility] d [facility], [id number] SNOMED-CT () 2018-07-28 complete Mental d [facility], [id number] SNOMED-CT () 2018-08-25 complete Mental d [facility], [id number] SNOMED-CT () 2018-09-07 complete Mental d [facility], [id number] SNOMED-CT () 2018-10-25 complete Mental d [facility], [id number] SNOMED-CT () 2018-10-30 complete Mental d [facility], [id number] SNOMED-CT () 2019-02-13 complete Mental d [facility], [id number] SNOMED-CT () 2018-11-13 [facility] [address], [id number] SNOMED-CT () 2018-10-09 [facility] [address], [id number] SNOMED-CT () 2018-10-16 [facility] [address], [id number] SNOMED-CT () 2018-12-07 [facility] [place] [address], [id number] SNOMED-CT () 2018-12-15 [facility] [place] [address], [id number] SNOMED-CT () 2018-12-28 [facility] [place] [address], [id number] [phone] Encounters/Encounter Diagnoses Encounter Encounter Diagnosis Diagnosis Name Diagnosis Date of Service Name Code Code CodeSystem Diagnosis Delivery Location [id number] Schizophrenia, SNOMED-CT [facility] , , , Vital Signs No Information Social History Element Description Description Start End Code CodeSystem AdditionalInfo Date Date SexAssignedAtBirth Male 1990-1 M AdministrativeGender 12-04 Hospital Discharge Instructions Reason For Referral Medical Equipment FDA Assessments
--- OUTSIDE RECORDS SUMMARY | 2019-04-28 20:35 | XMS REPORT ---
:1990 Author Organization [facility] Care Team Providers Name Role Phone YURIY NICK Primary Care Physician Unavailable Allergies, Adverse Reactions, Alerts Allergy Code CodeSystem Reaction Severity Criticality Status Start Substance Date Moderate Medications Medication Medication Medication Start Stop Route Dose Status Fill Code CodeSystem Date Date Instructions sertraline [id number] RxNorm 2017-05- oral 100 mg 2 active 2 tablet -21 -08 tablet once a day once a for 30 day(s) day clozapine [id number] RxNorm 2018-07- oral 100 mg completed for 05-15 tablet day(s) clozapine [id number] RxNorm 2017-06- oral 100 mg completed for 04-12 tablet day(s) clonazepam [id number] RxNorm 2017-06- oral 0.5 mg 1 completed 1 tablet -05 03-14 tablet twice a day twice a for 30 day(s) day Vraylar [id number] RxNorm 2018-11- oral 6 mg 1 active 1 capsule -20 -18 capsule once a day once a for 30 day(s) day clozapine 19740530 RxNorm 2018-07- oral 100 mg completed for 08-12 tablet day(s) Topamax [id number] RxNorm 2018-06- oral 25 mg 1 active Take 1 tablet -29 10-24 tablet twice a day twice a for 30 day(s) day clonazepam [id number] RxNorm 2018-09- oral 0.5 mg 1 completed 1 tablet -10 -06 tablet twice a day twice a as needed for day 30 day(s) Vraylar [id number] RxNorm 2017-05- oral 4.5 mg 1 completed 1 capsule -21 -20 capsule once a day once a for 30 day(s) day clozapine 19740530 RxNorm 2018-10- oral 100 mg active for 30 -12 02-08 tablet day(s) clozapine [id number] RxNorm 2018-07- oral 200 mg 2 completed 2 tablet at -15 08-12 tablet bedtime for at 30 day(s) bedtime clozapine 427781 RxNorm 2018-06- oral 200 mg 2 completed 2 tablet at -12 05-15 tablet bedtime for at 30 day(s) bedtime clozapine 064463 RxNorm 2017-09- oral 25 mg 1 completed 1 tablet at - 04- tablet bedtime for at 14 day(s) bedtime topiramate 715656 RxNorm 2018-04- oral 50 mg 1 completed 1 tablet -08 07- tablet twice a day twice a for 30 day(s) day Topamax [id number] RxNorm 2018-06- oral 50 mg 1 completed Take 1 tablet -07-24 tablet twice a day twice a for 30 day(s) day topiramate [id number] RxNorm 2018-06- oral 25 mg 1 completed 1 tablet -03 31- tablet twice a day twice a for 30 day(s) day clonazepam 19740504 RxNorm 2018-11- oral 0.5 mg 1 active 1 tablet -20 10-20 tablet twice a day twice a for 30 day(s) day clozapine [id number] RxNorm 2017-05- oral 200 mg 2 completed 2 tablet at - 04-12 tablet bedtime for at 30 day(s) bedtime clozapine [id number] RxNorm 2018-06- oral 100 mg completed for 30 - 05-10 tablet day(s) clozapine [id number] RxNorm 2018-10- oral 200 mg 2 active 2 tablet at -12 02-08 tablet bedtime for at 30 day(s) bedtime Problems Problem Name Code CodeSystem Alternate Alternate Start End Status Narrative Code CodeSystem Date Date Schizophreni [id number] SNOMED-CT 0 Active a, 9-18 unspecified Relevant diagnostic tests/laboratory data Narrative No Information Procedures Procedure Code CodeSystem Target Date of Status Service Device Device Device Name Site Procedure Delivery Code Name UID Location Psychotherap [id number] SNOMED-CT () 2019-01-15 complete Mental y, 45 04 d Health- minutes with Wendy patient [address], [id number] Psychotherap [id number] SNOMED-CT () 2018-11-28 complete Mental y, 45 04 d Health- minutes with Wendy patient [address], [id number] [id number] Office [place] [id number] SNOMED-CT () 2018-08-04 complete Mental other 7 d Health- outpatient [place] visit for [address], established [id number] patient, [phone] which requires at least 2 of these 3 treviño components: An expanded problem focused history; An expanded problem focused examination; Medical decision making of low Office or [id number] SNOMED-CT () 2019-01-10 complete Mental other 7 d Health- outpatient [place] visit for [address], established [id number] patient, [phone] which requires at least 2 of these 3 treviño components: An expanded problem focused history; An expanded problem focused examination; Medical decision making of low Office or [id number] SNOMED-CT () 2018-12-15 complete Mental other 7 d Health- outpatient [place] visit for [address], established [id number] patient, [phone] which requires at least 2 of these 3 treviño components: An expanded problem focused history; An expanded problem focused examination; Medical decision making of low Office or [id number] SNOMED-CT () 2018-06-26 complete Mental other 7 d Health- outpatient [place] visit for [address], [facility] [id number] patient, [phone] which requires at least 2 of these 3 treviño components: An expanded problem focused history; An expanded problem focused examination; Medical decision making of low Office or [id number] SNOMED-CT () 2018-10-20 complete Mental other 6 d Health- outpatient [place] visit for [address], established [id number] patient, [phone] which requires at least 2 of these 3 treviño components: A problem focused history; A problem focused examination; Straightforw jannie medical decision making. Counselin Office or [id number] SNOMED-CT () 2019-02-14 complete Mental other 6 d Health- outpatient [place] visit for [address], [facility], established [id number] patient, [phone] which requires at least 2 of these 3 treviño components: A problem focused history; A problem focused examination; Straightforw jannie medical decision making. Counselin Office [place] [id number] SNOMED-CT () 2018-09-08 complete Mental other 6 d Health- outpatient [place] visit for [address], [facility], established [id number] patient, [id number] which requires at least 2 of these 3 treviño components: A problem focused history; A problem focused examination; Straightforw jannie medical decision making. Counselin Office or [id number] SNOMED-CT () 2018-11-30 complete Mental other 6 d Health- outpatient [place] visit for [address], [facility], established [id number] patient, [phone] which requires at least 2 of these 3 treviño components: A problem focused history; A problem focused examination; Straightforw jannie medical decision making. Counselin SNOMED-CT () 2018-07-21 complete Mental d [facility], [id number] [id number] SNOMED-CT () 2018-07-28 complete Mental d [facility], [id number] [phone] SNOMED-CT () 2018-08-25 complete Mental d [facility], [id number] SNOMED-CT () 2018-09-07 complete Mental d [facility], [id number] [phone] SNOMED-CT () 2018-10-25 complete Mental d [facility], [id number] [id number] SNOMED-CT () 2018-10-30 complete Mental d [facility], [id number] [id number] SNOMED-CT () 2019-02-13 complete Mental d [facility], [id number] [id number] SNOMED-CT () 2019-03-01 [facility] Mental d [address], [id number] [id number] SNOMED-CT () 2019-03-07 complete Mental d [address], [id number] [id number] SNOMED-CT () 2019-03-22 [facility] Mental d [address], [id number] [id number] SNOMED-CT () 2019-04-06 [facility] Mental d [address], [id number] [phone] SNOMED-CT () 2018-11-13 [facility] Mental d [address], [id number] [id number] SNOMED-CT () 2018-10-09 complete Mental d [address], [id number] [phone] SNOMED-CT () 2018-10-16 [facility] Mental d [address], [id number] [id number] SNOMED-CT () 2018-12-07 [facility] Mental d [address], [id number] [phone] SNOMED-CT () 2018-12-15 [facility] Mental d [address], [id number] [phone] SNOMED-CT () 2018-12-28 [facility] Mental d [address], [id number] [phone] Encounters/Encounter Diagnoses Encounter Encounter Diagnosis Diagnosis Name Diagnosis Date of Service Name Code Code CodeSystem Diagnosis Delivery Location [id number] Schizophrenia, SNOMED-CT [facility] , , , Vital Signs No Information Social History Element Description Description Start End Code CodeSystem AdditionalInfo Date Date SexAssignedAtBirth Male 1991-0 M AdministrativeGender 12-04 Hospital Discharge Instructions Reason For Referral Medical Equipment FDA Assessments
--- OUTSIDE RECORDS SUMMARY | 2019-04-28 20:35 | XMS REPORT ---
:1990 Author Organization [facility] Care Team Providers Name Role Phone YURIY NICK Primary Care Physician Unavailable Allergies, Adverse Reactions, Alerts Allergy Code CodeSystem Reaction Severity Criticality Status Start Substance Date Moderate Medications Medication Medication Medication Start Stop Route Dose Status Fill Code CodeSystem Date Date Instructions topiramate [id number] RxNorm 2018-04- oral 50 mg 1 completed 1 tablet -08 07- tablet twice a day twice a for 30 day(s) day clozapine 089571 RxNorm 2018-07- oral 200 mg 2 completed 2 tablet at -15 -12 tablet bedtime for at 30 day(s) bedtime Vraylar [id number] RxNorm 2017-05- oral 4.5 mg 1 completed 1 capsule -16 12-20 capsule once a day once a for 30 day(s) day Vraylar [id number] RxNorm 2018-11- oral 6 mg 1 active 1 capsule -20 -18 capsule once a day once a for 30 day(s) day Topamax 984831 RxNorm 2018-06- oral 50 mg 1 completed Take 1 tablet -07-24 tablet twice a day twice a for 30 day(s) day topiramate [id number] RxNorm 2018-06- oral 25 mg 1 completed 1 tablet -03 31- tablet twice a day twice a for 30 day(s) day clonazepam 19740504 RxNorm 2018-09- oral 0.5 mg 1 completed 1 tablet -01 03- tablet twice a day twice a as needed for day 30 day(s) clozapine 19740530 RxNorm 2018-10- oral 100 mg active for 30 -05-05 tablet day(s) sertraline 937196 RxNorm 2017-05- oral 100 mg 2 active 2 tablet -18 05- tablet once a day once a for 30 day(s) day clozapine 432902 RxNorm 2017-06- oral 100 mg completed for 30 - 04-12 tablet day(s) clozapine 261170 RxNorm 2018-10- oral 200 mg 2 active 2 tablet at - 02-08 tablet bedtime for at 30 day(s) bedtime clozapine 821726 RxNorm 2018-07- oral 100 mg completed for 30 05-15 tablet day(s) clozapine 594181 RxNorm 2018-07- oral 100 mg completed for 30 08-12 tablet day(s) clozapine 580215 RxNorm 2018-06- oral 200 mg 2 completed 2 tablet at - 05-15 tablet bedtime for at 30 day(s) bedtime clonazepam 579643 RxNorm 2017-06- oral 0.5 mg 1 completed 1 tablet - 06-14 tablet twice a day twice a for 30 day(s) day clozapine 978684 RxNorm 2017-05- oral 200 mg 2 completed 2 tablet at 04-12 tablet bedtime for at 30 day(s) bedtime clonazepam 290753 RxNorm 2018-11- oral 0.5 mg 1 active 1 tablet -20 10-20 tablet twice a day twice a for 30 day(s) day clozapine 274723 RxNorm 2017-09- oral 25 mg 1 completed 1 tablet at - 04-01 tablet bedtime for at 14 day(s) bedtime clozapine 623283 RxNorm 2018-06- oral 100 mg completed for 30 05-10 tablet day(s) Topamax 961012 RxNorm 2018-06- oral 25 mg 1 active Take 1 tablet -29 10-24 tablet twice a day twice a for 30 day(s) day Problems Problem Name Code CodeSystem Alternate Alternate Start End Status Narrative Code CodeSystem Date Date Schizophreni [id number] SNOMED-CT Active a, 9-18 unspecified Relevant diagnostic tests/laboratory data Narrative No Information Procedures Procedure Code CodeSystem Target Date of Status Service Device Device Device Name Site Procedure Delivery Code Name UID Location Psychotherap [id number] SNOMED-CT () 2019-04-11 complete Mental y, 45 04 d Health- minutes with Wendy patient [address], [id number] [id number] Psychotherap [id number] SNOMED-CT () 2019-01-15 complete Mental y, 45 04 d Health- minutes with [place] patient [address], [id number] [id number] Psychotherap [id number] SNOMED-CT () 2018-11-28 complete Mental y, 45 04 d Health- minutes with [place] patient [address], [id number] [phone] Office or [id number] SNOMED-CT () 2018-08-04 complete Mental other 7 d Health- outpatient [place] visit for [address], established [id number] patient, [phone] which requires at least 2 of these 3 treviño components: An expanded problem focused history; An expanded problem focused examination; Medical decision making of low Office or [id number] SNOMED-CT () 2019-01-10 complete Mental other 7 d Health- outpatient [place] visit for [address], established [id number] patient, [phone] which requires at least 2 of these 3 treviño components: An expanded problem focused history; An expanded problem focused examination; Medical decision making of low Office or [id number] SNOMED-CT () 2018-12-15 complete Mental other 7 d Health- outpatient [place] visit for [address], established [id number] patient, [phone] which requires at least 2 of these 3 treviño components: An expanded problem focused history; An expanded problem focused examination; Medical decision making of low Office or [id number] SNOMED-CT () 2018-06-26 complete Mental other 7 d Health- outpatient [place] visit for [address], established [id number] patient, [phone] which requires at least 2 of these 3 treviño components: An expanded problem focused history; An expanded problem focused examination; Medical decision making of low Office or [id number] SNOMED-CT () 2018-10-20 complete Mental other 6 d Health- outpatient [place] visit for [address], established [id number] patient, [phone] which requires at least 2 of these 3 treviño components: A problem focused history; A problem focused examination; Straightforw jannie medical decision making. Counselin Office or [id number] SNOMED-CT () 2019-02-14 complete Mental other 6 d Health- outpatient [place] visit for [address], established [id number] patient, [phone] which requires at least 2 of these 3 treviño components: A problem focused history; A problem focused examination; Straightforw jannie medical decision making. Counselin Office or [id number] SNOMED-CT () 2018-09-08 complete Mental other 6 d Health- outpatient [place] visit for [address], established [id number] patient, [phone] which requires at least 2 of these 3 treviño components: A problem focused history; A problem focused examination; Straightforw jannie medical decision making. Counselin Office or [id number] SNOMED-CT () 2018-11-30 complete Mental other 6 d Health- outpatient [place] visit for [address], established [id number] patient, [phone] which requires at least 2 of these 3 treviño components: A problem focused history; A problem focused examination; Straightforw jannie medical decision making. [place] SNOMED-CT () 2018-07-21 complete Mental d [address], [id number] [phone] SNOMED-CT () 2018-07-28 complete Mental d [facility], [id number] [phone] SNOMED-CT () 2018-08-25 complete Mental d [facility], [id number] [id number] SNOMED-CT () 2018-09-07 complete Mental d [facility], [id number] [id number] SNOMED-CT () 2018-10-25 complete Mental d [facility], [id number] [phone] SNOMED-CT () 2018-10-30 complete Mental d [address], [id number] [phone] SNOMED-CT () 2019-02-13 complete Mental d [address], [id number] [phone] SNOMED-CT () 2019-03-[address], [id number] [phone] SNOMED-CT () 2019-03-07 complete Mental d [address], [id number] [phone] SNOMED-CT () 2019-03-22 [facility] Mental d [address], [id number] [phone] SNOMED-CT () 2019-04-06 [facility] Mental d [address], [id number] [phone] SNOMED-CT () 2018-11-13 [facility] Mental d [address], [id number] [phone] SNOMED-CT () 2018-10-09 [facility] Mental d [address], [id number] [phone] SNOMED-CT () 2018-10-16 [facility] Mental d [address], [id number] [phone] SNOMED-CT () 2018-12-07 [facility] Mental d [address], [id number] [phone] SNOMED-CT () 2018-12-15 [facility] Mental d [address], [id number] [phone] SNOMED-CT () 2018-12-28 [facility] Mental d [address], [id number] [phone] Encounters/Encounter Diagnoses Encounter Encounter Diagnosis Diagnosis Name Diagnosis Date of Service Name Code Code CodeSystem Diagnosis Delivery Location [id number] Schizophrenia, SNOMED-CT [facility] , , , Vital Signs No Information Social History Element Description Description Start End Code CodeSystem AdditionalInfo Date Date SexAssignedAtBirth Male M AdministrativeGender 12-04 Hospital Discharge Instructions Reason For Referral Medical Equipment FDA Assessments
--- OUTSIDE RECORDS SUMMARY | 2019-04-28 20:35 | XMS REPORT ---
:1990 Author Organization [facility] Care Team Providers Name Role Phone Yanet Baljinder Primary Care Physician Unavailable Allergies, Adverse Reactions, Alerts Allergy Code CodeSystem Reaction Severity Criticality Status Start Substance Date Moderate Medications Medication Medication Medication Start Stop Route Dose Status Fill Code CodeSystem Date Date Instructions clozapine 854694 RxNorm 2017-09- oral 25 mg 1 completed 1 tablet at -11 29- tablet bedtime for at 14 day(s) bedtime clozapine 757691 RxNorm 2018-10- oral 200 mg 2 active 2 tablet at - tablet bedtime for at 30 day(s) bedtime clozapine 338230 RxNorm 2018-06- oral 100 mg completed for 30 - 05-10 tablet day(s) clozapine 818924 RxNorm 2018-07- oral 100 mg completed for 30 08-12 tablet day(s) clozapine [id number] RxNorm 2017-05- oral 200 mg 2 completed 2 tablet at -16 07-12 tablet bedtime for at 30 day(s) bedtime Vraylar [id number] RxNorm 2017-05- oral 4.5 mg 1 completed 1 capsule -16 12- capsule once a day once a for 30 day(s) day clonazepam [id number] RxNorm 2018-09- oral 0.5 mg 1 completed 1 tablet -01 03- tablet twice a day twice a as needed for day 30 day(s) clozapine [id number] RxNorm 2018-07- oral 100 mg completed for 30 -15 tablet day(s) topiramate [id number] RxNorm 2018-04- oral 50 mg 1 completed 1 tablet -08 07- tablet twice a day twice a for 30 day(s) day clozapine [id number] RxNorm 2018-10- oral 100 mg active for 30 -08 tablet day(s) topiramate [id number] RxNorm 2018-06- oral 25 mg 1 completed 1 tablet -03 31-12 tablet twice a day twice a for 30 day(s) day clonazepam [id number] RxNorm 2018-11- oral 0.5 mg 1 active 1 tablet -20 10-20 tablet twice a day twice a for 30 day(s) day clozapine 560408 RxNorm 2017-06- oral 100 mg completed for 30 - 04-12 tablet day(s) Vraylar 5505768 RxNo 2018-11- oral 6 mg 1 active 1 capsule -20 -18 capsule once a day once a for 30 day(s) day clozapine 815781 RxNorm 2018-06- oral 200 mg 2 completed 2 tablet at -12 05-15 tablet bedtime for at 30 day(s) bedtime clozapine [id number] RxNo 2018-07- oral 200 mg 2 completed 2 tablet at -15 08-12 tablet bedtime for at 30 day(s) bedtime Topamax [id number] RxNo 2018-06- oral 50 mg 1 completed Take 1 tablet -02 28-29 tablet twice a day twice a for 30 day(s) day Topamax [id number] RxNo 2018-06- oral 25 mg 1 active Take 1 tablet -29 10-24 tablet twice a day twice a for 30 day(s) day clonazepam [id number] RxNo 2017-06- oral 0.5 mg 1 completed 1 tablet - 06-14 tablet twice a day twice a for 30 day(s) day sertraline [id number] RxNo 2017-05- oral 100 mg 2 active 2 tablet -18 05-08 tablet once a day once a for 30 day(s) day Problems Problem Name Code CodeSystem Alternate Alternate Start End Status Narrative Code CodeSystem Date Date Schizophreni [id number] SNOMED-CT 0 Active a, -18 unspecified Relevant diagnostic tests/laboratory data Narrative No Information Procedures Procedure Code CodeSystem Target Date of Status Service Device Device Device Name Site Procedure Delivery Code Name UID Location Psychotherap [id number] SNOMED-CT () 2019-01-15 complete Mental y, 45 04 d Health- minutes with [place] patient [address], [id number] Psychotherap [id number] SNOMED-CT () 2018-11-28 complete Mental y, 45 04 d Health- minutes with [place] patient [address], [id number] Office [place] [id number] SNOMED-CT () 2018-08-04 complete Mental other 7 d Health- outpatient [place] visit for [address], established [id number] patient, [phone] which requires at least 2 of these 3 treviño components: An expanded problem focused history; An expanded problem focused examination; Medical decision making of low Office or [id number] SNOMED-CT () 2019-01-10 complete Mental other 7 d Health- outpatient [place] visit for [address], established [id number] patient, [phone] which requires at least 2 of these 3 treviño components: An expanded problem focused history; An expanded problem focused examination; Medical decision making of low Office or [id number] SNOMED-CT () 2018-12-15 complete Mental other 7 d Health- outpatient [place] visit for [address], established [id number] patient, [phone] which requires at least 2 of these 3 treviño components: An expanded problem focused history; An expanded problem focused examination; Medical decision making of low Office or [id number] SNOMED-CT () 2018-06-26 complete Mental other 7 d Health- outpatient [place] visit for [address], [facility] [id number] patient, [phone] which requires at least 2 of these 3 treviño components: An expanded problem focused history; An expanded problem focused examination; Medical decision making of low Office or [id number] SNOMED-CT () 2018-10-20 complete Mental other 6 d Health- outpatient [place] visit for [address], established [id number] patient, [phone] which requires at least 2 of these 3 treviño components: A problem focused history; A problem focused examination; Straightforw jannie medical decision making. Counselin Office or [id number] SNOMED-CT () 2019-02-14 complete Mental other 6 d Health- outpatient [place] visit for [address], [facility], established [id number] patient, [phone] which requires at least 2 of these 3 treviño components: A problem focused history; A problem focused examination; Straightforw jannie medical decision making. Counselin Office or [id number] SNOMED-CT () 2018-09-08 complete Mental other 6 d Health- outpatient [place] visit for [address], [facility], established [id number] patient, [phone] which requires at least 2 of these 3 treviño components: A problem focused history; A problem focused examination; Straightforw jannie medical decision making. Counselin Office or [id number] SNOMED-CT () 2018-11-30 complete Mental other 6 d Health- outpatient [place] visit for [address], [facility], established [id number] patient, [phone] which requires at least 2 of these 3 treviño components: A problem focused history; A problem focused examination; Straightforw jannie medical decision making. Counselin SNOMED-CT () 2018-07-21 complete Mental d Health[address], [phone] SNOMED-CT () 2018-07-28 complete Mental d Health[address], [id number] [id number] SNOMED-CT () 2018-08-25 complete Mental d Health[address], [id number] SNOMED-CT () 2018-09-07 complete Mental d Health[address], [id number] SNOMED-CT () 2018-10-25 complete Mental d Health[address], [id number] SNOMED-CT () 2018-10-30 complete Mental d Health[address], [id number] SNOMED-CT () 2019-02-13 complete Mental d Health[address], [id number] [id number] SNOMED-CT () 2019-03-01 [facility] [address], [id number] SNOMED-CT () 2019-03-07 complete Mental d [address], [id number] SNOMED-CT () 2019-03-22 [facility] [address], [id number] [phone] SNOMED-CT () 2018-11-13 [facility] [address], [id number] [id number] SNOMED-CT () 2018-10-09 [facility] [address], [id number] [id number] SNOMED-CT () 2018-10-16 [facility] [address], [id number] SNOMED-CT () 2018-12-07 [facility] [address], [id number] [id number] SNOMED-CT () 2018-12-15 [facility] [address], [id number] SNOMED-CT () 2018-12-28 [facility] [address], [id number] [phone] Encounters/Encounter Diagnoses Encounter Encounter Diagnosis Diagnosis Name Diagnosis Date of Service Name Code Code CodeSystem Diagnosis Delivery Location [id number] Schizophrenia, SNOMED-CT [facility] , , , Vital Signs No Information Social History Element Description Description Start End Code CodeSystem AdditionalInfo Date Date SexAssignedAtBirth Male 1990-0 M AdministrativeGender 12-04 Hospital Discharge Instructions Reason For Referral Medical Equipment FDA Assessments
--- NOTE | 2019-04-28 20:45 | ED ---
Medical Screening - HPI Summary HPI Summary: Patient with history of schizophrenia and chronic auditory hallucinations states he heard auditory hallucinations today wanting him that he was going to be tortured. Patient brought himself into the ED for further evaluation. Patient states he is compliant with medication, denies EtOH or recreational drug use. Denies any symptoms of illness, pain or injury. Medical history is schizophrenia and GERD. - History of Current Complaint Chief Complaint: EDMentalHealth Stated Complaint: MHE PER PT Time Seen by Provider: 04/28/19 20:44 Onset/Duration: Started Hours Ago Severity: moderate PMH/Surg Hx/FS Hx/Imm Hx Endocrine/Hematology History: Denies: Hx Diabetes Cardiovascular History: Reports: Other Cardiovascular Problems/Disorders - increased QTC interval Denies: Hx Hypertension, Hx Pacemaker/ICD Respiratory History: Denies: Hx Asthma GI History: Reports: Hx Gastroesophageal Reflux Disease History: Denies: Hx Renal Disease Musculoskeletal History: Reports: Hx Back Problems - back injury from "a few years ago", Other Musculoskeletal History - hip dysplasia Denies: Hx Arthritis Sensory History: Denies: Hx Contacts or Glasses, Hx Hearing Aid Opthamlomology History: Denies: Hx Contacts or Glasses EENT History: Denies: Hx Deafness Neurological History: Reports: Other Neuro Impairments/Disorders - Hx of 6 concussions Denies: Hx Headaches, Hx Seizures, Hx Spinal Cord Injury, Hx Transient Ischemic Attacks (TIA) Psychiatric History: Reports: Hx Anxiety, Hx Depression, Hx Inpatient Treatment , Hx Community Mental Health Tx, Hx Schizophrenia, Hx Substance Abuse - alcohol , Other Psychiatric Issues/Disorders - psychosis, auditory hallucinations Denies: Hx Attention Deficit Hyperactivity Disorder, Hx Eating Disorder, Hx Panic Disorder, Hx Post Traumatic Stress Disorder, Hx Bipolar Disorder, Hx Suicide Attempt, Hx of Violent Episodes Against Others - Cancer History Hx Chemotherapy: No Hx Radiation Therapy: No Hx Palliative Cancer Treatment: No - Surgical History Surgery Procedure, Year, and Place: n/a - Immunization History Date of Tetanus Vaccine: 07/23/2017 Infectious Disease History: No Infectious Disease History: Denies: Hx Clostridium Difficile, Hx Hepatitis, Hx Human Immunodeficiency Virus (HIV), Hx of Known/Suspected MRSA, Hx Shingles, Hx Tuberculosis, Hx Known/ Suspected VRE, Hx Known/Suspected VRSA, History Other Infectious Disease, Traveled Outside the [place] in Last 30 Days - Family History Known Family History: Positive: Other - Psychotic disorders, Schizophrenia, anxiety Negative: Cardiac Disease, Hypertension, Diabetes Family History: R & n/C - Social History Alcohol Use: Weekly Alcohol Amount: 3 drinks Hx Substance Use: Yes Substance Use Type: Reports: None Substance Use Comment - Amount & Last Used: denies Hx Tobacco Use: No Smoking Status (MU): Never Smoked Tobacco Type: eCigarettes Have You Smoked in the Last Year: No Review of Systems Constitutional: Negative Eyes: Negative ENT: Negative Cardiovascular: Negative Respiratory: Negative Gastrointestinal: Negative Genitourinary: Negative Musculoskeletal: Negative Skin: Negative Neurological: Negative Positive: Anxious All Other Systems Reviewed And Are Negative: Yes Physical Exam Triage Information Reviewed: Yes Vital Signs On Initial Exam: Initial Vitals Temp Pulse Resp BP Pulse Ox 100.3 F 122 22 156/93 97 04/28/19 20:18 04/28/19 20:18 04/28/19 20:18 04/28/19 20:18 04/28/19 20:18 Vital Signs Reviewed: Yes Appearance: Positive: Well-Appearing Skin: Positive: Warm Head/Face: Positive: Normal Head/Face Inspection Eyes: Positive: Normal ENT: Positive: Normal ENT inspection Neck: Positive: Supple Respiratory/Lung Sounds: Positive: Clear to Auscultation Cardiovascular: Positive: Normal Abdomen Description: Positive: Nontender Musculoskeletal: Positive: Normal Neurological: Positive: Normal Psychiatric: Positive: Normal AVPU Assessment: Alert - Rigo Coma Scale Best Eye Response: 4 - Spontaneous Best Motor Response: 6 - Obeys Commands Best Verbal Response: 5 - Oriented Coma Scale Total: 15 Procedures - Sedation Patient Received Moderate/Deep Sedation with Procedure: No Diagnostics - Vital Signs Vital Signs Temp Pulse Resp BP Pulse Ox 04/28/19 20:18 100.3 F 122 22 156/93 97 - Laboratory Result Diagrams: 04/28/19 21:05 04/28/19 21:05 Lab Statement: Any lab studies that have been ordered have been reviewed, and results considered in the medical decision making process. Course/Dx - Course Course Of Treatment: Patient with history of schizophrenia and chronic auditory hallucinations states he heard auditory hallucinations today wanting him that he was going to be tortured. Patient brought himself into the ED for further evaluation. Patient states he is compliant with medication, denies EtOH or recreational drug use. Denies any symptoms of illness, pain or injury. Medical history is schizophrenia and GERD. Patient echocardiogram 122. Temperature 100.3. Vital signs otherwise within normal limits. Mental health evaluation per Dr. Ruiz states patient at baseline, recommends discharge. - Diagnoses Provider Diagnoses: Schizophrenia Discharge ED - Sign-Out/Discharge Documenting (check all that apply): Patient Departure - Discharge Plan Condition: Stable Disposition: HOME Referrals: Aman Ya MD [Primary Care Provider] - - Billing Disposition and Condition Condition: STABLE Disposition: Home
[2019-04-28 20:56] LABS: Urine Appearance Cloudy; Urine Bilirubin Negative (Negative); Urine Blood Negative (Negative); Urine Color Yellow; Urine Glucose Negative (Negative); Urine Ketones Trace (Negative); Urine Nitrite Negative (Negative); Urine Protein Negative (Negative); Urine Specific Gravity 1.028 (1.010-1.030); Urine Urobilinogen Negative (Negative)
[2019-04-28 21:14] LABS: ABS Basophils 0.1 10^3/ul (0-0.2); ABS Lymphocytes 2.4 10^3/ul (1.0-4.8); ABS Monocytes 0.5 10^3/ul (0-0.8); ABS Neutrophils 3.1 10^3/ul (1.5-7.7); Eosinophil % 0.1 %; Hematocrit 41 % (42-52); Lymphocyte % 40.1 %; Mean Corpuscular HGB Conc 34 g/dL (31-36); Mean Corpuscular Hemoglobin 28 pg (27-31); Mean Corpuscular Volume 83 fL (80-94); Mean Platelet Volume 8.2 fL (7.4-10.4); Nucleated Red Blood Cells % 0.2; Platelet Count 210 10^3/uL (150-450); Red Blood Count 4.92 10^6 /uL (4.18-5.48); Red Cell Distribution Width 14 % (10-15); White Blood Count 6.1 10^3/uL (3.5-10.8)
[2019-04-28 21:17] LABS: Urine Benzodiazepine Screen Presumptive Positive (None Detect); Urine Opiates Screen None Detected (None Detect)
[2019-04-28 21:29] LABS: ALT 32 U/L (7-52); AST 34 U/L (13-39); Acetaminophen < 15 mcg/mL; Albumin 4.6 g/dL (3.2-5.2); Albumin/Globulin Ratio 2.1 (1-3); Alcohol < 10 mg/dL (<10); Alkaline Phosphatase 70 U/L (34-104); Anion Gap 6 mmol/L (2-11); BUN/Creatinine Ratio 9.2 (8-20); Blood Urea Nitrogen 17 mg/dL (6-24); CO2 Carbon Dioxide 24 mmol/L (22-32); Calcium 9.2 mg/dL (8.6-10.3); Chloride 110 mmol/L (101-111); EGFR African American 53.3 (>60); Globulin 2.2 g/dL (2-4); Glucose 88 mg/dL (70-100); Potassium 3.5 mmol/L (3.5-5.0); Salicylate < 2.50 mg/dL (<30); Sodium 140 mmol/L (135-145); Total Protein 6.8 g/dL (6.4-8.9)
[2019-04-28 21:45] LABS: TSH (Thyroid Stimulating Horm) 2.29 mcIU/mL (0.34-5.60)
[2019-04-28 23:12] VITALS: BP 130/86
== END 2019-04-28 23:10 | disposition home or self-care (01) ==
LOC: ED 20:16
DX: F20.9 Schizophrenia, unspecified (principal); F41.9 Anxiety disorder, unspecified; F32.9 Major depressive disorder, single episode, unspecified; K21.9 Gastro-esophageal reflux disease without esophagitis; Z79.899 Other long term (current) drug therapy
CPT/HCPCS: 36415; 80053; 80307; 80320; 80329; 81003; 84443; 85025; 99284; G0480

== ENCOUNTER 2019-04-29 20:31 | Inpatient (IN) | payer MEDICARE, MEDICAID ==
--- NOTE | 2019-04-29 21:45 | ED ---
Psychiatric Complaint - HPI Summary HPI Summary: The patient is a 28 y/o male presenting to [facility] accompanied by mother with a chief complaint of auditory hallucinations worsening over the last two days. He reports that he often hears voices secondary to dx of schizophrenia. Over the last two days, he has noticed that he has been hearing more voices than usual, telling him to hurt myself my dad is a serial killer something bad is going to happen at home there might be a murder victim there. He also notes that the voices have been telling him to drink Listerine, so he has been drinking 2- 3 caps full of Listerine for a while, but he did not drink any today. He is medication compliant and hasnt had any recent changes, although his mother notes that he had been admitted approximately four months ago due to sleep disturbances with a decrease in his medication that ultimately led to him increasing the dose because his symptoms worsened. He was here yesterday for similar symptoms. He notes no alcohol use today despite 2-3 drinks a weekly. He denies any SI or HI at this time. PMHx: anxiety, depression, inpatient treatment , alcohol abuse. GERD. FHx: schizophrenia, cancer. Former smoker, weekly EtOH, no substance use. Medications reviewed. Allergies noted. - History Of Current Complaint Chief Complaint: EDMentalHealth Time Seen by Provider: 04/29/19 21:04 Hx Obtained From: Patient Onset/Duration: Gradual Onset, Lasting Days, Still Present Timing: Days Severity Initially: Mild Severity Currently: Moderate Aggravating Factor(s): Nothing Alleviating Factor(s): Nothing Associated Signs And Symptoms: Positive: Hallucinating Related History: Positive For: Prior Psychiatric Issues Has Suicidal: Denies: Thoughts Has Homicidal: Denies: Thoughts - Allergies/Home Medications Allergies/Adverse Reactions: Allergies Allergy/AdvReac Type Severity Reaction Status Date / Time haloperidol [From Haldol] AdvReac Severe See Comment Verified 04/29/19 20:54 lurasidone [From Latuda] AdvReac Intermediate See Comment Verified 04/29/19 20: 54 chlorpromazine AdvReac See Comment Verified 04/29/19 20:54 PMH/Surg Hx/FS Hx/Imm Hx Endocrine/Hematology History: Denies: Hx Diabetes Cardiovascular History: Reports: Other Cardiovascular Problems/Disorders - increased QTC interval Denies: Hx Hypertension, Hx Pacemaker/ICD Respiratory History: Denies: Hx Asthma GI History: Reports: Hx Gastroesophageal Reflux Disease History: Denies: Hx Renal Disease Musculoskeletal History: Reports: Hx Back Problems - back injury from "a few years ago", Other Musculoskeletal History - hip dysplasia Denies: Hx Arthritis Sensory History: Denies: Hx Contacts or Glasses, Hx Deafness, Hx Hearing Aid Opthamlomology History: Denies: Hx Contacts or Glasses Neurological History: Reports: Other Neuro Impairments/Disorders - Hx of 6 concussions Denies: Hx Headaches, Hx Seizures, Hx Spinal Cord Injury, Hx Transient Ischemic Attacks (TIA) Psychiatric History: Reports: Hx Anxiety, Hx Depression, Hx Inpatient Treatment , Hx Community Mental Health Tx, Hx Schizophrenia, Hx Substance Abuse - alcohol , Other Psychiatric Issues/Disorders - psychosis, auditory hallucinations Denies: Hx Attention Deficit Hyperactivity Disorder, Hx Eating Disorder, Hx Panic Disorder, Hx Post Traumatic Stress Disorder, Hx Bipolar Disorder, Hx Suicide Attempt, Hx of Violent Episodes Against Others - Cancer History Hx Chemotherapy: No Hx Radiation Therapy: No Hx Palliative Cancer Treatment: No - Surgical History Surgical History: None Surgery Procedure, Year, and Place: n/a - Immunization History Date of Tetanus Vaccine: 07/23/2017 Infectious Disease History: No Infectious Disease History: Denies: Hx Clostridium Difficile, Hx Hepatitis, Hx Human Immunodeficiency Virus (HIV), Hx of Known/Suspected MRSA, Hx Shingles, Hx Tuberculosis, Hx Known/ Suspected VRE, Hx Known/Suspected VRSA, History Other Infectious Disease, Traveled Outside the [place] in Last 30 Days - Family History Known Family History: Positive: Other - Psychotic disorders, Schizophrenia, anxiety Negative: Cardiac Disease, Hypertension, Diabetes Family History: R & n/C - Social History Alcohol Use: Weekly Alcohol Amount: ~2-3 drinks/week Hx Substance Use: Yes Substance Use Type: Reports: None Substance Use Comment - Amount & Last Used: denies Hx Tobacco Use: No Smoking Status (MU): Former Smoker Type: eCigarettes Have You Smoked in the Last Year: No - Additional Comments History Additional Comments: anxiety, depression, schizophrenia, inpatient treatment, alcohol abuse Review of Systems - ROS Summary Review of Systems Summary: Home Medications Medication Instructions Recorded Confirmed Type Cariprazine [Vraylar] 4.5 mg PO BEDTIME capsule 11/24/18 12/22/18 Rx Famotidine TAB* [Pepcid 20 MG TAB*] 20 mg PO BID tab 11/24/18 12/22/18 Rx Sertraline* [Zoloft*] 200 mg PO BEDTIME tab 11/24/18 12/22/18 Rx Topiramate TAB(*) [Topamax 25 MG 50 mg PO BEDTIME tab 11/24/18 12/22/18 Rx tab] clonazePAM TAB(*) [Klonopin TAB(*)] 0.5 mg PO BID tab 11/24/18 12/22/18 Rx CloZAPine TAB* 600 mg PO BEDTIME #168 tab 12/28/18 Rx Negative: Fever Positive: Other - auditory hallucinations; Negative: SI, HI All Other Systems Reviewed And Are Negative: Yes Physical Exam - Summary Physical Exam Summary: General: Well-developed, Well-nourished male. No acute distress. HEENT: Normocephalic, Atraumatic. Eyes: Conjuctiva normal, PERRL. Oropharynx: Clear, mucous membranes moist, (-) exudates. Neck: Soft, FROM, (-) lymphadenopathy, (-) thyromegaly, (-) JVD. Cardiovascular: Normal sinus rhythm, (-) murmur. Lungs: Clear to auscultation bilaterally (-) wheezes, (-) rales, (-) rhonchi. Abdomen: Soft, non-tender, non-distended, (-) organomegaly, normal bowel sounds. Back: (-) CVA tenderness Extremities: No edema. Skin: Warm, dry, (-) rash. Neuro: Alert and oriented x3, moves all extremities equally. No ataxia. No gait disturbance. No sensory deficit. No amnesia. Psychiatric: Mood normal, affect normal. Triage Information Reviewed: Yes Vital Signs On Initial Exam: Initial Vitals Temp Pulse Resp BP Pulse Ox 98.7 F 91 15 128/75 99 04/29/19 20:52 04/29/19 20:52 04/29/19 20:52 04/29/19 20:52 04/29/19 20:52 Vital Signs Reviewed: Yes Procedures - Sedation Patient Received Moderate/Deep Sedation with Procedure: No Diagnostics - Vital Signs Vital Signs Temp Pulse Resp BP Pulse Ox 04/29/19 20:52 98.7 F 91 15 128/75 99 - Laboratory Result Diagrams: 04/29/19 21:46 04/29/19 21:46 Lab Statement: Any lab studies that have been ordered have been reviewed, and results considered in the medical decision making process. Re-Evaluation - Re-Evaluation First Eval Re-Evaluation Time: 21:40 Comment: Patient is clear for MHE. Course/Dx - Course Course Of Treatment: 28 year old male presents with mother for increased hallucinations. He states he is hearing voices and does not feel safe at home. He states the voices are telling him that he is going to be murdered. Patient has no abnormalities on physical. Workup essentially within normal limits. Patient has mental health evaluation completed. Is referred for admission. - Differential Dx/Clinical Impression Provider Diagnosis: Schizophrenia - Physician Notifications Discussed Care Of Patient With: Jesus Glass - psychiatry Time Discussed With Above Provider: 03:00 Instructed by Provider To: Other - Dr. Glass and mental health staff have evaluated the patient, and they have determined he is appropriate for admission. Discharge ED - Sign-Out/Discharge Documenting (check all that apply): Patient Departure - Patient admitted to [facility] by Dr. Glass. - Discharge Plan Condition: Improved Disposition: PSYCHIATRIC FACILITY-[facility] [place] - Billing Disposition and Condition Condition: IMPROVED Disposition: Psychiatric Facility [facility] [place] - Attestation Statements Document Initiated by Scribe: Yes Documenting Scribe: Felipa Hernadez Provider For Whom Agueda is Documenting (Include Credential): Dr. Lisa Fry MD Scribe Attestation: Felipa Beatty scribed for Dr. Lisa Fry MD on 05/03/19 at 2150. Scribe Documentation Reviewed: Yes Provider Attestation: The documentation as recorded by the Felipa sanches accurately reflects the service I personally performed and the decisions made by me, Dr. Lisa Fry MD Status of Scribe Document: Viewed
[2019-04-29 21:55] LABS: ABS Lymphocytes 2.2 10^3/ul (1.0-4.8); ABS Monocytes 0.4 10^3/ul (0-0.8); ABS Neutrophils 4.8 10^3/ul (1.5-7.7); Hematocrit 42 % (42-52); Hemoglobin 14.1 g/dL (14.0-18.0); Lymphocyte % 29.1 %; Mean Corpuscular HGB Conc 34 g/dL (31-36); Mean Corpuscular Hemoglobin 28 pg (27-31); Mean Corpuscular Volume 84 fL (80-94); Mean Platelet Volume 8.5 fL (7.4-10.4); Nucleated Red Blood Cells % 0.1; Platelet Count 220 10^3/uL (150-450); Red Cell Distribution Width 14 % (10-15); White Blood Count 7.4 10^3/uL (3.5-10.8)
[2019-04-29 22:14] LABS: ALT 29 U/L (7-52); AST 28 U/L (13-39); Albumin 4.4 g/dL (3.2-5.2); Alkaline Phosphatase 73 U/L (34-104); Anion Gap 7 mmol/L (2-11); BUN/Creatinine Ratio 9.6 (8-20); Blood Urea Nitrogen 17 mg/dL (6-24); CO2 Carbon Dioxide 25 mmol/L (22-32); Calcium 8.9 mg/dL (8.6-10.3); Chloride 108 mmol/L (101-111); EGFR African American 55.3 (>60); EGFR Non-African American 45.7 (>60); Globulin 2.2 g/dL (2-4); Glucose 102 mg/dL (70-100); Potassium 3.7 mmol/L (3.5-5.0); Sodium 140 mmol/L (135-145); Total Protein 6.6 g/dL (6.4-8.9)
[2019-04-29 22:20] LABS: Acetaminophen < 15 mcg/mL; Alcohol < 10 mg/dL (<10); Salicylate < 2.50 mg/dL (<30)
[2019-04-29 22:36] LABS: TSH (Thyroid Stimulating Horm) 0.84 mcIU/mL (0.34-5.60)
[2019-04-29 23:50] LABS: Urine Appearance Turbid; Urine Bilirubin Negative (Negative); Urine Blood Negative (Negative); Urine Color Yellow; Urine Glucose Negative (Negative); Urine Ketones Negative (Negative); Urine Nitrite Negative (Negative); Urine Protein Negative (Negative); Urine Specific Gravity 1.018 (1.010-1.030); Urine Urobilinogen Negative (Negative)
[2019-04-30 00:10] LABS: Urine Benzodiazepine Screen None Detected (None Detect); Urine Opiates Screen None Detected (None Detect)
[2019-04-30] MEDS ORDERED: Acetaminophen TAB* 325 MG PO PRN (06:59)
[2019-04-30] MEDS ORDERED: Al Hydrox/Mg Hydrox/Simet LIQ* 30 ML UDC PO PRN (06:59)
--- NOTE | 2019-04-30 13:18 | HP ---
PSYCHIATRIC HISTORY AND PHYSICAL: DATE OF ADMISSION: 04/30/19 JUSTIFICATION FOR ADMISSION: The patient is having command auditory hallucinations, delusions as wel l as speech latencies and thought blocking. We feel the severity of this warrants 24-hour supervisio n and care. CHIEF COMPLAINT: "I feel like my father is going to hurt me." HISTORY OF PRESENT ILLNESS: The patient is a 28-year-old single white male with a history of schizop hrenia who has had several past psychiatric admissions here at [facility], who is brought back by his mother to the emergency room for the second night in a row for an evaluation related to psychotic symptoms. He reported in emergency room that his delusions have increased as well as paranoid thoughts and au ditory hallucinations. He does not feel safe at the [facility] residence, believing that there wi ll be an explosion there or he will be killed by other residents. In addition, he believes that his father is a serial killer and is planning on harming him. He notes that the voices have escalated an d are telling him to drink increased amounts of mouthwash, nail anguillan remover, and to crouch in the shower for hours. He appeared to be quite distressed during the evaluation and was noted to be respo nding to internal stimuli. He stated at that time that he did not feel safe returning home and was r equesting voluntary admission, which his mother was supportive of. PAST PSYCHIATRIC HISTORY: The patient has had numerous inpatient stays on the psychiatric unit [facility] in 2009, which is when he had the onset of psychosis. In the past, he has been transferred to [facility] and [facility] for longer-term stabilization. Currently, he is in outpatient treatment at the [facility] where he sees Dr. Dulce Javed as his psychiatrist and the nurse, Baljinder Holt, as his therapist. His caser shoe parts is Carlos Arnett. Past medication trials have inclu ded Risperdal, Latuda, Abilify, Haldol, and olanzapine as well as long-acting Invega Sustenna. His d iagnosis is schizophrenia. He denies any formal history of suicide attempts. SUBSTANCE ABUSE HISTORY: The patient used to abuse alcohol and cannabis in high school. Currently, he does not use alcohol or illicit substances and has never been a cigarette smoker. PAST MEDICAL HISTORY: Significant for gastroesophageal reflux disease and a history of hip dysplasia . CURRENT MEDICATIONS: Include: 1. Clozapine 600 mg nightly. 2. Klonopin 0.5 mg p.o. b.i.d. 3. Topamax 50 mg nightly. 4. Zoloft 200 mg nightly. 5. Pepcid 20 mg twice daily. 6. Cariprazine 4.5 mg nightly. ALLERGIES: He is allergic to HALDOL, LURASIDONE, and CHLORPROMAZINE. FAMILY PSYCHIATRIC HISTORY: Notable for anxiety in his mother. He has a second cousin with psychosi s as well as a brother with psychosis. He also has a paternal aunt with schizophrenia and a maternal cousin with borderline personality disorder and suicide attempt. He also has a separate brother wit h avoidant personality disorder. SOCIAL HISTORY: The patient is from the [facility]. He currently resides in the [facility]. He did well in school and was an honor student, but was not able to continue his studies because of his psychotic illness. He used to be active in sports growing up and had an interest in lifting weights . 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 He is not employed and is on [employer]. REVIEW OF SYSTEMS: The patient denies headache or double vision. He denies sore throat, cough, ches t pain, difficulty breathing. He denies abdominal pain, nausea, vomiting, diarrhea, or constipation. He denies difficulty ambulating, rashes, enlarged lymph nodes, fevers, or changes in weight. PHYSICAL EXAMINATION VITAL SIGNS: Blood pressure 106/96, heart rate 69, respiratory rate 14, temperature 97.6 degrees Fah renheit, oxygen saturations are 96% on room air. HEENT: Head is normocephalic, atraumatic. NECK: Supple. CHEST: Clear to auscultation bilaterally. CARDIAC: Exam reveals normal heart sounds. ABDOMEN: Soft and nontender. MUSCULOSKELETAL: Exam reveals no sign of edema. NEUROLOGICAL: He is grossly intact with no focal deficits. SKIN: Warm and dry. LABORATORY DATA: Complete blood count is within normal limits and complete metabolic panel does ashly w some elevation in creatinine at 1.78 as well as slightly elevated glucose at 102. TSH is normal at 0.84. Urinalysis is within normal limits and urine drug screen is negative for all substances teste d. MENTAL STATUS EXAM: The patient is a young white male, stocky, somewhat overweight. He is lying jeremy n in bed, makes limited eye contact. He is somewhat difficult to establish a rapport with seeming to be internally preoccupied. He does have marked speech latency with no spontaneity of speech, althou gh his Zambian is fluent. Mood appears to be anxious with a flattened affect. Thought process shows some slowing as well as significant thought blocking. Thought content is significant for concerns o madison his symptoms. He denies suicidal or homicidal ideations. He does endorse auditory hallucination s of a command nature telling him to squat in the shower and drink nail anguillan remover. He denies vi sual hallucinations. Insight and judgment are fair given his willingness to come in for voluntary tr eatment experience. Cognitively, he is awake and alert with what would appear to be an average intel lect. DIAGNOSES: Slater I: Schizophrenia. Slater II: Deferred. IMPRESSION: The patient is a 28-year-old single white male with a history of schizophrenia, who arri ves on a voluntary basis accompanied by his mother with symptoms of command auditory hallucinations, delusions, and paranoia. These are somewhat troubling given the fact that the patient has enacted co mmands from hallucinations in the past. The mother is supportive of admission and Yuniel has done we ll on our unit in the past. PLAN: The patient is to be admitted to the adult behavioral health unit and placed on q.15-minute ch ecks for his own safety. We will continue his medications including sertraline, cariprazine, clozapi ne, and Klonopin. We will try to reach out to his parents as well as [facility] for further collateral information. When he is stable for discharge, he will likely be referre d back to the [facility]. [id number]/[facility] #: [id number]
[2019-04-30] MEDS: Famotidine TAB* 20 MG PO SCH ×2 (13:32→20:11)
[2019-04-30] MEDS: clonazePAM TAB(*) 0.5 MG PO SCH ×2 (13:32→20:11)
[2019-04-30] MEDS: Vitamin THERAPEUTIC TAB PO SCH (13:32)
[2019-04-30] MEDS: CloZAPine TAB* 100 MG TAB PO SCH (20:09)
[2019-04-30] MEDS: Sertraline* 100 MG TAB PO SCH (20:11)
[2019-04-30] MEDS: Topiramate TAB(*) 25 MG PO SCH (20:12)
[2019-04-30] MEDS ORDERED: Cariprazine 4.5 MG CAPSULE PO SCH (21:00)
[2019-05-01 08:21] LABS: HDL Cholesterol 28.3 mg/dL
[2019-05-01] MEDS: Famotidine TAB* 20 MG PO SCH ×2 (09:33→20:26)
[2019-05-01] MEDS: Vitamin THERAPEUTIC TAB PO SCH (09:33)
[2019-05-01] MEDS: clonazePAM TAB(*) 0.5 MG PO SCH ×2 (09:33→20:24)
--- NOTE | 2019-05-01 11:14 | PN ---
BSU: Group Therapy Note - Service Type Service Type: 76570 Group Psychotherapy - Cognitive Behavioral Group Therapy ( CBT):Patient attended CBT programming this morning and presented with flat affect that did not vary with discussion. Although responsive to direct prompts to respond to questions, patient did not engage in spontaneous conversation.
--- NOTE | 2019-05-01 11:19 | PN ---
Subjective - Subjective Date of Service: 05/01/19 Service Type: 90356 Hosp care 15 min low complexity Subjective: Yuniel remains psychotic and responding to unseen stimuli. He is found in his room where he has been all morning, refusing breakfast despite promptings by staff. He has speech latencies and cannot formulate much spontaneous speech. His father visited last night and brought the 6mg dose of cariprazine from home. Yuniel denies SI or HI. Objective - General Observations Appearance: Well Groomed Appears Stated Age: Yes Stature: Overweight Posture: WNL Eye Contact: Avoidant Behavior/Activity: Slowed - Interaction Observations Attitude Towards Examiner: Cooperative Stated Mood: Anxious Affect: Flat Speech Pattern/Tone: Delayed Thought Process: Disorganized Thought Content: Paranoid Thought Process: Lethality: Paranoid Ideation Hallucination Type: Auditory Delusion Type: Persecution - Cognitive Function Orientation: A&O x 4 Level of Consciousness: Awake Cognition: WNL Estimated Intelligence: Normal Insight: WNL Judgment Within Normal Limits: Yes - Medication Compliance Cooperative with Inpatient Medication Regimen: Yes - Group Participation Participates in Group Activities: No Assessment - Assessment Merits Inpatient Hospitalization: For Immediate Safety, For Stabilization Inpatient DSM-V Dx: F20.9 Clinical Impression: 28 y.o. single, white male with a history of treatment-refractory schizophrenia brought in by his mother due to several days of worsening command auditory hallucinations, paranoia and inability to care for himself in the community. BSU: Problem List - Patient Problems (1) Schizophrenia Current Visit: No Status: Chronic Priority: High Onset Date: 02/02/15 Code(s): F20.9 - SCHIZOPHRENIA, UNSPECIFIED SNOMED Code(s): 42842952 Plan - Plan Treatment Plan: Name: YUNIEL ZAMAN Birthdate: 1990 [id number] We have resumed his outpatient regimen, including clozapine 600mg PO qhs, cariprazine 4.5mg PO qhs, sertraline 200mg PO qhs, topiramate 50mg PO qhs and clonazepam 0.5mg PO BID. Will increase cariprazine to 6mg PO qhs, as this is actually what he should be on per [facility]. Continue to treat on the inpatient service. Continued Medication Management: Continue Outpt Medication Medications: Current Medications Acetaminophen (Tylenol Tab*) 650 mg PO Q4H PRN PRN Reason: PAIN or TEMP > 101 F Al Hydrox/Mg Hydrox/Simethicone (Maalox Plus*) 30 ml PO Q4H PRN PRN Reason: INDIGESTION Cariprazine (Vraylar) 6 mg PO BEDTIME [facility] Clonazepam (Klonopin Tab(*)) 0.5 mg PO BID [facility] Last Admin: 05/01/19 09:33 Dose: 0.5 mg Clozapine (Clozapine Tab*) 600 mg PO BEDTIME [facility] Last Admin: 04/30/19 20:09 Dose: 600 mg Famotidine (Pepcid Tab*) 20 mg PO BID [facility] Last Admin: 05/01/19 09:33 Dose: 20 mg Multivitamins (Theragran Tab*) 1 tab PO DAILY [facility] Last Admin: 05/01/19 09:33 Dose: 1 tab Sertraline HCl (Zoloft*) 200 mg PO BEDTIME [facility] Last Admin: 04/30/19 20:11 Dose: 200 mg Topiramate (Topamax(*)) 50 mg PO BEDTIME [facility] Last Admin: 04/30/19 20:12 Dose: 50 mg - Discharge Plan Discharge Plan: Inpatient Hospitalization Lab Results - Lab Results Lab Results: 04/29/19 04/29/19 04/29/19 21:46 21:46 23:39 WBC 7.4 RBC 5.00 Hgb 14.1 Hct 42 MCV 84 MCH 28 MCHC 34 RDW 14 Plt Count 220 MPV 8.5 Neut % (Auto) 64.5 Lymph % (Auto) 29.1 Hitchcock % (Auto) 5.8 Eos % (Auto) 0.0 Baso % (Auto) 0.6 Absolute Neuts (auto) 4.8 Absolute Lymphs (auto) 2.2 Absolute Monos (auto) 0.4 Absolute Eos (auto) 0.0 Absolute Basos (auto) 0.0 Absolute Nucleated RBC 0.0 Nucleated RBC % 0.1 Sodium 140 Potassium 3.7 Chloride 108 Carbon Dioxide 25 Anion Gap 7 BUN 17 Creatinine 1.78 H Est GFR ( Amer) 55.3 Est GFR (Non-Af Amer) 45.7 BUN/Creatinine Ratio 9.6 Glucose 102 H Calcium 8.9 Total Bilirubin 0.30 AST 28 ALT 29 Alkaline Phosphatase 73 Total Protein 6.6 Albumin 4.4 Globulin 2.2 Albumin/Globulin Ratio 2.0 Triglycerides Cholesterol LDL Cholesterol HDL Cholesterol TSH 0.84 Urine Color Yellow Urine Appearance Turbid Urine pH 7.0 Ur Specific Dowling 1.018 Urine Protein Negative Urine Ketones Negative Urine Blood Negative Urine Nitrate Negative Urine Bilirubin Negative Urine Urobilinogen Negative Ur Leukocyte Esterase Negative Urine Glucose Negative Salicylates < 2.50 Urine Opiates Screen Acetaminophen < 15 Ur Barbiturates Screen Ur Phencyclidine Scrn Ur Amphetamines Screen U Benzodiazepines Scrn Urine Cocaine Screen U Cannabinoids Screen Serum Alcohol < 10 04/29/19 05/01/19 23:39 07:23 WBC RBC Hgb Hct MCV MCH MCHC RDW Plt Count MPV Neut % (Auto) Lymph % (Auto) Hitchcock % (Auto) Eos % (Auto) Baso % (Auto) Absolute Neuts (auto) Absolute Lymphs (auto) Absolute Monos (auto) Absolute Eos (auto) Absolute Basos (auto) Absolute Nucleated RBC Nucleated RBC % Sodium Potassium Chloride Carbon Dioxide Anion Gap BUN Creatinine Est GFR ( Amer) Est GFR (Non-Af Amer) BUN/Creatinine Ratio Glucose Calcium Total Bilirubin AST ALT Alkaline Phosphatase Total Protein Albumin Globulin Albumin/Globulin Ratio Triglycerides 239 Cholesterol 115 LDL Cholesterol 39 HDL Cholesterol 28.3 TSH Urine Color Urine Appearance Urine pH Ur Specific Dowling Urine Protein Urine Ketones Urine Blood Urine Nitrate Urine Bilirubin Urine Urobilinogen Ur Leukocyte Esterase Urine Glucose Salicylates Urine Opiates Screen None detected Acetaminophen Ur Barbiturates Screen None detected Ur Phencyclidine Scrn None detected Ur Amphetamines Screen None detected U Benzodiazepines Scrn None detected Urine Cocaine Screen None detected U Cannabinoids Screen None detected Serum Alcohol
[2019-05-01] MEDS: CloZAPine TAB* 100 MG TAB PO SCH (20:24)
[2019-05-01] MEDS: CARIPRAZINE 6 MG PO SCH (20:26)
[2019-05-01] MEDS: Sertraline* 100 MG TAB PO SCH (20:27)
[2019-05-01] MEDS: Topiramate TAB(*) 25 MG PO SCH (20:28)
[2019-05-02 09:24] LABS: Clozapine 317 ng/mL (>350); Clozapine & Norclozapine Level 628 ng/mL (>450); Norclozapine 311 ng/mL
--- NOTE | 2019-05-02 10:02 | PN ---
Subjective - Subjective Date of Service: 05/02/19 Service Type: 03682 Hosp care 15 min low complexity Subjective: Yuniel is found again in bed. He continues to have marked speech delay but is otherwise more interactive compared to yesterday's interview. He reports reduced paranoia and AH and believes he will be OK to return to [facility] tomorrow. He is tolerating his medications well and denies SI or HI. He notes being scared of a peer at his long term but now sees that this perhaps is just a symptom of his illness. Objective - General Observations Appearance: Well Groomed Appears Stated Age: Yes Stature: Overweight Posture: WNL Eye Contact: Average Behavior/Activity: Slowed - Interaction Observations Attitude Towards Examiner: Cooperative Stated Mood: Anxious Affect: Flat Speech Pattern/Tone: Delayed Thought Process: Coherent Thought Content: Paranoid Thought Process: Lethality: Paranoid Ideation Hallucination Type: Auditory Delusion Type: Persecution - Cognitive Function Orientation: A&O x 4 Level of Consciousness: Awake Cognition: WNL Estimated Intelligence: Normal Insight: WNL Judgment Within Normal Limits: Yes - Medication Compliance Cooperative with Inpatient Medication Regimen: Yes - Group Participation Participates in Group Activities: Partial Assessment - Assessment Merits Inpatient Hospitalization: Consolidate Improvements, Pending Safe DC Plan Inpatient DSM-V Dx: F20.9 Clinical Impression: 28 y.o. single, white male with a history of treatment-refractory schizophrenia brought in by his mother due to several days of worsening command auditory hallucinations, paranoia and inability to care for himself in the community. Plan - Plan Treatment Plan: Name: YUNIEL ZAMAN Birthdate: 1990 [id number] We have resumed his outpatient regimen, including clozapine 600mg PO qhs, cariprazine 6mg PO qhs, sertraline 200mg PO qhs, topiramate 50mg PO qhs and clonazepam 0.5mg PO BID. Continue to treat on the inpatient service. Perhaps safe for discharge tomorrow (05/03). Continued Medication Management: Continue Outpt Medication Medications: Current Medications Acetaminophen (Tylenol Tab*) 650 mg PO Q4H PRN PRN Reason: PAIN or TEMP > 101 F Al Hydrox/Mg Hydrox/Simethicone (Maalox Plus*) 30 ml PO Q4H PRN PRN Reason: INDIGESTION Clonazepam (Klonopin Tab(*)) 0.5 mg PO BID [facility] Last Admin: 05/01/19 20:24 Dose: 0.5 mg Clozapine (Clozapine Tab*) 600 mg PO BEDTIME [facility] Last Admin: 05/01/19 20:24 Dose: 600 mg Famotidine (Pepcid Tab*) 20 mg PO BID [facility] Last Admin: 05/01/19 20:26 Dose: 20 mg Multivitamins (Theragran Tab*) 1 tab PO DAILY [facility] Last Admin: 05/01/19 09:33 Dose: 1 tab Non Formulary Med* (Cariprazine 6 Mg) 1 admin PO BEDTIME [facility] Last Admin: 05/01/19 20:26 Dose: 1 admin Sertraline HCl (Zoloft*) 200 mg PO BEDTIME [facility] Last Admin: 05/01/19 20:27 Dose: 200 mg Topiramate (Topamax(*)) 50 mg PO BEDTIME [facility] Last Admin: 05/01/19 20:28 Dose: 50 mg - Discharge Plan Discharge Plan: Outpatient Follow Up Outpatient Program: [facility]
[2019-05-02] MEDS: Famotidine TAB* 20 MG PO SCH ×2 (10:03→20:15)
[2019-05-02] MEDS: Vitamin THERAPEUTIC TAB PO SCH (10:03)
[2019-05-02] MEDS: clonazePAM TAB(*) 0.5 MG PO SCH ×2 (10:03→20:14)
[2019-05-02] MEDS: Sertraline* 100 MG TAB PO SCH (20:15)
[2019-05-02] MEDS: Topiramate TAB(*) 25 MG PO SCH (20:15)
[2019-05-02] MEDS: CloZAPine TAB* 100 MG TAB PO SCH (20:15)
[2019-05-02] MEDS: CARIPRAZINE 6 MG PO SCH (20:16)
[2019-05-03] MEDS: Vitamin THERAPEUTIC TAB PO SCH (09:12)
[2019-05-03] MEDS: Famotidine TAB* 20 MG PO SCH (09:12)
[2019-05-03] MEDS: clonazePAM TAB(*) 0.5 MG PO SCH (09:12)
[2019-05-03 09:36] VITALS: BP 118/71
--- NOTE | 2019-05-03 13:37 | DS ---
DATE OF ADMISSION: 04/30/2019. DATE OF DISCHARGE: 05/03/2019. DISCHARGE DIAGNOSES: AXIS I: Schizophrenia. AXIS II: Deferred. CONDITION AT THE TIME OF DISCHARGE: Improved. Yuniel is denying any further symptoms of overt paran oia. His auditory hallucinations, although still present, are much more mild and less threatening. He is much more comfortable and he is continuing to deny suicidal or homicidal ideations. Yuniel has done well here in the hospital and he is appropriately requesting discharge and we feel that he can be safely treated in a less restrictive setting. We have been visited by his parents on the unit who are in support of the discharge plan. Yuniel has been safe on all checks and essentially back to [facility] psychiatric baseline. MENTAL STATUS EXAM AT THE TIME OF DISCHARGE: Yuniel is a young white male, stocky, somewhat overweig ht with short thinning hair. He is standing up in the hallway across from the nurses' station making somewhat limited eye contact. Nevertheless, he is easy to establish a rapport with and seems consid erably less internally preoccupied than at the time of admission. He still has some mild speech late ncy, but his Italian is fluent with normal rate, tone and volume. Mood appears to be mildly anxious with some flattening of affect. Thought process is linear and goal- directed. Thought content is si gnificant for his desire to be discharged from the hospital. He is denying suicidal or homicidal lorenzo ations. He denies visual hallucinations. He still has mild auditory hallucinations which are his ba seline. Insight and judgment are fair given his willingness to follow-up with outpatient treatment. Cognitively, he is awake and alert with what would appear to be an average intellect. LABORATORY DATA: Comprehensive metabolic testing was performed on the 01 of May revealing a he moglobin A1c of 5.2%, triglycerides 239, cholesterol 115, LDL cholesterol 39, HDL cholesterol 28.3. DISCHARGE INSTRUCTIONS TO THE PATIENT: A. Medications: He is taking Cariprazine 6 mg p.o. at bedtime, Clozapine 600 mg p.o. at bedtime, Se rtraline 200 mg p.o. at bedtime, Topiramate 50 mg p.o. at bedtime, Pepcid 20 mg p.o. b.i.d., therapeu tic multivitamin one tablet p.o. daily. Please note that the patient is on two separate antipsychotic s. The reason for this is the augmentation of his Clozapine. B. Diet: Regular. C. Activity: As tolerated. The patient is a nonsmoker. There are no laboratory or diagnostic stud ies pending at the time of discharge. D. Follow-up care: The patient will be following up with the [facility]. His appointment with psychiatrist, Dr. Dulce Javed, is for May 10 at 3:00 p.m. Hi s follow-up with his therapist, Baljinder Holt, is for May 07 at 2:30 p.m. E. Substance abuse follow-up: Nonapplicable. F. Disposition: The patient is returning to his apartment at the [facility] which is [facility] here in [place]. HOSPITAL COURSE - PART A: Reason for admission: The patient is a 28-year-old, single, white male wit h a history of schizophrenia who has had several past psychiatric admissions here at [facility] who was brou ght back by his mother to the emergency room for the second night in a row for an evaluation related to psychotic symptoms. He reported in our emergency room that his delusions have increased as well a s paranoid thoughts and auditory hallucinations. He did not feel safe at the [facility] residence , believing that there would be an explosion there or that he would be killed by other residents. In addition, he started having thoughts that his father was a serial killer and was planning on harming him. He noted that the voices had escalated and were telling him to drink increasing amounts of emmanuel thwash and nail [place] remover and to crouch in the shower for hours. He appeared to be quite distre ssed during his evaluation and was noted to be responding to internal stimuli. He stated at that kandice e that he did not feel safe returning home and was requesting voluntary admission which his mother wa s supportive of. HOSPITAL COURSE - PART B: Psychiatric treatment rendered: The patient was admitted to the [facility] Unit where he was placed on q.15 minute checks for his own safety. We immediately resu med all outpatient medications, including Clozapine, Cariprazine, Zoloft, and Topamax. It is notable that initially we only had him on 4.5 mg of Cariprazine, believing this to be his appropriate dose. Later, we found out from the [facility] that he was recently increased to 6 mg nightly. Since this is not on hospital formulary, we required his parents to bring the medicati ons in so that we could resume them at their full dose. On the unit, the patient seemed to do well w [facility] structure and support. He experienced a complete resolution of his paranoid delusions towards hi s father. He started experiencing some mitigation of both the intensity and the frequency of loan auditor y hallucinations. We noted that his speech latencies decreased and this his symptoms of thought bloc rohith were reduced. Yuniel was quite easy to work with and was adherent with all treatment recommenda tions. His parents came in for a therapeutic family meeting on May 01 and they felt t hat he was improving. At this point, he has been safe on all checks, denying suicidal or homicidal i deations. Given the reduction of his psychotic symptoms, we feel that he warrants discharge to the [facility] community. We see no barriers to his effective treatment in the outpatient setting and we are certainly wishing him the best for a safe and healthy future. [id number]/[facility] #: [id number]
== END 2019-05-03 11:11 | disposition home or self-care (01) | DRG 885 ==
LOC: ED 20:31 → BSU 04-30 01:50
PROVIDERS: ADMIT Psychiatry & Neurology Psychiatry; ATTEND Psychiatry & Neurology Psychiatry
PROC: GZHZZZZ Group Psychotherapy (ICD-10-PCS; principal; 2019-05-01)
DX: F20.9 Schizophrenia, unspecified (principal); F32.9 Major depressive disorder, single episode, unspecified; F41.9 Anxiety disorder, unspecified; K21.9 Gastro-esophageal reflux disease without esophagitis; Z88.8 Allergy status to other drugs, medicaments and biological substances; Z87.891 Personal history of nicotine dependence; Z79.899 Other long term (current) drug therapy
CPT/HCPCS: 36415; 80053; 80061; 80159; 80307; 80320; 80329; 81003; 83036; 83088; 84443; 85025; 90853; 99222; 99231; 99238; 99284; A9270-GY; G0480

== ENCOUNTER 2019-05-31 20:04 | Inpatient (IN) | payer MEDICARE, MEDICAID ==
--- OUTSIDE RECORDS SUMMARY | 2019-05-31 20:40 | XMS REPORT ---
:1990 Author Organization [facility] Care Team Providers Name Role Phone YURIY NICK Primary Care Physician Unavailable Allergies, Adverse Reactions, Alerts Allergy Code CodeSystem Reaction Severity Criticality Status Start Substance Date Moderate Medications Medication Medication Medication Start Stop Route Dose Status Fill Code CodeSystem Date Date Instructions clozapine 19740530 RxNorm 2018-07- oral 100 mg completed for 12 tablet day(s) clonazepam 19740504 RxNorm 2017-06- oral 0.5 mg 1 completed 1 tablet -05 03-14 tablet twice a day twice a for 30 day(s) day clonazepam 19740504 RxNorm 2018-09- oral 0.5 mg 1 completed 1 tablet -01 03-06 tablet twice a day twice a as needed for day 30 day(s) Vraylar [id number] RxNorm 2017-05- oral 4.5 mg 1 completed 1 capsule -21 09-20 capsule once a day once a for 30 day(s) day clozapine 19740530 RxNorm 2018-10- oral 100 mg active for -08 tablet day(s) clozapine 752525 RxNorm 2018-10- oral 200 mg 2 active 2 tablet at 05-05 tablet bedtime for at 30 day(s) bedtime Topamax 195370 RxNorm 2018-06- oral 25 mg 1 active Take 1 tablet -29 10-24 tablet twice a day twice a for 30 day(s) day clozapine 19740530 RxNorm 2017-06- oral 100 mg completed for 12 tablet day(s) Vraylar [id number] RxNorm 2018-11- oral 6 mg 1 active 1 capsule -20 01-18 capsule once a day once a for 30 day(s) day clozapine 19740530 RxNorm 2018-07- oral 100 mg completed for 30 -10 05-15 tablet day(s) clozapine 294135 RxNorm 2017-09- oral 25 mg 1 completed 1 tablet at -09 04-01 tablet bedtime for at 14 day(s) bedtime clozapine 113114 RxNorm 2018-07- oral 200 mg 2 completed 2 tablet at -15 08-12 tablet bedtime for at 30 day(s) bedtime clozapine 817718 RxNorm 2018-06- oral 100 mg completed for 30 - 05-10 tablet day(s) topiramate 928052 RxNorm 2018-04- oral 50 mg 1 completed 1 tablet -08 07- tablet twice a day twice a for 30 day(s) day Topamax 152481 RxNorm 2018-06- oral 50 mg 1 completed Take 1 tablet -07-24 tablet twice a day twice a for 30 day(s) day clonazepam 19740504 RxNorm 2018-11- oral 0.5 mg 1 active 1 tablet -20 10-20 tablet twice a day twice a for 30 day(s) day sertraline 043834 RxNorm 2017-05- oral 100 mg 2 active 2 tablet - 02-08 tablet once a day once a for 30 day(s) day clozapine 951585 RxNorm 2018-06- oral 200 mg 2 completed 2 tablet at -12 05-15 tablet bedtime for at 30 day(s) bedtime topiramate 490997 RxNorm 2018-06- oral 25 mg 1 completed 1 tablet - 04-12 tablet twice a day twice a for 30 day(s) day clozapine 381156 RxNorm 2017-05- oral 200 mg 2 completed 2 tablet at -21 04-12 tablet bedtime for at 30 day(s) bedtime Problems Problem Name Code CodeSystem Alternate Alternate Start End Status Narrative Code CodeSystem Date Date Schizophreni [id number] SNOMED-CT 0 Active a, 9-18 unspecified Relevant diagnostic tests/laboratory data Narrative No Information Procedures Procedure Code CodeSystem Target Date of Status Service Device Device Device Name Site Procedure Delivery Code Name UID Location Office or [id number] SNOMED-CT () 2018-06-26 complete Mental other 7 d Health- outpatient [facility] visit for [address], [facility], [facility], established [id number] patient, [phone] which requires at least 2 of these 3 treviño components: An expanded problem focused history; An expanded problem focused examination; Medical decision making of low SNOMED-CT () 2018-07-21 complete [facility] d [facility], [id number] [phone] SNOMED-CT () 2018-07-28 complete Mental d [facility], [id number] [phone] Office or [id number] SNOMED-CT () 2018-08-04 complete Mental other 7 d Health- outpatient Wendy visit for [address], established [id number] patient, [phone] which requires at least 2 of these 3 treviño components: An expanded problem focused history; An expanded problem focused examination; Medical decision making of low SNOMED-CT () 2018-08-25 complete Mental d [address], [id number] [phone] SNOMED-CT () 2018-09-07 complete Mental d [facility], [id number] [id number] Office or [id number] SNOMED-CT () 2018-09-08 complete Mental other 6 d Health- outpatient Wendy visit for [address], established [id number] patient, [phone] which requires at least 2 of these 3 treviño components: A problem focused history; A problem focused examination; Straightforw jannie medical decision making. Counselin SNOMED-CT () 2018-10-09 complete Mental d [facility], [id number] [phone] SNOMED-CT () 2018-10-16 complete Mental d [facility], [id number] [phone] Office or [id number] SNOMED-CT () 2018-10-20 complete Mental other 6 d Health- outpatient Wendy visit for [address], established [id number] patient, [phone] which requires at least 2 of these 3 treviño components: A problem focused history; A problem focused examination; Straightforw jannie medical decision making. Maida SNOMED-CT () 2018-10-25 complete Mental d Health- [address], [id number] [phone] SNOMED-CT () 2018-10-30 complete Mental d Health- [address], [id number] [phone] SNOMED-CT () 2018-11-13 complete Mental d Health- [address], [id number] [phone] Psychotherap [id number] SNOMED-CT () 2018-11-28 complete Mental y, 45 04 d Health- minutes with Wendy patient [address], [id number] [phone] Office or [id number] SNOMED-CT () 2018-11-30 complete Mental other 6 d Health- outpatient Wendy visit for [address], [facility], [facility] [id number] patient, [phone] which requires at least 2 of these 3 treviño components: A problem focused history; A problem focused examination; Straightforw jannie medical decision making. Counselin SNOMED-CT () 2018-12-07 complete Mental d [facility], [id number] [phone] Office or [id number] SNOMED-CT () 2018-12-15 complete Mental other 7 d Health- outpatient [facility] visit for [address], established [id number] patient, [phone] which requires at least 2 of these 3 treviño components: An expanded problem focused history; An expanded problem focused examination; Medical decision making of low SNOMED-CT () 2018-12-15 complete Mental d Health- [address], [id number] [phone] SNOMED-CT () 2018-12-28 complete Mental d Health- [address], [id number] [phone] Office or [id number] SNOMED-CT () 2019-01-10 complete Mental other 7 d Health- outpatient [facility] visit for [address], established [id number] patient, [phone] which requires at least 2 of these 3 treviño components: An expanded problem focused history; An expanded problem focused examination; Medical decision making of low Psychotherap [id number] SNOMED-CT () 2019-01-15 complete Mental y, 45 04 d Health- minutes with [address], [id number] [id number] Office or [id number] SNOMED-CT () 2019-02-14 complete Mental other 6 d Health- outpatient Wendy visit for [address], established [id number] patient, [phone] which requires at least 2 of these 3 treviño components: A problem focused history; A problem focused examination; Straightforw jannie medical decision making. Counselin SNOMED-CT () 2019-02-13 complete Mental d Health- [address], [id number] [phone] SNOMED-CT () 2019-03-01 complete Mental d [facility], [id number] [phone] SNOMED-CT () 2019-03-07 complete Mental d Health- [address], [id number] [phone] SNOMED-CT () 2019-03-22 complete Mental d Health- [address], [id number] [phone] SNOMED-CT () 2019-04-06 complete Mental d Health- [address], [id number] [phone] Psychotherap [id number] SNOMED-CT () 2019-04-11 complete Mental y, 45 04 d Health- minutes with [address], [id number] [phone] Psychotherap [id number] SNOMED-CT () 2019-04-18 complete Mental y, 45 04 d Health- minutes with [address], [id number] [id number] Office or [id number] SNOMED-CT () 2019-04-20 complete Mental other 6 d Health- outpatient [facility] visit for [address], [place], established [id number] patient, [phone] which requires at least 2 of these 3 treviño components: A problem focused history; A problem focused examination; Straightforw jannie medical decision making. Counselin SNOMED-CT () 2019-04-25 complete Mental d Health- [address], [id number] [phone] Encounters/Encounter Diagnoses Encounter Encounter Diagnosis Diagnosis Name Diagnosis Date of Service Name Code Code CodeSystem Diagnosis Delivery Location [id number] Schizophrenia, SNOMED-CT [facility] , , , Vital Signs No Information Social History Element Description Description Start End Code CodeSystem AdditionalInfo Date Date SexAssignedAtBirth Male 1990-0 M AdministrativeGender 12-04 Hospital Discharge Instructions Reason For Referral Medical Equipment FDA Assessments
--- OUTSIDE RECORDS SUMMARY | 2019-05-31 20:40 | XMS REPORT ---
:1990 Author Organization [facility] Care Team Providers Name Role Phone YURIY NICK Primary Care Physician Unavailable Allergies, Adverse Reactions, Alerts Allergy Code CodeSystem Reaction Severity Criticality Status Start Substance Date Moderate Medications Medication Medication Medication Start Stop Route Dose Status Fill Code CodeSystem Date Date Instructions clozapine [id number] RxNorm 2018-07- oral 100 mg completed for 30 - 05-15 tablet day(s) clozapine 19740530 RxNorm 2018-10- oral 100 mg active for -08 tablet day(s) Topamax 430113 RxNorm 2018-06- oral 25 mg 1 active Take 1 tablet -29 10-24 tablet twice a day twice a for 30 day(s) day clozapine 791959 RxNorm 2017-05- oral 200 mg 2 completed 2 tablet at -21 04-12 tablet bedtime for at 30 day(s) bedtime Vraylar 0219737 RxNorm 2017-05- oral 4.5 mg 1 completed 1 capsule -16 12-20 capsule once a day once a for 30 day(s) day clozapine 282943 RxNorm 2018-06- oral 200 mg 2 completed 2 tablet at -12 -15 tablet bedtime for at 30 day(s) bedtime clonazepam 19740504 RxNorm 2018-09- oral 0.5 mg 1 completed 1 tablet -01 03-06 tablet twice a day twice a as needed for day 30 day(s) clozapine 19740530 RxNorm 2018-06- oral 100 mg completed for 30 05-10 tablet day(s) topiramate 263692 RxNorm 2018-04- oral 50 mg 1 completed 1 tablet - 04- tablet twice a day twice a for 30 day(s) day clonazepam 19740504 RxNorm 2017-06- oral 0.5 mg 1 completed 1 tablet -02 06-14 tablet twice a day twice a for 30 day(s) day Vraylar 4193256 RxNorm 2018-11- oral 6 mg 1 active 1 capsule -20 -18 capsule once a day once a for 30 day(s) day clozapine 440202 RxNorm 2018-10- oral 200 mg 2 active 2 tablet at -12 -08 tablet bedtime for at 30 day(s) bedtime sertraline 182386 RxNorm 2017-05- oral 100 mg 2 active 2 tablet -18 05-08 tablet once a day once a for 30 day(s) day clonazepam 19740504 RxNorm 2018-11- oral 0.5 mg 1 active 1 tablet -20 10-20 tablet twice a day twice a for 30 day(s) day clozapine 255580 RxNorm 2017-09- oral 25 mg 1 completed 1 tablet at -11 29- tablet bedtime for at 14 day(s) bedtime topiramate 141248 RxNorm 2018-06- oral 25 mg 1 completed 1 tablet -12 tablet twice a day twice a for 30 day(s) day clozapine 842461 RxNorm 2017-06 2019- oral 100 mg completed for -12 tablet day(s) clozapine 118597 RxNorm 2018-07- oral 200 mg 2 completed 2 tablet at -09 11- tablet bedtime for at 30 day(s) bedtime Topamax 325441 RxNorm 2018-06- oral 50 mg 1 completed Take 1 tablet -07-24 tablet twice a day twice a for 30 day(s) day clozapine 106247 RxNorm 2018-07- oral 100 mg completed for -12 tablet day(s) Problems Problem Name Code CodeSystem Alternate Alternate Start End Status Narrative Code CodeSystem Date Date Schizophreni [id number] SNOMED-CT 0 Active a, 9-18 unspecified Relevant diagnostic tests/laboratory data Narrative No Information Procedures Procedure Code CodeSystem Target Date of Status Service Device Device Device Name Site Procedure Delivery Code Name UID Location Office or [id number] SNOMED-CT () 2018-06-26 complete Mental other 7 d Health- outpatient [place]a visit for [address], [facility], [facility], established [id number] patient, [phone] which requires at least 2 of these 3 treviño components: An expanded problem focused history; An expanded problem focused examination; Medical decision making of low SNOMED-CT () 2018-07-21 complete Mental d [facility], [id number] [phone] SNOMED-CT () 2018-07-28 complete Mental d Health[address], [id number] [phone] Office or [id number] SNOMED-CT () 2018-08-04 complete Mental other 7 d Health- outpatient Wendy visit for [address], established [id number] patient, [phone] which requires at least 2 of these 3 treviño components: An expanded problem focused history; An expanded problem focused examination; Medical decision making of low SNOMED-CT () 2018-08-25 complete Mental d [address], [id number] [phone] SNOMED-CT () 2018-09-07 complete Mental d [facility], [id number] [phone] Office or [id number] SNOMED-CT () 2018-09-08 complete Mental other 6 d Health- outpatient Wendy visit for [address], established [id number] patient, [phone] which requires at least 2 of these 3 treviño components: A problem focused history; A problem focused examination; Straightforw jannie medical decision making. Counselin SNOMED-CT () 2018-10-09 complete Mental d [facility], [id number] [phone] SNOMED-CT () 2018-10-16 complete Mental d Health[address], [id number] [phone] Office or [id number] SNOMED-CT () 2018-10-20 complete Mental other 6 d Health- outpatient [place] visit for [address], established [id number] patient, [phone] which requires at least 2 of these 3 treviño components: A problem focused history; A problem focused examination; Straightforw jannie medical decision making. Maida SNOMED-CT () 2018-10-25 complete Mental d Health- [address], [id number] [phone] SNOMED-CT () 2018-10-30 complete Mental d Health- [address], [id number] [phone] SNOMED-CT () 2018-11-13 complete Mental d Health- [address], [id number] [phone] Psychotherap [id number] SNOMED-CT () 2018-11-28 complete Mental y, 45 04 d Health- minutes with Wendy patient [address], [id number] [phone] Office or [id number] SNOMED-CT () 2018-11-30 complete Mental other 6 d Health- outpatient Wendy visit for [address], [facility], [facility] [id number] patient, [phone] which requires at least 2 of these 3 treviño components: A problem focused history; A problem focused examination; Straightforw jannie medical decision making. Counselin SNOMED-CT () 2018-12-07 complete Mental d [facility], [id number] [phone] Office or [id number] SNOMED-CT () 2018-12-15 complete Mental other 7 d Health- outpatient Wendy visit for [address], established [id number] patient, [phone] which requires at least 2 of these 3 treviño components: An expanded problem focused history; An expanded problem focused examination; Medical decision making of low SNOMED-CT () 2018-12-15 complete Mental d Health- [address], [id number] [phone] SNOMED-CT () 2018-12-28 complete Mental d Health- [address], [id number] [phone] Office or [id number] SNOMED-CT () 2019-01-10 complete Mental other 7 d Health- outpatient [place] visit for [address], established [id number] patient, [phone] which requires at least 2 of these 3 treviño components: An expanded problem focused history; An expanded problem focused examination; Medical decision making of low Psychotherap [id number] SNOMED-CT () 2019-01-15 complete Mental y, 45 04 d Health- minutes with [address], [id number] [phone] Office or [id number] SNOMED-CT () 2019-02-14 complete Mental other 6 d Health- outpatient [place] visit for [address], established [id number] patient, [phone] which requires at least 2 of these 3 treviño components: A problem focused history; A problem focused examination; Straightforw jannie medical decision making. Counselin SNOMED-CT () 2019-02-13 complete Mental d Health- [address], [id number] [phone] SNOMED-CT () 2019-03-01 complete Mental d [facility], [id number] [id number] SNOMED-CT () 2019-03-07 complete Mental d Health- [address], [id number] [phone] SNOMED-CT () 2019-03-22 complete Mental d Health- [address], [id number] [phone] SNOMED-CT () 2019-04-06 complete Mental d Health- [address], [id number] [phone] Psychotherap [id number] SNOMED-CT () 2019-04-11 complete Mental y, 45 04 d Health- minutes with [address], [id number] [phone] Psychotherap [id number] SNOMED-CT () 2019-04-18 complete Mental y, 45 04 d Health- minutes with [address], [id number] [phone] Office or [id number] SNOMED-CT () 2019-04-20 complete Mental other 6 d Health- outpatient Wendy visit for [address], established [id number] patient, [phone] which requires at least 2 of these 3 treviño components: A problem focused history; A problem focused examination; Straightforw jannie medical decision making. Maida SNOMED-CT () 2019-04-25 complete Mental d Health- [address], [id number] [phone] Psychotherap [id number] SNOMED-CT () 2019-05-08 complete Mental y, 45 04 d Health- minutes with Wendy patient [address], [id number] [phone] Office or [id number] SNOMED-CT () 2019-05-10 complete Mental other 6 d Health- outpatient [place] visit for [address], established [id number] patient, [phone] which requires at least 2 of these 3 treviño components: A problem focused history; A problem focused examination; Straightforw jannie medical decision making. Maida SNOMED-CT () 2019-05-16 complete Mental d Health- [address], [id number] [phone] Encounters/Encounter Diagnoses Encounter Encounter Diagnosis Diagnosis Name Diagnosis Date of Service Name Code Code CodeSystem Diagnosis Delivery Location [id number] Schizophrenia, SNOMED-CT [facility] , , , Vital Signs No Information Social History Element Description Description Start End Code CodeSystem AdditionalInfo Date Date SexAssignedAtBirth Male 1990-0 M AdministrativeGender 12-04 Hospital Discharge Instructions Reason For Referral Medical Equipment FDA Assessments
--- OUTSIDE RECORDS SUMMARY | 2019-05-31 20:40 | XMS REPORT ---
:1990 Author Organization [facility] Care Team Providers Name Role Phone YURIY NICK Primary Care Physician Unavailable Allergies, Adverse Reactions, Alerts Allergy Code CodeSystem Reaction Severity Criticality Status Start Substance Date Moderate Medications Medication Medication Medication Start Stop Route Dose Status Fill Code CodeSystem Date Date Instructions clozapine [id number] RxNorm 2018-07- oral 200 mg 2 completed 2 tablet at -15 08-12 tablet bedtime for at 30 day(s) bedtime Vraylar [id number] RxNorm 2017-05- oral 4.5 mg 1 completed 1 capsule -21 -20 capsule once a day once a for 30 day(s) day Vraylar [id number] RxNorm 2018-11- oral 6 mg 1 active 1 capsule -20 -18 capsule once a day once a for 30 day(s) day clozapine [id number] RxNorm 2017-05- oral 200 mg 2 completed 2 tablet at -21 04-12 tablet bedtime for at 30 day(s) bedtime clozapine [id number] RxNorm 2018-06- oral 100 mg completed for 30 -12 05-10 tablet day(s) clozapine [id number] RxNorm 2018-06- oral 200 mg 2 completed 2 tablet at -12 05-15 tablet bedtime for at 30 day(s) bedtime Topamax [id number] RxNorm 2018-06- oral 25 mg 1 active Take 1 tablet -29 10-24 tablet twice a day twice a for 30 day(s) day clozapine [id number] RxNorm 2017-09- oral 25 mg 1 completed 1 tablet at -09 04-01 tablet bedtime for at 14 day(s) bedtime sertraline [id number] RxNorm 2017-05- oral 100 mg 2 active 2 tablet -21 02-08 tablet once a day once a for 30 day(s) day clozapine 336168 RxNorm 2019-08 2020- oral 100 mg active for 05-05 tablet day(s) clozapine [id number] RxNorm 2018-07- oral 100 mg completed for 11-06 tablet day(s) topiramate [id number] RxNorm 2018-04- oral 50 mg 1 completed 1 tablet -06-26 tablet twice a day twice a for 30 day(s) day clonazepam 19740504 RxNorm 2017-06- oral 0.5 mg 1 completed 1 tablet -05 03-14 tablet twice a day twice a for 30 day(s) day clozapine [id number] RxNorm 2018-10- oral 200 mg 2 active 2 tablet at 05-05 tablet bedtime for at 30 day(s) bedtime Topamax 618703 RxNorm 2018-06- oral 50 mg 1 completed Take 1 tablet -07-24 tablet twice a day twice a for 30 day(s) day clozapine 19740530 RxNorm 2017-06- oral 100 mg completed for 07-07 tablet day(s) topiramate [id number] RxNorm 2018-06- oral 25 mg 1 completed 1 tablet -12 tablet twice a day twice a for 30 day(s) day clonazepam 19740504 RxNorm 2018-09- oral 0.5 mg 1 completed 1 tablet -12-01 tablet twice a day twice a as needed for day 30 day(s) clonazepam 19740504 RxNorm 2018-11- oral 0.5 mg 1 active 1 tablet -20 10-20 tablet twice a day twice a for 30 day(s) day clozapine 19740530 RxNorm 2018-07- oral 100 mg completed for -15 tablet day(s) Problems Problem Name Code CodeSystem Alternate Alternate Start End Status Narrative Code CodeSystem Date Date Schizophreni [id number] SNOMED-CT 0 Active a, 9-18 unspecified Relevant diagnostic tests/laboratory data Narrative No Information Procedures Procedure Code CodeSystem Target Date of Status Service Device Device Device Name Site Procedure Delivery Code Name UID Location Office or [id number] SNOMED-CT () 2018-06-26 complete Mental other 7 d Health- outpatient [facility] visit for [address], [facility], [facility], established [id number] patient, [phone] which requires at least 2 of these 3 treviño components: An expanded problem focused history; An expanded problem focused examination; Medical decision making of low SNOMED-CT () 2018-07-21 complete [facility] d [facility], [id number] [id number] SNOMED-CT () 2018-07-28 complete Mental d [facility], [id number] [id number] Office or [id number] SNOMED-CT () 2018-08-04 complete Mental other 7 d Health- outpatient Wendy visit for [address], established [id number] patient, [phone] which requires at least 2 of these 3 treviño components: An expanded problem focused history; An expanded problem focused examination; Medical decision making of low SNOMED-CT () 2018-08-25 complete Mental d [address], [id number] [id number] SNOMED-CT () 2018-09-07 complete Mental d [facility], [id number] [id number] Office or [id number] SNOMED-CT () 2018-09-08 complete Mental other 6 d Health- outpatient Wendy visit for [address], established [id number] patient, [phone] which requires at least 2 of these 3 treviño components: A problem focused history; A problem focused examination; Straightforw jannie medical decision making. Counselin SNOMED-CT () 2018-10-09 complete Mental d [facility], [id number] [id number] SNOMED-CT () 2018-10-16 complete Mental d [facility], [id number] [id number] Office or [id number] SNOMED-CT () 2018-10-20 complete Mental other 6 d Health- outpatient [facility] visit for [address], established [id number] patient, [phone] which requires at least 2 of these 3 treviño components: A problem focused history; A problem focused examination; Straightforw jannie medical decision making. Maida SNOMED-CT () 2018-10-25 complete Mental d Health- [address], [id number] [id number] SNOMED-CT () 2018-10-30 complete Mental d Health- [address], [id number] [phone] SNOMED-CT () 2018-11-13 complete Mental d Health- [address], [id number] [id number] Psychotherap [id number] SNOMED-CT () 2018-11-28 complete Mental y, 45 04 d Health- minutes with Wendy patient [address], [id number] [id number] Office or [id number] SNOMED-CT () 2018-11-30 complete Mental other 6 d Health- outpatient [facility] visit for [address], [facility], [facility] [id number] patient, [phone] which requires at least 2 of these 3 treviño components: A problem focused history; A problem focused examination; Straightforw jannie medical decision making. Counselin SNOMED-CT () 2018-12-07 complete Mental d [facility], [id number] [phone] Office or [id number] SNOMED-CT () 2018-12-15 complete Mental other 7 d Health- outpatient Wendy visit for [address], established [id number] patient, [phone] which requires at least 2 of these 3 treviño components: An expanded problem focused history; An expanded problem focused examination; Medical decision making of low SNOMED-CT () 2018-12-15 complete Mental d Health- [address], [id number] [phone] SNOMED-CT () 2018-12-28 complete Mental d Health- [address], [id number] [id number] Office or [id number] SNOMED-CT () 2019-01-10 complete Mental other 7 d Health- outpatient Wendy visit for [address], established [id number] patient, [phone] which requires at least 2 of these 3 treviño components: An expanded problem focused history; An expanded problem focused examination; Medical decision making of low Psychotherap [id number] SNOMED-CT () 2019-01-15 complete Mental y, 45 04 d Health- minutes with [address], [id number] [id number] Office or [id number] SNOMED-CT () 2019-02-14 complete Mental other 6 d Health- outpatient [facility] visit for [address], established [id number] patient, [phone] which requires at least 2 of these 3 treviño components: A problem focused history; A problem focused examination; Straightforw jannie medical decision making. Counselin SNOMED-CT () 2019-02-13 complete Mental d Health- [address], [id number] [phone] SNOMED-CT () 2019-03-01 complete Mental d [facility], [id number] [phone] SNOMED-CT () 2019-03-07 complete Mental d Health- [address], [id number] [phone] SNOMED-CT () 2019-03-22 complete Mental d Health- [address], [id number] [phone] SNOMED-CT () 2019-04-06 complete Mental d Health- [address], [id number] [phone] Psychotherap [id number] SNOMED-CT () 2019-04-11 complete Mental y, 45 04 d Health- minutes with [address], [id number] [phone] Psychotherap [id number] SNOMED-CT () 2019-04-18 complete Mental y, 45 04 d Health- minutes with [address], [id number] [id number] Office or [id number] SNOMED-CT () 2019-04-20 complete Mental other 6 d Health- outpatient [facility] visit for [address] evaluation Kathy, management Pierce, of an [facility] established [id number] patient, [phone] which requires at least 2 of these 3 treviño components: A problem focused history; A problem focused examination; Straightforw jannie medical decision making. Counselin Encounters/Encounter Diagnoses Encounter Encounter Diagnosis Diagnosis Name Diagnosis Date of Service Name Code Code CodeSystem Diagnosis Delivery Location [id number] Schizophrenia, SNOMED-CT [facility] , , , Vital Signs No Information Social History Element Description Description Start End Code CodeSystem AdditionalInfo Date Date SexAssignedAtBirth Male 1990- M AdministrativeGender 12-04 Hospital Discharge Instructions Reason For Referral Medical Equipment FDA Assessments
--- OUTSIDE RECORDS SUMMARY | 2019-05-31 20:40 | XMS REPORT ---
:1990 Author Organization [facility] Care Team Providers Name Role Phone YURIY NICK Primary Care Physician Unavailable Allergies, Adverse Reactions, Alerts Allergy Code CodeSystem Reaction Severity Criticality Status Start Substance Date Moderate Medications Medication Medication Medication Start Stop Route Dose Status Fill Code CodeSystem Date Date Instructions clozapine [id number] RxNorm 2017-09- oral 25 mg 1 completed 1 tablet at - 04-01 tablet bedtime for at 14 day(s) bedtime Vraywir [id number] RxNorm 2018-11- oral 6 mg 1 active [...] twice a for 30 day(s) day topiramate 19971102 RxNorm 2018-06- oral 25 mg 1 completed 1 tablet - 04-12 tablet twice a day twice a for 30 day(s) day Vraylar [id number] RxNorm 2017-05- oral 4.5 mg 1 completed 1 capsule -21 09-20 capsule once a day once a for 30 day(s) day clozapine 218202 RxNorm 2018-06- oral 200 mg 2 completed 2 tablet at -12 05-15 tablet bedtime for at 30 day(s) bedtime clozapine 647864 RxNorm 2018-10- oral 200 mg 2 active 2 tablet at -12 02-08 tablet bedtime for at 30 day(s) bedtime clozapine 206885 RxNorm 2018-07- oral 100 mg completed for 30 -10 05-15 tablet day(s) clozapine 934859 RxNorm 2018-07- oral 200 mg 2 completed 2 tablet at -15 08-12 tablet bedtime for at 30 day(s) bedtime Topamax 395965 RxNorm 2018-06- oral 25 mg 1 active Take 1 tablet -29 10-24 tablet twice a day twice a for 30 day(s) day clozapine 19740530 RxNorm 2018-07- oral 100 mg completed for 11-06 tablet day(s) topiramate 361700 RxNorm 2018-04- oral 50 mg 1 completed 1 tablet -06-26 tablet twice a day twice a for 30 day(s) day Topamax 615296 RxNorm 2018-06- oral 50 mg 1 completed Take 1 tablet -07-24 tablet twice a day twice a for 30 day(s) day clozapine 19740530 RxNorm 2018-06- oral 100 mg completed for 08-04 tablet day(s) clonazepam 591923 RxNorm 2018-09- oral 0.5 mg 1 completed 1 tablet -10 -06 tablet twice a day twice a as needed for day 30 day(s) sertraline 240634 RxNorm 2017-05- oral 100 mg 2 active 2 tablet -05-05 tablet once a day once a for 30 day(s) day clozapine 19740530 RxNorm 2018-10 2020- oral 100 mg active for 05-05 tablet day(s) clozapine 399635 RxNorm 2017-05- oral 200 mg 2 completed 2 tablet at -21 04-12 tablet bedtime for at 30 day(s) bedtime clozapine 19740530 RxNorm 2017-06 2019- oral 100 mg completed for 07-07 tablet day(s) Problems Problem Name Code CodeSystem Alternate Alternate Start End Status Narrative Code CodeSystem Date Date Schizophreni [id number] SNOMED-CT Active a, 9-18 unspecified Relevant diagnostic tests/laboratory data Narrative No Information Procedures Procedure Code CodeSystem Target Date of Status Service Device Device Device Name Site Procedure Delivery Code Name UID Location Office or [id number] SNOMED-CT () 2018-06-26 complete Mental other 7 d Health- outpatient [place] visit for [address], [facility], [facility], established [id number] patient, [phone] which requires at least 2 of these 3 treviño components: An expanded problem focused history; An expanded problem focused examination; Medical decision making of low SNOMED-CT () 2018-07-21 complete Mental d Health[address], [id number] [phone] SNOMED-CT () 2018-07-28 complete Mental d Health[address], [id number] [phone] Office or [id number] SNOMED-CT () 2018-08-04 complete Mental other 7 d Health- outpatient Wendy visit for [address], established [id number] patient, [phone] which requires at least 2 of these 3 treviño components: An expanded problem focused history; An expanded problem focused examination; Medical decision making of low SNOMED-CT () 2018-08-25 complete Mental d [address], [id number] [phone] SNOMED-CT () 2018-09-07 complete Mental d [facility], [id number] [id number] Office or [id number] SNOMED-CT () 2018-09-08 complete Mental other 6 d Health- outpatient Wendy visit for [address], established [id number] patient, [phone] which requires at least 2 of these 3 treviño components: A problem focused history; A problem focused examination; Straightforw jannie medical decision making. Counselin SNOMED-CT () 2018-10-09 complete Mental d [facility], [id number] [phone] SNOMED-CT () 2018-10-16 complete Mental d [facility], [id number] [phone] Office or [id number] SNOMED-CT () 2018-10-20 complete Mental other 6 d Health- outpatient Wendy visit for [address], established [id number] patient, [phone] which requires at least 2 of these 3 treviño components: A problem focused history; A problem focused examination; Straightforw jannie medical decision making. Maida SNOMED-CT () 2018-10-25 complete Mental d Health- [address], [id number] [phone] SNOMED-CT () 2018-10-30 complete Mental d Health- [address], [id number] [phone] SNOMED-CT () 2018-11-13 complete Mental d Health- [address], [id number] [phone] Psychotherap [id number] SNOMED-CT () 2018-11-28 complete Mental y, 45 04 d Health- minutes with Wendy patient [address], [id number] [id number] Office or [id number] SNOMED-CT () 2018-11-30 complete Mental other 6 d Health- outpatient Wendy visit for [address], [facility], [facility] [id number] patient, [phone] which requires at least 2 of these 3 treviño components: A problem focused history; A problem focused examination; Straightforw jannie medical decision making. Counselin SNOMED-CT () 2018-12-07 complete Mental d [facility], [id number] [phone] Office or [id number] SNOMED-CT () 2018-12-15 complete Mental other 7 d Health- outpatient [place] visit for [address], established [id number] patient, [phone] which requires at least 2 of these 3 treviño components: An expanded problem focused history; An expanded problem focused examination; Medical decision making of low SNOMED-CT () 2018-12-15 complete Mental d Health- [address], [id number] [phone] SNOMED-CT () 2018-12-28 complete Mental d Health- [address], [id number] [id number] Office or [id number] SNOMED-CT () 2019-01-10 complete Mental other 7 d Health- outpatient [place] visit for [address], established [id number] patient, [phone] which requires at least 2 of these 3 treviño components: An expanded problem focused history; An expanded problem focused examination; Medical decision making of low Psychotherap [id number] SNOMED-CT () 2019-01-15 complete Mental y, 45 04 d Health- minutes with [address], [id number] [phone] Office or [id number] SNOMED-CT () 2019-02-14 complete Mental other 6 d Health- outpatient Wendy visit for [address], established [id number] patient, [phone] which requires at least 2 of these 3 treviño components: A problem focused history; A problem focused examination; Straightforw jannie medical decision making. Counselin SNOMED-CT () 2019-02-13 complete Mental d Health- [address], [id number] [phone] SNOMED-CT () 2019-03-01 complete Mental d [facility], [id number] [phone] SNOMED-CT () 2019-03-07 complete Mental d Health- [address], [id number] [phone] SNOMED-CT () 2019-03-22 complete Mental d Health- [address], [id number] [id number] SNOMED-CT () 2019-04-06 complete Mental d Health- [address], [id number] [phone] Psychotherap 307114 SNOMED-CT () 2019-04-11 complete Mental y, 45 04 d Health- minutes with [address], [id number] [phone] Psychotherap [id number] SNOMED-CT () 2019-04-18 complete Mental y, 45 04 d Health- minutes with [address], [id number] [phone] Office or [id number] SNOMED-CT () 2019-04-20 complete Mental other 6 d Health- outpatient Wendy visit for [address], established [id number] patient, [phone] which requires at least 2 of these 3 treviño components: A problem focused history; A problem focused examination; Straightforw jannie medical decision making. Counselin SNOMED-CT () 2019-04-25 complete Mental d Health- [place] [address], [id number] [phone] Psychotherap [id number] SNOMED-CT () 2019-05-08 complete Mental y, 45 04 d Health- minutes with [place] patient [address], [id number] [phone] Office or [id number] SNOMED-CT () 2019-05-10 complete Mental other 6 d Health- outpatient Wendy visit for [address], established [id number] patient, [phone] which requires at least 2 of these 3 treviño components: A problem focused history; A problem focused examination; Straightforw jannie medical decision making. Counselin Encounters/Encounter Diagnoses Encounter Encounter Diagnosis Diagnosis Name Diagnosis Date of Service Name Code Code CodeSystem Diagnosis Delivery Location [id number] Schizophrenia, SNOMED-CT [facility] , , , Vital Signs No Information Social History Element Description Description Start End Code CodeSystem AdditionalInfo Date Date SexAssignedAtBirth Male 1990- M AdministrativeGender 12-04 Hospital Discharge Instructions Reason For Referral Medical Equipment FDA Assessments
--- NOTE | 2019-05-31 20:48 | ED ---
Psychiatric Complaint - HPI Summary HPI Summary: 28-year-old male with significant past medical history of psychosis presents to the emergency department today with a chief complaint of auditory hallucinations. Patient states voices are telling him to "prepare for myers" however he has no suicidal or homicidal ideation at this time. Patient states prior to arrival voices told him to drink Mountain Dew and alcohol. Patient states he had 8 cans of Mountain Dew with three quarters of a 750 mL bottle of whiskey aprox 1.5 hours ago. Patient states shortly after this he vomited. Patient otherwise feels well at this time he denies any physical pain, fever, chest pain, bone pain, shortness of breath, pain with urination, nausea, vomiting and diarrhea. Patient does not appear intoxicated at this time. - History Of Current Complaint Chief Complaint: EDMentalHealth Time Seen by Provider: 05/31/19 20:35 Hx Obtained From: Patient Character: Fearful, Anxious Aggravating Factor(s): Recent Stress Associated Signs And Symptoms: Positive: Hallucinating, Paranoid Behavior Related History: Positive For: Prior Psychiatric Issues Has Suicidal: Denies: Thoughts Has Homicidal: Denies: Thoughts - Allergies/Home Medications Allergies/Adverse Reactions: Allergies Allergy/AdvReac Type Severity Reaction Status Date / Time haloperidol [From Haldol] AdvReac Severe See Comment Verified 05/31/19 20:32 lurasidone [From Latuda] AdvReac Intermediate See Comment Verified 05/31/19 20: 32 chlorpromazine AdvReac See Comment Verified 05/31/19 20:32 Home Medications: Home Medications Cariprazine 3 mg CAP (NF) [VRAYLAR 3 mg CAP (NF)] 6 mg PO DAILY #60 capsule 09/14 [Rx Confirmed 05/31/19] Famotidine TAB* [Pepcid 20 MG TAB*] 20 mg PO BID #60 tab 05/03/19 [Rx Confirmed 05/31/19] Sertraline* [Zoloft*] 200 mg PO BEDTIME #60 tab 05/03/19 [Rx Confirmed 05/31/19] Topiramate TAB(*) [Topamax 25 MG tab] 50 mg PO BEDTIME #30 tab 05/03/19 [Rx Confirmed 05/31/19] clonazePAM TAB(*) [Klonopin TAB(*)] 0.5 mg PO BID #60 tab MDD 2 05/03/19 [Rx Confirmed 05/31/19] CloZAPine TAB* 650 mg PO BEDTIME 05/31/19 [History Confirmed 05/31/19] PMH/Surg Hx/FS Hx/Imm Hx Endocrine/Hematology History: Denies: Hx Diabetes Cardiovascular History: Reports: Other Cardiovascular Problems/Disorders - increased QTC interval Denies: Hx Hypertension, Hx Pacemaker/ICD Respiratory History: Denies: Hx Asthma GI History: Reports: Hx Gastroesophageal Reflux Disease History: Denies: Hx Renal Disease Musculoskeletal History: Reports: Hx Back Problems - back injury from "a few years ago", Other Musculoskeletal History - hip dysplasia Denies: Hx Arthritis Sensory History: Denies: Hx Contacts or Glasses, Hx Deafness, Hx Hearing Aid Opthamlomology History: Denies: Hx Contacts or Glasses Neurological History: Reports: Other Neuro Impairments/Disorders - Hx of 6 concussions Denies: Hx Headaches, Hx Seizures, Hx Spinal Cord Injury, Hx Transient Ischemic Attacks (TIA) Psychiatric History: Reports: Hx Anxiety, Hx Depression, Hx Inpatient Treatment , Hx Community Mental Health Tx, Hx Schizophrenia, Hx Substance Abuse - alcohol , Other Psychiatric Issues/Disorders - psychosis, auditory hallucinations Denies: Hx Attention Deficit Hyperactivity Disorder, Hx Eating Disorder, Hx Panic Disorder, Hx Post Traumatic Stress Disorder, Hx Bipolar Disorder, Hx Suicide Attempt, Hx of Violent Episodes Against Others - Cancer History Hx Chemotherapy: No Hx Radiation Therapy: No Hx Palliative Cancer Treatment: No - Surgical History Surgery Procedure, Year, and Place: n/a - Immunization History Date of Tetanus Vaccine: 07/23/2017 Infectious Disease History: No Infectious Disease History: Denies: Hx Clostridium Difficile, Hx Hepatitis, Hx Human Immunodeficiency Virus (HIV), Hx of Known/Suspected MRSA, Hx Shingles, Hx Tuberculosis, Hx Known/ Suspected VRE, Hx Known/Suspected VRSA, History Other Infectious Disease, Traveled Outside the [place] in Last 30 Days - Family History Known Family History: Positive: Other - Psychotic disorders, Schizophrenia, anxiety Negative: Cardiac Disease, Hypertension, Diabetes Family History: R & n/C - Social History Alcohol Use: Weekly Alcohol Amount: ~2-3 drinks/week Hx Substance Use: Yes Substance Use Type: Reports: None Substance Use Comment - Amount & Last Used: denies Hx Tobacco Use: No Smoking Status (MU): Former Smoker Type: eCigarettes Have You Smoked in the Last Year: No Review of Systems Constitutional: Negative Eyes: Negative ENT: Negative Cardiovascular: Negative Respiratory: Negative Gastrointestinal: Negative Genitourinary: Negative Musculoskeletal: Negative Skin: Negative Neurological/Mental Status: Negative Psychological: Normal All Other Systems Reviewed And Are Negative: Yes Physical Exam - Summary Physical Exam Summary: Patient makes poor eye contact and has flat affect and conversation. Triage Information Reviewed: Yes Vital Signs On Initial Exam: Initial Vitals Temp Pulse Resp BP Pulse Ox 98.2 F 124 16 162/85 99 05/31/19 20:20 05/31/19 20:20 05/31/19 20:20 05/31/19 20:20 05/31/19 20:20 Vital Signs Reviewed: Yes Appearance: Positive: Well-Appearing, No Pain Distress, Well-Nourished Skin: Positive: Warm, Skin Color Reflects Adequate Perfusion Eyes: Positive: EOMI, HILARY ENT: Positive: Hearing grossly normal Respiratory/Lung Sounds: Positive: Clear to Auscultation, Breath Sounds Present Cardiovascular: Positive: RRR, S1, S2 Abdomen Description: Positive: Nontender, Soft Bowel Sounds: Positive: Present Musculoskeletal: Positive: Strength/ROM Intact Neurological: Positive: Sensory/Motor Intact, Alert, Oriented to Person Place, Time, Normal Gait, Facial Symmetry, Speech Normal Psychiatric: Positive: Normal, Affect/Mood Appropriate AVPU Assessment: Alert Procedures - Sedation Patient Received Moderate/Deep Sedation with Procedure: No Diagnostics - Vital Signs Vital Signs Temp Pulse Resp BP Pulse Ox 05/31/19 20:20 98.2 F 124 16 162/85 99 - Laboratory Result Diagrams: 05/31/19 20:51 05/31/19 20:51 Lab Statement: Any lab studies that have been ordered have been reviewed, and results considered in the medical decision making process. Course/Dx - Course Course Of Treatment: Patient was evaluated in the emergency department today for psychosis. Vitals noted. Patient was placed into a safe room and placed under observation. The lungs were collected and laboratory studies are obtained from the patient. Laboratory studies returned unremarkable other than serum alcohol at 164. Patient was observed for 2.5 hours and cleared for mental health evaluation and disposition by psychiatric services. Psychiatrist , Dr. Crawford believed the patient should be admitted for further management of psychosis. Patient admitted to [facility] behavioral health unit. - Differential Dx/Clinical Impression Differential Diagnosis/HQI/PQRI: Positive: Acute Psychosis, Alcohol Intoxication , Anxiety, Homicidal Ideation, Suicidal Ideation Provider Diagnosis: Acute psychosis - Physician Notifications Discussed Care Of Patient With: Narinder Crawford - patient be admitted to [facility] for further evaluation and management of psychosis Instructed by Provider To: Admit As Inpatient Discharge ED - Sign-Out/Discharge Documenting (check all that apply): Patient Departure - Discharge Plan Condition: Stable Dis[place] [place]errals: Aman Ya MD [Primary Care Provider] - - Billing Disposition and Condition Condition: STABLE Disposition: Psychiatric Facility [facility] [place]
[2019-05-31 20:59] LABS: ABS Lymphocytes 2.1 10^3/ul (1.0-4.8); ABS Monocytes 0.7 10^3/ul (0-0.8); ABS Neutrophils 5.3 10^3/ul (1.5-7.7); Hematocrit 46 % (42-52); Hemoglobin 15.8 g/dL (14.0-18.0); Lymphocyte % 25.5 %; Mean Corpuscular HGB Conc 34 g/dL (31-36); Mean Corpuscular Hemoglobin 29 pg (27-31); Mean Corpuscular Volume 83 fL (80-94); Mean Platelet Volume 8.6 fL (7.4-10.4); Nucleated Red Blood Cells % 0.1; Platelet Count 234 10^3/uL (150-450); Red Blood Count 5.54 10^6 /uL (4.18-5.48); Red Cell Distribution Width 14 % (10-15); White Blood Count 8.1 10^3/uL (3.5-10.8)
[2019-05-31 21:13] LABS: Urine Appearance Clear; Urine Bilirubin Negative (Negative); Urine Blood Negative (Negative); Urine Color Colorless; Urine Glucose Negative (Negative); Urine Ketones Negative (Negative); Urine Nitrite Negative (Negative); Urine Protein Negative (Negative); Urine Specific Gravity 1.001 (1.010-1.030); Urine Urobilinogen Negative (Negative)
[2019-05-31 21:15] LABS: ALT 20 U/L (7-52); AST 18 U/L (13-39); Albumin 5.2 g/dL (3.2-5.2); Albumin/Globulin Ratio 2.1 (1-3); Alkaline Phosphatase 77 U/L (34-104); Anion Gap 11 mmol/L (2-11); BUN/Creatinine Ratio 7.9 (8-20); Blood Urea Nitrogen 14 mg/dL (6-24); CO2 Carbon Dioxide 22 mmol/L (22-32); Calcium 9.7 mg/dL (8.6-10.3); Chloride 105 mmol/L (101-111); EGFR African American 55.7 (>60); Globulin 2.5 g/dL (2-4); Glucose 116 mg/dL (70-100); Potassium 3.5 mmol/L (3.5-5.0); Sodium 138 mmol/L (135-145); Total Protein 7.7 g/dL (6.4-8.9)
[2019-05-31 21:27] LABS: Acetaminophen < 15 mcg/mL; Alcohol 164 mg/dL (<10); Salicylate < 2.50 mg/dL (<30)
[2019-05-31 21:30] LABS: Urine Benzodiazepine Screen None Detected (None Detect); Urine Opiates Screen None Detected (None Detect)
[2019-05-31 21:42] LABS: TSH (Thyroid Stimulating Horm) 1.79 mcIU/mL (0.34-5.60)
[2019-06-01] MEDS ORDERED: Famotidine TAB* 20 MG PO ONE (00:32)
[2019-06-01] MEDS ORDERED: Al Hydrox/Mg Hydrox/Simet LIQ* 30 ML UDC PO ONE (00:32)
[2019-06-01] MEDS ORDERED: Acetaminophen TAB* 325 MG PO PRN (01:39)
[2019-06-01] MEDS ORDERED: Al Hydrox/Mg Hydrox/Simet LIQ* 30 ML UDC PO PRN (01:39)
[2019-06-01] MEDS: clonazePAM TAB(*) 0.5 MG PO SCH ×3 (02:30→11:25)
[2019-06-01] MEDS: Topiramate TAB(*) 25 MG PO SCH (02:30)
[2019-06-01] MEDS: Sertraline* 100 MG TAB PO SCH (02:30)
[2019-06-01] MEDS: CloZAPine TAB* 100 MG TAB PO SCH (02:30)
[2019-06-01] MEDS ORDERED: Ziprasidone * 20 MG CAP (generic Geodon) PO STA (04:10)
[2019-06-01] MEDS ORDERED: Ziprasidone IM INJ* 20 MG/ML VIAL IM STA (04:10)
[2019-06-01] MEDS ORDERED: Ziprasidone * 20 MG CAP (generic Geodon) PO ONE (04:15)
[2019-06-01] MEDS ORDERED: Ziprasidone IM INJ* 20 MG/ML VIAL ONE ×2 (04:15→16:02)
[2019-06-01] MEDS: CARIPRAZINE 6 MG PO SCH ×2 (04:30→08:11)
[2019-06-01] MEDS: Vitamin THERAPEUTIC TAB PO SCH ×2 (09:59→11:26)
[2019-06-01] MEDS: Famotidine TAB* 20 MG PO SCH ×2 (09:59→11:25)
[2019-06-01] MEDS ORDERED: Ziprasidone IM INJ* 20 MG/ML VIAL IM ONE (16:01)
[2019-06-01] MEDS ORDERED: LORazepam INJ* 2 MG/ML 1 ML VIAL IM ONE ×2 (16:02→16:46)
[2019-06-01] MEDS ORDERED: Lorazepam PYXIS KEY PRN (16:02)
[2019-06-01] MEDS ORDERED: LORazepam INJ* 2 MG/ML 1 ML VIAL ONE ×2 (16:05→16:48)
[2019-06-01] MEDS ORDERED: Lorazepam PYXIS KEY ONE (16:47)
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
[2019-06-02] MEDS: clonazePAM TAB(*) 0.5 MG PO SCH ×3 (03:28→21:06)
[2019-06-02] MEDS: CloZAPine TAB* 100 MG TAB PO SCH ×2 (03:28→21:04)
[2019-06-02] MEDS: Topiramate TAB(*) 25 MG PO SCH ×2 (03:29→21:07)
[2019-06-02] MEDS: Sertraline* 100 MG TAB PO SCH ×2 (03:29→21:07)
[2019-06-02] MEDS: Famotidine TAB* 20 MG PO SCH ×3 (03:29→21:19)
[2019-06-02] MEDS: Vitamin THERAPEUTIC TAB PO SCH (12:07)
[2019-06-02] MEDS: CARIPRAZINE 6 MG PO SCH (12:07)
[2019-06-03 08:21] LABS: HDL Cholesterol 30.4 mg/dL
[2019-06-03] MEDS: Famotidine TAB* 20 MG PO SCH ×2 (12:36→20:21)
[2019-06-03] MEDS: Vitamin THERAPEUTIC TAB PO SCH (12:36)
[2019-06-03] MEDS: clonazePAM TAB(*) 0.5 MG PO SCH ×2 (12:36→20:22)
[2019-06-03] MEDS: CARIPRAZINE 6 MG PO SCH (12:36)
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
[2019-06-03] MEDS: CloZAPine TAB* 100 MG TAB PO SCH (20:21)
[2019-06-03] MEDS: Topiramate TAB(*) 25 MG PO SCH (20:22)
[2019-06-03] MEDS: Sertraline* 100 MG TAB PO SCH (20:22)
[2019-06-04] MEDS: Famotidine TAB* 20 MG PO SCH ×2 (10:33→20:38)
[2019-06-04] MEDS: Vitamin THERAPEUTIC TAB PO SCH (10:33)
[2019-06-04] MEDS: clonazePAM TAB(*) 0.5 MG PO SCH ×2 (10:33→20:37)
[2019-06-04] MEDS: CARIPRAZINE 6 MG PO SCH (10:34)
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
[2019-06-04] MEDS: CloZAPine TAB* 100 MG TAB PO SCH (20:34)
[2019-06-04] MEDS: Sertraline* 100 MG TAB PO SCH (20:37)
[2019-06-04] MEDS: Topiramate TAB(*) 25 MG PO SCH (20:37)
[2019-06-05] MEDS: Vitamin THERAPEUTIC TAB PO SCH (12:25)
[2019-06-05] MEDS: clonazePAM TAB(*) 0.5 MG PO SCH ×2 (12:25→20:49)
[2019-06-05] MEDS: Famotidine TAB* 20 MG PO SCH ×2 (12:25→20:51)
[2019-06-05] MEDS: CARIPRAZINE 6 MG PO SCH (12:26)
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
[2019-06-05] MEDS: CloZAPine TAB* 100 MG TAB PO SCH (20:47)
[2019-06-05] MEDS: Topiramate TAB(*) 25 MG PO SCH (20:49)
[2019-06-05] MEDS: Sertraline* 100 MG TAB PO SCH (20:49)
[2019-06-06] MEDS: Vitamin THERAPEUTIC TAB PO SCH (10:14)
[2019-06-06] MEDS: clonazePAM TAB(*) 0.5 MG PO SCH ×2 (10:15→21:01)
[2019-06-06] MEDS: Famotidine TAB* 20 MG PO SCH ×2 (10:16→21:03)
[2019-06-06] MEDS: CARIPRAZINE 6 MG PO SCH (10:16)
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
--- NOTE | 2019-06-06 15:54 | PN ---
BSU: Group Therapy Note - Service Type Service Type: 24508 Group Psychotherapy - Participated well. Was eager for the information and responded thoughtfully and carefully. Was appropriate. - Group Participation Patient Participating in Group: Yes Level of Group Participation: Attentive, Spontaneously Participate Relatedness to Group: Well Related
[2019-06-06] MEDS: Topiramate TAB(*) 25 MG PO SCH (21:02)
[2019-06-06] MEDS: CloZAPine TAB* 100 MG TAB PO SCH (21:02)
[2019-06-06] MEDS: Sertraline* 100 MG TAB PO SCH (21:21)
[2019-06-07] MEDS: Vitamin THERAPEUTIC TAB PO SCH (09:38)
[2019-06-07] MEDS: Famotidine TAB* 20 MG PO SCH ×2 (09:38→20:27)
[2019-06-07] MEDS: clonazePAM TAB(*) 0.5 MG PO SCH ×2 (09:39→20:27)
[2019-06-07] MEDS: CARIPRAZINE 6 MG PO SCH (09:40)
[2019-06-07] MEDS: CloZAPine TAB* 100 MG TAB PO SCH (20:25)
[2019-06-07] MEDS: Sertraline* 100 MG TAB PO SCH (20:26)
[2019-06-07] MEDS: Topiramate TAB(*) 25 MG PO SCH (20:27)
[2019-06-08 09:31] VITALS: BP 97/49
[2019-06-08] MEDS: clonazePAM TAB(*) 0.5 MG PO SCH (09:39)
[2019-06-08] MEDS: Famotidine TAB* 20 MG PO SCH (09:39)
[2019-06-08] MEDS: CARIPRAZINE 6 MG PO SCH (09:41)
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
== END 2019-06-08 12:30 | disposition home or self-care (01) | DRG 885 ==
LOC: ED 20:04 → BSU 06-01 00:30
PROVIDERS: ADMIT Psychiatry & Neurology Psychiatry; ATTEND Psychiatry & Neurology Psychiatry
PROC: GZHZZZZ Group Psychotherapy (ICD-10-PCS; principal; 2019-06-06)
DX: F20.9 Schizophrenia, unspecified (principal); K21.9 Gastro-esophageal reflux disease without esophagitis; R94.4 Abnormal results of kidney function studies; F41.9 Anxiety disorder, unspecified; F32.9 Major depressive disorder, single episode, unspecified; Z87.820 Personal history of traumatic brain injury; Z87.891 Personal history of nicotine dependence; Z88.8 Allergy status to other drugs, medicaments and biological substances; Z78.1 Physical restraint status
CPT/HCPCS: 36415; 80053; 80061; 80307; 80320; 80329; 81003; 83036; 84443; 85025; 99222; 99231; 99238; 99284; A9270-GY; G0480; J2060; J3486

== ENCOUNTER 2023-05-31 00:17 | Inpatient (IN) ==
[2023-05-31 01:29] LABS: Urine Benzodiazepine Screen None Detected (None Detect); Urine Cannabinoids Screen None Detected (None Detect); Urine Opiates Screen None Detected (None Detect)
[2023-05-31] MEDS ORDERED: Al Hydrox/Mg Hydrox/Simet LIQ 30 ML UDC PO PRN (07:32)
[2023-05-31] MEDS: CARIPRAZINE 6 MG PO SCH (12:38)
[2023-05-31] MEDS: Atropine 1% (ORAL/SL) 15 ML BTL SL SCH (14:30)
[2023-05-31] MEDS: Nicotine GUM 2MG FRUIT FLAVOR PO PRN (14:32)
[2023-05-31] MEDS: NF:Cariprazine 3 mg CAP (NF) PO SCH (16:28)
[2023-06-01 08:34] LABS: ABS Lymphocytes 2.6 10^3/uL (1.0-4.8); ABS Monocytes 0.7 10^3/uL (0.0-1.1); ABS Neutrophils 5.1 10^3/uL (1.5-7.6); ABS Nucleated RBC 0.02 10^3/ul; Eosinophil % 0.1 %; Hematocrit 42.5 % (38-53); Hemoglobin 14.5 g/dL (13.2-16.3); Lymphocyte % 31.2 %; Mean Corpuscular Hemoglobin 29.5 pg (27-33); Mean Corpuscular Hgb Conc 34.2 g/dL (31-36); Mean Corpuscular Volume 86.1 fL (80-97); Mean Platelet Volume 9.7 fL (7.5-11.2); Nucleated Red Blood Cells % 0.2 %/100WBC (0.0-0.8); Platelet Count 173 10^3/uL (150-450); Red Blood Count 4.94 10^6/uL (4.06-5.63); Red Cell Distribution Width 13.6 % (12-17); White Blood Count 8.4 10^3/uL (3.6-10.2)
[2023-06-01 08:51] LABS: Albumin 4.3 g/dL (3.2-5.2); Albumin/Globulin Ratio 2.9 (1-3); Creatinine, Serum 1.45 mg/dL (0.67-1.17); Globulin 1.5 g/dL (2-4); HDL Cholesterol 32.6 mg/dL; Potassium 4.2 mmol/L (3.5-5.0); Total Bilirubin 0.2 mg/dL (0.2-1.0); Total Protein 5.8 g/dL (6.4-8.9); eGFR CKD-EPI 65.7 (>60)
[2023-06-01] MEDS: Atropine 1% (ORAL/SL) 15 ML BTL SL SCH (20:53)
[2023-06-02] MEDS: Atropine 1% (ORAL/SL) 15 ML BTL SL SCH (09:01)
[2023-06-02 09:13] VITALS: BP 117/68
[2023-06-03 20:12] LABS: Clozapine 344 ng/mL (350-600); Clozapine & Norclozapine Level 624 ng/mL; Norclozapine 280 ng/mL
== END 2023-06-02 14:38 | disposition home or self-care (01) | DRG 885 ==
LOC: ED 00:17 → EDHOLD 07:32 → BSU 08:57
PROVIDERS: ADMIT Psychiatry & Neurology Psychiatry; ATTEND Student in an Organized Health Care Education/Training Program